=== PATIENT | male | born 1950 | race Hispanic/Latino ===

== ENCOUNTER → 2020-07-12 | Day surgery (SDC) | payer MEDICARE, OTHER ==
[2020-07-06 11:00] LABS: BASOPHILS # (AUTO) 0.2 (0.0-0.1); BASOPHILS % 1.7 % (0.0-1.0); EOSINOPHILS # (AUTO) 0.3 (0.0-0.4); EOSINOPHILS % 3.7 % (0.0-6.0); HEMATOCRIT 39.6 % (38.2-49.6); HEMOGLOBIN 12.8 g/dL (14.0-18.0); LYMPHOCYTES % 22.5 % (18.0-39.1); MEAN CORPUSCULAR HEMOGLOBIN 29.8 pg (28-32); MEAN CORPUSCULAR HGB CONC 32.3 g/dL (31-35); MEAN CORPUSCULAR VOLUME 92.1 fL (81-99); MONOCYTES # (AUTO) 0.9 (0.2-0.8); MONOCYTES % 9.8 % (4.4-11.3); NEUTROPHILS # (AUTO) 5.6 (2.1-6.9); NEUTROPHILS % 62.1 % (38.7-80.0); PLATELET COUNT 310 x10e3/uL (140-360); RED CELL DISTRIBUTION WIDTH 14.7 % (11.7-14.4)
[~2020-07-12] MED LIST: ACARBOSE25 MG PO; AMIODARONE HCL200 MG PO; AMIODARONE HCL400 MG PO; ASPIR 8181 MG PO; ATORVASTATIN CA40 MG PO; AVODART0.5 MG PO; CARAFATE1 GM PO; CEFUROXIME250 MG PO; CITALOPRAM HBR20 MG PO; COLACE100 MG PO; Divalproex Sodium PO; FAMOTIDINE20 MG PO; FENTANYL CITRATE/PF 100MCG/2 ML INJ ONE; FERROUS SULFAT325 MG PO; FLAGYL500 MG PO; GLIPIZIDE5 MG PO; LASIX20 MG PO; LOSARTAN POTAS100 MG PO; METFORMIN HCL500 MG PO; METOPROLOL SUCC50 MG PO; MILK OF MA400 MG/5 M PO; MULTIVITAMINS1 EAC6 PO; NITROSTAT0.4 MG; OMEPRAZOLE40 MG PO; PLAVIX75 MG PO; PRAVASTATIN SOD20 MG PO; PROPOFOL IV EMULSION 10 MG/ML 20 ML VIAL ONE; PROTONIX40 MG/ML PO; REGLAN10 MG PO; REGLAN5 MG PO; SENOKOT8.6 MG PO; SEROQUEL25 MG PO; TYLENOL WITH C1 EACH PO; XARELTO20 MG PO; ZOFRAN ODT4 MG PO
[2020-07-12 08:55] VITALS: BP 142/65
== END | disposition home or self-care (01) ==
LOC: OR 05:57
PROVIDERS: ATTEND Internal Medicine Gastroenterology
DX: K29.50 Unspecified chronic gastritis without bleeding (principal); K44.9 Diaphragmatic hernia without obstruction or gangrene; K59.00 Constipation, unspecified; Z71.3 Dietary counseling and surveillance; E66.3 Overweight; I25.10 Atherosclerotic heart disease of native coronary artery without angina pectoris; I25.2 Old myocardial infarction; E11.22 Type 2 diabetes mellitus with diabetic chronic kidney disease; I12.9 Hypertensive chronic kidney disease with stage 1 through stage 4 chronic kidney disease, or unspecified chronic kidney disease; N18.9 Chronic kidney disease, unspecified; Z01.810 Encounter for preprocedural cardiovascular examination; Z01.812 Encounter for preprocedural laboratory examination; Z11.59 Encounter for screening for other viral diseases; Z79.02 Long term (current) use of antithrombotics/antiplatelets; Z79.84 Long term (current) use of oral hypoglycemic drugs; Z68.28 Body mass index [BMI] 28.0-28.9, adult; Z95.5 Presence of coronary angioplasty implant and graft
CPT/HCPCS: 36415 ×2; 43239; 82948; 85025; 88305; 88312; 93005; J2704; U0002; J3010

== ENCOUNTER 2020-09-06 17:01 | Emergency (ER) | payer MEDICARE, OTHER ==
[~2020-09-06] VITALS: Ht 170.2 cm; Wt 78.9 kg
[~2020-09-06 17:01] MED LIST changes: -FENTANYL CITRATE/PF 100MCG/2 ML INJ ONE; -PROPOFOL IV EMULSION 10 MG/ML 20 ML VIAL ONE
[2020-09-06] MEDS ORDERED: ONDANSETRON HCL INJ 2MG/ML 2ML 2 MG/ML VIAL IV STA (17:04)
[2020-09-06] MEDS ORDERED: MORPHINE SULFATE INJ 4 MG/ML INJ 1ML IV PRN (17:15)
[2020-09-06] MEDS ORDERED: SODIUM CHLORIDE 0.9% 1000ML 1,000 ML IV SCH (17:15)
[2020-09-06 17:32] LABS: BILIRUBIN,URINE NEGATIVE (NEGATIVE); CLARITY,URINE CLEAR (CLEAR); COLOR,URINE YELLOW (YELLOW); KETONES,URINE NEGATIVE (NEGATIVE); LEUKOCYTE ESTERASE ,URINE NEGATIVE (NEGATIVE); NITRITE,URINE NEGATIVE (NEGATIVE); PROTEIN,URINE DIPSTICK NEGATIVE (NEGATIVE); URINE UROBILINOGEN 1 mg/dL (0.2 - 1)
[2020-09-06 17:37] LABS: BASOPHILS # (AUTO) 0.2 (0.0-0.1); EOSINOPHILS # (AUTO) 0.3 (0.0-0.4); EOSINOPHILS % 2.7 % (0.0-6.0); HEMATOCRIT 42.8 % (38.2-49.6); HEMOGLOBIN 13.6 g/dL (14.0-18.0); LYMPHOCYTES # (AUTO) 2.7 (1.0-3.2); LYMPHOCYTES % 22.8 % (18.0-39.1); MEAN CORPUSCULAR HGB CONC 31.8 g/dL (31-35); MEAN CORPUSCULAR VOLUME 88.1 fL (81-99); MONOCYTES # (AUTO) 1.2 (0.2-0.8); MONOCYTES % 10.2 % (4.4-11.3); NEUTROPHILS # (AUTO) 7.2 (2.1-6.9); NEUTROPHILS % 61.9 % (38.7-80.0); PLATELET COUNT 395 x10e3/uL (140-360); RED BLOOD COUNT 4.86 x10e6/uL (4.3-5.7); RED CELL DISTRIBUTION WIDTH 16.2 % (11.7-14.4)
[2020-09-06 17:43] LABS: BACTERIA,URINE FEW /HPF
[2020-09-06 17:55] LABS: ALANINE AMINOTRANSFERASE 42 IU/L (0-55); ALBUMIN 3.2 g/dL (3.5-5.0); ALBUMIN/GLOBULIN RATIO 0.8 (0.8-2.0); ALKALINE PHOSPHATASE 144 IU/L (40-150); BLOOD UREA NITROGEN 26 mg/dL (7-26); BUN/CREATININE RATIO 20 (6-25); CALCIUM 9.1 mg/dL (8.4-10.2); CARBON DIOXIDE 19 mmol/L (22-29); CHLORIDE 108 mmol/L (98-107); CREATINE KINASE 194 IU/L (30-200); CREATININE, SERUM 1.28 mg/dL (0.72-1.25); EST GLOMERULAR FILTRATION RATE 55 ML/MIN (60-); GLUCOSE 115 mg/dL (74-118); SODIUM 139 mmol/L (136-145)
[2020-09-06] MEDS ORDERED: SODIUM CHLORIDE 0.9% 50ML 50 ML ONE (18:07)
[2020-09-06] MEDS ORDERED: IOPAMIDOL 370 MG/ML 200 ML INFUS..BTL INJ ONE (18:08)
[2020-09-06] MEDS ORDERED: ONDANSETRON HCL 4 MG ORAL DISINTEGRATING TAB PO ONE (19:45)
[2020-09-06] MEDS ORDERED: ONDANSETRON HCL 4 MG ORAL DISINTEGRATING TAB ONE (19:51)
[2020-09-17] MEDS ORDERED: LOSARTAN POTASS25 MG PO (11:23)
[2020-09-17] MEDS ORDERED: TOPROL XL50 MG PO (11:23)
[2020-09-17] MEDS ORDERED: K DUR10 MEQ PO (11:24)
== END 2020-09-06 19:51 | disposition home or self-care (01) ==
LOC: ER 17:09
DX: R10.31 Right lower quadrant pain (principal); R11.0 Nausea; I10 Essential (primary) hypertension; E11.9 Type 2 diabetes mellitus without complications; E78.5 Hyperlipidemia, unspecified; K21.9 Gastro-esophageal reflux disease without esophagitis; I25.2 Old myocardial infarction; Z95.1 Presence of aortocoronary bypass graft; Z95.0 Presence of cardiac pacemaker
CPT/HCPCS: 36415; 74177; 80053; 81001; 82550; 82553; 83690; 84484; 85025; 99284; J2270; J2405; J7030; Q0162; Q9967

== ENCOUNTER 2020-09-11 19:58 | Inpatient (IN) | payer OTHER ==
[~2020-09-11] VITALS: Ht 170.2 cm; Wt 83.5 kg
--- OUTSIDE RECORDS SUMMARY | 2020-09-11 21:20 | XMS REPORT | Continuity of Care Document ---
Author Author [facility] t Organization [facility] Address [address] [place] [address] Phone Unavailable Care Team Providers Care Lapidary Apprentice Name Role Phone MD BRENDA PERALTA PCP Cole SEVERINO Attdigna Unavailable Payers Payer Name Policy Type Policy Number Effective Date Expiration Date Cole Murguia [id number] 2013 00:00:00 [facility] Problems Condition Name Condition Details Condition Category Status Onset Date Resolution Date Last Treatment Date Treating Clinician Comments Source Pneumonia Problem Active 2015-09-22 00:00:00 [facility] Upper gastrointestinal hemorrhage Problem Active 2015-09-18 00:00: 00 [facility] Anemia Problem Active 2015-09-18 00:00:00 [facility] Cardiomegaly Problem Active 2015-09-18 00:00:00 [facility] Pleural effusion on right Problem Active 2015-09-18 00:00:00 [facility] CHF (congestive heart failure) Problem Active 2015-08-29 00:00:00 [facility] Anemia Problem Active 2015-08-29 00:00:00 [facility] Chronic abdominal pain Problem Active 2015-08-29 00:00:00 [facility] Hyperbilirubinemia Problem Active 2015-08-29 00:00:00 [facility] Abscess of gallbladder Problem Active 2015-07-24 00:00:00 [facility] Biliary colic Problem Active 2015-07-06 00:00:00 [facility] CHF (congestive heart failure) Problem Active 2015-07-06 00:00:00 [facility] Diabetes mellitus Problem Active 2015-07-06 00:00:00 [facility] Abdominal pain Problem Active 2015-07-06 00:00:00 [facility] Congestive heart failure Problem Active 2015-06-24 00:00:00 [facility] Cardiomegaly Problem Active 2015-06-24 00:00:00 [facility] Anemia Problem Active 2015-06-24 00:00:00 [facility] Hypoxia Problem Active 2015-06-24 00:00:00 [facility] Hypokalemia Problem Active 2015-06-24 00:00:00 [facility] Atrial fibrillation Problem Active 2015-04-05 00:00:00 [facility] Right lower quadrant abdominal pain Problem Active [facility] Allergies, Adverse Reactions, Alerts Allergy Name Allergy Type Status Severity Reaction(s) Onset Date Inacti ve Date Treating Clinician Comments Source fentanyl DA Active 2019-10-01 00:00:00 [facility] divalproex sodium DA Active [place] 2019-09-30 00:00:00 [facility] zolpidem DA Active [place] 2019-09-30 00:00:00 [facility] quetiapine DA Active [place] 2019-09-30 00:00:00 [facility] divalproex sodium DA Active [place] 2019-08-13 00:00:00 [facility] zolpidem DA Active [place] 2019-08-13 00:00:00 [facility] quetiapine DA Active [place] 2019-08-13 00:00:00 [facility] divalproex sodium DA Active [place] 2018-01-29 00:00:00 [facility] zolpidem DA Active [place] 2018-01-29 00:00:00 [facility] quetiapine DA Active [place] 2018-01-29 00:00:00 [facility] Family History Family Member Diagnosis Comments Start Date Stop Date Source 32 FATHER Family history of hypertension [facility] 32 MOTHER Family history of hypertension [facility] Social History Social Habit Start Date Stop Date Quantity Comments Source Sex Assigned At 1950 00:00:00 1950 00:00:00 Male [facility] Medications Ordered Medication Name Filled Medication Name Start Date Stop Da te Current Medication? Ordering Clinician Indication Dosage Frequency Signature (SIG) Comments Components Source Quetiapine Fumarate (Seroquel) 25 Mg TABLET Quetiapine Fumarate (Seroquel) 25 Mg TABLET 2015-10-07 08:35:00 Yes 25 Bedtime [facility] Sennosides (Senokot) 8.6 Mg TABLET Sennosides (Senokot) 8.6 Mg TABLET 2015-10-07 08:35:00 Yes 8.6 Every 12 Hours [facility] Divalproex Sodium Divalproex Sodium 2015-10-07 08:35:00 2016-01-31 00 :00:00 No 250 Twice A Day [facility] Docusate Sodium (Colace) 100 Mg CAP Docusate Sodium (Colace) 100 Mg CAP 2015-10-07 08:35:00 2016-01-31 00:00:00 No 100 Twice A Day [facility] Magnesium Hydroxide (Milk Of Magnesia) 400 Mg/5 Ml ORA L.SUSP Magnesium Hydroxide (Milk Of Magnesia) 400 Mg/5 Ml ORAL.SUSP 2015-10-07 08:35:00 2016-01-31 00 :00:00 No 30 Daily [facility] Ferrous Sulfate Ferrous Sulfate 2015-08-31 21:18:00 Yes 325 Twice A Day [facility] Multivitamin With Minerals (Multivitamins With Mineral s) 1 Each TABLET Multivitamin With Minerals (Multivitamins With Minerals) 1 Each TABLET 2015-08-31 21:18:00 Yes 1 Twice A Day [facility] Metoclopramide Hcl (Reglan) 10 Mg TABLET Metoclopramid e Hcl (Reglan) 10 Mg TABLET 2015-08-31 21:08:00 2016-01-31 00:00:00 No 10 Before Meals And At Bedtime [facility] Metronidazole (Flagyl) 500 Mg TABLET Metronidazole (Flagyl) 500 Mg TABLET 2015-07-29 15:16:00 2015-09-19 00:00:00 No 250 Four Times Daily [facility] Ondansetron (Zofran Odt) 4 Mg TAB.RAPDIS Ondansetron ( Zofran Odt) 4 Mg TAB.RAPDIS 2015-07-29 15:15:00 2015-10-04 00:00:00 No 4 Q4-6H Prn [facility] Cefuroxime Axetil (Cefuroxime) 250 Mg TABLET Cefuroxim e Axetil (Cefuroxime) 250 Mg TABLET 2015-07-29 15:15:00 2015-09-19 00:00:00 No 500 Every 12 Hours [facility] Pantoprazole Sod (Protonix) 40 Mg/Ml SUSP Pantoprazole Sod (Protonix) 40 Mg/Ml SUSP 2015-07-29 15:13:00 Yes 40 Bid@0730,21 [facility] Acetaminophen With Codeine (Tylenol With Codeine #3 Ta blet) 1 Each TABLET Acetaminophen With Codeine (Tylenol With Codeine #3 Tablet) 1 Each TABLET 2015-07-20 13:57:00 2016-01-31 00:00:00 No 300 Every 4 Hours as needed for Abdominal Pain [facility] Acetaminophen With Codeine (Tylenol With Codeine #3 Ta blet) 1 Each TABLET Acetaminophen With Codeine (Tylenol With Codeine #3 Tablet) 1 Each TABLET 2015-07-09 15:48:00 2015-07-20 00:00:00 No 300 Every 4 Hours as needed for Abdominal Pain [facility] Metoclopramide Hcl (Reglan) 5 Mg TABLET Metoclopramide Hcl ( Reglan) 5 Mg TABLET 2015-07-08 16:56:00 2015-08-31 00:00:00 No 1 Three Times A Day as needed for Nausea [facility] Metoprolol Succinate Metoprolol Succinate 2015-07-08 16:53:00 Yes 50 Twice A Day [facility] Amiodarone Hcl Amiodarone Hcl 2015-07-08 16:51:00 Yes 1 Daily [facility] Acarbose Acarbose Yes 25 Three Times Daily With Meals [facility] Aspirin (Aspir 81) 81 Mg TABLET. Aspirin (Aspir 81) 81 Mg TABLET. Yes 81 Daily [facility] Atorvastatin Calcium Atorvastatin Calcium Yes 40 Bedtime [facility] Citalopram Hydrobromide (Citalopram Hbr) 20 Mg TABLET Citalopram Hydrobromide (Citalopram Hbr) 20 Mg TABLET Yes 20 Daily [facility] Clopidogrel Bisulfate (Plavix) 75 Mg TABLET Clopidogre l Bisulfate (Plavix) 75 Mg TABLET Yes 75 Daily [facility] Furosemide (Lasix) 20 Mg TABLET Furosemide (Lasix) 20 Mg TABLET Yes 40 Daily [facility] Glipizide Glipizide Yes 5 Twice A Day [facility] Losartan Potassium Losartan Potassium Yes 100 Da deandra [facility] Metformin Hcl Metformin Hcl Yes 500 Twice A Day [facility] Nitroglycerin (Nitrostat) 0.4 Mg TAB.SUBL Nitroglyceri n (Nitrostat) 0.4 Mg TAB.SUBL Yes [facility] Sucralfate (Carafate) 1 Gm TABLET Sucralfate (Carafate) 1 Gm TABLET Yes 1 Three Times A Day [facility] Clopidogrel Bisulfate (Plavix) 75 Mg TABLET Clopidogre l Bisulfate (Plavix) 75 Mg TABLET 2016-01-31 00:00:00 No 75 Daily [facility] Rivaroxaban (Xarelto) 20 Mg TABLET Rivaroxaban (Xarelto) 20 Mg T ABLET 2016-01-31 00:00:00 No 20 Daily [facility] Dutasteride (Avodart) 0.5 Mg CAPSULE Dutasteride (Avodart) 0.5 M g CAPSULE 2015-10-04 00:00:00 No .5 Daily [facility] Omeprazole Omeprazole 2015-07-29 00:00:00 No 20 Twi ce A Day [facility] Amiodarone Hcl Amiodarone Hcl 2015-07-08 00:00:00 No 200 Daily [facility] Metoprolol Succinate Metoprolol Succinate 2015-07-08 00:00:00 No 50 Daily [facility] Pravastatin Sodium Pravastatin Sodium 2015-04-05 00:00:00 No 220 Daily [facility] Vital Signs Vital Name Observation Time Observation Value Comments Source Oxygen saturation by Pulse oximetry 2020-09-06 18:59:00 100 /min [facility] Weight 2020-09-06 17:01:00 174 [lb_av] [facility] BMI (Body Mass Index) 2020-09-06 17:01:00 27.3 kg/m2 [facility] Heart Rate 2020-07-12 09:55:00 60 /min [facility] Respiratory rate 2020-07-12 09:55:00 18 /min [facility] BP Systolic 2020-07-12 09:55:00 142 mm[Hg] [facility] BP Diastolic 2020-07-12 09:55:00 65 mm[Hg] [facility] Body Temperature 2020-07-12 09:12:00 98.1 [degF] [facility] Procedures Procedure Date / Time Performed Performing Clinician Sour e Computed tomography of abdomen and pelvis with contrast 00:00:00 [facility] EGD BIOPSY SINGLE/MULTIPLE 2020-07-12 00:00:00 [facility] Plan of Care Planned Activity Planned Date Details Comments Source Instructions Abdominal Pain - Adult [facility] Encounters Start Date/Time End Date/Time Encounter Type Admission Type Attendi [facility] Care Department Encounter ID Source 2019-11-12 17:51:00 Inpatient E [facility] 75 [id number] [facility] 2020-09-06 17:09:00 2020-09-06 17:09:00 Registered Emergency Room 1 VIRIDIANA SEVERINO [facility] [id number] CH I [facility] 2020-07-12 06:57:00 2020-07-12 06:57:00 Registered Surgical Day Care [facility] [id number] [facility] Results Test Description Test Time Test Comments Results Result Comments Source CT ABDOMEN/PELVIS W 2020-09-06 18:26:00 [facility] 1950 Sex: M [facility] [address] [place] [address] Patient Name: NATALIA KINCAID MR #: [id number] : 1950 Age/Sex: 70/M Req #: [id number] Adm Physician: Ordered by: VIRIDIANA SEVERINO DO Report #: [id number] Location: ER Room/Bed: Procedure: [id number] CT/CT ABDOMEN/PELVIS W Exam Date: 09/06/20 Exam Time: 1800 REPORT STATUS: Signed EXAM: CT Abdomen and Pelvis WITH contrast INDICATION: Right lower quadrant pain COMPARISON: None. TECHNIQUE: Abdomen and pelvis were scanned utilizing a multidetector helical scanner from the lung base to the pubic symphysis after administration of IV contrast. Coronal and sagittal reformations were obtained. Routine protocol was performed. Scan was performed when during portal venous phase. IV CONTRAST: 100 mL of Isovue 370 ORAL CONTRAST: None COMPLICATIONS: None RADIATION DOSE: Total DLP: 418 mGy*cm Estimated effective dose: (DLP x 0.015 x size factor) mSv CTDIvol has bee n reviewed. It is below the limits set by the Radiation Protocol Committee (RPC). Dose modulation, iterative reconstruction, and/or weight based adjustment of the mA/kV was utilized to reduce the radiation dose to as low as reasonably achievable. FINDINGS: LINES and TUBES: None. LOWER THORAX: Small bilateral pleural effusion. There is left atrial enlargement measuring up to 5 cm. Partially imaged cardiac pace maker leads. HEPATOBILIARY: No focal hepatic lesions. No biliary ductal dilation. GALLBLADDER: There are cholecystectomy clips. SPLEEN: No splenomegaly. There is multifocal nodular hyperdensities in the spleen which measure up to 8 mm. PANCREAS: No focal masses or ductal dilatation. ADRENALS: No adrenal nodules KIDNEYS/URETERS: Kidneys enhance symmetrically. No hydronephrosis. 1.4 cm cortical cyst in the inferior pole of the right kidney. No stones. GI TRACT: No abnormal distention, wall thickening, or evidence of bowel obstruction. There are diverticula within the colon without evidence of diverticulitis. Appendix is not clearly identified. There is however no fat stranding or adenopathy in the right lower quadrant to suggest appendicitis. PELVIC ORGANS/BLADDER: Unremarkable. LYMPH NODES: No lymphadenopathy. VESSELS: There is moderate atherosclerotic disease in the aorta and major arterial branches. PERITONEUM / RETROPERITONEUM: No free air or fluid. BONES: There are degenerative changes in the spine. SOFT TISSUES: Unremarkable. IMPRESSION: 1. No acute abdominopelvic abnormality identified. 2. Diverticulosis coli without evidence of diverticulitis. 3. Multifocal nodular hyperdensities in the spleen which likely represent flash filling hemangiomas. 4. Cardiomegaly. 5. Small bilateral pleural effusion. Signed by: Bryn Fortune MD on 09/06/2020 6:50 PM Dictated By: BRYN FORTUNE MD 48 Transcribed By: JAKOB on 09/06/201849 COPY TO: VIRIDIANA SEVERINO DO Blood leukocytes automated count (number/volume) 2020-09-06 17:29:00 Test Item White Blood Count (test code = 6690-2) 11.71 10*3/uL 4.8-10.8 [facility] automated count (number/volume)2020-09-06 17:29:00* Test Item Value Reference Range Interpretation Comments Red Blood Count (test code = 789-8) 4.86 10*6/mL 4.3-5.7 [facility] hemoglobin measurement (moles/volume)2020-09-06 17:29:00* Test Item Value Reference Range Interpretation Comments Hemoglobin (test code = 27667-2) 13.6 g/dL 14.0-18.0 [facility] blood hematocrit (volume fraction)2020-09-06 17:29:00* Test Item Value Reference Range Interpretation Comments Hematocrit (test code = 4544-3) 42.8 % 38.2-49.6 [facility] erythrocyte mean corpuscular [id number] 17:29:00* Test Item Value Reference Range Interpretation Comments Mean Corpuscular Volume (test code = 787-2) 88.1 81-99 [facility] eryth[facility] mean corpuscular hemoglobin (mass per erythrocyte)2020-09-06 17:29:00* Test Item Value Reference Range Interpretation Comments Mean Corpuscular Hemoglobin (test code = 785-6) 28.0 pg 28-32 [facility] eryth[facility] mean corpuscular hemoglobin concentration measurement (mass/volume)2020-09-06 17:29:00* Test Item Value Reference Range Interpretation Comments Mean Corpuscular Hemoglobin Concent (test code = 786-4) 31.8 g/dL 31-35 [facility]anoRDW [id number] 17:29:00* Test Item Value Reference Range Interpretation Comments Red Cell Distribution Width (test code = 91789-0) 16.2 % 11.7 -14.4 [facility] platelet count (count/volume)2020-09-06 17:29:00* Test Item Value Reference Range Interpretation Comments Platelet Count (test code = 777-3) 395 10*3/uL 140-360 [facility] blood segmented neutrophil count as percentage of total [id number] 17:29:00* Test Item Value Reference Range Interpretation Comments Neutrophils (%) (Auto) (test code = 34284-3) 61.9 % 38.7-80.0 [facility] lymphocyte count as percentage ot total [id number] 17:29:00* Test Item Value Reference Range Interpretation Comments Lymphocytes (%) (Auto) (test code = 736-9) 22.8 % 18.0-39.1 [facility] blood monocyte count as percentage of total [id number] 17:29:00* Test Item Value Reference Range Interpretation Comments Monocytes (%) (Auto) (test code = 5905-5) 10.2 % 4.4-11.3 [facility] eosinophil count as percentage of total [id number] 17:29:00* Test Item Value Reference Range Interpretation Comments Eosinophils (%) (Auto) (test code = 713-8) 2.7 % 0.0-6.0 [facility] blood basophil count as percentage of total [id number] 17:29:00* Test Item Value Reference Range Interpretation Comments Basophils (%) (Auto) (test code = 706-2) 2.0 % 0.0-1.0 [facility]anoFluoroscopic procedure less than one hour [id number] 17:29:00* Test Item Value Reference Range Interpretation Comments IM GRANULOCYTES % (test code = IM GRANULOCYTES %) 0.4 % 0.0- 1.0 [facility] blood neutrophil count 2020-09-06 17:29:00* Test Item Value Reference Range Interpretation Comments Neutrophils # (Auto) (test code = 751-8) 7.2 2.1-6.9 [facility] lymphocytes count (number/volume) 2020-09-06 17:29:00* Test Item Value Reference Range Interpretation Comments Lymphocytes # (Auto) (test code = 65597-8) 2.7 1.0-3.2 [facility] monocytes automated count (number/volume)2020-09-06 17:29:00* Test Item Value Reference Range Interpretation Comments Monocytes # (Auto) (test code = 742-7) 1.2 0.2-0.8 [facility] blood eosinophil count 2020-09-06 17:29:00* Test Item Value Reference Range Interpretation Comments Eosinophils # (Auto) (test code = 711-2) 0.3 0.0-0.4 [facility] blood basophil count (count/volume)2020-09-06 17:29:00* Test Item Value Reference Range Interpretation Comments Basophils # (Auto) (test code = 704-7) 0.2 0.0-0.1 [facility]anoFluoroscopic procedure less than one hour [id number] 17:29:00* Test Item Value Reference Range Interpretation Comments Absolute Immature Granulocyte (auto (jovita t code = Absolute Immature Granulocyte (auto) 0.05 10*3/uL 0-0.1 [facility] plasma sodium measurement (moles/volume)2020-09-06 17:29:00* Test Item Value Reference Range Interpretation Comments Sodium Level (test code = 2951-2) 139 mmol/L 136-145 [facility]villeerum or plasma potassium measurement (moles/volume)2020-09-06 17:29:00* Test Item Value Reference Range Interpretation Comments Potassium Level (test code = 2823-3) 4.0 mmol/L 3.5-5.1 [facility] or plasma chloride measurement (moles/volume)2020-09-06 17:29:00* Test Item Value Reference Range Interpretation Comments Chloride Level (test code = 2075-0) 108 mmol/L 98-107 [facility]villeerum or plasma carbon dioxide, total measurement (moles/volume)2020-09-06 17:29:00* Test Item Value Reference Range Interpretation Comments Carbon Dioxide Level (test code = 2028-9) 19 mmol/L 22- [facility]villeerum or plasma anion [id number] 17:29:00* Test Item Value Reference Range Interpretation Comments Anion Gap (test code = 40355-2) 16.0 mmol/L 8-16 [facility]ville[facility] or plasma urea nitrogen measurement (mass/volume)2020-09-06 17:29:00* Test Item Value Reference Range Interpretation Comments Blood Urea Nitrogen (test code = 3094-0) 26 mg/dL 7-26 [facility]ville[facility]um or plasma creatinine measurement (mass/volume)2020-09-06 17:29:00* Test Item Value Reference Range Interpretation Comments Creatinine (test code = 2160-0) 1.28 mg/dL 0.72-1.25 [facility]ville[facility]um or plasma urea nitrogen/creatinine mass [id number] 17:29:00* Test Item Value Reference Range Interpretation Comments BUN/Creatinine Ratio (test code = 3097-3) 20 6-25 [facility]ated glomerular filtration rate (GFR) [id number] 17:29:00* Test Item Value Reference Range Interpretation Comments Estimat Glomerular Filtration Rate (test code = 173267887) 55 mL/mi n >60 Ranges were taken from the National Kidney Disease Education Program and the [facility] Foundation literature.Reference ranges:60 or greater: Lfylfg32-63 ( for 3 consecutive months): Chronic kidney disease 15 or less: Kidney failureB[facility]anoGlucose [id number] 17:29:00* Test Item Value Reference Range Interpretation Comments Glucose Level (test code = NBE6252) 115 mg/dL 74-118 [facility]villeerum or plasma calcium measurement (mass/volume)2020-09-06 17:29:00* Test Item Value Reference Range Interpretation Comments Calcium Level (test code = 52354-4) 9.1 mg/dL 8.4-10.2 [facility]villeerum or plasma total bilirubin measurement (mass/volume)2020-09-06 17:29:00* Test Item Value Reference Range Interpretation Comments Total Bilirubin (test code = 1975-2) 1.0 mg/dL 0.2-1.2 [facility]anoFluoroscopic procedure less than one hour [id number] 17:29:00* Test Item Value Reference Range Interpretation Comments Aspartate Amino Transf (AST/SGOT) (test code = Aspartate Amino Transf (AST/SGOT)) 48 [IU]/L 5-34 [facility]villeerum or plasma alanine aminotransferase measurement (enzymatic activity/volume)2020-09-06 17:29:00* Test Item Value Reference Range Interpretation Comments Alanine Aminotransferase (ALT/SGPT) (test code = 1742-6) 42 [IU]/L 0-55 [facility]ville[facility] or plasma protein measurement (mass/volume)2020-09-06 17:29:00* Test Item Value Reference Range Interpretation Comments Total Protein (test code = 2885-2) 7.2 g/dL 6.5-8.1 [facility]villeerum or plasma albumin measurement (mass/volume)2020-09-06 17:29:00* Test Item Value Reference Range Interpretation Comments Albumin (test code = 1751-7) 3.2 g/dL 3.5-5.0 [facility]asma globulin measurement (mass/volume) 2020-09-06 17:29:00* Test Item Value Reference Range Interpretation Comments Globulin (test code = 15261-3) 4.0 g/dL 2.3-3.5 [facility]villeerum or plasma albumin/globulin mass [id number] 17:29:00* Test Item Value Reference Range Interpretation Comments Albumin/Globulin Ratio (test code = 1759-0) 0.8 0.8-2.0 [facility]ville[facility]um or plasma alkaline phosphatase measurement (enzymatic activity/volume)2020-09-06 17:29:00* Test Item Value Reference Range Interpretation Comments Alkaline Phosphatase (test code = 6768-6) 144 [IU]/L 40-150 [facility] creatine kinase measurement (enzymatic activity/volume)2020-09-06 17:29:00* Test Item Value Reference Range Interpretation Comments Creatine Kinase (test code = 2157-6) 194 [IU]/L 30-200 [facility] creatine kinase MB measurement (mass/volume)2020-09-06 17:29:00* Test Item Value Reference Range Interpretation Comments Creatine Kinase MB (test code = 91613-8) 11.10 ng/mL 0-4.3 [facility] troponin i.cardiac measurement (mass/volume)2020-09-06 17:29:00* Test Item Value Reference Range Interpretation Comments Troponin I (test code = 82375-1) < 0.05 ng/mL 0.0-0.40 [facility] lipase measurement (enzymatic activity/volume)2020-09-06 17:29:00* Test Item Value Reference Range Interpretation Comments Lipase (test code = 3040-3) 17 U/L 8-78 [facility] color [id number] 17:12:00* Test Item Value Reference Range Interpretation Comments Urine Color (test code = 5778-6) YELLOW YELLOW [facility] [id number] 17:12:00* Test Item Value Reference Range Interpretation Comments Urine Clarity (test code = 81592-5) CLEAR CLEAR [facility] gravity of Urine by Test strip 2020-09-06 17:12:00* Test Item Value Reference Range Interpretation Comments Urine Specific [place] (test code = 5811-5) 1.020 1.010-1.02 5 [facility] pH measurement by automated test [id number] 17:12:00* Test Item Value Reference Range Interpretation Comments Urine pH (test code = 64491-5) 7 5-7 [facility] leukocyte esterase detection by iqfgfpin3731-92-60 17:12:00* Test Item Value Reference Range Interpretation Comments Urine Leukocyte Esterase (test code = 5799-2) NEGATIVE NEGATIVE [facility]rine nitrite [id number] 17:12:00* Test Item Value Reference Range Interpretation Comments Urine Nitrite (test code = 84215-5) NEGATIVE NEGATIVE [facility] protein measurement by test strip (mass/volume)2020-09-06 17:12:00* Test Item Value Reference Range Interpretation Comments Urine Protein (test code = 5804-0) NEGATIVE NEGATIVE [facility] glucose [id number] 17:12:00* Test Item Value Reference Range Interpretation Comments Urine Glucose (UA) (test code = 2349-9) NEGATIVE NEGATIVE [facility] ketones detection by automated test [id number] 17:12:00* Test Item Value Reference Range Interpretation Comments Urine Ketones (test code = 89971-0) NEGATIVE NEGATIVE [facility]rine urobilinogen measurement by test strip (mass/volume)2020-09-06 17:12:00* Test Item Value Reference Range Interpretation Comments Urine Urobilinogen (test code = 85092-3) 1 mg/dL 0.2-1 [facility] total bilirubin measurement (mass/volume)2020-09-06 17:12:00* Test Item Value Reference Range Interpretation Comments Urine Bilirubin (test code = 1978-6) NEGATIVE NEGATIVE [facility] erythrocytes abehnxcfv1463-73-07 17:12:00* Test Item Value Reference Range Interpretation Comments Urine Blood (test code = 31557-2) NEGATIVE NEGATIVE [facility]anoAutomated urine sediment leukocyte count by microscopy (number/high power field)2020-09-06 17:12:00* Test Item Value Reference Range Interpretation Comments Urine WBC (test code = 5821-4) NONE /[HPF] 0-5 [facility]anoErythrocytes detection in urine sediment by light sdkzfgeymv2780-04-44 17:12:00* Test Item Value Reference Range Interpretation Comments Urine RBC (test code = 85242-6) NONE /[HPF] 0-5 [facility]anoBacteria detection in urine sediment by light ksamutmzkg5960-50-96 17:12:00* Test Item Value Reference Range Interpretation Comments Urine Bacteria (test code = 05032-2) FEW /[HPF] NONE [facility]anoEpithelial cells detection in urine sediment by light vsuxjvkeqj9977-03-12 17:12:00* Test Item Value Reference Range Interpretation Comments Urine Epithelial Cells (test code = 82146-3) NONE /[LPF] NONE [facility] PlanoCapillary blood glucose measurement by glucometer (mass/volume)2020-07-12 07:38:00* Test Item Value Reference Range Interpretation Comments Bedside Glucose (test code = 90067-5) 122 mg/dL 70-120 Meter ID: [id number] Scott and [facility] PlanoFluoroscopic procedure less than one hour ntgrcalz1555-57-00 13:10:00* Test Item Value Reference Range Interpretation Comments Coronavirus (PCR) (test code = Coronavirus (PCR)) NOT DETECTED NOTD ETECTED obopay Aptima SARS-CoV-2 assay is a nucleic amplification test intended for the qualitative detection of RNA from SARS-CoV-2 from nasopharyngeal (DUCTFIXING PLUMBER) specimens . It is used under Emergency Use Authorization (EUA) by FDA.A positive result is indicative of the presence of SARS-CoV-2 RNA. Clinical correlation with patient history and other diagnostic information is necessary to determine patient infe ction status.A negative (Not Detected) result does not preclude SARS-CoV-2 infec tion. Clinical Correlation with patient history and other diagnostic information should be used in patient management decisions.Invalid: Unable to generate a va lid result on this specimen. Please submit a new specimen for reprat testing oc clinically indicated.Tesing performed by:[facility] [address] [place] [address] [id number], Moi Simpson MD, PhD [facility] PlanoGLUBED2019-12-17 19:46:00* Test Item Value Reference Range Interpretation Comments GLUBED (test code = GLUBED) 147 mg/dL 74-106 H Performed by certified cone machine operator at [facility] [id number] 12:20:00* Test Item Value Reference Range Interpretation Comments GLUBED (test code = GLUBED) 181 mg/dL 74-106 H Performed by certified cone machine operator at [facility] [id number] 12:13:00* Test Item Value Reference Range Interpretation Comments GLUBED (test code = GLUBED) 179 mg/dL 74-106 H Performed by certified cone machine operator at [facility] BASIC METABOLIC [id number] 07:24:00* Test Item Value Reference Range Interpretation Comments SODIUM (test code = NA) 138 mmol/L 136-145 N POTASSIUM (test code = K) 3.7 mmol/L 3.5-5.1 N CHLORIDE (test code = CL) 102.0 mmol/L 98-107 N CARBON DIOXIDE (test code = CO2) 25.0 mmol/L 21-32 N ANION GAP (test code = GAP) 14.7 10-20 N GLUCOSE (test code = GLU) 192 mg/dL 74-106 H BLOOD UREA NITROGEN (test code = BUN) 12 mg/dL 7-18 N GLOMERULAR FILTRATION RATE (test code = GFR) 46 mL/min >=60 Estimated GFR by using Modified MDRD formula.Chronic kidney disease is defined as either kidney damageor GFR <60 mL/min/1.73 m2 for >3 months. CREATININE (test code = CREAT) 1.50 mg/dL 0.7-1.3 H BUN/CREATININE RATIO (test code = BUN/CREA) 8.0 10-20 L CALCIUM (test code = CA) 8.4 mg/dL 8.5-10.1 L [id number] 07:24:00* Test Item Value Reference Range Interpretation Comments PHOSPHORUS (test code = PHOS) 3.5 mg/dL 2.5-4.9 N [id number] 07:24:00* Test Item Value Reference Range Interpretation Comments MAGNESIUM (test code = MAG) 1.6 mg/dL 1.8-2.4 L BASIC METABOLIC [id number] 07:13:00* Test Item Value Reference Range Interpretation Comments SODIUM (test code = NA) 138 mmol/L 136-145 N POTASSIUM (test code = K) 3.7 mmol/L 3.5-5.1 N CHLORIDE (test code = CL) 102.0 mmol/L 98-107 N CARBON DIOXIDE (test code = CO2) mmol/L 21-32 ANION GAP (test code = GAP) 10-20 GLUCOSE (test code = GLU) mg/dL 74-106 BLOOD UREA NITROGEN (test code = BUN) mg/dL 7-18 GLOMERULAR FILTRATION RATE (test code = GFR) mL/min >=60 CREATININE (test code = CREAT) mg/dL 0.7-1.3 BUN/CREATININE RATIO (test code = BUN/CREA) 10-20 CALCIUM (test code = CA) mg/dL 8.5-10.1 [id number] 07:13:00* Test Item Value Reference Range Interpretation Comments PHOSPHORUS (test code = PHOS) mg/dL 2.5-4.9 [id number] 07:13:00* Test Item Value Reference Range Interpretation Comments MAGNESIUM (test code = MAG) mg/dL 1.8-2.4 [id number] 21:37:00* Test Item Value Reference Range Interpretation Comments GLUBED (test code = GLUBED) 199 mg/dL 74-106 H [facility] certified cone machine operator [facility] CenterNotified Nurse~ [id number] 15:49:00* Test Item Value Reference Range Interpretation Comments GLUBED (test code = GLUBED) 91 mg/dL 74-106 N Performed by certified cone machine operator at [facility] BASIC METABOLIC [id number] 15:20:00* Test Item Value Reference Range Interpretation Comments SODIUM (test code = NA) 135 mmol/L 136-145 L POTASSIUM (test code = K) 2.8 mmol/L 3.5-5.1 Re sults called to [id number] by V.LAB.LT 10/17/19 1519Critical results verified and read back by Nurse? Y CHLORIDE (test code = CL) 101.0 mmol/L 98-107 N CARBON DIOXIDE (test code = CO2) 26.0 mmol/L 21-32 N ANION GAP (test code = GAP) 10.8 10-20 N GLUCOSE (test code = GLU) 98 mg/dL 74-106 N BLOOD UREA NITROGEN (test code = BUN) 13 mg/dL 7-18 N GLOMERULAR FILTRATION RATE (test code = GFR) 40 mL/min >=60 Estimated GFR by using Modified MDRD formula.Chronic kidney disease is defined as either kidney damageor GFR <60 mL/min/1.73 m2 for >3 months. CREATININE (test code = CREAT) 1.70 mg/dL 0.7-1.3 H BUN/CREATININE RATIO (test code = BUN/CREA) 7.6 10-20 L CALCIUM (test code = CA) 8.1 mg/dL 8.5-10.1 L LACTIC [id number] 12:24:00* Test Item Value Reference Range Interpretation Comments LACTIC ACID (test code = LACT) 2.1 mmol/L 0.4-1.9 Results called to [id number] by VKayLABKayKP3 10/17/19 1224Critical results verified and read back by Nurse? [id number] 11:47:00* Test Item Value Reference Range Interpretation Comments GLYCOSYLATED HEMOGLOBIN (HA1C) (test code = GLYHGB) 7.8 % HbA1 SUGGESTED DIAGNOSIS: HbA1C (%) Diabetic >6.4Prediabetes 5.7 - 6.4Normal <5.7 ESTIMATED AVERAGE GLUCOSE (test code = EAG) 177 MG/DL [id number] 10:54:00* Test Item Value Reference Range Interpretation Comments GLUBED (test code = GLUBED) 148 mg/dL 74-106 H Performed by certified cone machine operator at [facility] LACTIC [id number] 10:13:00* Test Item Value Reference Range Interpretation Comments LACTIC ACID (test code = LACT) 2.6 mmol/L 0.4-1.9 HH Results called to [id number] by VKayLABSEA 10/17/19 1013Critical results verified and read back by Nurse? Y [id number] 09:01:00* Test Item Value Reference Range Interpretation Comments GLUBED (test code = GLUBED) 101 mg/dL 74-106 N Performed by certified cone machine operator at [facility] [id number] 07:28:00* Test Item Value Reference Range Interpretation Comments GLUBED (test code = GLUBED) 22 mg/dL 74-106 LL Test performed as P.O.C. by nursing staff.Performed by certified cone machine operator at [facility] CenterDoctor Notified~Notified Nurse~ URINALYSIS [id number] 04:46:00* Test Item Value Reference Range Interpretation Comments UA COLOR (test code = COLU) Light-Yellow YELLOW UA APPEARANCE (test code = APPU) CLEAR CLEAR UA GLUCOSE DIPSTICK (test code = DGLUU) NEGATIVE mg/dL NEGATIVE UA BILIRUBIN DIPSTICK (test code = BILU) NEGATIVE mg/dL NEGATIVE UA KETONE DIPSTICK (test code = KETU) NEGATIVE mg/dL NEGATIVE UA SPECIFIC GRAVITY (test code = SGU) 1.011 1.001-1.035 UA BLOOD DIPSTICK (test code = LORY) Negative mg/dL NEGATIVE UA PH DIPSTICK (test code = LINNETTE) 8.0 5.0-8.0 UA PROTEIN DIPSTICK (test code = PROU) NEGATIVE mg/dL NEGATIVE UA UROBILINIOGEN DIPSTICK (test code = URO) Normal mg/dL NEGATIVE UA NITRITE DIPSTICK (test code = CHRISTIE) NEGATIVE NEGATIVE UA LEUKOCYTE ESTERASE W REFLEX (test code = LEUUR) NEGATIVE Jeronimo/uL NEGATIVE UA WBC (test code = WBCU) 0-5 per HPF 0-5 UA RBC (test code = RBCU) 0-2 #/HPF 0-5 UA EPITHELIAL CELLS (test code = EPIU) FEW per HPF FEW UA BACTERIA (test code = BACU) FEW #/HPF NONE A UA HYALINE CAST (test code = HYALU) 3-5 #/LPF 0-5 UA MUCUS (test code = MUCU) FEW #/LPF FEW Urine Source? Clean CatchURINALYSIS [id number] 04:41:00* Test Item Value Reference Range Interpretation Comments UA COLOR (test code = COLU) Light-Yellow YELLOW UA APPEARANCE (test code = APPU) CLEAR CLEAR UA GLUCOSE DIPSTICK (test code = DGLUU) NEGATIVE mg/dL NEGATIVE UA BILIRUBIN DIPSTICK (test code = BILU) NEGATIVE mg/dL NEGATIVE UA KETONE DIPSTICK (test code = KETU) NEGATIVE mg/dL NEGATIVE UA SPECIFIC GRAVITY (test code = SGU) 1.011 1.001-1.035 UA BLOOD DIPSTICK (test code = LORY) Negative mg/dL NEGATIVE UA PH DIPSTICK (test code = LINNETTE) 8.0 5.0-8.0 UA PROTEIN DIPSTICK (test code = PROU) NEGATIVE mg/dL NEGATIVE UA UROBILINIOGEN DIPSTICK (test code = URO) Normal mg/dL NEGATIVE UA NITRITE DIPSTICK (test code = CHRISTIE) NEGATIVE NEGATIVE UA LEUKOCYTE ESTERASE W REFLEX (test code = LEUUR) NEGATIVE Jeronimo/uL NEGATIVE UA WBC (test code = WBCU) per HPF 0-5 UA RBC (test code = RBCU) per HPF 0-5 UA EPITHELIAL CELLS (test code = EPIU) per HPF Few UA BACTERIA (test code = BACU) per HPF NONE Urine Source? Clean CatchLACTIC [id number] 03:01:00* Test Item Value Reference Range Interpretation Comments LACTIC ACID (test code = LACT) 3.6 mmol/L 0.4-1.9 Results called to [id number] by JOHN 10/17/19 0301Critical results verified and read back by Nurse? Y - XR CHEST 1 [id number] 02:58:00 FAX: Nicki Bender [phone] [place]: St: [facility] FAX: Israel Stanley MD [phone] Name: NATALIA KINCAID [facility] : 1950 Age/S: 69/M [address] [facility] Unit #: [id number] Loc: [place] [address] Phys: Nicki Burr MD Acct: [id number] Dis Date: Status: REG ER PHONE #: [phone] Exam Date: 10/17/2019 0240 FAX #: [phone] Reason: COUGH EXAMS: CPT CODE: [id number] XR CHEST 1 V 35958 DICTATION LOCATION: H48 HISTORY: Male, 69 years of age with COUGH EXAM: CHEST X-RAY, ONE VIEW COMPARISON: 10/03/2019 COMMENT: Frontal view of the chest is provided. Sternotomy wires and AICD again noted. No focal infiltrate, consolidatio n, mass lesion, or effusion is seen. Cardiac silhouette is enlarged. Calci fied plaque seen in aorta. No acute bony abnormalities. IM PRESSION: Cardiomegaly. No acute infiltrate or effusion. Electron ically Signed by Sharon Carbajal MD on 10/17/2019 at 0258 Reported and signed by: Sharon Carbajal MD CC: Nicki Burr MD; Israel Hawkins MD Technologist: Noemi Carlson Trnscrd Date/Time/By: 10/17/2019 (0258) : By: Angie Orig Print D/T: S: 10/17/2019 (0302) PAGE 1 Signed Report [id number] 02:39:00* Test Item Value Reference Range Interpretation Comments GLUBED (test code = GLUBED) 79 mg/dL 74-106 N Performed by certified cone machine operator at [facility] BASIC METABOLIC [id number] 02:39:00* Test Item Value Reference Range Interpretation Comments SODIUM (test code = NA) 139 mmol/L 136-145 N POTASSIUM (test code = K) 3.0 mmol/L 3.5-5.1 L CHLORIDE (test code = CL) 99.0 mmol/L 98-107 N CARBON DIOXIDE (test code = CO2) 28.0 mmol/L 21-32 N ANION GAP (test code = GAP) 15.0 10-20 N GLUCOSE (test code = GLU) 67 mg/dL 74-106 L BLOOD UREA NITROGEN (test code = BUN) 15 mg/dL 7-18 N GLOMERULAR FILTRATION RATE (test code = GFR) 33 mL/min >=60 Estimated GFR by using Modified MDRD formula.Chronic kidney disease is defined as either kidney damageor GFR <60 mL/min/1.73 m2 for >3 months. CREATININE (test code = CREAT) 2.00 mg/dL 0.7-1.3 H BUN/CREATININE RATIO (test code = BUN/CREA) 7.5 10-20 L CALCIUM (test code = CA) 9.8 mg/dL 8.5-10.1 N [id number] 02:39:00* Test Item Value Reference Range Interpretation Comments MAGNESIUM (test code = MAG) 1.7 mg/dL 1.8-2.4 L [id number] 02:39:00* Test Item Value Reference Range Interpretation Comments TROPONIN-I (test code = TROPI) 0.028 ng/mL 0-0.045 N CBC W/O [id number] 02:37:00* Test Item Value Reference Range Interpretation Comments WHITE BLOOD CELL (test code = WBC) 11.1 K/mm3 4.5-12.5 N RED BLOOD CELL (test code = RBC) 5.56 mill/mm3 4.0-5.8 N HEMOGLOBIN (test code = HGB) 16.4 gram/dL 13.0-17.5 N HEMATOCRIT (test code = HCT) 50.4 % 42.0-52.0 N MEAN CELL VOLUME (test code = MCV) 90.6 fL 80-98 N MEAN CELL HGB (test code = MCH) 29.5 picogram 27.0-33.0 N MEAN CELL HGB CONCETRATION (test code = MCHC) 32.5 gram/dL 33.0-36. 0 L RED CELL DISTRIBUTION WIDTH (test code = RDW) 15.3 % 11.6-16. 2 N PLATELET COUNT (test code = PLT) 464 K/mm3 150-450 H MEAN PLATELET VOLUME (test code = MPV) 10.1 fL 6.7-11.0 N CBC W/O [id number] 02:31:00* Test Item Value Reference Range Interpretation Comments WHITE BLOOD CELL (test code = WBC) K/mm3 4.5-12.5 RED BLOOD CELL (test code = RBC) mill/mm3 4.0-5.8 HEMOGLOBIN (test code = HGB) 16.4 gram/dL 13.0-17.5 N HEMATOCRIT (test code = HCT) 50.4 % 42.0-52.0 N MEAN CELL VOLUME (test code = MCV) fL 80-98 MEAN CELL HGB (test code = MCH) picogram 27.0-33.0 MEAN CELL HGB CONCETRATION (test code = MCHC) gram/dL 33.0-36. 0 RED CELL DISTRIBUTION WIDTH (test code = RDW) % 11.6-16. 2 PLATELET COUNT (test code = PLT) K/mm3 150-450 MEAN PLATELET VOLUME (test code = MPV) fL 6.7-11.0 [id number] 01:41:00* Test Item Value Reference Range Interpretation Comments GLUBED (test code = GLUBED) 33 mg/dL 74-106 LL Test performed as P.O.C. by nursing staff.[facility] by certified cone machine operator [facility]Notified [facility]~ [id number] 17:51:00* Test Item Value Reference Range Interpretation Comments GLUBED (test code = GLUBED) 282 mg/dL 74-106 H Performed by certified cone machine operator at [facility] [id number] 12:33:00* Test Item Value Reference Range Interpretation Comments GLUBED (test code = GLUBED) 232 mg/dL 74-106 H Performed by certified cone machine operator at [facility] COMPREHENSIVE METABOLIC [id number] 06:33:00* Test Item Value Reference Range Interpretation Comments SODIUM (test code = NA) 138 mmol/L 136-145 RESU LT VERIFIED BY REPEAT ANALYSIS POTASSIUM (test code = K) 4.2 mmol/L 3.5-5.1 N CHLORIDE (test code = CL) 105.0 mmol/L 98-107 N CARBON DIOXIDE (test code = CO2) 25.0 mmol/L 21-32 N ANION GAP (test code = GAP) 12.2 10-20 N GLUCOSE (test code = GLU) 127 mg/dL 74-106 H BLOOD UREA NITROGEN (test code = BUN) 28 mg/dL 7-18 H RESULT VERIFIED BY REPEAT ANALYSIS GLOMERULAR FILTRATION RATE (test code = GFR) 37 mL/min >=60 Estimated GFR by using Modified MDRD formula.Chronic kidney disease is defined as either kidney damageor GFR <60 mL/min/1.73 m2 for >3 months. CREATININE (test code = CREAT) 1.80 mg/dL 0.7-1.3 H BUN/CREATININE RATIO (test code = BUN/CREA) 15.6 10-20 N TOTAL PROTEIN (test code = PROT) 6.7 gram/dL 6.4-8.2 N ALBUMIN (test code = ALB) 2.9 g/dL 3.4-5.0 L GLOBULIN (test code = GLOB) 3.8 gram/dL 2.7-4.2 N ALBUMIN/GLOBULIN RATIO (test code = A/G) 0.8 0.75-1.50 N CALCIUM (test code = CA) 8.8 mg/dL 8.5-10.1 N BILIRUBIN TOTAL (test code = BILT) 1.20 mg/dL 0.0-1.0 H SGOT/AST (test code = AST) 51 IUnit/L 15-37 H SGPT/ALT (test code = ALT) 156 IUnit/L 12-78 H ALKALINE PHOSPHATASE TOTAL (test code = ALKP) 128 IUnit/L 45-117 H Note change in reference range due to change in reagent. [id number] 05:58:00* Test Item Value Reference Range Interpretation Comments GLUBED (test code = GLUBED) 131 mg/dL 74-106 H Performed by certified cone machine operator at [facility] [id number] 20:48:00* Test Item Value Reference Range Interpretation Comments GLUBED (test code = GLUBED) 155 mg/dL 74-106 H Performed by certified cone machine operator at [facility] [id number] 18:04:00* Test Item Value Reference Range Interpretation Comments GLUBED (test code = GLUBED) 93 mg/dL 74-106 N Performed by certified cone machine operator at [facility] [id number] 12:19:00* Test Item Value Reference Range Interpretation Comments GLUBED (test code = GLUBED) 261 mg/dL 74-106 H Performed by certified cone machine operator at [facility] BASIC METABOLIC [id number] 07:29:00* Test Item Value Reference Range Interpretation Comments SODIUM (test code = NA) 132 mmol/L 136-145 L POTASSIUM (test code = K) 3.0 mmol/L 3.5-5.1 L CHLORIDE (test code = CL) 97.0 mmol/L 98-107 L CARBON DIOXIDE (test code = CO2) 25.0 mmol/L 21-32 N ANION GAP (test code = GAP) 13.0 10-20 N GLUCOSE (test code = GLU) 188 mg/dL 74-106 H BLOOD UREA NITROGEN (test code = BUN) 36 mg/dL 7-18 H GLOMERULAR FILTRATION RATE (test code = GFR) 33 mL/min >=60 Estimated GFR by using Modified MDRD formula.Chronic kidney disease is defined as either kidney damageor GFR <60 mL/min/1.73 m2 for >3 months. CREATININE (test code = CREAT) 2.00 mg/dL 0.7-1.3 H BUN/CREATININE RATIO (test code = BUN/CREA) 17.8 10-20 N CALCIUM (test code = CA) 8.6 mg/dL 8.5-10.1 N BASIC METABOLIC [id number] 07:25:00* Test Item Value Reference Range Interpretation Comments SODIUM (test code = NA) 132 mmol/L 136-145 L POTASSIUM (test code = K) 3.0 mmol/L 3.5-5.1 L CHLORIDE (test code = CL) 97.0 mmol/L 98-107 L CARBON DIOXIDE (test code = CO2) mmol/L 21-32 ANION GAP (test code = GAP) 10-20 GLUCOSE (test code = GLU) mg/dL 74-106 BLOOD UREA NITROGEN (test code = BUN) mg/dL 7-18 GLOMERULAR FILTRATION RATE (test code = GFR) mL/min >=60 CREATININE (test code = CREAT) mg/dL 0.7-1.3 BUN/CREATININE RATIO (test code = BUN/CREA) 10-20 CALCIUM (test code = CA) mg/dL 8.5-10.1 [id number] 05:54:00* Test Item Value Reference Range Interpretation Comments GLUBED (test code = GLUBED) 199 mg/dL 74-106 H Performed by certified cone machine operator at [facility] [id number] 20:51:00* Test Item Value Reference Range Interpretation Comments GLUBED (test code = GLUBED) 164 mg/dL 74-106 H Performed by certified cone machine operator at [facility] - XR C-SPINE 2-3 [id number] 18:24:00 FAX: Israel Stanley MD [phone] [place]: B St: ADM FAX: Buzz Spangler [facility] [phone] Name: NATALIA KINCAID [facility] : 1950 Age[facility]S: 69/M [address] [facility]: [id number] Loc: V.2091 [place] [address] Phys: Buzz Sanchez MD Acct: [id number] Dis Date: Status: ADM IN PHONE #: [phone] Exam Date: 10/09/2019 1745 FAX #: [phone] Reason: NECK PAIN EXAMS: CPT CODE: [id number] XR C-SPINE 2-3 VIEWS 24069 HISTORY: NECK PAIN TECHNIQUE: AP, lateral, and ope n mouth odontoid views of the cervical spine. COMPARISON: No ne FINDINGS: Craniocervical and cervicothoracic jacquelin culations are appropriate. Vertebral body alignment is satisfactory. There is height loss of the C4 and C5 vertebral bodies as well as the C4-C5 and C5-C6 disc spaces. The C7 vertebral body is not clearly vi sualized. Prominent vertebral bodies are also present on C5 and C4. IMPRESSION: Degenerative changes in the lower cerv ical spine but no fracture or malalignment. Location: RR at 1824 Reported and signed by: Trev Beal MD CC: Israel Loyola MD; Buzz Sanchez Technologist: John nash RT(R) Trnscrd Date/Time/By: 10/09/2019 () : By: [email or web address] Orig Print D/T: S: 10/09/2019 (5523) PAGE 1 Signed Report BASIC METABOLIC [id number] 18:22:00* Test Item Value Reference Range Interpretation Comments SODIUM (test code = NA) 134 mmol/L 136-145 L POTASSIUM (test code = K) 2.9 mmol/L 3.5-5.1 L Anisa weber called to [id number] by V.LAB.AA 10/09/19 1821Critical results verified and read back by Nurse? Y CHLORIDE (test code = CL) 97.0 mmol/L 98-107 L CARBON DIOXIDE (test code = CO2) 28.0 mmol/L 21-32 N ANION GAP (test code = GAP) 11.9 10-20 N GLUCOSE (test code = GLU) 84 mg/dL 74-106 N BLOOD UREA NITROGEN (test code = BUN) 39 mg/dL 7-18 H GLOMERULAR FILTRATION RATE (test code = GFR) 31 mL/min >=60 Estimated GFR by using Modified MDRD formula.Chronic kidney disease is defined as either kidney damageor GFR <60 mL/min/1.73 m2 for >3 months. CREATININE (test code = CREAT) 2.10 mg/dL 0.7-1.3 H BUN/CREATININE RATIO (test code = BUN/CREA) 18.8 10-20 N CALCIUM (test code = CA) 8.6 mg/dL 8.5-10.1 N [id number] 17:05:00* Test Item Value Reference Range Interpretation Comments GLUBED (test code = GLUBED) 88 mg/dL 74-106 N Performed by certified cone machine operator at [facility] [id number] 12:25:00* Test Item Value Reference Range Interpretation Comments GLUBED (test code = GLUBED) 202 mg/dL 74-106 H Performed by certified cone machine operator at [facility] - CT HEAD/BRAIN W/O [id number] 09:46:00 Name: NATALIA KINCAID [facility] : 1950 Age/S: 69 / M [address] [facility] Unit #: [id number] Loc: [place] [address] Phys: Buzz Sanchez MD Acct: [id number] Dis Date: Status: ADM IN PHONE #: [phone] Exam Date: 10/09/2019929 FAX #: [phone] Reason: REASSESS BLEED POST FALL EXAMS: CPT CODE: [id number] CT HEAD/BRAIN W/O CONT 66979 HISTORY: Fall and pain. Reassess for hemorrhage. COMPARISON: Previous day. Location: TH. CT brain without contrast: Automated exposure control. No acute intracranial bleeds or extra-axial collections are noted. No acute territorial vascular infarction is noted. Encephalomalacia or enteritis in the right frontal location. The sulci, gyri, ventricles and subarachnoid spaces and the basilar cisterns are normal for patient's age. No herniation or hydrocephalus or midline shift is noted. Mild periventricular ischemic gliosis is noted. Age-appropriate atrophy is noted as well. Portions of the visualized paranasal sinuses demonstrated mucosal thickening of the floor of the maxillary sinuses. No obvious bony calvarial defect is noted. IM PRESSION: No acute intracranial bleeds or extra-axial collecti ons. No acute territorial vascular infarction. No herniation or hydrocephalus or midline shift. 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 Elect ronically Signed by Se Turner on 10/09/2019 at 0946 Reported and signed by: Ken Turner M.D. PAGE 1 Signed Report (CONTINUED) Name: NATALIA KINCAID [facility] : 1950 Age/S: 69 / M [address] [facility] Unit #: [id number] Loc: [place] [address] Phys: Buzz Sanchez MD Acct: [id number] Dis Date: Status : ADM IN PHONE #: [phone] Exam Date: 12/10/2018929 FAX #: [phone] Reason: REASSESS BL EED POST FALL EXAMS: CPT CODE: [id number] CT HEAD/BRAIN W/O CONT 72125 <Continued> CC: Israel Hawkins MD; Buzz Sanchez Technologist:Zonia Pacheco RT(R),CT CTDI: DLP: Trnscb Date/Time: 10/09/2019 (0946) [email or web address] Orig Print D/T: S: 10/09/2019 (49) PAGE 2 Signed Report BASIC METABOLIC [id number] 08:29:00* Test Item Value Reference Range Interpretation Comments SODIUM (test code = NA) 132 mmol/L 136-145 L POTASSIUM (test code = K) 2.6 mmol/L 3.5-5.1 LL Re sults called to [id number] by IRWIN 10/09/19 0829Critical results verified and read back by Nurse? Y CHLORIDE (test code = CL) 95.0 mmol/L 98-107 L CARBON DIOXIDE (test code = CO2) 27.0 mmol/L 21-32 N ANION GAP (test code = GAP) 12.6 10-20 N GLUCOSE (test code = GLU) 140 mg/dL 74-106 H BLOOD UREA NITROGEN (test code = BUN) 38 mg/dL 7-18 H GLOMERULAR FILTRATION RATE (test code = GFR) 35 mL/min >=60 Estimated GFR by using Modified MDRD formula.Chronic kidney disease is defined as either kidney damageor GFR <60 mL/min/1.73 m2 for >3 months. CREATININE (test code = CREAT) 1.90 mg/dL 0.7-1.3 H BUN/CREATININE RATIO (test code = BUN/CREA) 19.7 10-20 N CALCIUM (test code = CA) 8.3 mg/dL 8.5-10.1 L [id number] 08:29:00* Test Item Value Reference Range Interpretation Comments PHOSPHORUS (test code = PHOS) 3.4 mg/dL 2.5-4.9 N [id number] 08:29:00* Test Item Value Reference Range Interpretation Comments MAGNESIUM (test code = MAG) 1.8 mg/dL 1.8-2.4 N CBC W/AUTO [id number] 08:08:00* Test Item Value Reference Range Interpretation Comments WHITE BLOOD CELL (test code = WBC) 5.0 K/mm3 4.5-12.5 N RED BLOOD CELL (test code = RBC) 4.77 mill/mm3 4.0-5.8 N HEMOGLOBIN (test code = HGB) 14.4 gram/dL 13.0-17.5 N HEMATOCRIT (test code = HCT) 41.6 % 42.0-52.0 L MEAN CELL VOLUME (test code = MCV) 87.2 fL 80-98 N MEAN CELL HGB (test code = MCH) 30.2 picogram 27.0-33.0 N MEAN CELL HGB CONCETRATION (test code = MCHC) 34.6 gram/dL 33.0-36. 0 N RED CELL DISTRIBUTION WIDTH (test code = RDW) 15.2 % 11.6-16. 2 N RED CELL DISTRIBUTION WIDTH SD (test code = RDW-SD) 47.9 fL 37 .0-51.0 N PLATELET COUNT (test code = PLT) 150 K/mm3 150-450 N MEAN PLATELET VOLUME (test code = MPV) 11.4 fL 6.7-11.0 H NEUTROPHIL % (test code = NT%) 61.5 % 39.0-69.0 N IMMATURE GRANULOCYTE % (test code = IG%) 0.4 % 0.0-5.0 N LYMPHOCYTE % (test code = LY%) 21.4 % 25.0-55.0 L MONOCYTE % (test code = MO%) 12.5 % 0.0-10.0 H EOSINOPHIL % (test code = EO%) 3.6 % 0.0-5.0 N BASOPHIL % (test code = BA%) 0.6 % 0.0-1.0 N NUCLEATED RBC % (test code = NRBC%) 0.0 % 0-0 N NEUTROPHIL # (test code = NT#) 3.10 K/mm3 1.8-7.7 N IMMATURE GRANULOCYTE # (test code = IG#) 0.02 x10 3/uL 0-0.03 N LYMPHOCYTE # (test code = LY#) 1.08 K/mm3 1.0-5.0 N MONOCYTE # (test code = MO#) 0.63 K/mm3 0-0.8 N EOSINOPHIL # (test code = EO#) 0.18 K/mm3 0.0-0.5 N BASOPHIL # (test code = BA#) 0.03 K/mm3 0.0-0.2 N NUCLEATED RBC # (test code = NRBC#) 0.00 K/mm3 0.0-0.1 N [id number] 05:53:00* Test Item Value Reference Range Interpretation Comments GLUBED (test code = GLUBED) 175 mg/dL 74-106 H Performed by certified cone machine operator at [facility] [id number] 21:28:00* Test Item Value Reference Range Interpretation Comments GLUBED (test code = GLUBED) 71 mg/dL 74-106 L Performed by certified cone machine operator at [facility] COAGULATION TIME [id number] 18:10:00* Test Item Value Reference Range Interpretation Comments COAGULATION TIME ACTIVATED (test code = ACT) 131 seconds 62.8-88.0 H COAGULATION TIME [id number] 18:10:00* Test Item Value Reference Range Interpretation Comments COAGULATION TIME ACTIVATED (test code = ACT) 369 seconds 62.8-88.0 H COAGULATION TIME [id number] 18:10:00* Test Item Value Reference Range Interpretation Comments COAGULATION TIME ACTIVATED (test code = ACT) 369 seconds 62.8-88.0 H COAGULATION TIME [id number] 18:10:00* Test Item Value Reference Range Interpretation Comments COAGULATION TIME ACTIVATED (test code = ACT) 315 seconds 62.8-88.0 H COAGULATION TIME [id number] 18:10:00* Test Item Value Reference Range Interpretation Comments COAGULATION TIME ACTIVATED (test code = ACT) 352 seconds 62.8-88.0 H COAGULATION TIME [id number] 18:10:00* Test Item Value Reference Range Interpretation Comments COAGULATION TIME ACTIVATED (test code = ACT) 352 seconds 62.8-88.0 H COAGULATION TIME [id number] 18:10:00* Test Item Value Reference Range Interpretation Comments COAGULATION TIME ACTIVATED (test code = ACT) 380 seconds 62.8-88.0 H COAGULATION TIME [id number] 18:10:00* Test Item Value Reference Range Interpretation Comments COAGULATION TIME ACTIVATED (test code = ACT) 357 seconds 62.8-88.0 H COAGULATION TIME [id number] 18:10:00* Test Item Value Reference Range Interpretation Comments COAGULATION TIME ACTIVATED (test code = ACT) 372 seconds 62.8-88.0 H COAGULATION TIME [id number] 18:10:00* Test Item Value Reference Range Interpretation Comments COAGULATION TIME ACTIVATED (test code = ACT) 280 seconds 62.8-88.0 H [id number] 17:09:00* Test Item Value Reference Range Interpretation Comments GLUBED (test code = GLUBED) 210 mg/dL 74-106 H Performed by certified cone machine operator at [facility] [id number] 12:22:00* Test Item Value Reference Range Interpretation Comments GLUBED (test code = GLUBED) 204 mg/dL 74-106 H Performed by certified cone machine operator at [facility] - CT HEAD/BRAIN W/O [id number] 11:02:00 Name: NATALIA KINCAID [facility] : 1950 Age/S: 69 / M [address] [facility] #: [id number] Loc: [place] [address] Phys: Buzz Sanchez MD Acct: [id number] Dis Date: Status: ADM IN PHONE #: [phone] Exam Date: 10/08/2019 1035 FAX #: [phone] Reason: S/P FALL EXAMS: CPT CODE: [id number] CT HEAD/BRAIN W/O CONT 27964 HISTORY: S/P FALL TECHNIQUE: Noncontrast 2.[address] of the head. Examination acquired within 24 hours of arrival. Automated exposure control for dose reduction. COMPARISON: None FINDINGS: No lacerations or contusions of the scalp or facial soft tissues. Calvarium and skull base are intact. No acute hemorrhage. No intracranial mass, mass effect, or midline shift. No effacement of the sulci or hutchins-white matter interface. Mild age-appropriate cortical atrophy with mild microvascular ischemic changes of the white matter are present. There a ppears to be a subarachnoid cyst overlying the left frontal lobe. Subcenti meter lacunar infarct is present in the right basal ganglia. Visualized paranasal sinuses are clear. Mastoid air cells and middle ear cavities are clear. Orbital contents are unremarkable. IMPRESSION: No acute intracranial injury. Mild cortical atrophy with microvascular ischemic changes of the white matte r. 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 Location: H CA at 1102 Reported and signed by: Trev Beal MD PAGE 1 Signed Report (CONTINUED) Name: Emily KINCAID [facility] : 1950 Ag e/S: 69 / M [address] [facility] Unit #: [id number] Loc: [place] [address] Phys: Buzz Sanchez MD Acct: [id number] Dis Date: Status: ADM IN PHONE #: [phone] Exam Date: 10/08/2019 1036 FAX #: [phone] Reason : S/P FALL EXAMS: CPT CODE: [id number] CT HEAD/BRAIN W/O CONT 93259 <Continued> CC: Israel Hawkins MD; Buzz Sanchez Technologist:Zonia Pacheco RT(R),CT CTDI: DLP: Trnscb Date/Time: 10/08/2019 (6975) [id number] Orig Print D/T: S: 10/08/2019 (5524) PAGE 2 Signed Report [id number] 06:07:00* Test Item Value Reference Range Interpretation Comments GLUBED (test code = GLUBED) 131 mg/dL 74-106 H Performed by certified cone machine operator at [facility] COMPREHENSIVE METABOLIC [id number] 04:52:00* Test Item Value Reference Range Interpretation Comments SODIUM (test code = NA) 131 mmol/L 136-145 L POTASSIUM (test code = K) 3.6 mmol/L 3.5-5.1 N CHLORIDE (test code = CL) 96.0 mmol/L 98-107 L CARBON DIOXIDE (test code = CO2) 26.0 mmol/L 21-32 N ANION GAP (test code = GAP) 12.6 10-20 N GLUCOSE (test code = GLU) 125 mg/dL 74-106 H BLOOD UREA NITROGEN (test code = BUN) 45 mg/dL 7-18 H GLOMERULAR FILTRATION RATE (test code = GFR) 31 mL/min >=60 Estimated GFR by using Modified MDRD formula.Chronic kidney disease is defined as either kidney damageor GFR <60 mL/min/1.73 m2 for >3 months. CREATININE (test code = CREAT) 2.10 mg/dL 0.7-1.3 H BUN/CREATININE RATIO (test code = BUN/CREA) 21.1 10-20 H TOTAL PROTEIN (test code = PROT) 6.3 gram/dL 6.4-8.2 L ALBUMIN (test code = ALB) 3.1 g/dL 3.4-5.0 L GLOBULIN (test code = GLOB) 3.2 gram/dL 2.7-4.2 N ALBUMIN/GLOBULIN RATIO (test code = A/G) 1.0 0.75-1.50 N CALCIUM (test code = CA) 8.3 mg/dL 8.5-10.1 L BILIRUBIN TOTAL (test code = BILT) 1.70 mg/dL 0.0-1.0 H SGOT/AST (test code = AST) 139 IUnit/L 15-37 H SGPT/ALT (test code = ALT) 294 IUnit/L 12-78 H ALKALINE PHOSPHATASE TOTAL (test code = ALKP) 157 IUnit/L 45-117 H Note change in reference range due to change in reagent. COMPREHENSIVE METABOLIC [id number] 04:46:00* Test Item Value Reference Range Interpretation Comments SODIUM (test code = NA) 131 mmol/L 136-145 L POTASSIUM (test code = K) 3.6 mmol/L 3.5-5.1 N CHLORIDE (test code = CL) 96.0 mmol/L 98-107 L CARBON DIOXIDE (test code = CO2) mmol/L 21-32 ANION GAP (test code = GAP) 10-20 GLUCOSE (test code = GLU) mg/dL 74-106 BLOOD UREA NITROGEN (test code = BUN) mg/dL 7-18 GLOMERULAR FILTRATION RATE (test code = GFR) mL/min >=60 CREATININE (test code = CREAT) mg/dL 0.7-1.3 BUN/CREATININE RATIO (test code = BUN/CREA) 10-20 TOTAL PROTEIN (test code = PROT) gram/dL 6.4-8.2 ALBUMIN (test code = ALB) g/dL 3.4-5.0 GLOBULIN (test code = GLOB) gram/dL 2.7-4.2 ALBUMIN/GLOBULIN RATIO (test code = A/G) 0.75-1.50 CALCIUM (test code = CA) mg/dL 8.5-10.1 BILIRUBIN TOTAL (test code = BILT) mg/dL 0.0-1.0 SGOT/AST (test code = AST) IUnit/L 15-37 SGPT/ALT (test code = ALT) IUnit/L 12-78 ALKALINE PHOSPHATASE TOTAL (test code = ALKP) IUnit/L 45-117 CBC W/O [id number] 04:33:00* Test Item Value Reference Range Interpretation Comments WHITE BLOOD CELL (test code = WBC) 4.9 K/mm3 4.5-12.5 N RED BLOOD CELL (test code = RBC) 4.59 mill/mm3 4.0-5.8 N HEMOGLOBIN (test code = HGB) 13.8 gram/dL 13.0-17.5 N HEMATOCRIT (test code = HCT) 40.2 % 42.0-52.0 L MEAN CELL VOLUME (test code = MCV) 87.6 fL 80-98 N MEAN CELL HGB (test code = MCH) 30.1 picogram 27.0-33.0 N MEAN CELL HGB CONCETRATION (test code = MCHC) 34.3 gram/dL 33.0-36. 0 N RED CELL DISTRIBUTION WIDTH (test code = RDW) 15.4 % 11.6-16. 2 N PLATELET COUNT (test code = PLT) 160 K/mm3 150-450 N MEAN PLATELET VOLUME (test code = MPV) 11.6 fL 6.7-11.0 H CBC W/O [id number] 04:28:00* Test Item Value Reference Range Interpretation Comments WHITE BLOOD CELL (test code = WBC) K/mm3 4.5-12.5 RED BLOOD CELL (test code = RBC) mill/mm3 4.0-5.8 HEMOGLOBIN (test code = HGB) 13.8 gram/dL 13.0-17.5 N HEMATOCRIT (test code = HCT) % 42.0-52.0 MEAN CELL VOLUME (test code = MCV) fL 80-98 MEAN CELL HGB (test code = MCH) picogram 27.0-33.0 MEAN CELL HGB CONCETRATION (test code = MCHC) gram/dL 33.0-36. 0 RED CELL DISTRIBUTION WIDTH (test code = RDW) % 11.6-16. 2 PLATELET COUNT (test code = PLT) K/mm3 150-450 MEAN PLATELET VOLUME (test code = MPV) fL 6.7-11.0 - XR ABDOMEN AP 1 [id number] 21:18:00 FAX: Israel Stanley MD [phone] [place]: B St: [facility] FAX: Basilia Linares [phone] FAX: Buzz Spangler [facility] [phone] Name: NATALIA KINCAID [facility] : 1950 Age/S: 69/M [address] Unit #: [id number] Loc: V.20[address] [place] [address] Phys: Basilia Linares Acct: [id number] Dis Date: Status: ADM IN ONE #: [phone] Exam Date: 10/07/2019 2100 FAX #: [phone] Reason: abd pain, distention EXAMS: CPT CODE: [id number] XR ABDOMEN AP 1 V 02479 HISTORY: Abdom inal pain and distention. COMPARISON: CT abdomen pelvis from 2018. Location: TH. No bowel obstruction. C onstipation. No pathologic calcifications. DJD of the lumbar spine. IMPRESSION: No bowel obstruction. No pathologic c alcifications. Electronically Signed by Se Turner on 019 at 2118 Reported and signed by: Ken Turner M.D. CC: Israel Hawkins MD; Basilia Linares; Buzz Sanchez Technologist: VERONICA MOY RT(R); John Crane RT(R) Trnscrd Date/Time/By: 10/07/2019 (2117) : By: [email or web address] Orig Print D/T: S: (2121) PAGE 1 Signed Rep ort [id number] 20:33:00* Test Item Value Reference Range Interpretation Comments GLUBED (test code = GLUBED) 232 mg/dL 74-106 H Performed by certified cone machine operator at [facility] [id number] 16:09:00* Test Item Value Reference Range Interpretation Comments GLUBED (test code = GLUBED) 143 mg/dL 74-106 H Performed by certified cone machine operator at [facility] [id number] 16:09:00* Test Item Value Reference Range Interpretation Comments GLUBED (test code = GLUBED) 223 mg/dL 74-106 H Performed by certified cone machine operator at [facility] CBC W/AUTO [id number] 07:40:00* Test Item Value Reference Range Interpretation Comments WHITE BLOOD CELL (test code = WBC) 5.3 K/mm3 4.5-12.5 N RED BLOOD CELL (test code = RBC) 4.24 mill/mm3 4.0-5.8 N HEMOGLOBIN (test code = HGB) 13.0 gram/dL 13.0-17.5 N HEMATOCRIT (test code = HCT) 37.8 % 42.0-52.0 L MEAN CELL VOLUME (test code = MCV) 89.2 fL 80-98 N MEAN CELL HGB (test code = MCH) 30.7 picogram 27.0-33.0 N MEAN CELL HGB CONCETRATION (test code = MCHC) 34.4 gram/dL 33.0-36. 0 N RED CELL DISTRIBUTION WIDTH (test code = RDW) 15.7 % 11.6-16. 2 N RED CELL DISTRIBUTION WIDTH SD (test code = RDW-SD) 50.4 fL 37 .0-51.0 N PLATELET COUNT (test code = PLT) 142 K/mm3 150-450 L MEAN PLATELET VOLUME (test code = MPV) 11.4 fL 6.7-11.0 H NEUTROPHIL % (test code = NT%) 65.1 % 39.0-69.0 N IMMATURE GRANULOCYTE % (test code = IG%) 0.4 % 0.0-5.0 N LYMPHOCYTE % (test code = LY%) 16.6 % 25.0-55.0 L MONOCYTE % (test code = MO%) 16.1 % 0.0-10.0 H EOSINOPHIL % (test code = EO%) 0.9 % 0.0-5.0 N BASOPHIL % (test code = BA%) 0.9 % 0.0-1.0 N NUCLEATED RBC % (test code = NRBC%) 0.0 % 0-0 N NEUTROPHIL # (test code = NT#) 3.44 K/mm3 1.8-7.7 N IMMATURE GRANULOCYTE # (test code = IG#) 0.02 x10 3/uL 0-0.03 N LYMPHOCYTE # (test code = LY#) 0.88 K/mm3 1.0-5.0 L MONOCYTE # (test code = MO#) 0.85 K/mm3 0-0.8 H EOSINOPHIL # (test code = EO#) 0.05 K/mm3 0.0-0.5 N BASOPHIL # (test code = BA#) 0.05 K/mm3 0.0-0.2 N NUCLEATED RBC # (test code = NRBC#) 0.00 K/mm3 0.0-0.1 N MANUAL DIFF REQUIRED (test code = MDIFF) NO COMPREHENSIVE METABOLIC [id number] 07:31:00* Test Item Value Reference Range Interpretation Comments SODIUM (test code = NA) 131 mmol/L 136-145 L POTASSIUM (test code = K) 3.1 mmol/L 3.5-5.1 L CHLORIDE (test code = CL) 96.0 mmol/L 98-107 L CARBON DIOXIDE (test code = CO2) 25.0 mmol/L 21-32 N ANION GAP (test code = GAP) 13.1 10-20 N GLUCOSE (test code = GLU) 143 mg/dL 74-106 H BLOOD UREA NITROGEN (test code = BUN) 48 mg/dL 7-18 H GLOMERULAR FILTRATION RATE (test code = GFR) 30 mL/min >=60 Estimated GFR by using Modified MDRD formula.Chronic kidney disease is defined as either kidney damageor GFR <60 mL/min/1.73 m2 for >3 months. CREATININE (test code = CREAT) 2.20 mg/dL 0.7-1.3 H BUN/CREATININE RATIO (test code = BUN/CREA) 21.5 10-20 H TOTAL PROTEIN (test code = PROT) 5.8 gram/dL 6.4-8.2 L ALBUMIN (test code = ALB) 2.9 g/dL 3.4-5.0 L GLOBULIN (test code = GLOB) 2.9 gram/dL 2.7-4.2 N ALBUMIN/GLOBULIN RATIO (test code = A/G) 1.0 0.75-1.50 N CALCIUM (test code = CA) 8.2 mg/dL 8.5-10.1 L BILIRUBIN TOTAL (test code = BILT) 1.70 mg/dL 0.0-1.0 H SGOT/AST (test code = AST) 176 IUnit/L 15-37 H SGPT/ALT (test code = ALT) 332 IUnit/L 12-78 H ALKALINE PHOSPHATASE TOTAL (test code = ALKP) 158 IUnit/L 45-117 H Note change in reference range due to change in reagent. COMPREHENSIVE METABOLIC [id number] 07:27:00* Test Item Value Reference Range Interpretation Comments SODIUM (test code = NA) 131 mmol/L 136-145 L POTASSIUM (test code = K) 3.1 mmol/L 3.5-5.1 L CHLORIDE (test code = CL) 96.0 mmol/L 98-107 L CARBON DIOXIDE (test code = CO2) mmol/L 21-32 ANION GAP (test code = GAP) 10-20 GLUCOSE (test code = GLU) mg/dL 74-106 BLOOD UREA NITROGEN (test code = BUN) mg/dL 7-18 GLOMERULAR FILTRATION RATE (test code = GFR) mL/min >=60 CREATININE (test code = CREAT) mg/dL 0.7-1.3 BUN/CREATININE RATIO (test code = BUN/CREA) 10-20 TOTAL PROTEIN (test code = PROT) gram/dL 6.4-8.2 ALBUMIN (test code = ALB) g/dL 3.4-5.0 GLOBULIN (test code = GLOB) gram/dL 2.7-4.2 ALBUMIN/GLOBULIN RATIO (test code = A/G) 0.75-1.50 CALCIUM (test code = CA) mg/dL 8.5-10.1 BILIRUBIN TOTAL (test code = BILT) mg/dL 0.0-1.0 SGOT/AST (test code = AST) IUnit/L 15-37 SGPT/ALT (test code = ALT) IUnit/L 12-78 ALKALINE PHOSPHATASE TOTAL (test code = ALKP) IUnit/L 45-117 CBC W/AUTO [id number] 07:12:00* Test Item Value Reference Range Interpretation Comments WHITE BLOOD CELL (test code = WBC) K/mm3 4.5-12.5 RED BLOOD CELL (test code = RBC) mill/mm3 4.0-5.8 HEMOGLOBIN (test code = HGB) 13.0 gram/dL 13.0-17.5 N HEMATOCRIT (test code = HCT) % 42.0-52.0 MEAN CELL VOLUME (test code = MCV) fL 80-98 MEAN CELL HGB (test code = MCH) picogram 27.0-33.0 MEAN CELL HGB CONCETRATION (test code = MCHC) gram/dL 33.0-36. 0 RED CELL DISTRIBUTION WIDTH (test code = RDW) % 11.6-16. 2 RED CELL DISTRIBUTION WIDTH SD (test code = RDW-SD) fL 37 .0-51.0 PLATELET COUNT (test code = PLT) K/mm3 150-450 MEAN PLATELET VOLUME (test code = MPV) fL 6.7-11.0 NEUTROPHIL % (test code = NT%) % 39.0-69.0 IMMATURE GRANULOCYTE % (test code = IG%) % 0.0-5.0 LYMPHOCYTE % (test code = LY%) % 25.0-55.0 MONOCYTE % (test code = MO%) % 0.0-10.0 EOSINOPHIL % (test code = EO%) % 0.0-5.0 BASOPHIL % (test code = BA%) % 0.0-1.0 NEUTROPHIL # (test code = NT#) K/mm3 1.8-7.7 LYMPHOCYTE # (test code = LY#) K/mm3 1.0-5.0 MONOCYTE # (test code = MO#) K/mm3 0-0.8 EOSINOPHIL # (test code = EO#) K/mm3 0.0-0.5 BASOPHIL # (test code = BA#) K/mm3 0.0-0.2 [id number] 06:41:00* Test Item Value Reference Range Interpretation Comments GLUBED (test code = GLUBED) 145 mg/dL 74-106 H Performed by certified cone machine operator at [facility] ACUTE HEPATITIS [id number] 05:09:00* Test Item Value Reference Range Interpretation Comments AB HEPATITIS A IGM (test code = HAVMAB) Negative Negative AG HEPAT B SURF (test code = HBSAG) Negative Negative HEPATITIS B CORE ANTIBODY,IGM (test code = HBCMAB) Negative Neg ative AB HEPATITIS C (test code = HCVAB) <0.1 0.0-0.9 INFCE Result Units: s/co ratio Negative: < 0.8 Indeterminate: 0.8 - 0.9 Positive: > 0.9 The CDC recommends that a positive HCV antibody result be followed up with a HCV Nucleic Acid Amplification test (212424).Performed At: [facility] [id number] Ramsey Caldwell MD Ph:[phone] [id number] 20:40:00* Test Item Value Reference Range Interpretation Comments GLUBED (test code = GLUBED) 189 mg/dL 74-106 H Performed by certified cone machine operator at [facility] [id number] 16:15:00* Test Item Value Reference Range Interpretation Comments GLUBED (test code = GLUBED) 197 mg/dL 74-106 H Performed by certified cone machine operator at [facility] [id number] 16:15:00* Test Item Value Reference Range Interpretation Comments GLUBED (test code = GLUBED) 194 mg/dL 74-106 H Performed by certified cone machine operator at [facility] COMPREHENSIVE METABOLIC [id number] 08:18:00* Test Item Value Reference Range Interpretation Comments SODIUM (test code = NA) 133 mmol/L 136-145 L POTASSIUM (test code = K) 2.7 mmol/L 3.5-5.1 [facility] sults called to [facility] [id number] V.LAB. 10/06/19 0818Critical results verified and read back by Nurse? Y CHLORIDE (test code = CL) 94.0 mmol/L 98-107 L CARBON DIOXIDE (test code = CO2) 28.0 mmol/L 21-32 N ANION GAP (test code = GAP) 13.7 10-20 N GLUCOSE (test code = GLU) 153 mg/dL 74-106 H BLOOD UREA NITROGEN (test code = BUN) 54 mg/dL 7-18 H GLOMERULAR FILTRATION RATE (test code = GFR) 26 mL/min >=60 Estimated GFR by using Modified MDRD formula.Chronic kidney disease is defined as either kidney damageor GFR <60 mL/min/1.73 m2 for >3 months. CREATININE (test code = CREAT) 2.50 mg/dL 0.7-1.3 H BUN/CREATININE RATIO (test code = BUN/CREA) 21.3 10-20 H TOTAL PROTEIN (test code = PROT) 6.5 gram/dL 6.4-8.2 N ALBUMIN (test code = ALB) 3.0 g/dL 3.4-5.0 L GLOBULIN (test code = GLOB) 3.5 gram/dL 2.7-4.2 N ALBUMIN/GLOBULIN RATIO (test code = A/G) 0.9 0.75-1.50 N CALCIUM (test code = CA) 8.9 mg/dL 8.5-10.1 N BILIRUBIN TOTAL (test code = BILT) 2.00 mg/dL 0.0-1.0 H SGOT/AST (test code = AST) 400 IUnit/L 15-37 H SGPT/ALT (test code = ALT) 473 IUnit/L 12-78 H ALKALINE PHOSPHATASE TOTAL (test code = ALKP) 167 IUnit/L 45-117 H Note change in reference range due to change in reagent. [id number] 08:18:00* Test Item Value Reference Range Interpretation Comments MAGNESIUM (test code = MAG) 1.9 mg/dL 1.8-2.4 N [id number] 07:34:00* Test Item Value Reference Range Interpretation Comments PHOSPHORUS (test code = PHOS) 3.4 mg/dL 2.5-4.9 N [id number] 06:34:00* Test Item Value Reference Range Interpretation Comments GLUBED (test code = GLUBED) 163 mg/dL 74-106 H Performed by certified cone machine operator at [facility] [id number] 20:42:00* Test Item Value Reference Range Interpretation Comments GLUBED (test code = GLUBED) 204 mg/dL 74-106 H Performed by certified cone machine operator at [facility] [id number] 17:30:00* Test Item Value Reference Range Interpretation Comments GLUBED (test code = GLUBED) 254 mg/dL 74-106 H Performed by certified cone machine operator at [facility] [id number] 11:42:00* Test Item Value Reference Range Interpretation Comments GLUBED (test code = GLUBED) 182 mg/dL 74-106 H Performed by certified cone machine operator at [facility] [id number] 06:13:00* Test Item Value Reference Range Interpretation Comments GLUBED (test code = GLUBED) 114 mg/dL 74-106 H Performed by certified cone machine operator at [facility] COMPREHENSIVE METABOLIC [id number] 03:46:00* Test Item Value Reference Range Interpretation Comments SODIUM (test code = NA) 137 mmol/L 136-145 N POTASSIUM (test code = K) 2.5 mmol/L 3.5-5.1 Re sults called to [id number] by V.LAB.AG1 10/05/19 0346Critical results verified and read back by Nurse? Y CHLORIDE (test code = CL) 98.0 mmol/L 98-107 N CARBON DIOXIDE (test code = CO2) 28.0 mmol/L 21-32 N ANION GAP (test code = GAP) 13.5 10-20 N GLUCOSE (test code = GLU) 115 mg/dL 74-106 H BLOOD UREA NITROGEN (test code = BUN) 54 mg/dL 7-18 H GLOMERULAR FILTRATION RATE (test code = GFR) 25 mL/min >=60 Estimated GFR by using Modified MDRD formula.Chronic kidney disease is defined as either kidney damageor GFR <60 mL/min/1.73 m2 for >3 months. CREATININE (test code = CREAT) 2.60 mg/dL 0.7-1.3 H BUN/CREATININE RATIO (test code = BUN/CREA) 20.6 10-20 H TOTAL PROTEIN (test code = PROT) 6.3 gram/dL 6.4-8.2 L ALBUMIN (test code = ALB) 3.0 g/dL 3.4-5.0 L GLOBULIN (test code = GLOB) 3.3 gram/dL 2.7-4.2 N ALBUMIN/GLOBULIN RATIO (test code = A/G) 0.9 0.75-1.50 N CALCIUM (test code = CA) 8.5 mg/dL 8.5-10.1 N BILIRUBIN TOTAL (test code = BILT) 1.70 mg/dL 0.0-1.0 H SGOT/AST (test code = AST) 486 IUnit/L 15-37 H SGPT/ALT (test code = ALT) 378 IUnit/L 12-78 H ALKALINE PHOSPHATASE TOTAL (test code = ALKP) 203 IUnit/L 45-117 H Note change in reference range due to change in reagent. [id number] 03:46:00* Test Item Value Reference Range Interpretation Comments PHOSPHORUS (test code = PHOS) 5.5 mg/dL 2.5-4.9 H BILIRUBIN [id number] 03:46:00* Test Item Value Reference Range Interpretation Comments BILIRUBIN DIRECT (test code = BILD) 0.76 mg/dL 0.0-0.20 H [id number] 03:46:00* Test Item Value Reference Range Interpretation Comments MAGNESIUM (test code = MAG) 2.3 mg/dL 1.8-2.4 N CBC W/AUTO [id number] 03:01:00* Test Item Value Reference Range Interpretation Comments WHITE BLOOD CELL (test code = WBC) 10.8 K/mm3 4.5-12.5 N RED BLOOD CELL (test code = RBC) 4.49 mill/mm3 4.0-5.8 N HEMOGLOBIN (test code = HGB) 13.5 gram/dL 13.0-17.5 N HEMATOCRIT (test code = HCT) 41.2 % 42.0-52.0 L MEAN CELL VOLUME (test code = MCV) 91.8 fL 80-98 N MEAN CELL HGB (test code = MCH) 30.1 picogram 27.0-33.0 N MEAN CELL HGB CONCETRATION (test code = MCHC) 32.8 gram/dL 33.0-36. 0 L RED CELL DISTRIBUTION WIDTH (test code = RDW) 15.9 % 11.6-16. 2 N RED CELL DISTRIBUTION WIDTH SD (test code = RDW-SD) 52.4 fL 37 .0-51.0 H PLATELET COUNT (test code = PLT) 145 K/mm3 150-450 L MEAN PLATELET VOLUME (test code = MPV) 11.8 fL 6.7-11.0 H NEUTROPHIL % (test code = NT%) 82.7 % 39.0-69.0 H IMMATURE GRANULOCYTE % (test code = IG%) 0.5 % 0.0-5.0 N LYMPHOCYTE % (test code = LY%) 6.4 % 25.0-55.0 L MONOCYTE % (test code = MO%) 10.2 % 0.0-10.0 H EOSINOPHIL % (test code = EO%) 0.0 % 0.0-5.0 N BASOPHIL % (test code = BA%) 0.2 % 0.0-1.0 N NUCLEATED RBC % (test code = NRBC%) 0.0 % 0-0 N NEUTROPHIL # (test code = NT#) 8.93 K/mm3 1.8-7.7 H IMMATURE GRANULOCYTE # (test code = IG#) 0.05 x10 3/uL 0-0.03 H LYMPHOCYTE # (test code = LY#) 0.69 K/mm3 1.0-5.0 L MONOCYTE # (test code = MO#) 1.10 K/mm3 0-0.8 H EOSINOPHIL # (test code = EO#) 0.00 K/mm3 0.0-0.5 N BASOPHIL # (test code = BA#) 0.02 K/mm3 0.0-0.2 N NUCLEATED RBC # (test code = NRBC#) 0.00 K/mm3 0.0-0.1 N CBC W/AUTO [id number] 02:58:00* Test Item Value Reference Range Interpretation Comments WHITE BLOOD CELL (test code = WBC) K/mm3 4.5-12.5 RED BLOOD CELL (test code = RBC) mill/mm3 4.0-5.8 HEMOGLOBIN (test code = HGB) 13.5 gram/dL 13.0-17.5 N HEMATOCRIT (test code = HCT) % 42.0-52.0 MEAN CELL VOLUME (test code = MCV) fL 80-98 MEAN CELL HGB (test code = MCH) picogram 27.0-33.0 MEAN CELL HGB CONCETRATION (test code = MCHC) gram/dL 33.0-36. 0 RED CELL DISTRIBUTION WIDTH (test code = RDW) % 11.6-16. 2 RED CELL DISTRIBUTION WIDTH SD (test code = RDW-SD) fL 37 .0-51.0 PLATELET COUNT (test code = PLT) K/mm3 150-450 MEAN PLATELET VOLUME (test code = MPV) fL 6.7-11.0 NEUTROPHIL % (test code = NT%) % 39.0-69.0 IMMATURE GRANULOCYTE % (test code = IG%) % 0.0-5.0 LYMPHOCYTE % (test code = LY%) % 25.0-55.0 MONOCYTE % (test code = MO%) % 0.0-10.0 EOSINOPHIL % (test code = EO%) % 0.0-5.0 BASOPHIL % (test code = BA%) % 0.0-1.0 NEUTROPHIL # (test code = NT#) K/mm3 1.8-7.7 LYMPHOCYTE # (test code = LY#) K/mm3 1.0-5.0 MONOCYTE # (test code = MO#) K/mm3 0-0.8 EOSINOPHIL # (test code = EO#) K/mm3 0.0-0.5 BASOPHIL # (test code = BA#) K/mm3 0.0-0.2 [id number] 20:35:00* Test Item Value Reference Range Interpretation Comments GLUBED (test code = GLUBED) 226 mg/dL 74-106 H Performed by certified cone machine operator at [facility] [id number] 17:50:00* Test Item Value Reference Range Interpretation Comments GLUBED (test code = GLUBED) 210 mg/dL 74-106 H Performed by certified cone machine operator at [facility] [id number] 12:28:00* Test Item Value Reference Range Interpretation Comments POTASSIUM (test code = K) 3.2 mmol/L 3.5-5.1 L THROMBOPLASTIN TIME [id number] 11:51:00* Test Item Value Reference Range Interpretation Comments THROMBOPLASTIN TIME PARTIAL (test code = PTT) 44.6 seconds 25.0-36. 5 H IS PATIENT ON ANTICOAGULANTS? YLIST ANTICOAGULANTS [id number] 11:46:00* Test Item Value Reference Range Interpretation Comments GLUBED (test code = GLUBED) 126 mg/dL 74-106 H Performed by certified cone machine operator at [facility] [id number] 06:09:00* Test Item Value Reference Range Interpretation Comments GLUBED (test code = GLUBED) 215 mg/dL 74-106 H Performed by certified cone machine operator at [facility] COMPREHENSIVE METABOLIC [id number] 04:43:00* Test Item Value Reference Range Interpretation Comments SODIUM (test code = NA) 134 mmol/L 136-145 L POTASSIUM (test code = K) 2.5 mmol/L 3.5-5.1 Re sults called to [id number] by V.LAB.JP1 10/04/19 0442Critical results verified and read back by Nurse?Y CHLORIDE (test code = CL) 92.0 mmol/L 98-107 L CARBON DIOXIDE (test code = CO2) 29.0 mmol/L 21-32 N ANION GAP (test code = GAP) 15.5 10-20 N GLUCOSE (test code = GLU) 224 mg/dL 74-106 H BLOOD UREA NITROGEN (test code = BUN) 54 mg/dL 7-18 H GLOMERULAR FILTRATION RATE (test code = GFR) 27 mL/min >=60 Estimated GFR by using Modified MDRD formula.Chronic kidney disease is defined as either kidney damageor GFR <60 mL/min/1.73 m2 for >3 months. CREATININE (test code = CREAT) 2.40 mg/dL 0.7-1.3 H BUN/CREATININE RATIO (test code = BUN/CREA) 22.9 10-20 H TOTAL PROTEIN (test code = PROT) 6.8 gram/dL 6.4-8.2 N ALBUMIN (test code = ALB) 3.3 g/dL 3.4-5.0 L GLOBULIN (test code = GLOB) 3.5 gram/dL 2.7-4.2 N ALBUMIN/GLOBULIN RATIO (test code = A/G) 0.9 0.75-1.50 N CALCIUM (test code = CA) 8.8 mg/dL 8.5-10.1 N BILIRUBIN TOTAL (test code = BILT) 2.30 mg/dL 0.0-1.0 H SGOT/AST (test code = AST) 42 IUnit/L 15-37 H SGPT/ALT (test code = ALT) 102 IUnit/L 12-78 H ALKALINE PHOSPHATASE TOTAL (test code = ALKP) 118 IUnit/L 45-117 H Note change in reference range due to change in reagent. [id number] 04:43:00* Test Item Value Reference Range Interpretation Comments PHOSPHORUS (test code = PHOS) 6.1 mg/dL 2.5-4.9 H BILIRUBIN [id number] 04:43:00* Test Item Value Reference Range Interpretation Comments BILIRUBIN DIRECT (test code = BILD) 0.77 mg/dL 0.0-0.20 H [id number] 04:43:00* Test Item Value Reference Range Interpretation Comments MAGNESIUM (test code = MAG) 1.6 mg/dL 1.8-2.4 L THROMBOPLASTIN TIME [id number] 04:20:00* Test Item Value Reference Range Interpretation Comments THROMBOPLASTIN TIME PARTIAL (test code = PTT) 57.4 seconds 25.0-36. 5 H IS PATIENT ON ANTICOAGULANTS? YLIST ANTICOAGULANTS HEPARIN CBC W/AUTO DIFF 2019-10-04 03:56:00* Test Item Value Reference Range Interpretation Comments WHITE BLOOD CELL (test code = WBC) 11.1 K/mm3 4.5-12.5 N RED BLOOD CELL (test code = RBC) 4.63 mill/mm3 4.0-5.8 N HEMOGLOBIN (test code = HGB) 14.0 gram/dL 13.0-17.5 N HEMATOCRIT (test code = HCT) 41.5 % 42.0-52.0 L MEAN CELL VOLUME (test code = MCV) 89.6 fL 80-98 N MEAN CELL HGB (test code = MCH) 30.2 picogram 27.0-33.0 N MEAN CELL HGB CONCETRATION (test code = MCHC) 33.7 gram/dL 33.0-36. 0 N RED CELL DISTRIBUTION WIDTH (test code = RDW) 15.2 % 11.6-16. 2 N RED CELL DISTRIBUTION WIDTH SD (test code = RDW-SD) 48.8 fL 37 .0-51.0 N PLATELET COUNT (test code = PLT) 143 K/mm3 150-450 L MEAN PLATELET VOLUME (test code = MPV) 11.5 fL 6.7-11.0 H NEUTROPHIL % (test code = NT%) 86.5 % 39.0-69.0 H IMMATURE GRANULOCYTE % (test code = IG%) 0.5 % 0.0-5.0 N LYMPHOCYTE % (test code = LY%) 3.7 % 25.0-55.0 L MONOCYTE % (test code = MO%) 8.9 % 0.0-10.0 N EOSINOPHIL % (test code = EO%) 0.0 % 0.0-5.0 N BASOPHIL % (test code = BA%) 0.4 % 0.0-1.0 N NUCLEATED RBC % (test code = NRBC%) 0.0 % 0-0 N NEUTROPHIL # (test code = NT#) 9.58 K/mm3 1.8-7.7 H IMMATURE GRANULOCYTE # (test code = IG#) 0.05 x10 3/uL 0-0.03 H LYMPHOCYTE # (test code = LY#) 0.41 K/mm3 1.0-5.0 L MONOCYTE # (test code = MO#) 0.99 K/mm3 0-0.8 H EOSINOPHIL # (test code = EO#) 0.00 K/mm3 0.0-0.5 N BASOPHIL # (test code = BA#) 0.04 K/mm3 0.0-0.2 N NUCLEATED RBC # (test code = NRBC#) 0.00 K/mm3 0.0-0.1 N MANUAL DIFF REQUIRED (test code = MDIFF) NO CBC W/AUTO [id number] 03:55:00* Test Item Value Reference Range Interpretation Comments WHITE BLOOD CELL (test code = WBC) K/mm3 4.5-12.5 RED BLOOD CELL (test code = RBC) mill/mm3 4.0-5.8 HEMOGLOBIN (test code = HGB) 14.0 gram/dL 13.0-17.5 N HEMATOCRIT (test code = HCT) % 42.0-52.0 MEAN CELL VOLUME (test code = MCV) fL 80-98 MEAN CELL HGB (test code = MCH) picogram 27.0-33.0 MEAN CELL HGB CONCETRATION (test code = MCHC) gram/dL 33.0-36. 0 RED CELL DISTRIBUTION WIDTH (test code = RDW) % 11.6-16. 2 RED CELL DISTRIBUTION WIDTH SD (test code = RDW-SD) fL 37 .0-51.0 PLATELET COUNT (test code = PLT) K/mm3 150-450 MEAN PLATELET VOLUME (test code = MPV) fL 6.7-11.0 NEUTROPHIL % (test code = NT%) % 39.0-69.0 IMMATURE GRANULOCYTE % (test code = IG%) % 0.0-5.0 LYMPHOCYTE % (test code = LY%) % 25.0-55.0 MONOCYTE % (test code = MO%) % 0.0-10.0 EOSINOPHIL % (test code = EO%) % 0.0-5.0 BASOPHIL % (test code = BA%) % 0.0-1.0 NEUTROPHIL # (test code = NT#) K/mm3 1.8-7.7 LYMPHOCYTE # (test code = LY#) K/mm3 1.0-5.0 MONOCYTE # (test code = MO#) K/mm3 0-0.8 EOSINOPHIL # (test code = EO#) K/mm3 0.0-0.5 BASOPHIL # (test code = BA#) K/mm3 0.0-0.2 UR PROTEIN/CREATININE [id number] 02:30:00* Test Item Value Reference Range Interpretation Comments UR PROTEIN RANDOM (test code = PROTU) 7.9 mg/dL 0.0-11.9 N Protein levels may be falsely elevated in patients withelevated level of aminoglycoside antibiotics in CSF and inhighly concentrated urine specimens. If false elevation issuspected, contact lab for alternated testing technique. UR CREATININE RANDOM (test code = CREATU) 33.0 mg/dL 30-125 N PROTEIN/CREATININE RATIO (test code = P/CRATIO) 0.24 RATIO 0.0-0. 20 H THROMBOPLASTIN TIME [id number] 21:39:00* Test Item Value Reference Range Interpretation Comments THROMBOPLASTIN TIME PARTIAL (test code = PTT) 72.9 seconds 25.0-36. 5 H IS PATIENT ON ANTICOAGULANTS? YLIST ANTICOAGULANTS HEPARIN- US RETRO LTD 2019-10-03 21:32:00 Name: NATALIA KINCAID [facility] : 1950 Age/S: 69 / M [address] [facility] Unit #: [id number] Loc: [place] [address] Phys: Melanie Min MD Acct: [id number] Dis Date: Status: ADM IN PHONE #: [phone] Exam Date: 10/03/2019 175 FAX #: [phone] Reason: ALVA EXAMS: CPT CODE: [id number] US RETRO LTD 01170 HISTORY: Acute kidney insufficiency. COMPARISON: CT scan from October 01, 2019. Location: [facility]. Both kidneys are free from hydronephrosis and calyceal stones. Hyperechogenic kidneys bilaterally suggesting chronic medical renal disease. No perinephric collections are noted. Right kidney measured 10.1 x 4.4 x 5 cm. Bosniak 1 lesion in the lower pole measured 1.4 cm. Left kidney measured 10.2 x 5.4 x 4.7 cm. Unremarkable incompletely distended urinary bladder. No wall thickening is noted on the current study. No mural nodules. IMPRESSION: Chronic medical renal disease. No hydronephrosis or calyceal stones. Bosniak 1 lesion in the right lower pole measured 1.4 cm. No wall thickening of the urinary bladder noted. at 2132 Reported and signed by: Ken Turner M.D. CC: Melanie Min MD; Israel Hawkins MD; Buzz Sanchez Technologist: Raven Arnett RDMS Trnndb Date/Time: 10/03/2019 (2131) [email or web address] Orig Print D/T: S: 10/03/2019 (2134) Probe: PAGE 1 Signed Report [id number] 21:00:00* Test Item Value Reference Range Interpretation Comments GLUBED (test code = GLUBED) 185 mg/dL 74-106 H Performed by certified cone machine operator at [facility] [id number] 17:01:00* Test Item Value Reference Range Interpretation Comments GLUBED (test code = GLUBED) 136 mg/dL 74-106 H Performed by certified cone machine operator at [facility] - XR CHEST 2 [id number] 16:10:00 FAX: Melanie Payne MD [phone] [place]: B St: ADM FAX: Israel Stanley MD [phone] FAX: Buzz Spangler [phone] Name: NATALIA KINCAID [facility] : 1950 Age/S: 69/M [address] [facility] Unit #: [id number] Loc: [address] [place] [address] Phys: Melanie Min MD Acct: [id number] Dis Date: Status: ADM IN ONE #: [phone] Exam Date: 10/03/2019 1609 FAX #: [phone] Reason: PNEUMONIA EXAMS: CPT CODE: [id number] XR CHEST 2 V 19477 HISTORY: Pneum onia. COMPARISON: Chest x-ray from October 01, 2019. Location: [facility]. AP and lateral view of the chest: N o acute infiltrates, effusion or congestion. Left ICD with the leads in th e right atrium and right ventricle. Cardiomegaly. DJD of the dorsal spine. IMPRESSION: No acute infiltrates, effusion or congestion. Electronically Signed by Se Turner on 9 at 1610 Reported and signed by: Ken Turner M.D. CC: Melanie Min MD; Israel Hawkins MD; Buzz Sanchez echnologist: ZAHRA BARRETT; Parish Dumont, RT(R Trnscrd Date /Time/By: 10/03/2019 (1610) : By: [email or web address] Orig Print D/T: S: 019 (4171) PAGE 1 Signed Report THROMBOPLASTIN TIME [id number] 15:38:00* Test Item Value Reference Range Interpretation Comments THROMBOPLASTIN TIME PARTIAL (test code = PTT) 68.9 seconds 25.0-36. 5 H IS PATIENT ON ANTICOAGULANTS? YLIST ANTICOAGULANTS [id number] 12:35:00* Test Item Value Reference Range Interpretation Comments GLUBED (test code = GLUBED) 252 mg/dL 74-106 H Performed by certified cone machine operator at [facility] THROMBOPLASTIN TIME [id number] 09:10:00* Test Item Value Reference Range Interpretation Comments THROMBOPLASTIN TIME PARTIAL (test code = PTT) 89.0 seconds 25.0-36. 5 HH Results called to [id number] by V.LAB.JQ 10/03/19 0909Critical results verified and read back by Nurse? y IS PATIENT ON ANTICOAGULANTS? YLIST ANTICOAGULANTS [id number] 05:11:00* Test Item Value Reference Range Interpretation Comments GLUBED (test code = GLUBED) 94 mg/dL 74-106 N Performed by certified cone machine operator at [facility] COMPREHENSIVE METABOLIC [id number] 03:07:00* Test Item Value Reference Range Interpretation Comments SODIUM (test code = NA) 139 mmol/L 136-145 RESU LT VERIFIED BY REPEAT ANALYSIS POTASSIUM (test code = K) 2.9 mmol/L 3.5-5.1 L Re sults called to [id number] by V.LAB.AG1 10/03/19 0306Critical results verified and read back by Nurse? Y CHLORIDE (test code = CL) 99.0 mmol/L 98-107 N CARBON DIOXIDE (test code = CO2) 29.0 mmol/L 21-32 N ANION GAP (test code = GAP) 13.9 10-20 N GLUCOSE (test code = GLU) 107 mg/dL 74-106 H BLOOD UREA NITROGEN (test code = BUN) 50 mg/dL 7-18 H GLOMERULAR FILTRATION RATE (test code = GFR) 28 mL/min >=60 Estimated GFR by using Modified MDRD formula.Chronic kidney disease is defined as either kidney damageor GFR <60 mL/min/1.73 m2 for >3 months. CREATININE (test code = CREAT) 2.30 mg/dL 0.7-1.3 H BUN/CREATININE RATIO (test code = BUN/CREA) 21.4 10-20 H TOTAL PROTEIN (test code = PROT) 6.5 gram/dL 6.4-8.2 N ALBUMIN (test code = ALB) 3.3 g/dL 3.4-5.0 L GLOBULIN (test code = GLOB) 3.2 gram/dL 2.7-4.2 N ALBUMIN/GLOBULIN RATIO (test code = A/G) 1.0 0.75-1.50 N CALCIUM (test code = CA) 9.0 mg/dL 8.5-10.1 N BILIRUBIN TOTAL (test code = BILT) 2.20 mg/dL 0.0-1.0 H SGOT/AST (test code = AST) 78 IUnit/L 15-37 H SGPT/ALT (test code = ALT) 131 IUnit/L 12-78 H ALKALINE PHOSPHATASE TOTAL (test code = ALKP) 124 IUnit/L 45-117 H Note change in reference range due to change in reagent. HEPATIC FUNCTION [id number] 03:07:00* Test Item Value Reference Range Interpretation Comments BILIRUBIN DIRECT (test code = BILD) 0.62 mg/dL 0.0-0.20 H [id number] 03:07:00* Test Item Value Reference Range Interpretation Comments PHOSPHORUS (test code = PHOS) 2.3 mg/dL 2.5-4.9 L [id number] 03:07:00* Test Item Value Reference Range Interpretation Comments MAGNESIUM (test code = MAG) 1.9 mg/dL 1.8-2.4 N THROMBOPLASTIN TIME [id number] 02:51:00* Test Item Value Reference Range Interpretation Comments THROMBOPLASTIN TIME PARTIAL (test code = PTT) 63.1 seconds 25.0-36. 5 H IS PATIENT ON ANTICOAGULANTS? YLIST ANTICOAGULANTS HEPARINCBC W/AUTO DIFF 2019-10-03 02:50:00* Test Item Value Reference Range Interpretation Comments WHITE BLOOD CELL (test code = WBC) 10.7 K/mm3 4.5-12.5 N RED BLOOD CELL (test code = RBC) 4.62 mill/mm3 4.0-5.8 N HEMOGLOBIN (test code = HGB) 13.8 gram/dL 13.0-17.5 N HEMATOCRIT (test code = HCT) 41.8 % 42.0-52.0 L MEAN CELL VOLUME (test code = MCV) 90.5 fL 80-98 N MEAN CELL HGB (test code = MCH) 29.9 picogram 27.0-33.0 N MEAN CELL HGB CONCETRATION (test code = MCHC) 33.0 gram/dL 33.0-36. 0 N RED CELL DISTRIBUTION WIDTH (test code = RDW) 15.1 % 11.6-16. 2 N RED CELL DISTRIBUTION WIDTH SD (test code = RDW-SD) 49.4 fL 37 .0-51.0 N PLATELET COUNT (test code = PLT) 181 K/mm3 150-450 N MEAN PLATELET VOLUME (test code = MPV) 11.7 fL 6.7-11.0 H NEUTROPHIL % (test code = NT%) 70.0 % 39.0-69.0 H IMMATURE GRANULOCYTE % (test code = IG%) 0.4 % 0.0-5.0 N LYMPHOCYTE % (test code = LY%) 17.1 % 25.0-55.0 L MONOCYTE % (test code = MO%) 10.3 % 0.0-10.0 H EOSINOPHIL % (test code = EO%) 1.5 % 0.0-5.0 N BASOPHIL % (test code = BA%) 0.7 % 0.0-1.0 N NUCLEATED RBC % (test code = NRBC%) 0.0 % 0-0 N NEUTROPHIL # (test code = NT#) 7.52 K/mm3 1.8-7.7 N IMMATURE GRANULOCYTE # (test code = IG#) 0.04 x10 3/uL 0-0.03 H LYMPHOCYTE # (test code = LY#) 1.84 K/mm3 1.0-5.0 N MONOCYTE # (test code = MO#) 1.11 K/mm3 0-0.8 H EOSINOPHIL # (test code = EO#) 0.16 K/mm3 0.0-0.5 N BASOPHIL # (test code = BA#) 0.07 K/mm3 0.0-0.2 N NUCLEATED RBC # (test code = NRBC#) 0.00 K/mm3 0.0-0.1 N MANUAL DIFF REQUIRED (test code = MDIFF) NO BASIC METABOLIC [id number] 23:21:00* Test Item Value Reference Range Interpretation Comments SODIUM (test code = NA) 133 mmol/L 136-145 L POTASSIUM (test code = K) 4.1 mmol/L 3.5-5.1 RE SULT VERIFIED BY REPEAT ANALYSIS CHLORIDE (test code = CL) 96.0 mmol/L 98-107 L CARBON DIOXIDE (test code = CO2) 29.0 mmol/L 21-32 N ANION GAP (test code = GAP) 12.1 10-20 N GLUCOSE (test code = GLU) 235 mg/dL 74-106 H BLOOD UREA NITROGEN (test code = BUN) 53 mg/dL 7-18 H GLOMERULAR FILTRATION RATE (test code = GFR) 26 mL/min >=60 Estimated GFR by using Modified MDRD formula.Chronic kidney disease is defined as either kidney damageor GFR <60 mL/min/1.73 m2 for >3 months. CREATININE (test code = CREAT) 2.50 mg/dL 0.7-1.3 H BUN/CREATININE RATIO (test code = BUN/CREA) 21.2 10-20 H CALCIUM (test code = CA) 9.2 mg/dL 8.5-10.1 N [id number] 22:07:00* Test Item Value Reference Range Interpretation Comments GLUBED (test code = GLUBED) 236 mg/dL 74-106 H Performed by certified cone machine operator at [facility] THROMBOPLASTIN TIME [id number] 18:15:00* Test Item Value Reference Range Interpretation Comments THROMBOPLASTIN TIME PARTIAL (test code = PTT) 56.5 seconds 25.0-36. 5 H IS PATIENT ON ANTICOAGULANTS? YLIST ANTICOAGULANTS [id number] 16:40:00* Test Item Value Reference Range Interpretation Comments GLUBED (test code = GLUBED) 118 mg/dL 74-106 H [facility]~ BASIC METABOLIC [id number] 16:29:00* Test Item Value Reference Range Interpretation Comments SODIUM (test code = NA) 136 mmol/L 136-145 RESU LT VERIFIED BY REPEAT ANALYSIS POTASSIUM (test code = K) 2.9 mmol/L 3.5-5.1 L Re sults called to [id number] by [email or web address] 10/02/19 1628Critical results verified and read back by Nurse? Y CHLORIDE (test code = CL) 99.0 mmol/L 98-107 N CARBON DIOXIDE (test code = CO2) 30.0 mmol/L 21-32 N ANION GAP (test code = GAP) 9.9 10-20 L GLUCOSE (test code = GLU) 133 mg/dL 74-106 H BLOOD UREA NITROGEN (test code = BUN) 51 mg/dL 7-18 H GLOMERULAR FILTRATION RATE (test code = GFR) 26 mL/min >=60 Estimated GFR by using Modified MDRD formula.Chronic kidney disease is defined as either kidney damageor GFR <60 mL/min/1.73 m2 for >3 months. CREATININE (test code = CREAT) 2.50 mg/dL 0.7-1.3 H BUN/CREATININE RATIO (test code = BUN/CREA) 20.4 10-20 H CALCIUM (test code = CA) 9.0 mg/dL 8.5-10.1 N [id number] 16:29:00* Test Item Value Reference Range Interpretation Comments PHOSPHORUS (test code = PHOS) 2.9 mg/dL 2.5-4.9 N [id number] 16:29:00* Test Item Value Reference Range Interpretation Comments MAGNESIUM (test code = MAG) 2.0 mg/dL 1.8-2.4 N BASIC METABOLIC [id number] 16:23:00* Test Item Value Reference Range Interpretation Comments SODIUM (test code = NA) mmol/L 136-145 POTASSIUM (test code = K) mmol/L 3.5-5.1 CHLORIDE (test code = CL) mmol/L 98-107 CARBON DIOXIDE (test code = CO2) 30.0 mmol/L 21-32 N ANION GAP (test code = GAP) 10-20 GLUCOSE (test code = GLU) 133 mg/dL 74-106 H BLOOD UREA NITROGEN (test code = BUN) 51 mg/dL 7-18 H GLOMERULAR FILTRATION RATE (test code = GFR) 26 mL/min >=60 Estimated GFR by using Modified MDRD formula.Chronic kidney disease is defined as either kidney damageor GFR <60 mL/min/1.73 m2 for >3 months. CREATININE (test code = CREAT) 2.50 mg/dL 0.7-1.3 H BUN/CREATININE RATIO (test code = BUN/CREA) 20.4 10-20 H CALCIUM (test code = CA) 9.0 mg/dL 8.5-10.1 N [id number] 16:23:00* Test Item Value Reference Range Interpretation Comments PHOSPHORUS (test code = PHOS) 2.9 mg/dL 2.5-4.9 N [id number] 16:23:00* Test Item Value Reference Range Interpretation Comments MAGNESIUM (test code = MAG) 2.0 mg/dL 1.8-2.4 N UR NA,[id number] 15:57:00* Test Item Value Reference Range Interpretation Comments UR NA,RANDOM (test code = EDUARDO) 93 mmol/L 20-110 N URINE K, [id number] 15:57:00* Test Item Value Reference Range Interpretation Comments URINE K, RANDOM (test code = KU) 33.0 mmol/L 12-75 N UR PROTEIN [id number] 15:57:00* Test Item Value Reference Range Interpretation Comments UR PROTEIN RANDOM (test code = PROTU) 5.5 mg/dL 0.0-11.9 N Protein levels may be falsely elevated in patients withelevated level of aminoglycoside antibiotics in CSF and inhighly concentrated urine specimens. If false elevation issuspected, contact lab for alternated testing technique. UR CREATININE [id number] 15:57:00* Test Item Value Reference Range Interpretation Comments UR CREATININE RANDOM (test code = CREATU) 14.0 mg/dL 30-125 L UR NA,[id number] 15:51:00* Test Item Value Reference Range Interpretation Comments UR NA,RANDOM (test code = EDUARDO) 93 mmol/L 20-110 N URINE K, [id number] 15:51:00* Test Item Value Reference Range Interpretation Comments URINE K, RANDOM (test code = KU) 33.0 mmol/L 12-75 N UR PROTEIN [id number] 15:51:00* Test Item Value Reference Range Interpretation Comments UR PROTEIN RANDOM (test code = PROTU) mg/dL 0.0-11.9 UR CREATININE [id number] 15:51:00* Test Item Value Reference Range Interpretation Comments UR CREATININE RANDOM (test code = CREATU) mg/dL 30-125 THROMBOPLASTIN TIME [id number] 14:28:00* Test Item Value Reference Range Interpretation Comments THROMBOPLASTIN TIME PARTIAL (test code = PTT) > 400.0 seconds 25.0- 36.5 Results called to [id number] by V.LAB.HD1 10/02/19 1428Critical results verified and read back by Nurse? Y IS PATIENT ON ANTICOAGULANTS? YLIST ANTICOAGULANTS [id number] 11:37:00* Test Item Value Reference Range Interpretation Comments GLUBED (test code = GLUBED) 126 mg/dL 74-106 H Performed by certified cone machine operator at [facility] [id number] 07:44:00* Test Item Value Reference Range Interpretation Comments GLUBED (test code = GLUBED) 67 mg/dL 74-106 L Performed by certified cone machine operator at [facility] THROMBOPLASTIN TIME [id number] 06:28:00* Test Item Value Reference Range Interpretation Comments THROMBOPLASTIN TIME PARTIAL (test code = PTT) > 400.0 seconds 25.0- 36.5 Results called to [id number] by V.LAB.JMJ1 10/02/19 0628Critical results verified and read back by Nurse? Y IS PATIENT ON ANTICOAGULANTS? YLIST ANTICOAGULANTS HEPARINTHROMBOPLASTIN TIME [id number] 04:39:00* Test Item Value Reference Range Interpretation Comments THROMBOPLASTIN TIME PARTIAL (test code = PTT) > 400.0 seconds 25.0- 36.5 HH Results called to [id number] by [email or web address] 10/02/19 0439Critical results verified and read back by Nurse? Y BASIC METABOLIC [id number] 03:59:00* Test Item Value Reference Range Interpretation Comments SODIUM (test code = NA) 141 mmol/L 136-145 N POTASSIUM (test code = K) 3.0 mmol/L 3.5-5.1 L CHLORIDE (test code = CL) 104.0 mmol/L 98-107 N CARBON DIOXIDE (test code = CO2) 29.0 mmol/L 21-32 N ANION GAP (test code = GAP) 11.0 10-20 N GLUCOSE (test code = GLU) 99 mg/dL 74-106 N BLOOD UREA NITROGEN (test code = BUN) 51 mg/dL 7-18 H GLOMERULAR FILTRATION RATE (test code = GFR) 23 mL/min >=60 Estimated GFR by using Modified MDRD formula.Chronic kidney disease is defined as either kidney damageor GFR <60 mL/min/1.73 m2 for >3 months. CREATININE (test code = CREAT) 2.70 mg/dL 0.7-1.3 H BUN/CREATININE RATIO (test code = BUN/CREA) 18.9 10-20 N CALCIUM (test code = CA) 9.1 mg/dL 8.5-10.1 N HEPATIC FUNCTION [id number] 03:59:00* Test Item Value Reference Range Interpretation Comments TOTAL PROTEIN (test code = PROT) 7.4 gram/dL 6.4-8.2 N ALBUMIN (test code = ALB) 3.8 g/dL 3.4-5.0 N GLOBULIN (test code = GLOB) 3.6 gram/dL 2.7-4.2 N ALBUMIN/GLOBULIN RATIO (test code = A/G) 1.1 0.75-1.50 N BILIRUBIN TOTAL (test code = BILT) 1.90 mg/dL 0.0-1.0 H BILIRUBIN DIRECT (test code = BILD) 0.70 mg/dL 0.0-0.20 H SGOT/AST (test code = AST) 136 IUnit/L 15-37 H SGPT/ALT (test code = ALT) 166 IUnit/L 12-78 H ALKALINE PHOSPHATASE TOTAL (test code = ALKP) 156 IUnit/L 45-117 H Note change in reference range due to change in reagent. [id number] 03:59:00* Test Item Value Reference Range Interpretation Comments PHOSPHORUS (test code = PHOS) 4.6 mg/dL 2.5-4.9 N [id number] 03:59:00* Test Item Value Reference Range Interpretation Comments MAGNESIUM (test code = MAG) 2.2 mg/dL 1.8-2.4 N BASIC METABOLIC [id number] 03:55:00* Test Item Value Reference Range Interpretation Comments SODIUM (test code = NA) 141 mmol/L 136-145 N POTASSIUM (test code = K) 3.0 mmol/L 3.5-5.1 L CHLORIDE (test code = CL) 104.0 mmol/L 98-107 N CARBON DIOXIDE (test code = CO2) mmol/L 21-32 ANION GAP (test code = GAP) 10-20 GLUCOSE (test code = GLU) mg/dL 74-106 BLOOD UREA NITROGEN (test code = BUN) mg/dL 7-18 GLOMERULAR FILTRATION RATE (test code = GFR) mL/min >=60 CREATININE (test code = CREAT) mg/dL 0.7-1.3 BUN/CREATININE RATIO (test code = BUN/CREA) 10-20 CALCIUM (test code = CA) mg/dL 8.5-10.1 HEPATIC FUNCTION [id number] 03:55:00* Test Item Value Reference Range Interpretation Comments TOTAL PROTEIN (test code = PROT) gram/dL 6.4-8.2 ALBUMIN (test code = ALB) g/dL 3.4-5.0 GLOBULIN (test code = GLOB) gram/dL 2.7-4.2 ALBUMIN/GLOBULIN RATIO (test code = A/G) 0.75-1.50 BILIRUBIN TOTAL (test code = BILT) mg/dL 0.0-1.0 BILIRUBIN DIRECT (test code = BILD) mg/dL 0.0-0.20 SGOT/AST (test code = AST) IUnit/L 15-37 SGPT/ALT (test code = ALT) IUnit/L 12-78 ALKALINE PHOSPHATASE TOTAL (test code = ALKP) IUnit/L 45-117 [id number] 03:55:00* Test Item Value Reference Range Interpretation Comments PHOSPHORUS (test code = PHOS) mg/dL 2.5-4.9 [id number] 03:55:00* Test Item Value Reference Range Interpretation Comments MAGNESIUM (test code = MAG) mg/dL 1.8-2.4 CBC W/AUTO [id number] 03:42:00* Test Item Value Reference Range Interpretation Comments WHITE BLOOD CELL (test code = WBC) 10.7 K/mm3 4.5-12.5 N RED BLOOD CELL (test code = RBC) 5.09 mill/mm3 4.0-5.8 N HEMOGLOBIN (test code = HGB) 15.3 gram/dL 13.0-17.5 N HEMATOCRIT (test code = HCT) 45.9 % 42.0-52.0 N MEAN CELL VOLUME (test code = MCV) 90.2 fL 80-98 N MEAN CELL HGB (test code = MCH) 30.1 picogram 27.0-33.0 N MEAN CELL HGB CONCETRATION (test code = MCHC) 33.3 gram/dL 33.0-36. 0 N RED CELL DISTRIBUTION WIDTH (test code = RDW) 15.4 % 11.6-16. 2 N RED CELL DISTRIBUTION WIDTH SD (test code = RDW-SD) 50.1 fL 37 .0-51.0 N PLATELET COUNT (test code = PLT) 190 K/mm3 150-450 N MEAN PLATELET VOLUME (test code = MPV) 11.8 fL 6.7-11.0 H NEUTROPHIL % (test code = NT%) 71.8 % 39.0-69.0 H IMMATURE GRANULOCYTE % (test code = IG%) 0.3 % 0.0-5.0 N LYMPHOCYTE % (test code = LY%) 19.3 % 25.0-55.0 L MONOCYTE % (test code = MO%) 7.5 % 0.0-10.0 N EOSINOPHIL % (test code = EO%) 0.4 % 0.0-5.0 N BASOPHIL % (test code = BA%) 0.7 % 0.0-1.0 N NUCLEATED RBC % (test code = NRBC%) 0.0 % 0-0 N NEUTROPHIL # (test code = NT#) 7.71 K/mm3 1.8-7.7 H IMMATURE GRANULOCYTE # (test code = IG#) 0.03 x10 3/uL 0-0.03 N LYMPHOCYTE # (test code = LY#) 2.07 K/mm3 1.0-5.0 N MONOCYTE # (test code = MO#) 0.81 K/mm3 0-0.8 H EOSINOPHIL # (test code = EO#) 0.04 K/mm3 0.0-0.5 N BASOPHIL # (test code = BA#) 0.08 K/mm3 0.0-0.2 N NUCLEATED RBC # (test code = NRBC#) 0.00 K/mm3 0.0-0.1 N [id number] 22:05:00* Test Item Value Reference Range Interpretation Comments GLUBED (test code = GLUBED) 105 mg/dL 74-106 N Performed by certified cone machine operator at [facility] [id number] 16:26:00* Test Item Value Reference Range Interpretation Comments GLUBED (test code = GLUBED) 96 mg/dL 74-106 N [facility] certified cone machine operator [facility]~ THROMBOPLASTIN TIME [id number] 14:09:00* Test Item Value Reference Range Interpretation Comments THROMBOPLASTIN TIME PARTIAL (test code = PTT) 30.8 seconds 25.0-36. 5 N IS PATIENT ON ANTICOAGULANTS? [id number] 14:07:00* Test Item Value Reference Range Interpretation Comments POTASSIUM (test code = K) 3.6 mmol/L 3.5-5.1 N [id number] 14:07:00* Test Item Value Reference Range Interpretation Comments PHOSPHORUS (test code = PHOS) 4.5 mg/dL 2.5-4.9 N [id number] 14:07:00* Test Item Value Reference Range Interpretation Comments MAGNESIUM (test code = MAG) 2.8 mg/dL 1.8-2.4 H [id number] 13:43:00* Test Item Value Reference Range Interpretation Comments HEMATOCRIT (test code = HCT) 47.3 % 42.0-52.0 N PLATELET [id number] 13:43:00* Test Item Value Reference Range Interpretation Comments PLATELET COUNT (test code = PLT) 198 K/mm3 150-450 N [id number] 13:42:00* Test Item Value Reference Range Interpretation Comments HEMATOCRIT (test code = HCT) 47.3 % 42.0-52.0 N PLATELET [id number] 13:42:00* Test Item Value Reference Range Interpretation Comments PLATELET COUNT (test code = PLT) K/mm3 150-450 [id number] 12:11:00* Test Item Value Reference Range Interpretation Comments GLUBED (test code = GLUBED) 77 mg/dL 74-106 N [facility] certified cone machine [facility]~ [id number] 11:33:00* Test Item Value Reference Range Interpretation Comments TROPONIN-I (test code = TROPI) 0.046 ng/mL 0-0.045 H Results called to [id number] by [email or web address] 10/01/19 1133Critical results verified and read back by Nurse? Y COMMENTS TO OPTOMECHANICAL TECHNICIAN: COLLECT 3 HOURS AFTER PREVIOUS SAMPLE- US ABDOMEN [id number] 10:57:00 Name: NATALIA KINCAID [facility] : 1950 Age/S: 69 / M [address] [facility] Unit #: [id number] Loc: [place] [address] Phys: Miesha Arora MD Acct: [id number] Dis Date: Status: ADM IN PHONE #: [phone] Exam Date: 10/01/2019 0949 FAX #: [phone] Reason: abnormal liver function s/p lap demetrice EXAMS: CPT CODE: [id number] US ABDOMEN LTD 33422 EXAM: Ultrasound abdomen, limited; INFORMATION: Dilated CBD; abdominal pain; FINDINGS: Patient is status post cholecystectomy. There is no dilatation of intrahepatic bile ducts; the common hepatic duct measures 1 cm in diameter. Distal common bile duct is obscured by bowel gas. No pancreatic lesion. Liver is of normal size and shape; homogeneous echotexture; no focal lesions. The right kidney is of normal size and shape; no hydronephrosis or stones. Slightly increased parenchymal echogenicity of the right kidney. The right kidney measures 10.7 x 4.4 x 4.3 cm. No hydronephrosis, no stones. Imaged portions of the IVC and abdominal aorta are unremarkable. IMPRESSION: 1. Mild dilatation of the co mmon hepatic and common bile duct. No direct sonographic evidence of cho ledocholithiasis. However, the distal common bile duct is obscured by freddy wel gas. If there is clinical concern for choledocholithiasis, I would r ecommend referral for MRCP. 2. Increased parenchymal echogenicity of the right kidney is consistent with diffuse parenchymal disease. Location code: [facility] at 1057 Reported and signed by: Joo Talbert M.D. CC: Miesha Arora MD; Israel Hawkins MD; Buzz Sanchez Technologist: [facility] Date/Time: 10/01/2019 (1057 ) LuisaGRW Orig Print D/T: S: 10/01/2019 (5678) Prob e: PAGE 1 Signed Report [id number] 10:19:00* Test Item Value Reference Range Interpretation Comments PHOSPHORUS (test code = PHOS) 4.3 mg/dL 2.5-4.9 N [id number] 10:19:00* Test Item Value Reference Range Interpretation Comments MAGNESIUM (test code = MAG) 2.0 mg/dL 1.8-2.4 N CALCIUM [id number] 10:19:00* Test Item Value Reference Range Interpretation Comments CALCIUM IONIZED (test code = MITALI) 1.20 mmol/L 1.12-1.32 N Results called to [id number] by V.LAB.LIZETB 10/01/19 1005Critical results verified and read back by Nurse? YPreviously reported result: 0.73 mmol/LEdited by: V.LAB.LIZETB on 10/01/19:91913312/01/18 1017: CA IONIZED previously reported as: 0.73 *L mmol/L Results called to [id number] by V.LAB.LIZETB 10/01/19 1005 Critical results verified and read back by Nurse? Y [id number] 10:07:00* Test Item Value Reference Range Interpretation Comments PHOSPHORUS (test code = PHOS) 4.3 mg/dL 2.5-4.9 N [id number] 10:07:00* Test Item Value Reference Range Interpretation Comments MAGNESIUM (test code = MAG) 2.0 mg/dL 1.8-2.4 N CALCIUM [id number] 10:07:00* Test Item Value Reference Range Interpretation Comments CALCIUM IONIZED (test code = MITALI) 0.73 mmol/L 1.12-1.32 Results called to [id number] by V.LAB.LDB 10/01/19 1005Critical results verified and read back by Nurse? Y LACTIC [id number] 10:07:00* Test Item Value Reference Range Interpretation Comments LACTIC ACID (test code = LACT) 2.2 mmol/L 0.4-1.9 HH Results called to [id number] by V.LAB.LDB 10/01/19 1007Critical results verified and read back by Nurse? Y [id number] 09:44:00* Test Item Value Reference Range Interpretation Comments PHOSPHORUS (test code = PHOS) 4.3 mg/dL 2.5-4.9 N [id number] 09:44:00* Test Item Value Reference Range Interpretation Comments MAGNESIUM (test code = MAG) 2.0 mg/dL 1.8-2.4 N CALCIUM [id number] 09:44:00* Test Item Value Reference Range Interpretation Comments CALCIUM IONIZED (test code = MITALI) mmol/L 1.12-1.32 [id number] 09:26:00* Test Item Value Reference Range Interpretation Comments TROPONIN-I (test code = TROPI) 0.084 ng/mL 0-0.045 HH PREVIOUSLY CALLED. V.LAB.GP 10/01/19925 COMMENTS TO OPTOMECHANICAL TECHNICIAN: COLLECT 3 HOURS AFTER PREVIOUS [id number] 08:28:00* Test Item Value Reference Range Interpretation Comments GLUBED (test code = GLUBED) 90 mg/dL 74-106 N [facility] certified cone machine operator [facility]~ URINALYSIS [id number] 04:03:00* Test Item Value Reference Range Interpretation Comments UA COLOR (test code = COLU) YELLOW YELLOW UA APPEARANCE (test code = APPU) CLEAR CLEAR UA GLUCOSE DIPSTICK (test code = DGLUU) 100 (1+) mg/dL NEGATIVE A UA BILIRUBIN DIPSTICK (test code = BILU) NEGATIVE mg/dL NEGATIVE UA KETONE DIPSTICK (test code = KETU) NEGATIVE mg/dL NEGATIVE UA SPECIFIC GRAVITY (test code = SGU) 1.018 1.001-1.035 UA BLOOD DIPSTICK (test code = LORY) Negative mg/dL NEGATIVE UA PH DIPSTICK (test code = LINNETTE) 6.0 5.0-8.0 UA PROTEIN DIPSTICK (test code = PROU) 10 (Trace) mg/dL NEGATIVE A UA UROBILINIOGEN DIPSTICK (test code = URO) 3.0 (1+) mg/dL NEGATIVE A UA NITRITE DIPSTICK (test code = CHRISTIE) NEGATIVE NEGATIVE UA LEUKOCYTE ESTERASE W REFLEX (test code = LEUUR) NEGATIVE Jeronimo/uL NEGATIVE UA WBC (test code = WBCU) 0-5 per HPF 0-5 UA RBC (test code = RBCU) 0-2 #/HPF 0-5 UA EPITHELIAL CELLS (test code = EPIU) FEW per HPF FEW UA BACTERIA (test code = BACU) NONE SEEN #/HPF NONE UA HYALINE CAST (test code = HYALU) >20 #/LPF 0-5 A UA MUCUS (test code = MUCU) FEW #/LPF FEW Urine Source? Clean Catch- CT ABD PELVIS W/O [id number] 02:05:00 Name: NATALIA KINCAID [facility] : 1950 Age/S: 69 / M [address] [facility] Unit #: [id number] Loc: [place] [address] Phys: Iona Carvajal MD Acct: [id number] Di s Date: Status: REG ER PHONE #: [phone] Exam Date: 10/01/2019 0140 FAX #: [phone] Reason: ABD PAIN EXAMS: CPT CODE: [id number] CT ABD PELVIS W/O CONT 88510 EXAM: CT ABDOMEN AND PELV IS WITHOUT IV CONTRAST DICTATION LOCATION: H48 HIST ORY: Male, 69 years of age with abdominal pain TECHNIQUE: Contrast: No IV contrast was given. No GI contrast was given. Noncontra st phase: Abdomen and pelvis Reconstructions: Coronal and sagittal planes One or more of the following dose reduction techniques were used: Automated exposure control; adjustment of the mA and/or kV according to the patient size; and/or use of iterative reconstruction technique. COMPARISON: Previous abdominal ultrasound 08/14/2019, CT abdomen and pelvis 05/30/2019 FINDINGS: Statements: Lack of intravenous contrast compromises evaluation of abdominopelvic organs and vasculature. Lower thorax: Unremarkable. Hepatobiliary: The eligio er is normal without focal lesion. Status post cholecystectomy. CBD is dil ated at 1.3 cm but this could be related to postcholecystectomy state. Pancreas: Normal. Spleen: Normal. Adrena ls: Normal. Genitourinary: No renal calculus or hydronephrosis. N o ureteral stones. Urinary bladder is nondistended but wall is mildly diff usely thickened. No bladder stones or filling defects. The visualized reproductive organs are unremarkable. Gastrointestinal: No angelique l obstruction or perienteric inflammation. The appendix is not visualized but there are no pericecal inflammatory changes of appendicitis. There is a small hiatal hernia. Several colonic diverticula are noted. Vascular: Atherosclerotic calcifications are seen within the aorta and PAG E 1 Signed Report (CONTINUED) Name: NATALIA KINCAID [facility] : 1949 Age/S: 69 / M [address] [facility] Unit #: [id number] [place] [address] Phys: Fern Carvajal MD Acct: [id number] Dis Date: Status: REG ER PHONE #: Exam Date: 10/01/2019 0140 FAX #: [phone] Reason: ABD PAIN EXAMS: CPT CODE: [id number] CT ABD PELVIS W/[place] [address] <Continued> branch vessels. No aneurysm. Lymphatics: No enlarged lymph nodes by CT size criteria. Bones/Soft Tissues: No acute osseous findings. No ventral hernias. Peritoneum/Other: No free intraperitoneal air. No free intraperitoneal fluid. IMPRESSION: 1. Urinary bladder wall thickening. Please correlate for cystitis. 2. CBD is dilated, possibly related to postcholecystectomy state. Correlate with liver function tests. 3. Diverticulosis coli without evidence for acute diverticulitis. 4. Small hiatal hernia. at 0205 Re ported and signed by: Sharon Carbajal MD CC: Israel Hawkins MD; Fern Carvajal MD Technologist:RT RHONDA CTDI: DLP: Trnscb Date/Time: 10/01/2019 (020) t.[email or web address] Orig Print D/T: S: 10/01/2019 (8224) PAGE 2 Signed Report - XR CHEST 1 V 2019-10-01 01:30:00 FAX: Israel Stanley MD [phone] [place]: St: REG FAX: Fern Carvajal MD [phone] Name: NATALIA KINCAID [facility] : 1950 Age/S: 69/M [address] [facility] Unit #: [id number] Loc: [place] [address] Phys: Fern Carvajal MD Acct: [id number] Dis Date: Status: REG ER PHONE #: [phone] Exam Date: 10/01/2019 0125 FAX #: [phone] Reason: ABDOMINAL PAIN EXAMS: CPT CODE: [id number] XR CHEST 1 V 43573 DICTATION LOCATION: H48 HISTORY: Male, 69 years of age with ABDOMINAL PAIN EXAM: CHEST X-RAY, ONE VIEW COMPARISON: 08/15/2019 COMMENT: Frontal view of the chest is provided. Sternotomy wires and AICD again noted. No focal infiltrate, co nsolidation, mass lesion, or effusion is seen. Cardiac silhouette is enlar ged. No acute bony abnormalities. IMPRESSION: Cardiomeg caroline. No acute infiltrate or effusion. at 0130 Reported and signed by : Sharon Carbajal MD CC: Israel Hawkins MD; Manuel Carvajal MD Technologist: Kayode Walters RT(R); RODGER ZAZUETA RT(R) Trnscrd Date/Time/By: 10/01/2019 (0130) : By: LuisaCLW O rig Print D/T: S: 10/01/2019 (0137) PAGE 1 Signed Report BASIC METABOLIC PANEL 2019-10-01 01:05:00* Test Item Value Reference Range Interpretation Comments SODIUM (test code = NA) 138 mmol/L 136-145 N POTASSIUM (test code = K) 3.2 mmol/L 3.5-5.1 L CHLORIDE (test code = CL) 101.0 mmol/L 98-107 N CARBON DIOXIDE (test code = CO2) 23.0 mmol/L 21-32 N ANION GAP (test code = GAP) 17.2 10-20 N GLUCOSE (test code = GLU) 308 mg/dL 74-106 H BLOOD UREA NITROGEN (test code = BUN) 48 mg/dL 7-18 H GLOMERULAR FILTRATION RATE (test code = GFR) 22 mL/min >=60 Estimated GFR by using Modified MDRD formula.Chronic kidney disease is defined as either kidney damageor GFR <60 mL/min/1.73 m2 for >3 months. CREATININE (test code = CREAT) 2.90 mg/dL 0.7-1.3 H BUN/CREATININE RATIO (test code = BUN/CREA) 16.5 10-20 N CALCIUM (test code = CA) 9.3 mg/dL 8.5-10.1 N HEPATIC FUNCTION [id number] 01:05:00* Test Item Value Reference Range Interpretation Comments TOTAL PROTEIN (test code = PROT) 7.7 gram/dL 6.4-8.2 N ALBUMIN (test code = ALB) 3.9 g/dL 3.4-5.0 N GLOBULIN (test code = GLOB) 3.8 gram/dL 2.7-4.2 N ALBUMIN/GLOBULIN RATIO (test code = A/G) 1.0 0.75-1.50 N BILIRUBIN TOTAL (test code = BILT) 2.20 mg/dL 0.0-1.0 H BILIRUBIN DIRECT (test code = BILD) 0.66 mg/dL 0.0-0.20 H SGOT/AST (test code = AST) 43 IUnit/L 15-37 H SGPT/ALT (test code = ALT) 66 IUnit/L 12-78 N ALKALINE PHOSPHATASE TOTAL (test code = ALKP) 104 IUnit/L 45-117 N Note change in reference range due to change in reagent. [id number] 01:05:00* Test Item Value Reference Range Interpretation Comments LIPASE (test code = LIP) 367 U/L 73.0-393.0 N [id number] 01:05:00* Test Item Value Reference Range Interpretation Comments TROPONIN-I (test code = TROPI) 0.030 ng/mL 0-0.045 N PROTHROMBIN [id number] 01:00:00* Test Item Value Reference Range Interpretation Comments PROTHROMBIN TIME PATIENT (test code = PTP) 12.6 seconds 9.0-14.0 N INTERNATIONAL NORMAL RATIO (test code = INR) 1.1 0.8-1.2 N The therapeutic range for oral anticoagulant therapy formost indications is an international normalized ratio (INR)of between 2.0 and 3.0. The recommended therapeutic INRrange for various clinical situations is listed below: Clinical Situation INR range Pulmonary e mbolism treatment (2.0-3.0)Venous thrombosis treatmentVenous thrombosis prophylaxis (high risk surgery)Prevention of systemic embolism from: Acute myocardial infarction Valvular heart disease Atrial fibrillation Mechanical prosthetic heart valves (2.5-3.5) IS PATIENT ON ANTICOAGULANTS? NTHROMBOPLASTIN TIME [id number] 01:00:00* Test Item Value Reference Range Interpretation Comments THROMBOPLASTIN TIME PARTIAL (test code = PTT) 31.4 seconds 25.0-36. 5 N IS PATIENT ON ANTICOAGULANTS? NBASIC METABOLIC [id number] 00:52:00* Test Item Value Reference Range Interpretation Comments SODIUM (test code = NA) 138 mmol/L 136-145 N POTASSIUM (test code = K) 3.2 mmol/L 3.5-5.1 L CHLORIDE (test code = CL) 101.0 mmol/L 98-107 N CARBON DIOXIDE (test code = CO2) mmol/L 21-32 ANION GAP (test code = GAP) 10-20 GLUCOSE (test code = GLU) mg/dL 74-106 BLOOD UREA NITROGEN (test code = BUN) mg/dL 7-18 GLOMERULAR FILTRATION RATE (test code = GFR) mL/min >=60 CREATININE (test code = CREAT) mg/dL 0.7-1.3 BUN/CREATININE RATIO (test code = BUN/CREA) 10-20 CALCIUM (test code = CA) mg/dL 8.5-10.1 HEPATIC FUNCTION [id number] 00:52:00* Test Item Value Reference Range Interpretation Comments TOTAL PROTEIN (test code = PROT) gram/dL 6.4-8.2 ALBUMIN (test code = ALB) g/dL 3.4-5.0 GLOBULIN (test code = GLOB) gram/dL 2.7-4.2 ALBUMIN/GLOBULIN RATIO (test code = A/G) 0.75-1.50 BILIRUBIN TOTAL (test code = BILT) mg/dL 0.0-1.0 BILIRUBIN DIRECT (test code = BILD) mg/dL 0.0-0.20 SGOT/AST (test code = AST) IUnit/L 15-37 SGPT/ALT (test code = ALT) IUnit/L 12-78 ALKALINE PHOSPHATASE TOTAL (test code = ALKP) IUnit/L 45-117 [id number] 00:52:00* Test Item Value Reference Range Interpretation Comments LIPASE (test code = LIP) U/L 73.0-393.0 [id number] 00:52:00* Test Item Value Reference Range Interpretation Comments TROPONIN-I (test code = TROPI) ng/mL 0-0.045 CBC W/O [id number] 00:47:00* Test Item Value Reference Range Interpretation Comments WHITE BLOOD CELL (test code = WBC) 11.0 K/mm3 4.5-12.5 N RED BLOOD CELL (test code = RBC) 5.38 mill/mm3 4.0-5.8 N HEMOGLOBIN (test code = HGB) 16.3 gram/dL 13.0-17.5 N HEMATOCRIT (test code = HCT) 47.3 % 42.0-52.0 N MEAN CELL VOLUME (test code = MCV) 87.9 fL 80-98 N MEAN CELL HGB (test code = MCH) 30.3 picogram 27.0-33.0 N MEAN CELL HGB CONCETRATION (test code = MCHC) 34.5 gram/dL 33.0-36. 0 N RED CELL DISTRIBUTION WIDTH (test code = RDW) 15.1 % 11.6-16. 2 N PLATELET COUNT (test code = PLT) 230 K/mm3 150-450 N MEAN PLATELET VOLUME (test code = MPV) 12.2 fL 6.7-11.0 H CBC W/O [id number] 00:44:00* Test Item Value Reference Range Interpretation Comments WHITE BLOOD CELL (test code = WBC) K/mm3 4.5-12.5 RED BLOOD CELL (test code = RBC) mill/mm3 4.0-5.8 HEMOGLOBIN (test code = HGB) 16.3 gram/dL 13.0-17.5 N HEMATOCRIT (test code = HCT) 47.3 % 42.0-52.0 N MEAN CELL VOLUME (test code = MCV) fL 80-98 MEAN CELL HGB (test code = MCH) picogram 27.0-33.0 MEAN CELL HGB CONCETRATION (test code = MCHC) gram/dL 33.0-36. 0 RED CELL DISTRIBUTION WIDTH (test code = RDW) % 11.6-16. 2 PLATELET COUNT (test code = PLT) K/mm3 150-450 MEAN PLATELET VOLUME (test code = MPV) fL 6.7-11.0 TROPONIN I [id number] 00:39:00* Test Item Value Reference Range Interpretation Comments TROPONIN I RAPID (test code = TROPIRAP) 0.05 ng/mL <0.08 Please Note New Reference Range 0.00-0.079 ng/mL - Negative>or= 0.08 ng/mL - Positive The use of serial sampling and testing protocol is arecommended practice.An elevated troponin level alone is often not sufficient fordiagnosis of myocardial infarction. Troponin results obtained by different assays may vary.Evaluation of the extent of myocardial damage based onincrease of troponin would be valid only if similarmethodology is used. [id number] 15:54:00* Test Item Value Reference Range Interpretation Comments GLUBED (test code = GLUBED) 214 mg/dL 74-106 H Performed by certified cone machine operator at [facility] [id number] 12:14:00* Test Item Value Reference Range Interpretation Comments GLUBED (test code = GLUBED) 217 mg/dL 74-106 H Performed by certified cone machine operator at [facility] BASIC METABOLIC [id number] 05:43:00* Test Item Value Reference Range Interpretation Comments SODIUM (test code = NA) 139 mmol/L 136-145 N POTASSIUM (test code = K) 4.0 mmol/L 3.5-5.1 N CHLORIDE (test code = CL) 99.0 mmol/L 98-107 N CARBON DIOXIDE (test code = CO2) 30.0 mmol/L 21-32 N ANION GAP (test code = GAP) 14.0 10-20 N GLUCOSE (test code = GLU) 99 mg/dL 74-106 N BLOOD UREA NITROGEN (test code = BUN) 30 mg/dL 7-18 H RESULT VERIFIED BY REPEAT ANALYSIS GLOMERULAR FILTRATION RATE (test code = GFR) 35 mL/min >=60 Estimated GFR by using Modified MDRD formula.Chronic kidney disease is defined as either kidney damageor GFR <60 mL/min/1.73 m2 for >3 months. CREATININE (test code = CREAT) 1.90 mg/dL 0.7-1.3 H BUN/CREATININE RATIO (test code = BUN/CREA) 15.8 10-20 N CALCIUM (test code = CA) 8.6 mg/dL 8.5-10.1 N [id number] 05:43:00* Test Item Value Reference Range Interpretation Comments MAGNESIUM (test code = MAG) 2.1 mg/dL 1.8-2.4 N [id number] 05:10:00* Test Item Value Reference Range Interpretation Comments GLUBED (test code = GLUBED) 122 mg/dL 74-106 H Performed by certified cone machine operator at [facility] CBC W/AUTO [id number] 05:08:00* Test Item Value Reference Range Interpretation Comments WHITE BLOOD CELL (test code = WBC) 9.6 K/mm3 4.5-12.5 N RED BLOOD CELL (test code = RBC) 4.22 mill/mm3 4.0-5.8 N HEMOGLOBIN (test code = HGB) 12.8 gram/dL 13.0-17.5 L HEMATOCRIT (test code = HCT) 38.7 % 42.0-52.0 L MEAN CELL VOLUME (test code = MCV) 91.7 fL 80-98 N MEAN CELL HGB (test code = MCH) 30.3 picogram 27.0-33.0 N MEAN CELL HGB CONCETRATION (test code = MCHC) 33.1 gram/dL 33.0-36. 0 N RED CELL DISTRIBUTION WIDTH (test code = RDW) 15.6 % 11.6-16. 2 N RED CELL DISTRIBUTION WIDTH SD (test code = RDW-SD) 50.8 fL 37 .0-51.0 N PLATELET COUNT (test code = PLT) 187 K/mm3 150-450 N MEAN PLATELET VOLUME (test code = MPV) 11.8 fL 6.7-11.0 H NEUTROPHIL % (test code = NT%) 57.1 % 39.0-69.0 N IMMATURE GRANULOCYTE % (test code = IG%) 0.3 % 0.0-5.0 N LYMPHOCYTE % (test code = LY%) 25.4 % 25.0-55.0 N MONOCYTE % (test code = MO%) 14.1 % 0.0-10.0 H EOSINOPHIL % (test code = EO%) 1.8 % 0.0-5.0 N BASOPHIL % (test code = BA%) 1.3 % 0.0-1.0 H NUCLEATED RBC % (test code = NRBC%) 0.0 % 0-0 N NEUTROPHIL # (test code = NT#) 5.49 K/mm3 1.8-7.7 N IMMATURE GRANULOCYTE # (test code = IG#) 0.03 x10 3/uL 0-0.03 N LYMPHOCYTE # (test code = LY#) 2.45 K/mm3 1.0-5.0 N MONOCYTE # (test code = MO#) 1.36 K/mm3 0-0.8 H EOSINOPHIL # (test code = EO#) 0.17 K/mm3 0.0-0.5 N BASOPHIL # (test code = BA#) 0.13 K/mm3 0.0-0.2 N NUCLEATED RBC # (test code = NRBC#) 0.00 K/mm3 0.0-0.1 N MANUAL DIFF REQUIRED (test code = MDIFF) NO [id number] 21:18:00* Test Item Value Reference Range Interpretation Comments GLUBED (test code = GLUBED) 242 mg/dL 74-106 H Performed by certified cone machine operator at [facility] [id number] 16:41:00* Test Item Value Reference Range Interpretation Comments GLUBED (test code = GLUBED) 331 mg/dL 74-106 H Performed by certified cone machine operator at [facility] [id number] 12:42:00* Test Item Value Reference Range Interpretation Comments GLUBED (test code = GLUBED) 171 mg/dL 74-106 H Performed by certified cone machine operator at [facility] - US RETRO [id number] 12:20:00 Name: NATALIA KINCAID [facility] : 1950 Age/S: 69 / M [address] [facility] Unit #: [id number] Loc: [place] [address] Phys: Miko Pinto MD Acct: [id number] Dis Date: Status: ADM IN PHONE #: [phone] Exam Date: 08/17/2019 1200 FAX #: [phone] Reason: alva EXAMS: CPT CODE: [id number] US RETRO LTD 19317 REASON FOR EXAM: alva EXAM ORDER DATE: 08/17/2019 9:38 AM Attending M.D.: Miko Pinto MD PROCEDURE: - US RETRO LTD Comparison: Abdominal ultrasound. As earlier FINDINGS: Right kidney: parenchyma echogenicity: Normal echogenicity size: 9.8 x 4.6 x 4.4 cm. stones: none cysts/masses: Midpole of the right kidney there is a 1.3 cm cyst with a single thin septation. On the previous abdominal ultrasound the septation was not clearly visualized. Regardless, basal sonographic character 6 this cyst does not warrant further evaluation. hydronephrosis: none Left kidney: parenchyma echogenicity: Normal echogenicity size: 10.5 x 4.8 x 4.7 cm. stones: none cysts/masses: none hydronephrosis: none Urinary Bladder: Ureteral jets: Not visualized Intraluminal masses/debris: None Wall thickness: Normal Outpouching: None IMPRESSION: Sonographically unremarkable kidneys other than a minimally complex cyst in the midpole of the right kidney which does not warrant further evaluation. PAGE 1 Signed Report (CONTINUED) Name: NATALIA KINCAID [facility] : 1950 Age/S: 69 / M [address] [facility] Unit #: [id number] Loc: [place] [address] Phys: Miko Pinto MD Acct: [id number] Dis Date: Status: ADM IN PHONE #: [phone] Exam Date: 08/17/2019 1200 FAX #: [phone] Reason: alva EXAMS: CPT CODE: [id number] [facility] [address] <Continued> at 1220 Reported and signed by: Trev Beal MD CC: Miko Pinto MD; Israel Hawkins MD; Buzz Sanchez Technologist: JORY BAIG RT(R),[facility] Date/Time: 08/17/2019 (1220) [email or web address] Orig Print D/T: S: 08/17/2019 (1224) Probe: PAGE 2 Signed Report BASIC METABOLIC PANEL 2019-08-17 06:00:00* Test Item Value Reference Range Interpretation Comments SODIUM (test code = NA) 136 mmol/L 136-145 N POTASSIUM (test code = K) 3.0 mmol/L 3.5-5.1 L CHLORIDE (test code = CL) 100.0 mmol/L 98-107 N CARBON DIOXIDE (test code = CO2) 27.0 mmol/L 21-32 N ANION GAP (test code = GAP) 12.0 10-20 N GLUCOSE (test code = GLU) 165 mg/dL 74-106 H BLOOD UREA NITROGEN (test code = BUN) 23 mg/dL 7-18 H GLOMERULAR FILTRATION RATE (test code = GFR) 37 mL/min >=60 Estimated GFR by using Modified MDRD formula.Chronic kidney disease is defined as either kidney damageor GFR <60 mL/min/1.73 m2 for >3 months. CREATININE (test code = CREAT) 1.80 mg/dL 0.7-1.3 H BUN/CREATININE RATIO (test code = BUN/CREA) 13.1 10-20 N CALCIUM (test code = CA) 8.6 mg/dL 8.5-10.1 N [id number] 06:00:00* Test Item Value Reference Range Interpretation Comments MAGNESIUM (test code = MAG) 2.0 mg/dL 1.8-2.4 N BASIC METABOLIC [id number] 05:59:00* Test Item Value Reference Range Interpretation Comments SODIUM (test code = NA) 136 mmol/L 136-145 N POTASSIUM (test code = K) 3.0 mmol/L 3.5-5.1 L CHLORIDE (test code = CL) 100.0 mmol/L 98-107 N CARBON DIOXIDE (test code = CO2) mmol/L 21-32 ANION GAP (test code = GAP) 10-20 GLUCOSE (test code = GLU) mg/dL 74-106 BLOOD UREA NITROGEN (test code = BUN) mg/dL 7-18 GLOMERULAR FILTRATION RATE (test code = GFR) mL/min >=60 CREATININE (test code = CREAT) mg/dL 0.7-1.3 BUN/CREATININE RATIO (test code = BUN/CREA) 10-20 CALCIUM (test code = CA) mg/dL 8.5-10.1 [id number] 05:59:00* Test Item Value Reference Range Interpretation Comments MAGNESIUM (test code = MAG) mg/dL 1.8-2.4 [id number] 05:53:00* Test Item Value Reference Range Interpretation Comments GLUBED (test code = GLUBED) 158 mg/dL 74-106 H Performed by certified cone machine operator at [facility] CBC W/AUTO [id number] 05:35:00* Test Item Value Reference Range Interpretation Comments WHITE BLOOD CELL (test code = WBC) 8.4 K/mm3 4.5-12.5 N RED BLOOD CELL (test code = RBC) 3.90 mill/mm3 4.0-5.8 L HEMOGLOBIN (test code = HGB) 11.8 gram/dL 13.0-17.5 L HEMATOCRIT (test code = HCT) 36.5 % 42.0-52.0 L MEAN CELL VOLUME (test code = MCV) 93.6 fL 80-98 N MEAN CELL HGB (test code = MCH) 30.3 picogram 27.0-33.0 N MEAN CELL HGB CONCETRATION (test code = MCHC) 32.3 gram/dL 33.0-36. 0 L RED CELL DISTRIBUTION WIDTH (test code = RDW) 15.8 % 11.6-16. 2 N RED CELL DISTRIBUTION WIDTH SD (test code = RDW-SD) 53.0 fL 37 .0-51.0 H PLATELET COUNT (test code = PLT) 163 K/mm3 150-450 N MEAN PLATELET VOLUME (test code = MPV) 11.4 fL 6.7-11.0 H NEUTROPHIL % (test code = NT%) 64.6 % 39.0-69.0 N IMMATURE GRANULOCYTE % (test code = IG%) 0.4 % 0.0-5.0 N LYMPHOCYTE % (test code = LY%) 17.8 % 25.0-55.0 L MONOCYTE % (test code = MO%) 14.7 % 0.0-10.0 H EOSINOPHIL % (test code = EO%) 1.5 % 0.0-5.0 N BASOPHIL % (test code = BA%) 1.0 % 0.0-1.0 N NUCLEATED RBC % (test code = NRBC%) 0.0 % 0-0 N NEUTROPHIL # (test code = NT#) 5.43 K/mm3 1.8-7.7 N IMMATURE GRANULOCYTE # (test code = IG#) 0.03 x10 3/uL 0-0.03 N LYMPHOCYTE # (test code = LY#) 1.50 K/mm3 1.0-5.0 N MONOCYTE # (test code = MO#) 1.24 K/mm3 0-0.8 H EOSINOPHIL # (test code = EO#) 0.13 K/mm3 0.0-0.5 N BASOPHIL # (test code = BA#) 0.08 K/mm3 0.0-0.2 N NUCLEATED RBC # (test code = NRBC#) 0.00 K/mm3 0.0-0.1 N MANUAL DIFF REQUIRED (test code = MDIFF) NO [id number] 20:53:00* Test Item Value Reference Range Interpretation Comments GLUBED (test code = GLUBED) 239 mg/dL 74-106 H Performed by certified cone machine operator at [facility] [id number] 16:32:00* Test Item Value Reference Range Interpretation Comments GLUBED (test code = GLUBED) 167 mg/dL 74-106 H Performed by certified cone machine operator at [facility] [id number] 11:38:00* Test Item Value Reference Range Interpretation Comments GLUBED (test code = GLUBED) 225 mg/dL 74-106 H Performed by certified cone machine operator at [facility] BASIC METABOLIC [id number] 05:44:00* Test Item Value Reference Range Interpretation Comments SODIUM (test code = NA) 137 mmol/L 136-145 N POTASSIUM (test code = K) 3.5 mmol/L 3.5-5.1 N CHLORIDE (test code = CL) 98.0 mmol/L 98-107 N CARBON DIOXIDE (test code = CO2) 31.0 mmol/L 21-32 N ANION GAP (test code = GAP) 11.5 10-20 N GLUCOSE (test code = GLU) 169 mg/dL 74-106 H BLOOD UREA NITROGEN (test code = BUN) 25 mg/dL 7-18 H GLOMERULAR FILTRATION RATE (test code = GFR) 31 mL/min >=60 Estimated GFR by using Modified MDRD formula.Chronic kidney disease is defined as either kidney damageor GFR <60 mL/min/1.73 m2 for >3 months. CREATININE (test code = CREAT) 2.10 mg/dL 0.7-1.3 H BUN/CREATININE RATIO (test code = BUN/CREA) 12.0 10-20 N CALCIUM (test code = CA) 8.7 mg/dL 8.5-10.1 N [id number] 05:44:00* Test Item Value Reference Range Interpretation Comments PHOSPHORUS (test code = PHOS) 3.1 mg/dL 2.5-4.9 N [id number] 05:44:00* Test Item Value Reference Range Interpretation Comments MAGNESIUM (test code = MAG) 2.0 mg/dL 1.8-2.4 N BASIC METABOLIC [id number] 05:41:00* Test Item Value Reference Range Interpretation Comments SODIUM (test code = NA) 137 mmol/L 136-145 N POTASSIUM (test code = K) 3.5 mmol/L 3.5-5.1 N CHLORIDE (test code = CL) 98.0 mmol/L 98-107 N CARBON DIOXIDE (test code = CO2) mmol/L 21-32 ANION GAP (test code = GAP) 10-20 GLUCOSE (test code = GLU) mg/dL 74-106 BLOOD UREA NITROGEN (test code = BUN) mg/dL 7-18 GLOMERULAR FILTRATION RATE (test code = GFR) mL/min >=60 CREATININE (test code = CREAT) mg/dL 0.7-1.3 BUN/CREATININE RATIO (test code = BUN/CREA) 10-20 CALCIUM (test code = CA) mg/dL 8.5-10.1 [id number] 05:41:00* Test Item Value Reference Range Interpretation Comments PHOSPHORUS (test code = PHOS) mg/dL 2.5-4.9 [id number] 05:41:00* Test Item Value Reference Range Interpretation Comments MAGNESIUM (test code = MAG) mg/dL 1.8-2.4 CBC W/AUTO [id number] 05:29:00* Test Item Value Reference Range Interpretation Comments WHITE BLOOD CELL (test code = WBC) 9.2 K/mm3 4.5-12.5 N RED BLOOD CELL (test code = RBC) 4.12 mill/mm3 4.0-5.8 N HEMOGLOBIN (test code = HGB) 12.6 gram/dL 13.0-17.5 L HEMATOCRIT (test code = HCT) 38.5 % 42.0-52.0 L MEAN CELL VOLUME (test code = MCV) 93.4 fL 80-98 N MEAN CELL HGB (test code = MCH) 30.6 picogram 27.0-33.0 N MEAN CELL HGB CONCETRATION (test code = MCHC) 32.7 gram/dL 33.0-36. 0 L RED CELL DISTRIBUTION WIDTH (test code = RDW) 15.6 % 11.6-16. 2 N RED CELL DISTRIBUTION WIDTH SD (test code = RDW-SD) 52.5 fL 37 .0-51.0 H PLATELET COUNT (test code = PLT) 179 K/mm3 150-450 N MEAN PLATELET VOLUME (test code = MPV) 11.3 fL 6.7-11.0 H NEUTROPHIL % (test code = NT%) 67.9 % 39.0-69.0 N IMMATURE GRANULOCYTE % (test code = IG%) 0.2 % 0.0-5.0 N LYMPHOCYTE % (test code = LY%) 15.9 % 25.0-55.0 L MONOCYTE % (test code = MO%) 13.6 % 0.0-10.0 H EOSINOPHIL % (test code = EO%) 1.3 % 0.0-5.0 N BASOPHIL % (test code = BA%) 1.1 % 0.0-1.0 H NUCLEATED RBC % (test code = NRBC%) 0.0 % 0-0 N NEUTROPHIL # (test code = NT#) 6.26 K/mm3 1.8-7.7 N IMMATURE GRANULOCYTE # (test code = IG#) 0.02 x10 3/uL 0-0.03 N LYMPHOCYTE # (test code = LY#) 1.47 K/mm3 1.0-5.0 N MONOCYTE # (test code = MO#) 1.25 K/mm3 0-0.8 H EOSINOPHIL # (test code = EO#) 0.12 K/mm3 0.0-0.5 N BASOPHIL # (test code = BA#) 0.10 K/mm3 0.0-0.2 N NUCLEATED RBC # (test code = NRBC#) 0.00 K/mm3 0.0-0.1 N MANUAL DIFF REQUIRED (test code = MDIFF) NO [id number] 20:26:00* Test Item Value Reference Range Interpretation Comments GLUBED (test code = GLUBED) 206 mg/dL 74-106 H Performed by certified cone machine operator at [facility] BASIC METABOLIC [id number] 17:32:00* Test Item Value Reference Range Interpretation Comments SODIUM (test code = NA) 138 mmol/L 136-145 N POTASSIUM (test code = K) 3.3 mmol/L 3.5-5.1 L CHLORIDE (test code = CL) 99.0 mmol/L 98-107 N CARBON DIOXIDE (test code = CO2) 31.0 mmol/L 21-32 N ANION GAP (test code = GAP) 11.3 10-20 N GLUCOSE (test code = GLU) 128 mg/dL 74-106 H BLOOD UREA NITROGEN (test code = BUN) 30 mg/dL 7-18 H GLOMERULAR FILTRATION RATE (test code = GFR) 31 mL/min >=60 Estimated GFR by using Modified MDRD formula.Chronic kidney disease is defined as either kidney damageor GFR <60 mL/min/1.73 m2 for >3 months. CREATININE (test code = CREAT) 2.10 mg/dL 0.7-1.3 H BUN/CREATININE RATIO (test code = BUN/CREA) 14.4 10-20 N CALCIUM (test code = CA) 9.0 mg/dL 8.5-10.1 N UR MICROALBUMIN/CREAT [id number] 16:10:00* Test Item Value Reference Range Interpretation Comments UR CREATININE RANDOM-NON REPRT (test code = CREATUT) 21.4 mg/dL N ot Estab. UR MICROALBUMIN QUANT (test code = MICALB) 13.9 ug/mL Not Estab. UR MICROALB/CREAT RATIO (test code = MICALB:CRE) 65.0 0.0-3 0.0 H INFCE Result Units: mg/g creat Normal: 0.0 - 30.0 Albuminuria: 31.0 - 300.0 Clinical albuminuria: >300.0Performed At: [facility] [address] [id number] Kyle L MD Ph:[phone] [id number] 15:49:00* Test Item Value Reference Range Interpretation Comments GLUBED (test code = GLUBED) 143 mg/dL 74-106 H Performed by certified cone machine operator at [facility] HEPATIC FUNCTION [id number] 15:10:00* Test Item Value Reference Range Interpretation Comments TOTAL PROTEIN (test code = PROT) 5.4 gram/dL 6.4-8.2 L ALBUMIN (test code = ALB) 2.7 g/dL 3.4-5.0 L GLOBULIN (test code = GLOB) 2.7 gram/dL 2.7-4.2 N ALBUMIN/GLOBULIN RATIO (test code = A/G) 1.0 0.75-1.50 N BILIRUBIN TOTAL (test code = BILT) 1.60 mg/dL 0.0-1.0 H BILIRUBIN DIRECT (test code = BILD) 0.41 mg/dL 0.0-0.20 H SGOT/AST (test code = AST) 218 IUnit/L 15-37 H SGPT/ALT (test code = ALT) 292 IUnit/L 12-78 H ALKALINE PHOSPHATASE TOTAL (test code = ALKP) 124 IUnit/L 45-117 H Note change in reference range due to change in reagent. SPECIMEN COMMENTS: PLS USE BLOOD FROM AM LAB DRAW.- XR CHEST 1 [id number] 11:42:00 FAX: Ginny Jordan NP [phone] [place]: St: ADM FAX: Israel Stanley MD [phone] FAX: Buzz Sanchez [facility] [phone] Name: NATALIA KINCAID [facility] : 1950 Age/S: 69/M [address] [facility] Unit #: [id number] Loc: V.S[address] [place] [address] Phys: Ginny Jordan NP Acct: [id number] Dis Date: Status: ADM IN [facility] #: [phone] Exam Date: 08/15/2019 1106 FAX #: [phone] Reason: sob EXAMS: CPT CODE: [id number] XR CHEST 1 V [id number] REASON FOR EXAM: sob Exam Order Date: 08/15/2019 10:58 AM Ordering Se: Ginny Jordan NP PROCEDURE: - XR CHEST 1 V COMPARISON: Frontal chest x-ray the previous day FINDINGS: The lungs are clear. There is no pleural effusion or pneumothorax. Pulmonary vascularity is within normal limits. Cardiomediastinal silhouette is enlarged but stable in size. 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 Surgical clips consistent with prior cholecystectomy are unchanged. IMPRESSION: The lungs are clear. Findings are unchan ged from the prior exam. at 1142 Reported and signed by: Trev Zamudio CC: Ginny Jordan NP; Israel Hawkins MD; Buzz Sanchez [facility] Tech nologist: Jazlyn Adams(R); Zulma Henao RT(R) Trnscrd Date/Ti me/By: 08/15/2019 (1142) : By: [email or web address].[email or web address] Orig Print D/T: S: 08/15/2019 (6003) PAGE 1 Signed Report [id number] 10:41:00* Test Item Value Reference Range Interpretation Comments GLUBED (test code = GLUBED) 254 mg/dL 74-106 H [facility] certified cone machine [facility]~ BASIC METABOLIC [id number] 05:18:00* Test Item Value Reference Range Interpretation Comments SODIUM (test code = NA) 141 mmol/L 136-145 RESU LT VERIFIED BY REPEAT ANALYSIS POTASSIUM (test code = K) 2.3 mmol/L 3.5-5.1 LL Re sults called to [id number] by V.LAB.AG1 08/15/19 0517Critical results verified and read back by Nurse?Y CHLORIDE (test code = CL) 105.0 mmol/L 98-107 N CARBON DIOXIDE (test code = CO2) 28.0 mmol/L 21-32 N ANION GAP (test code = GAP) 10.3 10-20 N GLUCOSE (test code = GLU) 170 mg/dL 74-106 H BLOOD UREA NITROGEN (test code = BUN) 26 mg/dL 7-18 H GLOMERULAR FILTRATION RATE (test code = GFR) 40 mL/min >=60 Estimated GFR by using Modified MDRD formula.Chronic kidney disease is defined as either kidney damageor GFR <60 mL/min/1.73 m2 for >3 months. CREATININE (test code = CREAT) 1.70 mg/dL 0.7-1.3 H BUN/CREATININE RATIO (test code = BUN/CREA) 15.0 10-20 N CALCIUM (test code = CA) 7.7 mg/dL 8.5-10.1 L CBC W/AUTO [id number] 04:52:00* Test Item Value Reference Range Interpretation Comments WHITE BLOOD CELL (test code = WBC) 9.0 K/mm3 4.5-12.5 N RED BLOOD CELL (test code = RBC) 4.11 mill/mm3 4.0-5.8 N HEMOGLOBIN (test code = HGB) 12.7 gram/dL 13.0-17.5 L HEMATOCRIT (test code = HCT) 37.8 % 42.0-52.0 L MEAN CELL VOLUME (test code = MCV) 92.0 fL 80-98 N MEAN CELL HGB (test code = MCH) 30.9 picogram 27.0-33.0 N MEAN CELL HGB CONCETRATION (test code = MCHC) 33.6 gram/dL 33.0-36. 0 N RED CELL DISTRIBUTION WIDTH (test code = RDW) 15.1 % 11.6-16. 2 N RED CELL DISTRIBUTION WIDTH SD (test code = RDW-SD) 49.9 fL 37 .0-51.0 N PLATELET COUNT (test code = PLT) 176 K/mm3 150-450 N MEAN PLATELET VOLUME (test code = MPV) 11.4 fL 6.7-11.0 H NEUTROPHIL % (test code = NT%) 63.0 % 39.0-69.0 N IMMATURE GRANULOCYTE % (test code = IG%) 0.2 % 0.0-5.0 N LYMPHOCYTE % (test code = LY%) 23.8 % 25.0-55.0 L MONOCYTE % (test code = MO%) 9.9 % 0.0-10.0 N EOSINOPHIL % (test code = EO%) 1.7 % 0.0-5.0 N BASOPHIL % (test code = BA%) 1.4 % 0.0-1.0 H NUCLEATED RBC % (test code = NRBC%) 0.0 % 0-0 N NEUTROPHIL # (test code = NT#) 5.66 K/mm3 1.8-7.7 N IMMATURE GRANULOCYTE # (test code = IG#) 0.02 x10 3/uL 0-0.03 N LYMPHOCYTE # (test code = LY#) 2.14 K/mm3 1.0-5.0 N MONOCYTE # (test code = MO#) 0.89 K/mm3 0-0.8 H EOSINOPHIL # (test code = EO#) 0.15 K/mm3 0.0-0.5 N BASOPHIL # (test code = BA#) 0.13 K/mm3 0.0-0.2 N NUCLEATED RBC # (test code = NRBC#) 0.00 K/mm3 0.0-0.1 N MANUAL DIFF REQUIRED (test code = MDIFF) NO [id number] 20:32:00* Test Item Value Reference Range Interpretation Comments GLUBED (test code = GLUBED) 149 mg/dL 74-106 H Performed by certified cone machine operator at [facility] [id number] 16:25:00* Test Item Value Reference Range Interpretation Comments GLUBED (test code = GLUBED) 209 mg/dL 74-106 H Performed by certified cone machine operator at [facility] - US ABDOMEN [id number] 15:09:00 Name: NATALIA KINCAID [facility] : 1950 Age/S: 69 / M [address] [facility] Unit #: [id number] Loc: [place], [place] [address] Phys: Dav Shane MD Acct: [id number] Dis Date: Status: ADM IN PHONE #: [phone] Exam Date: 08/14/2019 1432 FAX #: [phone] Reason: acute abdominal pain - nausea vomiting EXAMS: CPT CODE: [id number] US ABDOMEN COMPLETE 05189 HISTORY: Abdominal pain. COMPARISON: CT abdomen and pelvis from May 30, 2019. The liver is normal in echogenicity and texture without parenchymal mass or lesions. The liver measured 16.4 cm in length. No intra or extrahepatic biliary ductal dilatation. CBD is normal at 7.6 mm for patient's postcholecystectomy status and patient's age. No ascites. Portal vein is patent with hepatopedal flow and normal spectral waveform. Kidneys are free from hydronephrosis and calyceal stones. Hyperechogenic kidneys suggesting chronic medical renal disease. Right kidney measured 10.3 cm in length with 1.6 cm simple cyst in the interpolar region anteriorly. Left kidney measured 10.3 cm in length. Spleen is not enlarged at 9.5 cm in length. Visualized portions of the IVC, aorta and pancreas are normal however these are imaged markedly suboptimally on this exam. IMPRESSION: Patient is post cholecystectomy. Unremarkable liver and spleen. Chronic medical renal disease without hydronephrosis or calyceal stones. at 1509 Reported and signed by: Ken Turner M.D. CC: Israel Hawkins MD; Dav Shane MD; Buzz Sanchez Technologist: JENNIFER PERSAUD Trnndb Date/Time: 08/14/2019 (1506) [email or web address] Orig Print D/T: S: 08/14/2019 (8392) Probe: PAGE 1 Signed Report UR NA,RANDOM 2019-08-14 13:29:00* Test Item Value Reference Range Interpretation Comments UR NA,RANDOM (test code = EDUARDO) 83 mmol/L 20-110 N UR PROTEIN/CREATININE [id number] 13:29:00* Test Item Value Reference Range Interpretation Comments UR PROTEIN RANDOM (test code = PROTU) 7.0 mg/dL 0.0-11.9 N Protein levels may be falsely elevated in patients withelevated level of aminoglycoside antibiotics in CSF and inhighly concentrated urine specimens. If false elevation issuspected, contact lab for alternated testing technique. UR CREATININE RANDOM (test code = CREATU) 19.0 mg/dL 30-125 L PROTEIN/CREATININE RATIO (test code = P/CRATIO) 0.37 RATIO 0.0-0. 20 H UR NA,[id number] 13:10:00* Test Item Value Reference Range Interpretation Comments UR NA,RANDOM (test code = EDUARDO) 83 mmol/L 20-110 N UR PROTEIN/CREATININE [id number] 13:10:00* Test Item Value Reference Range Interpretation Comments UR PROTEIN RANDOM (test code = PROTU) mg/dL 0.0-11.9 UR CREATININE RANDOM (test code = CREATU) mg/dL 30-125 PROTEIN/CREATININE RATIO (test code = P/CRATIO) RATIO 0.0-0. 20 [id number] 11:51:00* Test Item Value Reference Range Interpretation Comments GLUBED (test code = GLUBED) 194 mg/dL 74-106 H [facility]~ BASIC METABOLIC [id number] 10:44:00* Test Item Value Reference Range Interpretation Comments SODIUM (test code = NA) 135 mmol/L 136-145 L POTASSIUM (test code = K) 4.2 mmol/L 3.5-5.1 N CHLORIDE (test code = CL) 104.0 mmol/L 98-107 N CARBON DIOXIDE (test code = CO2) 21.0 mmol/L 21-32 N ANION GAP (test code = GAP) 14.2 10-20 N GLUCOSE (test code = GLU) 219 mg/dL 74-106 H BLOOD UREA NITROGEN (test code = BUN) 32 mg/dL 7-18 H GLOMERULAR FILTRATION RATE (test code = GFR) 28 mL/min >=60 Estimated GFR by using Modified MDRD formula.Chronic kidney disease is defined as either kidney damageor GFR <60 mL/min/1.73 m2 for >3 months. CREATININE (test code = CREAT) 2.30 mg/dL 0.7-1.3 H BUN/CREATININE RATIO (test code = BUN/CREA) 13.8 10-20 N CALCIUM (test code = CA) 8.7 mg/dL 8.5-10.1 N [id number] 10:44:00* Test Item Value Reference Range Interpretation Comments LIPASE (test code = LIP) 176 U/L 73.0-393.0 N SERUM [id number] 10:44:00* Test Item Value Reference Range Interpretation Comments SERUM IRON (test code = IRON) 61 ug/dL 50-175 N BASIC METABOLIC [id number] 10:43:00* Test Item Value Reference Range Interpretation Comments SODIUM (test code = NA) 135 mmol/L 136-145 L POTASSIUM (test code = K) 4.2 mmol/L 3.5-5.1 N CHLORIDE (test code = CL) 104.0 mmol/L 98-107 N CARBON DIOXIDE (test code = CO2) mmol/L 21-32 ANION GAP (test code = GAP) 10-20 GLUCOSE (test code = GLU) mg/dL 74-106 BLOOD UREA NITROGEN (test code = BUN) mg/dL 7-18 GLOMERULAR FILTRATION RATE (test code = GFR) mL/min >=60 CREATININE (test code = CREAT) mg/dL 0.7-1.3 BUN/CREATININE RATIO (test code = BUN/CREA) 10-20 CALCIUM (test code = CA) mg/dL 8.5-10.1 [id number] 10:43:00* Test Item Value Reference Range Interpretation Comments LIPASE (test code = LIP) U/L 73.0-393.0 SERUM [id number] 10:43:00* Test Item Value Reference Range Interpretation Comments SERUM IRON (test code = IRON) ug/dL 50-175 - XR CHEST 1 [id number] 10:01:00 FAX: Israle Stanley MD [phone] [place]: St: ADM FAX: Dav Lawler MD [phone] FAX: Buzz Sanchez [facility] [phone] Name: NATALIA KINCAID [facility] : 1950 Age/S: 69/M [address] [facility] Unit #: [id number] Loc: V.S26 [place] [address] Phys: Dav Shane MD Acct: [id number] Dis Date: Status: ADM IN ONE #: [phone] Exam Date: 08/14/2019 0931 FAX #: [phone] Reason: Shortness of breath EXAMS: CPT CODE: [id number] XR CHEST 1 V 48848 HISTORY: Short ness of breath. COMPARISON: August 13, 2019. No acu te infiltrates, effusion or congestion is noted. Left ICD is unchanged. Moderate cardiomegaly. IMPRESSION: No acute infiltrates, effusion or congestion. at 1001 Reported and signed by : Ken Turner M.D. CC: Israel Hawkins MD; Rufina Shane MD; Buzz Sanchez Technologist: John Crane RT(R) Trnscrd Date/Time/By: 08/14/2019 (1001) : By: [email or web address] Orig Print D/T: S: 08/14/2019 (1004) PAGE 1 Signed Report [id number] 07:35:00* Test Item Value Reference Range Interpretation Comments GLUBED (test code = GLUBED) 97 mg/dL 74-106 N [facility]~ T3 [id number] 07:23:00* Test Item Value Reference Range Interpretation Comments T3 FREE (test code = T3F) 2.4 pg/mL 2.0-4.4 Pe rformed At: [facility] [id number] Caldwell MD Ph:[phone] [id number] 07:23:00* Test Item Value Reference Range Interpretation Comments CALCIUM (test code = CA) 8.5 mg/dL 8.5-10.1 N [id number] 07:23:00* Test Item Value Reference Range Interpretation Comments PHOSPHORUS (test code = PHOS) 3.1 mg/dL 2.5-4.9 N [id number] 07:23:00* Test Item Value Reference Range Interpretation Comments MAGNESIUM (test code = MAG) 2.0 mg/dL 1.8-2.4 N TOTAL IRON BINDING [id number] 07:23:00* Test Item Value Reference Range Interpretation Comments TOTAL IRON BINDING CAPACITY (test code = TIBC) 279 mcg/dL 250-450 N TOTAL [id number] 07:23:00* Test Item Value Reference Range Interpretation Comments TOTAL T3 (test code = T3) 83 ng/dL 71-180 Pe rformed At: [facility] [address] [id number] Caldwell MD Ph:[phone] T4 [id number] 07:23:00* Test Item Value Reference Range Interpretation Comments T4 FREE (test code = T4F) 1.42 ng/dL 0.76-1.46 N [id number] 07:23:00* Test Item Value Reference Range Interpretation Comments TROPONIN-I (test code = TROPI) 0.046 ng/mL 0-0.045 H Results called to [id number] by CRISTI.CF2 08/13/19 1322Critical results verified and read back by Nurse? Y CALCIUM [id number] 07:23:00* Test Item Value Reference Range Interpretation Comments CALCIUM IONIZED (test code = MITALI) 1.21 mmol/L 1.12-1.32 N BASIC METABOLIC [id number] 05:28:00* Test Item Value Reference Range Interpretation Comments SODIUM (test code = NA) 138 mmol/L 136-145 N POTASSIUM (test code = K) 3.7 mmol/L 3.5-5.1 N CHLORIDE (test code = CL) 105.0 mmol/L 98-107 N CARBON DIOXIDE (test code = CO2) 27.0 mmol/L 21-32 N ANION GAP (test code = GAP) 9.7 10-20 L GLUCOSE (test code = GLU) 99 mg/dL 74-106 N BLOOD UREA NITROGEN (test code = BUN) 29 mg/dL 7-18 H GLOMERULAR FILTRATION RATE (test code = GFR) 31 mL/min >=60 Estimated GFR by using Modified MDRD formula.Chronic kidney disease is defined as either kidney damageor GFR <60 mL/min/1.73 m2 for >3 months. CREATININE (test code = CREAT) 2.10 mg/dL 0.7-1.3 H BUN/CREATININE RATIO (test code = BUN/CREA) 13.6 10-20 N CALCIUM (test code = CA) 8.6 mg/dL 8.5-10.1 N BASIC METABOLIC [id number] 05:23:00* Test Item Value Reference Range Interpretation Comments SODIUM (test code = NA) 138 mmol/L 136-145 N POTASSIUM (test code = K) 3.7 mmol/L 3.5-5.1 N CHLORIDE (test code = CL) 105.0 mmol/L 98-107 N CARBON DIOXIDE (test code = CO2) mmol/L 21-32 ANION GAP (test code = GAP) 10-20 GLUCOSE (test code = GLU) mg/dL 74-106 BLOOD UREA NITROGEN (test code = BUN) mg/dL 7-18 GLOMERULAR FILTRATION RATE (test code = GFR) mL/min >=60 CREATININE (test code = CREAT) mg/dL 0.7-1.3 BUN/CREATININE RATIO (test code = BUN/CREA) 10-20 CALCIUM (test code = CA) mg/dL 8.5-10.1 CBC W/AUTO [id number] 05:00:00* Test Item Value Reference Range Interpretation Comments WHITE BLOOD CELL (test code = WBC) 10.3 K/mm3 4.5-12.5 N RED BLOOD CELL (test code = RBC) 4.21 mill/mm3 4.0-5.8 N HEMOGLOBIN (test code = HGB) 12.8 gram/dL 13.0-17.5 L HEMATOCRIT (test code = HCT) 39.6 % 42.0-52.0 L MEAN CELL VOLUME (test code = MCV) 94.1 fL 80-98 N MEAN CELL HGB (test code = MCH) 30.4 picogram 27.0-33.0 N MEAN CELL HGB CONCETRATION (test code = MCHC) 32.3 gram/dL 33.0-36. 0 L RED CELL DISTRIBUTION WIDTH (test code = RDW) 15.6 % 11.6-16. 2 N RED CELL DISTRIBUTION WIDTH SD (test code = RDW-SD) 52.8 fL 37 .0-51.0 H PLATELET COUNT (test code = PLT) 206 K/mm3 150-450 N MEAN PLATELET VOLUME (test code = MPV) 11.4 fL 6.7-11.0 H NEUTROPHIL % (test code = NT%) 55.5 % 39.0-69.0 N IMMATURE GRANULOCYTE % (test code = IG%) 0.3 % 0.0-5.0 N LYMPHOCYTE % (test code = LY%) 29.0 % 25.0-55.0 N MONOCYTE % (test code = MO%) 12.4 % 0.0-10.0 H EOSINOPHIL % (test code = EO%) 1.1 % 0.0-5.0 N BASOPHIL % (test code = BA%) 1.7 % 0.0-1.0 H NUCLEATED RBC % (test code = NRBC%) 0.2 % 0-0 H NEUTROPHIL # (test code = NT#) 5.73 K/mm3 1.8-7.7 N IMMATURE GRANULOCYTE # (test code = IG#) 0.03 x10 3/uL 0-0.03 N LYMPHOCYTE # (test code = LY#) 2.99 K/mm3 1.0-5.0 N MONOCYTE # (test code = MO#) 1.28 K/mm3 0-0.8 H EOSINOPHIL # (test code = EO#) 0.11 K/mm3 0.0-0.5 N BASOPHIL # (test code = BA#) 0.18 K/mm3 0.0-0.2 N NUCLEATED RBC # (test code = NRBC#) 0.02 K/mm3 0.0-0.1 N MANUAL DIFF REQUIRED (test code = MDIFF) NO [id number] 20:59:00* Test Item Value Reference Range Interpretation Comments GLUBED (test code = GLUBED) 284 mg/dL 74-106 H Performed by certified cone machine operator at [facility] URINALYSIS [id number] 18:44:00* Test Item Value Reference Range Interpretation Comments UA COLOR (test code = COLU) YELLOW YELLOW UA APPEARANCE (test code = APPU) CLEAR CLEAR UA GLUCOSE DIPSTICK (test code = DGLUU) NEGATIVE mg/dL NEGATIVE UA BILIRUBIN DIPSTICK (test code = BILU) NEGATIVE mg/dL NEGATIVE UA KETONE DIPSTICK (test code = KETU) NEGATIVE mg/dL NEGATIVE UA SPECIFIC GRAVITY (test code = SGU) 1.026 1.001-1.035 UA BLOOD DIPSTICK (test code = LORY) Negative mg/dL NEGATIVE UA PH DIPSTICK (test code = LINNETTE) 6.0 5.0-8.0 UA PROTEIN DIPSTICK (test code = PROU) 50 (1+) mg/dL NEGATIVE A UA UROBILINIOGEN DIPSTICK (test code = URO) 6.0 (2+) mg/dL NEGATIVE A UA NITRITE DIPSTICK (test code = CHRISTIE) NEGATIVE NEGATIVE UA LEUKOCYTE ESTERASE W REFLEX (test code = LEUUR) NEGATIVE Jeronimo/uL NEGATIVE UA WBC (test code = WBCU) 0-5 per HPF 0-5 UA RBC (test code = RBCU) 0-2 #/HPF 0-5 UA EPITHELIAL CELLS (test code = EPIU) FEW per HPF FEW UA BACTERIA (test code = BACU) NONE SEEN #/HPF NONE UA HYALINE CAST (test code = HYALU) 3-5 #/LPF 0-5 UA MUCUS (test code = MUCU) FEW #/LPF FEW Urine Source? Clean CatchURINALYSIS [id number] 18:43:00* Test Item Value Reference Range Interpretation Comments UA COLOR (test code = COLU) YELLOW YELLOW UA APPEARANCE (test code = APPU) CLEAR CLEAR UA GLUCOSE DIPSTICK (test code = DGLUU) NEGATIVE mg/dL NEGATIVE UA BILIRUBIN DIPSTICK (test code = BILU) NEGATIVE mg/dL NEGATIVE UA KETONE DIPSTICK (test code = KETU) NEGATIVE mg/dL NEGATIVE UA SPECIFIC GRAVITY (test code = SGU) 1.026 1.001-1.035 UA BLOOD DIPSTICK (test code = LORY) Negative mg/dL NEGATIVE UA PH DIPSTICK (test code = LINNETTE) 6.0 5.0-8.0 UA PROTEIN DIPSTICK (test code = PROU) 50 (1+) mg/dL NEGATIVE A UA UROBILINIOGEN DIPSTICK (test code = URO) 6.0 (2+) mg/dL NEGATIVE A UA NITRITE DIPSTICK (test code = CHRISTIE) NEGATIVE NEGATIVE UA LEUKOCYTE ESTERASE W REFLEX (test code = LEUUR) NEGATIVE Jeronimo/uL NEGATIVE UA WBC (test code = WBCU) per HPF 0-5 UA RBC (test code = RBCU) per HPF 0-5 UA EPITHELIAL CELLS (test code = EPIU) per HPF Few UA BACTERIA (test code = BACU) per HPF NONE Urine Source? Clean [id number] 17:59:00* Test Item Value Reference Range Interpretation Comments TROPONIN-I (test code = TROPI) 0.038 ng/mL 0-0.045 N COMMENTS TO OPTOMECHANICAL TECHNICIAN: COLLECT 3 HOURS AFTER PREVIOUS [id number] 17:29:00* Test Item Value Reference Range Interpretation Comments GLUBED (test code = GLUBED) 232 mg/dL 74-106 H Performed by certified cone machine operator at [facility] VENOUS BLOOD [id number] 16:56:00* Test Item Value Reference Range Interpretation Comments IONIZED CALCIUM (test code = CAIABG) 1.07 mmol/L 1.1-1.37 L VENOUS BLOOD GAS PH (test code = PHV) 7.39 7.30-7.40 N VENOUS BLOOD GAS PCO2 (test code = PCO2V) 37.2 mm Hg 39.0-51.0 L VENOUS BLOOD GAS PO2 (test code = PO2V) < 40.9 mm Hg 30.0-50.0 N VBG HCO3 (test code = HCO3V) 21.9 mmol/L 17.0-30.0 N VBG BASE EXCESS (test code = CAMRYN) -2.6 mmol/L -5.0-5.0 N VENOUS BLOOD GAS O2 SAT. (test code = O2SATV) 53 % 94-98 LL VENOUS BLOOD GAS FIO2 (test code = FIO2V) 32.0 PT. HGB (test code = PHGBVBG) 14.9 gram/dL 13.0-17.5 N SODIUM (test code = NA/VBG) 133.8 mEq/L 135-148 L POTASSIUM (test code = K/VBG) 4.1 mEq/L 3.5-4.5 N CHLORIDE (test code = CL/VBG) 100 mEq/L 98-106 N GLUCOSE (test code = GLU/VBG) 256 mg/dL 74-99 H HEMATOCRIT (test code = HCT/VBG) 44 % 42-52 N HGB O2 SAT (test code = HBOSAT) 52.4 % 94.00-98.00 LL CARBOXYHEMOGLOBIN (test code = HOHGBT) 1.2 %totalHg 0.5-1.5 N METHEMOGLOBIN (test code = METHGB) 0.2 % 0.0-1.50 N [id number] 13:36:00* Test Item Value Reference Range Interpretation Comments CALCIUM (test code = CA) 8.5 mg/dL 8.5-10.1 N [id number] 13:36:00* Test Item Value Reference Range Interpretation Comments PHOSPHORUS (test code = PHOS) 3.1 mg/dL 2.5-4.9 N [id number] 13:36:00* Test Item Value Reference Range Interpretation Comments MAGNESIUM (test code = MAG) 2.0 mg/dL 1.8-2.4 N TOTAL IRON BINDING [id number] 13:36:00* Test Item Value Reference Range Interpretation Comments TOTAL IRON BINDING CAPACITY (test code = TIBC) 279 mcg/dL 250-450 N TOTAL [id number] 13:36:00* Test Item Value Reference Range Interpretation Comments TOTAL T3 (test code = T3) T4 [id number] 13:36:00* Test Item Value Reference Range Interpretation Comments T4 FREE (test code = T4F) 1.42 ng/dL 0.76-1.46 N [id number] 13:36:00* Test Item Value Reference Range Interpretation Comments TROPONIN-I (test code = TROPI) 0.046 ng/mL 0-0.045 H Results called to [id number] by V.LAB.CF2 08/13/19 1322Critical results verified and read back by Nurse? Y CALCIUM [id number] 13:36:00* Test Item Value Reference Range Interpretation Comments CALCIUM IONIZED (test code = MITALI) 1.21 mmol/L 1.12-1.32 N COMPREHENSIVE METABOLIC [id number] 13:27:00* Test Item Value Reference Range Interpretation Comments SODIUM (test code = NA) 140 mmol/L 136-145 N POTASSIUM (test code = K) 3.6 mmol/L 3.5-5.1 N CHLORIDE (test code = CL) 108.0 mmol/L 98-107 H CARBON DIOXIDE (test code = CO2) 25.0 mmol/L 21-32 N ANION GAP (test code = GAP) 10.6 10-20 N GLUCOSE (test code = GLU) 124 mg/dL 74-106 H BLOOD UREA NITROGEN (test code = BUN) 25 mg/dL 7-18 H GLOMERULAR FILTRATION RATE (test code = GFR) 43 mL/min >=60 Estimated GFR by using Modified MDRD formula.Chronic kidney disease is defined as either kidney damageor GFR <60 mL/min/1.73 m2 for >3 months. CREATININE (test code = CREAT) 1.60 mg/dL 0.7-1.3 H BUN/CREATININE RATIO (test code = BUN/CREA) 15.4 10-20 N TOTAL PROTEIN (test code = PROT) 5.8 gram/dL 6.4-8.2 L ALBUMIN (test code = ALB) 3.2 g/dL 3.4-5.0 L GLOBULIN (test code = GLOB) 2.6 gram/dL 2.7-4.2 L ALBUMIN/GLOBULIN RATIO (test code = A/G) 1.2 0.75-1.50 N CALCIUM (test code = CA) 8.3 mg/dL 8.5-10.1 L BILIRUBIN TOTAL (test code = BILT) 1.80 mg/dL 0.0-1.0 H SGOT/AST (test code = AST) 34 IUnit/L 15-37 N SGPT/ALT (test code = ALT) 49 IUnit/L 12-78 N ALKALINE PHOSPHATASE TOTAL (test code = ALKP) 82 IUnit/L 45-117 N Note change in reference range due to change in reagent. [id number] 13:27:00* Test Item Value Reference Range Interpretation Comments PHOSPHORUS (test code = PHOS) 3.1 mg/dL 2.5-4.9 N [id number] 13:27:00* Test Item Value Reference Range Interpretation Comments MAGNESIUM (test code = MAG) 1.9 mg/dL 1.8-2.4 N THYROID STIMULATING [id number] 13:27:00* Test Item Value Reference Range Interpretation Comments THYROID STIMULATING HORMONE (test code = TSH) 1.020 uIU/mL 0.36-3.7 4 N TSH REFERENCE RANGES: EUTHYROID: 0.35 - 4.3 mIU/mL HYPO : > 5.5 mIU/mL HYPER : < 0.35 mIU/mL [id number] 13:27:00* Test Item Value Reference Range Interpretation Comments CKMB (test code = CKMBT) 6.5 ng/mL 0-6.0 H [id number] 13:22:00* Test Item Value Reference Range Interpretation Comments CALCIUM (test code = CA) 8.5 mg/dL 8.5-10.1 N [id number] 13:22:00* Test Item Value Reference Range Interpretation Comments PHOSPHORUS (test code = PHOS) 3.1 mg/dL 2.5-4.9 N [id number] 13:22:00* Test Item Value Reference Range Interpretation Comments MAGNESIUM (test code = MAG) 2.0 mg/dL 1.8-2.4 N TOTAL IRON BINDING [id number] 13:22:00* Test Item Value Reference Range Interpretation Comments TOTAL IRON BINDING CAPACITY (test code = TIBC) 279 mcg/dL 250-450 N TOTAL [id number] 13:22:00* Test Item Value Reference Range Interpretation Comments TOTAL T3 (test code = T3) T4 [id number] 13:22:00* Test Item Value Reference Range Interpretation Comments T4 FREE (test code = T4F) 1.42 ng/dL 0.76-1.46 N [id number] 13:22:00* Test Item Value Reference Range Interpretation Comments TROPONIN-I (test code = TROPI) 0.046 ng/mL 0-0.045 H Results called to [id number] by V.LAB.CF2 08/13/19 1322Critical results verified and read back by Nurse? Y CALCIUM [id number] 13:22:00* Test Item Value Reference Range Interpretation Comments CALCIUM IONIZED (test code = MITALI) mmol/L 1.12-1.32 B-TYPE NATRIURETIC [id number] 13:21:00* Test Item Value Reference Range Interpretation Comments B-TYPE NATRIURETIC PEPTIDE (test code = BNP) 1020.80 pgram/mL 0-100 H [id number] 13:19:00* Test Item Value Reference Range Interpretation Comments TROPONIN-I (test code = TROPI) 0.045 ng/mL 0-0.045 N COMMENTS TO OPTOMECHANICAL TECHNICIAN: COLLECT 3 HOURS AFTER PREVIOUS [id number] 13:15:00* Test Item Value Reference Range Interpretation Comments CALCIUM (test code = CA) 8.5 mg/dL 8.5-10.1 N [id number] 13:15:00* Test Item Value Reference Range Interpretation Comments PHOSPHORUS (test code = PHOS) mg/dL 2.5-4.9 [id number] 13:15:00* Test Item Value Reference Range Interpretation Comments MAGNESIUM (test code = MAG) mg/dL 1.8-2.4 TOTAL IRON BINDING [id number] 13:15:00* Test Item Value Reference Range Interpretation Comments TOTAL IRON BINDING CAPACITY (test code = TIBC) mcg/dL 250-450 TOTAL [id number] 13:15:00* Test Item Value Reference Range Interpretation Comments TOTAL T3 (test code = T3) T4 [id number] 13:15:00* Test Item Value Reference Range Interpretation Comments T4 FREE (test code = T4F) ng/dL 0.76-1.46 [id number] 13:15:00* Test Item Value Reference Range Interpretation Comments TROPONIN-I (test code = TROPI) ng/mL 0-0.045 CALCIUM [id number] 13:15:00* Test Item Value Reference Range Interpretation Comments CALCIUM IONIZED (test code = MITALI) mmol/L 1.12-1.32 LACTIC [id number] 13:10:00* Test Item Value Reference Range Interpretation Comments LACTIC ACID (test code = LACT) 0.9 mmol/L 0.4-1.9 N COMPREHENSIVE METABOLIC [id number] 13:10:00* Test Item Value Reference Range Interpretation Comments SODIUM (test code = NA) 140 mmol/L 136-145 N POTASSIUM (test code = K) 3.6 mmol/L 3.5-5.1 N CHLORIDE (test code = CL) 108.0 mmol/L 98-107 H CARBON DIOXIDE (test code = CO2) mmol/L 21-32 ANION GAP (test code = GAP) 10-20 GLUCOSE (test code = GLU) mg/dL 74-106 BLOOD UREA NITROGEN (test code = BUN) mg/dL 7-18 GLOMERULAR FILTRATION RATE (test code = GFR) mL/min >=60 CREATININE (test code = CREAT) mg/dL 0.7-1.3 BUN/CREATININE RATIO (test code = BUN/CREA) 10-20 TOTAL PROTEIN (test code = PROT) gram/dL 6.4-8.2 ALBUMIN (test code = ALB) g/dL 3.4-5.0 GLOBULIN (test code = GLOB) gram/dL 2.7-4.2 ALBUMIN/GLOBULIN RATIO (test code = A/G) 0.75-1.50 CALCIUM (test code = CA) mg/dL 8.5-10.1 BILIRUBIN TOTAL (test code = BILT) mg/dL 0.0-1.0 SGOT/AST (test code = AST) IUnit/L 15-37 SGPT/ALT (test code = ALT) IUnit/L 12-78 ALKALINE PHOSPHATASE TOTAL (test code = ALKP) IUnit/L 45-117 [id number] 13:10:00* Test Item Value Reference Range Interpretation Comments PHOSPHORUS (test code = PHOS) mg/dL 2.5-4.9 [id number] 13:10:00* Test Item Value Reference Range Interpretation Comments MAGNESIUM (test code = MAG) mg/dL 1.8-2.4 THYROID STIMULATING [id number] 13:10:00* Test Item Value Reference Range Interpretation Comments THYROID STIMULATING HORMONE (test code = TSH) uIU/mL 0.36-3.7 4 [id number] 13:10:00* Test Item Value Reference Range Interpretation Comments CKMB (test code = CKMBT) ng/mL 0-6.0 PROTHROMBIN [id number] 13:03:00* Test Item Value Reference Range Interpretation Comments PROTHROMBIN TIME PATIENT (test code = PTP) 13.9 seconds 9.0-14.0 N INTERNATIONAL NORMAL RATIO (test code = INR) 1.2 0.8-1.2 N The therapeutic range for oral anticoagulant therapy formost indications is an international normalized ratio (INR)of between 2.0 and 3.0. The recommended therapeutic INRrange for various clinical situations is listed below: Clinical Situation INR range Pulmonary e mbolism treatment (2.0-3.0)Venous thrombosis treatmentVenous thrombosis prophylaxis (high risk surgery)Prevention of systemic embolism from: Acute myocardial infarction Valvular heart disease Atrial fibrillation Mechanical prosthetic heart valves (2.5-3.5) IS PATIENT ON ANTICOAGULANTS? YLIST ANTICOAGULANTS HEPARINTHROMBOPLASTIN TIME [id number] 13:03:00* Test Item Value Reference Range Interpretation Comments THROMBOPLASTIN TIME PARTIAL (test code = PTT) 41.8 seconds 25.0-36. 5 H IS PATIENT ON ANTICOAGULANTS? YLIST ANTICOAGULANTS HEPARINCBC W/AUTO DIFF 2019-08-13 12:47:00* Test Item Value Reference Range Interpretation Comments WHITE BLOOD CELL (test code = WBC) 8.8 K/mm3 4.5-12.5 N RED BLOOD CELL (test code = RBC) 4.15 mill/mm3 4.0-5.8 N HEMOGLOBIN (test code = HGB) 12.8 gram/dL 13.0-17.5 L HEMATOCRIT (test code = HCT) 37.6 % 42.0-52.0 L MEAN CELL VOLUME (test code = MCV) 90.6 fL 80-98 N MEAN CELL HGB (test code = MCH) 30.8 picogram 27.0-33.0 N MEAN CELL HGB CONCETRATION (test code = MCHC) 34.0 gram/dL 33.0-36. 0 N RED CELL DISTRIBUTION WIDTH (test code = RDW) 15.5 % 11.6-16. 2 N RED CELL DISTRIBUTION WIDTH SD (test code = RDW-SD) 50.6 fL 37 .0-51.0 N PLATELET COUNT (test code = PLT) 193 K/mm3 150-450 N MEAN PLATELET VOLUME (test code = MPV) 11.5 fL 6.7-11.0 H NEUTROPHIL % (test code = NT%) 57.2 % 39.0-69.0 N IMMATURE GRANULOCYTE % (test code = IG%) 0.1 % 0.0-5.0 N LYMPHOCYTE % (test code = LY%) 29.3 % 25.0-55.0 N MONOCYTE % (test code = MO%) 10.3 % 0.0-10.0 H EOSINOPHIL % (test code = EO%) 1.7 % 0.0-5.0 N BASOPHIL % (test code = BA%) 1.4 % 0.0-1.0 H NUCLEATED RBC % (test code = NRBC%) 0.0 % 0-0 N NEUTROPHIL # (test code = NT#) 5.01 K/mm3 1.8-7.7 N IMMATURE GRANULOCYTE # (test code = IG#) 0.01 x10 3/uL 0-0.03 N LYMPHOCYTE # (test code = LY#) 2.57 K/mm3 1.0-5.0 N MONOCYTE # (test code = MO#) 0.90 K/mm3 0-0.8 H EOSINOPHIL # (test code = EO#) 0.15 K/mm3 0.0-0.5 N BASOPHIL # (test code = BA#) 0.12 K/mm3 0.0-0.2 N NUCLEATED RBC # (test code = NRBC#) 0.00 K/mm3 0.0-0.1 N [id number] 10:32:00* Test Item Value Reference Range Interpretation Comments PHOSPHORUS (test code = PHOS) 3.0 mg/dL 2.5-4.9 N [id number] 10:24:00* Test Item Value Reference Range Interpretation Comments MAGNESIUM (test code = MAG) 1.8 mg/dL 1.8-2.4 N TROPONIN I [id number] 08:54:00* Test Item Value Reference Range Interpretation Comments TROPONIN I RAPID (test code = TROPIRAP) 0.03 ng/mL <0.08 Please Note New Reference Range 0.00-0.079 ng/mL - Negative>or= 0.08 ng/mL - Positive The use of serial sampling and testing protocol is arecommended practice.An elevated troponin level alone is often not sufficient fordiagnosis of myocardial infarction. Troponin results obtained by different assays may vary.Evaluation of the extent of myocardial damage based onincrease of troponin would be valid only if similarmethodology is used. [id number] 08:49:00* Test Item Value Reference Range Interpretation Comments TROPONIN-I (test code = TROPI) 0.051 ng/mL 0-0.045 HH Results called to [id number] by [email or web address] 08/13/19 0849Critical results verified and read back by Nurse? Y BASIC METABOLIC [id number] 08:47:00* Test Item Value Reference Range Interpretation Comments SODIUM (test code = NA) 141 mmol/L 136-145 N POTASSIUM (test code = K) 3.5 mmol/L 3.5-5.1 N CHLORIDE (test code = CL) 108.0 mmol/L 98-107 H CARBON DIOXIDE (test code = CO2) 24.0 mmol/L 21-32 N ANION GAP (test code = GAP) 12.5 10-20 N GLUCOSE (test code = GLU) 102 mg/dL 74-106 N BLOOD UREA NITROGEN (test code = BUN) 26 mg/dL 7-18 H GLOMERULAR FILTRATION RATE (test code = GFR) 37 mL/min >=60 Estimated GFR by using Modified MDRD formula.Chronic kidney disease is defined as either kidney damageor GFR <60 mL/min/1.73 m2 for >3 months. CREATININE (test code = CREAT) 1.80 mg/dL 0.7-1.3 H BUN/CREATININE RATIO (test code = BUN/CREA) 14.5 10-20 N CALCIUM (test code = CA) 8.8 mg/dL 8.5-10.1 N BASIC METABOLIC [id number] 08:36:00* Test Item Value Reference Range Interpretation Comments SODIUM (test code = NA) 141 mmol/L 136-145 N POTASSIUM (test code = K) 3.5 mmol/L 3.5-5.1 N CHLORIDE (test code = CL) 108.0 mmol/L 98-107 H CARBON DIOXIDE (test code = CO2) mmol/L 21-32 ANION GAP (test code = GAP) 10-20 GLUCOSE (test code = GLU) mg/dL 74-106 BLOOD UREA NITROGEN (test code = BUN) mg/dL 7-18 GLOMERULAR FILTRATION RATE (test code = GFR) mL/min >=60 CREATININE (test code = CREAT) mg/dL 0.7-1.3 BUN/CREATININE RATIO (test code = BUN/CREA) 10-20 CALCIUM (test code = CA) mg/dL 8.5-10.1 CBC W/O [id number] 08:25:00* Test Item Value Reference Range Interpretation Comments WHITE BLOOD CELL (test code = WBC) 9.0 K/mm3 4.5-12.5 N RED BLOOD CELL (test code = RBC) 4.46 mill/mm3 4.0-5.8 N HEMOGLOBIN (test code = HGB) 13.8 gram/dL 13.0-17.5 N HEMATOCRIT (test code = HCT) 40.3 % 42.0-52.0 L MEAN CELL VOLUME (test code = MCV) 90.4 fL 80-98 N MEAN CELL HGB (test code = MCH) 30.9 picogram 27.0-33.0 N MEAN CELL HGB CONCETRATION (test code = MCHC) 34.2 gram/dL 33.0-36. 0 N RED CELL DISTRIBUTION WIDTH (test code = RDW) 15.5 % 11.6-16. 2 N PLATELET COUNT (test code = PLT) 221 K/mm3 150-450 N MEAN PLATELET VOLUME (test code = MPV) 11.6 fL 6.7-11.0 H - XR CHEST 1 [id number] 08:10:00 FAX: Israel Stanley MD [phone] [place]: St: REG FAX: Marine Chaudhari DO Name: NATALIA KINCAID [facility] : 1950 Age/S: 69/M [address] [facility] Unit #: [id number] Loc: [place] [address] Phys: Marine Chaudhari DO Acct: [id number] Dis Date: Status: REG ER PHONE #: [phone] Exam Date: 08/13/2019 0805 FAX #: [phone] Reason: CHEST PAIN EXAMS: CPT CODE: [id number] XR CHEST 1 V 48930 HISTORY: CHEST PAIN TECHNIQUE: AP chest x-ray COMPARISON: 05/30/19 FINDINGS: No airspace consolidation or pleural effusion. Cardiomegaly. Sternotomy/CABG. ICD/bive ntricular pacer. Atherosclerotic vascular calcification of the thoracic ao rta. Degenerative changes of the spine and shoulders. IMPR ESSION: No radiographic evidence of acute cardiopulmonary proc ess. at 0810 Reported and signed by: Maren Arora D.O. CC: Israel Hawkins MD; Marine Chaudhari DO Technologist: Dorys GAONA(R) Trnscrd Date/Time/By: 08/02 (0810) : By: [email or web address] Orig Print D/T: S: 08/13/2019 (0813) PAGE 1 Signed Report [id number] 12:40:00* Test Item Value Reference Range Interpretation Comments GLUBED (test code = GLUBED) 209 mg/dL 74-106 H Performed by certified cone machine operator at [facility] [id number] 09:25:00* Test Item Value Reference Range Interpretation Comments GLUBED (test code = GLUBED) 237 mg/dL 74-106 H Performed by certified cone machine operator at [facility] [id number] 09:18:00* Test Item Value Reference Range Interpretation Comments GLUBED (test code = GLUBED) 246 mg/dL 74-106 H Performed by certified cone machine operator at [facility] BASIC METABOLIC [id number] 04:29:00* Test Item Value Reference Range Interpretation Comments SODIUM (test code = NA) 141 mmol/L 136-145 N POTASSIUM (test code = K) 2.9 mmol/L 3.5-5.1 L R esults called to [place] [id number] by VTEE 06/01/19 0427Critical results verified and read back by Nurse? Y CHLORIDE (test code = CL) 100.0 mmol/L 98-107 N CARBON DIOXIDE (test code = CO2) 29.0 mmol/L 21-32 N ANION GAP (test code = GAP) 14.9 10-20 N GLUCOSE (test code = GLU) 109 mg/dL 74-106 H BLOOD UREA NITROGEN (test code = BUN) 38 mg/dL 7-18 H GLOMERULAR FILTRATION RATE (test code = GFR) 33 mL/min >=60 Estimated GFR by using Modified MDRD formula.Chronic kidney disease is defined as either kidney damageor GFR <60 mL/min/1.73 m2 for >3 months. CREATININE (test code = CREAT) 2.00 mg/dL 0.7-1.3 H BUN/CREATININE RATIO (test code = BUN/CREA) 19.0 10-20 N CALCIUM (test code = CA) 9.8 mg/dL 8.5-10.1 N BASIC METABOLIC [id number] 04:18:00* Test Item Value Reference Range Interpretation Comments SODIUM (test code = NA) mmol/L 136-145 POTASSIUM (test code = K) mmol/L 3.5-5.1 CHLORIDE (test code = CL) mmol/L 98-107 CARBON DIOXIDE (test code = CO2) 29.0 mmol/L 21-32 N ANION GAP (test code = GAP) 10-20 GLUCOSE (test code = GLU) 109 mg/dL 74-106 H BLOOD UREA NITROGEN (test code = BUN) 38 mg/dL 7-18 H GLOMERULAR FILTRATION RATE (test code = GFR) 33 mL/min >=60 Estimated GFR by using Modified MDRD formula.Chronic kidney disease is defined as either kidney damageor GFR <60 mL/min/1.73 m2 for >3 months. CREATININE (test code = CREAT) 2.00 mg/dL 0.7-1.3 H BUN/CREATININE RATIO (test code = BUN/CREA) 19.0 10-20 N CALCIUM (test code = CA) 9.8 mg/dL 8.5-10.1 N CBC W/AUTO [id number] 03:09:00* Test Item Value Reference Range Interpretation Comments WHITE BLOOD CELL (test code = WBC) 11.1 K/mm3 4.5-12.5 N RED BLOOD CELL (test code = RBC) 4.37 mill/mm3 4.0-5.8 N HEMOGLOBIN (test code = HGB) 13.5 gram/dL 13.0-17.5 N HEMATOCRIT (test code = HCT) 39.5 % 42.0-52.0 L CBC W/AUTO [id number] 03:04:00* Test Item Value Reference Range Interpretation Comments WHITE BLOOD CELL (test code = WBC) K/mm3 4.5-12.5 RED BLOOD CELL (test code = RBC) mill/mm3 4.0-5.8 HEMOGLOBIN (test code = HGB) 13.5 gram/dL 13.0-17.5 N HEMATOCRIT (test code = HCT) % 42.0-52.0 MEAN CELL VOLUME (test code = MCV) fL 80-98 MEAN CELL HGB (test code = MCH) picogram 27.0-33.0 MEAN CELL HGB CONCETRATION (test code = MCHC) gram/dL 33.0-36. 0 RED CELL DISTRIBUTION WIDTH (test code = RDW) % 11.6-16. 2 RED CELL DISTRIBUTION WIDTH SD (test code = RDW-SD) fL 37 .0-51.0 PLATELET COUNT (test code = PLT) K/mm3 150-450 MEAN PLATELET VOLUME (test code = MPV) fL 6.7-11.0 NEUTROPHIL % (test code = NT%) % 39.0-69.0 IMMATURE GRANULOCYTE % (test code = IG%) % 0.0-5.0 LYMPHOCYTE % (test code = LY%) % 25.0-55.0 MONOCYTE % (test code = MO%) % 0.0-10.0 EOSINOPHIL % (test code = EO%) % 0.0-5.0 BASOPHIL % (test code = BA%) % 0.0-1.0 NEUTROPHIL # (test code = NT#) K/mm3 1.8-7.7 LYMPHOCYTE # (test code = LY#) K/mm3 1.0-5.0 MONOCYTE # (test code = MO#) K/mm3 0-0.8 EOSINOPHIL # (test code = EO#) K/mm3 0.0-0.5 BASOPHIL # (test code = BA#) K/mm3 0.0-0.2 [id number] 21:05:00* Test Item Value Reference Range Interpretation Comments GLUBED (test code = GLUBED) 180 mg/dL 74-106 H Performed by certified cone machine operator at [facility] [id number] 18:04:00* Test Item Value Reference Range Interpretation Comments GLUBED (test code = GLUBED) 313 mg/dL 74-106 H Performed by certified cone machine operator at [facility] [id number] 11:45:00* Test Item Value Reference Range Interpretation Comments TROPONIN-I (test code = TROPI) 0.024 ng/mL 0-0.045 N COMMENTS TO OPTOMECHANICAL TECHNICIAN: COLLECT 3 HOURS AFTER PREVIOUS [id number] 07:35:00* Test Item Value Reference Range Interpretation Comments TROPONIN-I (test code = TROPI) <0.015 ng/mL 0-0.045 N COMMENTS TO OPTOMECHANICAL TECHNICIAN: COLLECT 3 HOURS AFTER PREVIOUS SAMPLEURINALYSIS [id number] 02:39:00* Test Item Value Reference Range Interpretation Comments UA COLOR (test code = COLU) COLORLESS YELLOW A UA APPEARANCE (test code = APPU) CLEAR CLEAR UA GLUCOSE DIPSTICK (test code = DGLUU) NEGATIVE mg/dL NEGATIVE UA BILIRUBIN DIPSTICK (test code = BILU) NEGATIVE mg/dL NEGATIVE UA KETONE DIPSTICK (test code = KETU) NEGATIVE mg/dL NEGATIVE UA SPECIFIC GRAVITY (test code = SGU) 1.005 1.001-1.035 UA BLOOD DIPSTICK (test code = LORY) Negative mg/dL NEGATIVE UA PH DIPSTICK (test code = LINNETTE) 7.0 5.0-8.0 UA PROTEIN DIPSTICK (test code = PROU) NEGATIVE mg/dL NEGATIVE UA UROBILINIOGEN DIPSTICK (test code = URO) Normal mg/dL NEGATIVE UA NITRITE DIPSTICK (test code = CHRISTIE) NEGATIVE NEGATIVE UA LEUKOCYTE ESTERASE W REFLEX (test code = LEUUR) NEGATIVE Jeron[place]/uL NEGATIVE UA WBC (test code = WBCU) 0-5 per HPF 0-5 UA RBC (test code = RBCU) 0-2 #/HPF 0-5 UA EPITHELIAL CELLS (test code = EPIU) None seen per HPF FEW UA BACTERIA (test code = BACU) NONE SEEN #/HPF NONE Urine Source? Clean Catch- CT ABD PELVIS W/O [id number] 21:44:00 Name: NATALIA KINCAID [facility] : 1950 Age/S: 68 / M [address] [facility] Unit #: [id number] Loc: [place] [address] Phys: Peter Camejo MD Acct: [id number] Di s Date: Status: REG ER PHONE #: Exam Date: 05/30/20195 FAX #: [phone] Reason: abdominal distention EXAMS: CPT CODE: [id number] CT ABD PELVIS W/O CONT [id number] REASON FOR EXAM: abdominal distention EXAM ORDER DATE: 05/30/2019 9:13 PM Ordering M.D.: Barbara Camejo MD PROCEDURE: - CT ABD PELV IS W/O CONT COMPARISON: FINDINGS: CT images of the a bdomen and pelvis were obtained without IV and without oral contrast at 5m m. Dose modulation, iterative reconstruction, and/or weight based adjustme nt of the MA/KV was utilized to reduce the radiation dose to as low as rebeka sonably achievable. The liver, spleen, and pancreas are thao ssly within normal limits. The patient is status post cholecystectomy The kidneys are within normal limits. The urinary bladder is u nremarkable. The colon, small bowel, and stomach are within normal limits without evidence of obstruction. The appendix is unremarkable No evidence of free air or free fluid. IMPRESSION: No acute findings in the abdomen. at 2144 Reported and signed by: Jamie Hodges M.D. CC: Israel Hawkins MD; Barbara Camejo MD Techn ologist:Sweta Mason RT(R); JOHN Trinh CTDI: DLP: Trnscb Date/Oneal e: 05/30/2019 (2143) t.SDR.VTL Orig Print D/T: S: 019 (2146) PAGE 1 Signed Report - CT CHEST W/O [id number] 21:39:00 Name: NATALIA KINCAID [facility] : 1950 Age/S: 68 / M [address] [facility] Unit #: [id number] Loc: [place] [address] Phys: Barbara Camejo MD Acct: [id number] Dis Date: Status: REG ER PHONE #: [phone] Exam Date: 05/30/20192124 FAX #: [phone] Reason: sob EXAMS: CPT CODE: [id number] CT CHEST W/O CONTRAST 19398 REASON FOR EXAM: sob EXAM ORDER DATE: 05/30/2019 9:13 PM Ordering Se: Barbara Camejo MD PROCEDURE: - CT CHEST W/O CONTRAST FINDINGS: CT images of the chest were obtained without IV contrast. Reconstructed sagittal and coronal images of the chest were provided for interpretation. Dose modulation, iterative reconstruction, and/or weight based adjustment of the MA/KV was utilized to reduce the radiation dose to as low as reasonably achievable. The heart size is minimally enlarged. Pulmonary vasculatures are minimally congested. No evidence of pericardi al effusion. The thoracic aorta is aorta is unremarkable. 1-2 cm no nspecific inflammatory nodes of the AP window and right paratracheal space . Diffuse groundglass opacity of the lungs suggestive of pulmonary edema IMPRESSION: Congestive heart failure with pulmonary edema with sm all bilateral pleural effusions at 2139 Reported and signed by: Jamie Hodges M.D. CC: Israel Hawkins MD; Barbara Camejo MD Technologist:Sweta Mason RT(R); JOHN Trinh CTDI: DLP: T rnscb Date/Time: 05/30/2019 (2138) AngelesR.VTL Orig Print D /T: S: 05/30/2019 (2141) PAGE 1 Signed Report B-TYPE NATRIURETIC [id number] 21:23:00* Test Item Value Reference Range Interpretation Comments B-TYPE NATRIURETIC PEPTIDE (test code = BNP) 596.93 pgram/mL 0-100 H BASIC METABOLIC [id number] 21:05:00* Test Item Value Reference Range Interpretation Comments SODIUM (test code = NA) 140 mmol/L 136-145 N POTASSIUM (test code = K) 3.8 mmol/L 3.5-5.1 N CHLORIDE (test code = CL) 108.0 mmol/L 98-107 H CARBON DIOXIDE (test code = CO2) 29.0 mmol/L 21-32 N ANION GAP (test code = GAP) 6.8 10-20 L GLUCOSE (test code = GLU) 241 mg/dL 74-106 H BLOOD UREA NITROGEN (test code = BUN) 28 mg/dL 7-18 H GLOMERULAR FILTRATION RATE (test code = GFR) 38 mL/min >=60 Estimated GFR by using Modified MDRD formula.Chronic kidney disease is defined as either kidney damageor GFR <60 mL/min/1.73 m2 for >3 months. CREATININE (test code = CREAT) 1.80 mg/dL 0.7-1.3 H BUN/CREATININE RATIO (test code = BUN/CREA) 15.2 10-20 N CALCIUM (test code = CA) 8.7 mg/dL 8.5-10.1 N HEPATIC FUNCTION [id number] 21:05:00* Test Item Value Reference Range Interpretation Comments TOTAL PROTEIN (test code = PROT) 6.9 gram/dL 6.4-8.2 N ALBUMIN (test code = ALB) 3.5 g/dL 3.4-5.0 N GLOBULIN (test code = GLOB) 3.4 gram/dL 2.7-4.2 N ALBUMIN/GLOBULIN RATIO (test code = A/G) 1.0 0.75-1.50 N BILIRUBIN TOTAL (test code = BILT) 1.30 mg/dL 0.0-1.0 H BILIRUBIN DIRECT (test code = BILD) 0.30 mg/dL 0.0-0.20 H SGOT/AST (test code = AST) 25 IUnit/L 15-37 N SGPT/ALT (test code = ALT) 39 IUnit/L 12-78 N ALKALINE PHOSPHATASE TOTAL (test code = ALKP) 112 IUnit/L 45-117 N Note change in reference range due to change in reagent. [id number] 21:05:00* Test Item Value Reference Range Interpretation Comments LIPASE (test code = LIP) 195 U/L 73.0-393.0 N [id number] 21:05:00* Test Item Value Reference Range Interpretation Comments TROPONIN-I (test code = TROPI) <0.015 ng/mL 0-0.045 N BASIC METABOLIC [id number] 21:04:00* Test Item Value Reference Range Interpretation Comments SODIUM (test code = NA) 140 mmol/L 136-145 N POTASSIUM (test code = K) 3.8 mmol/L 3.5-5.1 N CHLORIDE (test code = CL) 108.0 mmol/L 98-107 H CARBON DIOXIDE (test code = CO2) mmol/L 21-32 ANION GAP (test code = GAP) 10-20 GLUCOSE (test code = GLU) mg/dL 74-106 BLOOD UREA NITROGEN (test code = BUN) mg/dL 7-18 GLOMERULAR FILTRATION RATE (test code = GFR) mL/min >=60 CREATININE (test code = CREAT) mg/dL 0.7-1.3 BUN/CREATININE RATIO (test code = BUN/CREA) 10-20 CALCIUM (test code = CA) mg/dL 8.5-10.1 HEPATIC FUNCTION [id number] 21:04:00* Test Item Value Reference Range Interpretation Comments TOTAL PROTEIN (test code = PROT) gram/dL 6.4-8.2 ALBUMIN (test code = ALB) g/dL 3.4-5.0 GLOBULIN (test code = GLOB) gram/dL 2.7-4.2 ALBUMIN/GLOBULIN RATIO (test code = A/G) 0.75-1.50 BILIRUBIN TOTAL (test code = BILT) mg/dL 0.0-1.0 BILIRUBIN DIRECT (test code = BILD) mg/dL 0.0-0.20 SGOT/AST (test code = AST) IUnit/L 15-37 SGPT/ALT (test code = ALT) IUnit/L 12-78 ALKALINE PHOSPHATASE TOTAL (test code = ALKP) 112 IUnit/L 45-117 N Note change in reference range due to change in reagent. [id number] 21:04:00* Test Item Value Reference Range Interpretation Comments LIPASE (test code = LIP) U/L 73.0-393.0 [id number] 21:04:00* Test Item Value Reference Range Interpretation Comments TROPONIN-I (test code = TROPI) <0.015 ng/mL 0-0.045 N PROTHROMBIN [id number] 21:01:00* Test Item Value Reference Range Interpretation Comments PROTHROMBIN TIME PATIENT (test code = PTP) 11.8 seconds 9.0-14.0 N INTERNATIONAL NORMAL RATIO (test code = INR) 1.0 0.8-1.2 N The therapeutic range for oral anticoagulant therapy formost indications is an international normalized ratio (INR)of between 2.0 and 3.0. The recommended therapeutic INRrange for various clinical situations is listed below: Clinical Situation INR range Pulmonary e mbolism treatment (2.0-3.0)Venous thrombosis treatmentVenous thrombosis prophylaxis (high risk surgery)Prevention of systemic embolism from: Acute myocardial infarction Valvular heart disease Atrial fibrillation Mechanical prosthetic heart valves (2.5-3.5) IS PATIENT ON ANTICOAGULANTS? NTHROMBOPLASTIN TIME [id number] 21:01:00* Test Item Value Reference Range Interpretation Comments THROMBOPLASTIN TIME PARTIAL (test code = PTT) 34.0 seconds 25.0-36. 5 N IS PATIENT ON ANTICOAGULANTS? NBASIC METABOLIC [id number] 20:49:00* Test Item Value Reference Range Interpretation Comments SODIUM (test code = NA) 140 mmol/L 136-145 N POTASSIUM (test code = K) 3.8 mmol/L 3.5-5.1 N CHLORIDE (test code = CL) 108.0 mmol/L 98-107 H CARBON DIOXIDE (test code = CO2) mmol/L 21-32 ANION GAP (test code = GAP) 10-20 GLUCOSE (test code = GLU) mg/dL 74-106 BLOOD UREA NITROGEN (test code = BUN) mg/dL 7-18 GLOMERULAR FILTRATION RATE (test code = GFR) mL/min >=60 CREATININE (test code = CREAT) mg/dL 0.7-1.3 BUN/CREATININE RATIO (test code = BUN/CREA) 10-20 CALCIUM (test code = CA) mg/dL 8.5-10.1 HEPATIC FUNCTION [id number] 20:49:00* Test Item Value Reference Range Interpretation Comments TOTAL PROTEIN (test code = PROT) gram/dL 6.4-8.2 ALBUMIN (test code = ALB) g/dL 3.4-5.0 GLOBULIN (test code = GLOB) gram/dL 2.7-4.2 ALBUMIN/GLOBULIN RATIO (test code = A/G) 0.75-1.50 BILIRUBIN TOTAL (test code = BILT) mg/dL 0.0-1.0 BILIRUBIN DIRECT (test code = BILD) mg/dL 0.0-0.20 SGOT/AST (test code = AST) IUnit/L 15-37 SGPT/ALT (test code = ALT) IUnit/L 12-78 ALKALINE PHOSPHATASE TOTAL (test code = ALKP) IUnit/L 45-117 [id number] 20:49:00* Test Item Value Reference Range Interpretation Comments LIPASE (test code = LIP) U/L 73.0-393.0 [id number] 20:49:00* Test Item Value Reference Range Interpretation Comments TROPONIN-I (test code = TROPI) ng/mL 0-0.045 CBC W/O [id number] 20:32:00* Test Item Value Reference Range Interpretation Comments WHITE BLOOD CELL (test code = WBC) 7.0 K/mm3 4.5-12.5 N RED BLOOD CELL (test code = RBC) 3.87 mill/mm3 4.0-5.8 L HEMOGLOBIN (test code = HGB) 11.9 gram/dL 13.0-17.5 L HEMATOCRIT (test code = HCT) 36.4 % 42.0-52.0 L MEAN CELL VOLUME (test code = MCV) 94.1 fL 80-98 N MEAN CELL HGB (test code = MCH) 30.7 picogram 27.0-33.0 N MEAN CELL HGB CONCETRATION (test code = MCHC) 32.7 gram/dL 33.0-36. 0 L RED CELL DISTRIBUTION WIDTH (test code = RDW) 14.8 % 11.6-16. 2 N PLATELET COUNT (test code = PLT) 229 K/mm3 150-450 N MEAN PLATELET VOLUME (test code = MPV) 11.0 fL 6.7-11.0 N - XR CHEST 1 [id number] 19:51:00 FAX: Israel Stanley MD [phone] [place]: St: PRE FAX: Barbara Little [phone] Name: NATALIA KINCAID [facility] : 1950 Age/S: 68/M [address] [facility] Unit #: [id number] Loc: [place] [address] Phys: Barbara Camejo MD Acct: [id number] Dis Date: Status: PRE ER PHONE #: [phone] Exam Date: 05/30/2019 1951 FAX #: [phone] Reason: Shortness of Breath EXAMS: CPT CODE: [id number] XR CHEST 1 V 58794 REASON FOR EXAM: Shortness of Breath EXAM ORDER DATE: 05/30/2019 7:23 PM Ordering Se: Barbara Camejo MD PROCEDURE: - XR CHEST 1 V COMPARISON: 04/14/2019 FINDINGS: Portable AP frontal view of the chest obtained at 7:47 PM shows clear lungs without evidence of consolidation. There is no evidence of effusion. The heart size is minimally enlarged. Pulmonary vasculatures are unremarkable. 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 IMPRESSION: Minimal cardiomegaly at 1951 Reported and signed by: Jamie Hodges M.D. CC: Israel Hawkins MD; Barbara Camjeo MD Technologist: Yelena Adams(Tisha) Trnscrd Date/Time/By: 05/30/2019 (1951) : By: LuisaVTL Orig Print D/T: S: 05/30/2019 (1954) PAGE 1 Signed Report [id number] 12:16:00* Test Item Value Reference Range Interpretation Comments GLUBED (test code = GLUBED) 246 mg/dL 74-106 H Performed by certified cone machine operator at [facility] [id number] 07:54:00* Test Item Value Reference Range Interpretation Comments GLUBED (test code = GLUBED) 182 mg/dL 74-106 H Performed by certified cone machine operator at [facility] COMPREHENSIVE METABOLIC [id number] 06:28:00* Test Item Value Reference Range Interpretation Comments SODIUM (test code = NA) 141 mmol/L 136-145 N POTASSIUM (test code = K) 3.5 mmol/L 3.5-5.1 N CHLORIDE (test code = CL) 101.0 mmol/L 98-107 N CARBON DIOXIDE (test code = CO2) 32.0 mmol/L 21-32 N ANION GAP (test code = GAP) 11.5 10-20 N GLUCOSE (test code = GLU) 213 mg/dL 74-106 H BLOOD UREA NITROGEN (test code = BUN) 34 mg/dL 7-18 H RESULT VERIFIED BY REPEAT ANALYSIS GLOMERULAR FILTRATION RATE (test code = GFR) 33 mL/min >=60 Estimated GFR by using Modified MDRD formula.Chronic kidney disease is defined as either kidney damageor GFR <60 mL/min/1.73 m2 for >3 months. CREATININE (test code = CREAT) 2.00 mg/dL 0.7-1.3 H BUN/CREATININE RATIO (test code = BUN/CREA) 17.0 10-20 N TOTAL PROTEIN (test code = PROT) 6.8 gram/dL 6.4-8.2 N ALBUMIN (test code = ALB) 3.4 g/dL 3.4-5.0 N GLOBULIN (test code = GLOB) 3.4 gram/dL 2.7-4.2 N ALBUMIN/GLOBULIN RATIO (test code = A/G) 1.0 0.75-1.50 N CALCIUM (test code = CA) 8.9 mg/dL 8.5-10.1 N BILIRUBIN TOTAL (test code = BILT) 1.10 mg/dL 0.0-1.0 H SGOT/AST (test code = AST) 19 IUnit/L 15-37 N SGPT/ALT (test code = ALT) 36 IUnit/L 12-78 N ALKALINE PHOSPHATASE TOTAL (test code = ALKP) 92 IUnit/L 45-117 N Note change in reference range due to change in reagent. CBC W/AUTO [id number] 06:17:00* Test Item Value Reference Range Interpretation Comments WHITE BLOOD CELL (test code = WBC) 9.9 K/mm3 4.5-12.5 N RED BLOOD CELL (test code = RBC) 4.37 mill/mm3 4.0-5.8 N HEMOGLOBIN (test code = HGB) 13.5 gram/dL 13.0-17.5 N HEMATOCRIT (test code = HCT) 41.0 % 42.0-52.0 L MEAN CELL VOLUME (test code = MCV) 93.8 fL 80-98 N MEAN CELL HGB (test code = MCH) 30.9 picogram 27.0-33.0 N MEAN CELL HGB CONCETRATION (test code = MCHC) 32.9 gram/dL 33.0-36. 0 L RED CELL DISTRIBUTION WIDTH (test code = RDW) 14.4 % 11.6-16. 2 N RED CELL DISTRIBUTION WIDTH SD (test code = RDW-SD) 49.1 fL 37 .0-51.0 N PLATELET COUNT (test code = PLT) 249 K/mm3 150-450 N MEAN PLATELET VOLUME (test code = MPV) 10.9 fL 6.7-11.0 N NEUTROPHIL % (test code = NT%) 55.4 % 39.0-69.0 N IMMATURE GRANULOCYTE % (test code = IG%) 0.4 % 0.0-5.0 N LYMPHOCYTE % (test code = LY%) 24.7 % 25.0-55.0 L MONOCYTE % (test code = MO%) 13.1 % 0.0-10.0 H EOSINOPHIL % (test code = EO%) 5.4 % 0.0-5.0 H BASOPHIL % (test code = BA%) 1.0 % 0.0-1.0 N NUCLEATED RBC % (test code = NRBC%) 0.0 % 0-0 N NEUTROPHIL # (test code = NT#) 5.49 K/mm3 1.8-7.7 N IMMATURE GRANULOCYTE # (test code = IG#) 0.04 x10 3/uL 0-0.03 H LYMPHOCYTE # (test code = LY#) 2.45 K/mm3 1.0-5.0 N MONOCYTE # (test code = MO#) 1.30 K/mm3 0-0.8 H EOSINOPHIL # (test code = EO#) 0.54 K/mm3 0.0-0.5 H BASOPHIL # (test code = BA#) 0.10 K/mm3 0.0-0.2 N NUCLEATED RBC # (test code = NRBC#) 0.00 K/mm3 0.0-0.1 N CBC W/AUTO [id number] 06:15:00* Test Item Value Reference Range Interpretation Comments WHITE BLOOD CELL (test code = WBC) K/mm3 4.5-12.5 RED BLOOD CELL (test code = RBC) mill/mm3 4.0-5.8 HEMOGLOBIN (test code = HGB) 13.5 gram/dL 13.0-17.5 N HEMATOCRIT (test code = HCT) % 42.0-52.0 MEAN CELL VOLUME (test code = MCV) fL 80-98 MEAN CELL HGB (test code = MCH) picogram 27.0-33.0 MEAN CELL HGB CONCETRATION (test code = MCHC) gram/dL 33.0-36. 0 RED CELL DISTRIBUTION WIDTH (test code = RDW) % 11.6-16. 2 RED CELL DISTRIBUTION WIDTH SD (test code = RDW-SD) fL 37 .0-51.0 PLATELET COUNT (test code = PLT) K/mm3 150-450 MEAN PLATELET VOLUME (test code = MPV) fL 6.7-11.0 NEUTROPHIL % (test code = NT%) % 39.0-69.0 IMMATURE GRANULOCYTE % (test code = IG%) % 0.0-5.0 LYMPHOCYTE % (test code = LY%) % 25.0-55.0 MONOCYTE % (test code = MO%) % 0.0-10.0 EOSINOPHIL % (test code = EO%) % 0.0-5.0 BASOPHIL % (test code = BA%) % 0.0-1.0 NEUTROPHIL # (test code = NT#) K/mm3 1.8-7.7 LYMPHOCYTE # (test code = LY#) K/mm3 1.0-5.0 MONOCYTE # (test code = MO#) K/mm3 0-0.8 EOSINOPHIL # (test code = EO#) K/mm3 0.0-0.5 BASOPHIL # (test code = BA#) K/mm3 0.0-0.2 COMPREHENSIVE METABOLIC [id number] 06:14:00* Test Item Value Reference Range Interpretation Comments SODIUM (test code = NA) 141 mmol/L 136-145 N POTASSIUM (test code = K) 3.5 mmol/L 3.5-5.1 N CHLORIDE (test code = CL) 101.0 mmol/L 98-107 N CARBON DIOXIDE (test code = CO2) mmol/L 21-32 ANION GAP (test code = GAP) 10-20 GLUCOSE (test code = GLU) mg/dL 74-106 BLOOD UREA NITROGEN (test code = BUN) mg/dL 7-18 GLOMERULAR FILTRATION RATE (test code = GFR) mL/min >=60 CREATININE (test code = CREAT) mg/dL 0.7-1.3 BUN/CREATININE RATIO (test code = BUN/CREA) 10-20 TOTAL PROTEIN (test code = PROT) gram/dL 6.4-8.2 ALBUMIN (test code = ALB) g/dL 3.4-5.0 GLOBULIN (test code = GLOB) gram/dL 2.7-4.2 ALBUMIN/GLOBULIN RATIO (test code = A/G) 0.75-1.50 CALCIUM (test code = CA) mg/dL 8.5-10.1 BILIRUBIN TOTAL (test code = BILT) mg/dL 0.0-1.0 SGOT/AST (test code = AST) IUnit/L 15-37 SGPT/ALT (test code = ALT) IUnit/L 12-78 ALKALINE PHOSPHATASE TOTAL (test code = ALKP) IUnit/L 45-117 [id number] 21:19:00* Test Item Value Reference Range Interpretation Comments GLUBED (test code = GLUBED) 240 mg/dL 74-106 H Performed by certified cone machine operator at [facility] [id number] 16:48:00* Test Item Value Reference Range Interpretation Comments GLUBED (test code = GLUBED) 95 mg/dL 74-106 N Performed by certified cone machine operator at [facility] [id number] 11:47:00* Test Item Value Reference Range Interpretation Comments GLUBED (test code = GLUBED) 131 mg/dL 74-106 H Performed by certified cone machine operator at [facility] [id number] 08:00:00* Test Item Value Reference Range Interpretation Comments GLUBED (test code = GLUBED) 70 mg/dL 74-106 L Performed by certified cone machine operator at [facility] CPK-MB [id number] 07:40:00* Test Item Value Reference Range Interpretation Comments CREATINE KINASE (CK) (test code = CK) 275 IUnit/L 26-208 H CKMB (test code = CKMBT) 9.2 ng/mL 0-6.0 H RELATIVE % INDEX (test code = REL%) 3.35 % 0.00-2.50 H "If the total CK is elevated, the CKMB Fraction must beinterpreted as a Relative % Index, Normal is less than 2.5%"NOTE: Relative % Index is not valid with a normal total CK. [id number] 07:40:00* Test Item Value Reference Range Interpretation Comments TROPONIN-I (test code = TROPI) 0.034 ng/mL 0-0.045 N BASIC METABOLIC [id number] 07:32:00* Test Item Value Reference Range Interpretation Comments SODIUM (test code = NA) 143 mmol/L 136-145 N POTASSIUM (test code = K) 3.3 mmol/L 3.5-5.1 L CHLORIDE (test code = CL) 105.0 mmol/L 98-107 N CARBON DIOXIDE (test code = CO2) 29.0 mmol/L 21-32 N ANION GAP (test code = GAP) 12.3 10-20 N GLUCOSE (test code = GLU) 63 mg/dL 74-106 L BLOOD UREA NITROGEN (test code = BUN) 28 mg/dL 7-18 H GLOMERULAR FILTRATION RATE (test code = GFR) 40 mL/min >=60 Estimated GFR by using Modified MDRD formula.Chronic kidney disease is defined as either kidney damageor GFR <60 mL/min/1.73 m2 for >3 months. CREATININE (test code = CREAT) 1.70 mg/dL 0.7-1.3 H BUN/CREATININE RATIO (test code = BUN/CREA) 16.5 10-20 N CALCIUM (test code = CA) 9.0 mg/dL 8.5-10.1 N BASIC METABOLIC [id number] 07:23:00* Test Item Value Reference Range Interpretation Comments SODIUM (test code = NA) 143 mmol/L 136-145 N POTASSIUM (test code = K) 3.3 mmol/L 3.5-5.1 L CHLORIDE (test code = CL) 105.0 mmol/L 98-107 N CARBON DIOXIDE (test code = CO2) mmol/L 21-32 ANION GAP (test code = GAP) 10-20 GLUCOSE (test code = GLU) mg/dL 74-106 BLOOD UREA NITROGEN (test code = BUN) mg/dL 7-18 GLOMERULAR FILTRATION RATE (test code = GFR) mL/min >=60 CREATININE (test code = CREAT) mg/dL 0.7-1.3 BUN/CREATININE RATIO (test code = BUN/CREA) 10-20 CALCIUM (test code = CA) mg/dL 8.5-10.1 CBC W/AUTO [id number] 06:53:00* Test Item Value Reference Range Interpretation Comments WHITE BLOOD CELL (test code = WBC) 10.9 K/mm3 4.5-12.5 N RED BLOOD CELL (test code = RBC) 3.99 mill/mm3 4.0-5.8 L HEMOGLOBIN (test code = HGB) 12.4 gram/dL 13.0-17.5 L HEMATOCRIT (test code = HCT) 37.4 % 42.0-52.0 L MEAN CELL VOLUME (test code = MCV) 93.7 fL 80-98 N MEAN CELL HGB (test code = MCH) 31.1 picogram 27.0-33.0 N MEAN CELL HGB CONCETRATION (test code = MCHC) 33.2 gram/dL 33.0-36. 0 N RED CELL DISTRIBUTION WIDTH (test code = RDW) 14.5 % 11.6-16. 2 N RED CELL DISTRIBUTION WIDTH SD (test code = RDW-SD) 48.6 fL 37 .0-51.0 N PLATELET COUNT (test code = PLT) 246 K/mm3 150-450 N MEAN PLATELET VOLUME (test code = MPV) 11.3 fL 6.7-11.0 H NEUTROPHIL % (test code = NT%) 65.6 % 39.0-69.0 N IMMATURE GRANULOCYTE % (test code = IG%) 0.4 % 0.0-5.0 N LYMPHOCYTE % (test code = LY%) 18.2 % 25.0-55.0 L MONOCYTE % (test code = MO%) 11.0 % 0.0-10.0 H EOSINOPHIL % (test code = EO%) 3.9 % 0.0-5.0 N BASOPHIL % (test code = BA%) 0.9 % 0.0-1.0 N NUCLEATED RBC % (test code = NRBC%) 0.0 % 0-0 N NEUTROPHIL # (test code = NT#) 7.18 K/mm3 1.8-7.7 N IMMATURE GRANULOCYTE # (test code = IG#) 0.04 x10 3/uL 0-0.03 H LYMPHOCYTE # (test code = LY#) 1.99 K/mm3 1.0-5.0 N MONOCYTE # (test code = MO#) 1.20 K/mm3 0-0.8 H EOSINOPHIL # (test code = EO#) 0.43 K/mm3 0.0-0.5 N BASOPHIL # (test code = BA#) 0.10 K/mm3 0.0-0.2 N NUCLEATED RBC # (test code = NRBC#) 0.00 K/mm3 0.0-0.1 N MANUAL DIFF REQUIRED (test code = MDIFF) NO [id number] 23:19:00* Test Item Value Reference Range Interpretation Comments TROPONIN-I (test code = TROPI) 0.032 ng/mL 0-0.045 N CPK-MB [id number] 23:17:00* Test Item Value Reference Range Interpretation Comments CREATINE KINASE (CK) (test code = CK) 319 IUnit/L 26-208 H CKMB (test code = CKMBT) 12.0 ng/mL 0-6.0 H RELATIVE % INDEX (test code = REL%) 3.76 % 0.00-2.50 H "If the total CK is elevated, the CKMB Fraction must beinterpreted as a Relative % Index, Normal is less than 2.5%"NOTE: Relative % Index is not valid with a normal total CK. [id number] 20:44:00* Test Item Value Reference Range Interpretation Comments GLUBED (test code = GLUBED) 97 mg/dL 74-106 N Performed by certified cone machine operator at [facility] [id number] 17:08:00* Test Item Value Reference Range Interpretation Comments GLUBED (test code = GLUBED) 88 mg/dL 74-106 N Performed by certified cone machine operator at [facility] B-TYPE NATRIURETIC [id number] 16:36:00* Test Item Value Reference Range Interpretation Comments B-TYPE NATRIURETIC PEPTIDE (test code = BNP) 921.59 pgram/mL 0-100 H Has Patient received Natrecor? NOCPK-MB [id number] 16:35:00* Test Item Value Reference Range Interpretation Comments CREATINE KINASE (CK) (test code = CK) 343 IUnit/L 26-208 H CKMB (test code = CKMBT) 14.8 ng/mL 0-6.0 H RELATIVE % INDEX (test code = REL%) 4.31 % 0.00-2.50 H "If the total CK is elevated, the CKMB Fraction must beinterpreted as a Relative % Index, Normal is less than 2.5%"NOTE: Relative % Index is not valid with a normal total CK. COMPREHENSIVE METABOLIC [id number] 16:34:00* Test Item Value Reference Range Interpretation Comments SODIUM (test code = NA) 142 mmol/L 136-145 N POTASSIUM (test code = K) 3.9 mmol/L 3.5-5.1 N CHLORIDE (test code = CL) 110.0 mmol/L 98-107 H CARBON DIOXIDE (test code = CO2) 24.0 mmol/L 21-32 N ANION GAP (test code = GAP) 11.9 10-20 N GLUCOSE (test code = GLU) 116 mg/dL 74-106 H BLOOD UREA NITROGEN (test code = BUN) 26 mg/dL 7-18 H GLOMERULAR FILTRATION RATE (test code = GFR) 43 mL/min >=60 Estimated GFR by using Modified MDRD formula.Chronic kidney disease is defined as either kidney damageor GFR <60 mL/min/1.73 m2 for >3 months. CREATININE (test code = CREAT) 1.60 mg/dL 0.7-1.3 H BUN/CREATININE RATIO (test code = BUN/CREA) 16.3 10-20 N TOTAL PROTEIN (test code = PROT) 7.0 gram/dL 6.4-8.2 N ALBUMIN (test code = ALB) 3.5 g/dL 3.4-5.0 N GLOBULIN (test code = GLOB) 3.5 gram/dL 2.7-4.2 N ALBUMIN/GLOBULIN RATIO (test code = A/G) 1.0 0.75-1.50 N CALCIUM (test code = CA) 8.5 mg/dL 8.5-10.1 N BILIRUBIN TOTAL (test code = BILT) 1.00 mg/dL 0.0-1.0 N SGOT/AST (test code = AST) 28 IUnit/L 15-37 N SGPT/ALT (test code = ALT) 40 IUnit/L 12-78 N ALKALINE PHOSPHATASE TOTAL (test code = ALKP) 90 IUnit/L 45-117 N Note change in reference range due to change in reagent. [id number] 16:34:00* Test Item Value Reference Range Interpretation Comments TROPONIN-I (test code = TROPI) 0.033 ng/mL 0-0.045 N - XR CHEST 2 [id number] 16:30:00 FAX: Miko Pinto MD [phone] [place]: B St: [facility] FAX: Israel Stanley MD [phone] Name: NATALIA KINCAID [facility] : 1950 Age/S: 68/[facility] [address] [facility] #: [id number] Loc: V.3072 [place] [address] Phys: Miko Pinto MD Acct: [id number] Dis Date: Status: ADM IN PHONE #: [phone] Exam Date: 04/14/2019 1605 FAX #: [phone] Reason: CHF EXAMS: CPT CODE: [id number] XR CHEST 2 V [id number] REASON FOR EXAM: CHF Exam Order Date: 04/14/2019 2:35 PM Ordering M.D.: Miko Pinto MD PROCEDURE: - XR CHEST 2 V COMPARISON: 01/29/2018 FINDINGS: PA and lateral views of the chest show patchy opacities of the bases. No evidence of effusion. The heart size is minimally enlarged. Pulmonary vasculatures are minimally congested. 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 The osseous structures are grossly intact. IMPRESSION: Probable early congestive heart failure with pulmonary edema and a telectasis in the bases Electronically Signed by Se Hodges on at 1630 Reported and signed by: Jamie Hodges M.D. CC: Miko Pinto MD; Israel Hawkins MD Celia hnologist: Zulma Henao RT(R) Trnscrd Date/T daniela/By: 04/14/2019 (1630) : By: LuisaVTL Orig Print D/T: S: 9 ([id number]) PAGE 1 Signed Report COMPREHENSIVE METABOLIC [id number] 16:24:00* Test Item Value Reference Range Interpretation Comments SODIUM (test code = NA) 142 mmol/L 136-145 N POTASSIUM (test code = K) 3.9 mmol/L 3.5-5.1 N CHLORIDE (test code = CL) 110.0 mmol/L 98-107 H CARBON DIOXIDE (test code = CO2) mmol/L 21-32 ANION GAP (test code = GAP) 10-20 GLUCOSE (test code = GLU) mg/dL 74-106 BLOOD UREA NITROGEN (test code = BUN) mg/dL 7-18 GLOMERULAR FILTRATION RATE (test code = GFR) mL/min >=60 CREATININE (test code = CREAT) mg/dL 0.7-1.3 BUN/CREATININE RATIO (test code = BUN/CREA) 10-20 TOTAL PROTEIN (test code = PROT) gram/dL 6.4-8.2 ALBUMIN (test code = ALB) g/dL 3.4-5.0 GLOBULIN (test code = GLOB) gram/dL 2.7-4.2 ALBUMIN/GLOBULIN RATIO (test code = A/G) 0.75-1.50 CALCIUM (test code = CA) mg/dL 8.5-10.1 BILIRUBIN TOTAL (test code = BILT) mg/dL 0.0-1.0 SGOT/AST (test code = AST) IUnit/L 15-37 SGPT/ALT (test code = ALT) IUnit/L 12-78 ALKALINE PHOSPHATASE TOTAL (test code = ALKP) IUnit/L 45-117 [id number] 16:24:00* Test Item Value Reference Range Interpretation Comments TROPONIN-I (test code = TROPI) ng/mL 0-0.045 CBC W/AUTO [id number] 16:11:00* Test Item Value Reference Range Interpretation Comments WHITE BLOOD CELL (test code = WBC) 14.4 K/mm3 4.5-12.5 H RED BLOOD CELL (test code = RBC) 3.56 mill/mm3 4.0-5.8 L HEMOGLOBIN (test code = HGB) 11.2 gram/dL 13.0-17.5 L HEMATOCRIT (test code = HCT) 34.4 % 42.0-52.0 L MEAN CELL VOLUME (test code = MCV) 96.6 fL 80-98 N MEAN CELL HGB (test code = MCH) 31.5 picogram 27.0-33.0 N MEAN CELL HGB CONCETRATION (test code = MCHC) 32.6 gram/dL 33.0-36. 0 L RED CELL DISTRIBUTION WIDTH (test code = RDW) 14.5 % 11.6-16. 2 N RED CELL DISTRIBUTION WIDTH SD (test code = RDW-SD) 50.4 fL 37 .0-51.0 N PLATELET COUNT (test code = PLT) 244 K/mm3 150-450 N MEAN PLATELET VOLUME (test code = MPV) 10.9 fL 6.7-11.0 N NEUTROPHIL % (test code = NT%) 74.7 % 39.0-69.0 H IMMATURE GRANULOCYTE % (test code = IG%) 0.5 % 0.0-5.0 N LYMPHOCYTE % (test code = LY%) 14.3 % 25.0-55.0 L MONOCYTE % (test code = MO%) 8.3 % 0.0-10.0 N EOSINOPHIL % (test code = EO%) 1.4 % 0.0-5.0 N BASOPHIL % (test code = BA%) 0.8 % 0.0-1.0 N NUCLEATED RBC % (test code = NRBC%) 0.0 % 0-0 N NEUTROPHIL # (test code = NT#) 10.76 K/mm3 1.8-7.7 H IMMATURE GRANULOCYTE # (test code = IG#) 0.07 x10 3/uL 0-0.03 H LYMPHOCYTE # (test code = LY#) 2.05 K/mm3 1.0-5.0 N MONOCYTE # (test code = MO#) 1.19 K/mm3 0-0.8 H EOSINOPHIL # (test code = EO#) 0.20 K/mm3 0.0-0.5 N BASOPHIL # (test code = BA#) 0.11 K/mm3 0.0-0.2 N NUCLEATED RBC # (test code = NRBC#) 0.00 K/mm3 0.0-0.1 N
[2020-09-11 22:03] LABS: BASOPHILS # (AUTO) 0.2 (0.0-0.1); BASOPHILS % 1.3 % (0.0-1.0); EOSINOPHILS # (AUTO) 0.4 (0.0-0.4); EOSINOPHILS % 3.5 % (0.0-6.0); HEMATOCRIT 44.5 % (38.2-49.6); HEMOGLOBIN 13.9 g/dL (14.0-18.0); LYMPHOCYTES # (AUTO) 2.9 (1.0-3.2); LYMPHOCYTES % 24.5 % (18.0-39.1); MEAN CORPUSCULAR HEMOGLOBIN 28.1 pg (28-32); MEAN CORPUSCULAR HGB CONC 31.2 g/dL (31-35); MEAN CORPUSCULAR VOLUME 89.9 fL (81-99); MONOCYTES # (AUTO) 1.4 (0.2-0.8); NEUTROPHILS # (AUTO) 6.8 (2.1-6.9); NEUTROPHILS % 58.4 % (38.7-80.0); PLATELET COUNT 315 x10e3/uL (140-360); RED BLOOD COUNT 4.95 x10e6/uL (4.3-5.7); RED CELL DISTRIBUTION WIDTH 18.1 % (11.7-14.4)
[2020-09-11 22:22] LABS: ALBUMIN 3.4 g/dL (3.5-5.0); ALBUMIN/GLOBULIN RATIO 0.9 (0.8-2.0); ANION GAP 15.9 mmol/L (8-16); CALCIUM 8.9 mg/dL (8.4-10.2); CREATININE, SERUM 1.27 mg/dL (0.72-1.25); POTASSIUM 3.9 mmol/L (3.5-5.1)
[2020-09-11 22:28] LABS: CREATINE KINASE MB 18.4 ng/mL (0-5.0)
--- NOTE | 2020-09-11 22:28 | Emergency Department Note ---
History of Present Illnes History of Present Illness Chief Complaint: Abdominal Complaints History of Present Illness This is a 70 year old male arrives to the ED with continued abdominal pain, seen in the ER 5 days ago states symptoms have not worsened from before. Patient states unable tolerate oral intake. Chief Complaint Comment 70 Y/O MALE PT AAOX3 PRESENTS TO ED WITH REPORT OF CONTINUED ABDOMINAL PAIN SINCE SEEN 09/06/2020; PTS V/S/S; RESP RATE AND EFFORT ARE WNL, O2 SAT RA 100%; SKIN WARM, DRY, PALE/JAUNDICE IN COLOR; PT HAS SCHEDULED APPT WITH GI 10/06/20; ER MD TO TRIAGE FOR INITIAL EVAL Historian: Patient, Family Member Arrival Mode: Car Onset (how long ago): day(s) Radiation: Reports non-radiation Duration (how long): day(s) Timing of current episode: constant Progression: worsening Chronicity: new Past Medical/Family History Physician Review I have reviewed the patient's past medical and family history. Any updates have been documented here. Past Medical History Recent Fever: No Clinical Suspicion of Infectio: No New/Unexplained Change in Ment: No Past Medical History: Hypertension, Diabetes, [place], Depression, GERD, Hyperlipedemia Other Medical History: HIGH CHOLESTEROL, GERD, DEPRESSION Past Surgical History: Cholecysctectomy, Appendectomy, CABG, Pacer/AICD Other Surgery: PACEMAKER CABG Social History Physically hurt or threatened: No Other Last Tetanus: UNK Review of Systems Review of Systems Constitutional: Reports no symptoms EENTM: Reports no symptoms Cardiovascular: Reports no symptoms Respiratory: Reports no symptoms Gastrointestinal: Reports as per HPI, Reports abdominal pain Genitourinary: Reports no symptoms Musculoskeletal: Reports no symptoms Integumentary: Reports no symptoms Neurological: Reports no symptoms Psychological: Reports no symptoms Endocrine: Reports no symptoms Hematological/Lymphatic: Reports no symptoms Physical Exam Related Data Allergies: Coded Allergies: No Known Allergies (Unverified , 01/31/16) Triage Vital Signs Vital Signs Date Time Temp Pulse Resp B/P (MAP) Pulse Ox O2 Delivery O2 Flow Rate FiO2 09/11/20 20:53 98.0 64 17 130/73 100 Room Air Vital signs reviewed: Yes Physical Exam CONSTITUTIONAL Constitutional: Present well-developed HENT HENT: Present normocephalic, Present atraumatic, Present oropharynx clear/moist, Present nose normal HENT L/R: Present left ext ear normal, Present right ext ear normal EYES Eyes: Reports PERRL, Reports scleral icterus NECK Neck: Present ROM normal PULMONARY Pulmonary: Present effort normal, Present breath sounds normal CARDIOVASCULAR Cardiovascular: Present regular rhythm, Present heart sounds normal, Present capillary refill normal, Present normal rate GASTROINTESTINAL Abdominal: Present soft, Present bowel sounds normal, Present tender GENITOURINARY Genitourinary: Present exam deferred SKIN Skin: Present warm, Present dry MUSCULOSKELETAL Musculoskeletal: Present ROM normal NEUROLOGICAL Neurological: Present alert, Present oriented x 3, Present no gross motor or sensory deficits PSYCHOLOGICAL Psychological: Present mood/affect normal, Present judgement normal Results Laboratory Lab results reviewed: Yes Laboratory comments Laboratory Tests Test 09/11/20 23:30 09/11/20 23:20 09/11/20 21:43 09/11/20 21:04 Lactic Acid Level 1.9 mmol/L (0.5-2.0) White Blood Count 11.65 x10e3/uL (4.8-10.8) Red Blood Count 4.95 x10e6/uL (4.3-5.7) Hemoglobin 13.9 g/dL (14.0-18.0) Hematocrit 44.5 % (38.2-49.6) Mean Corpuscular Volume 89.9 fL (81-99) Mean Corpuscular Hemoglobin 28.1 pg (28-32) Mean Corpuscular Hemoglobin Concent 31.2 g/dL (31-35) Red Cell Distribution Width 18.1 % (11.7-14.4) Platelet Count 315 x10e3/uL (140-360) Neutrophils (%) (Auto) 58.4 % (38.7-80.0) Lymphocytes (%) (Auto) 24.5 % (18.0-39.1) Monocytes (%) (Auto) 12.0 % (4.4-11.3) Eosinophils (%) (Auto) 3.5 % (0.0-6.0) Basophils (%) (Auto) 1.3 % (0.0-1.0) Neutrophils # (Auto) 6.8 (2.1-6.9) Lymphocytes # (Auto) 2.9 (1.0-3.2) Monocytes # (Auto) 1.4 (0.2-0.8) Eosinophils # (Auto) 0.4 (0.0-0.4) Basophils # (Auto) 0.2 (0.0-0.1) Absolute Immature Granulocyte (auto 0.03 x10e3/uL (0-0.1) Sodium Level 138 mmol/L (136-145) Potassium Level 3.9 mmol/L (3.5-5.1) Chloride Level 104 mmol/L (98-107) Carbon Dioxide Level 22 mmol/L (22-29) Anion Gap 15.9 mmol/L (8-16) Blood Urea Nitrogen 22 mg/dL (7-26) Creatinine 1.27 mg/dL (0.72-1.25) Estimat Glomerular Filtration Rate 56 ML/MIN (60-) BUN/Creatinine Ratio 17 (6-25) Glucose Level 113 mg/dL (74-118) Calcium Level 8.9 mg/dL (8.4-10.2) Total Bilirubin 1.5 mg/dL (0.2-1.2) Aspartate Amino Transf (AST/SGOT) 193 IU/L (5-34) Alanine Aminotransferase (ALT/SGPT) 244 IU/L (0-55) Alkaline Phosphatase 225 IU/L (40-150) Creatine Kinase 394 IU/L (30-200) Creatine Kinase MB 18.40 ng/mL (0-5.0) Troponin I 0.026 ng/mL (0-0.300) Total Protein 7.4 g/dL (6.5-8.1) Albumin 3.4 g/dL (3.5-5.0) Globulin 4.0 g/dL (2.3-3.5) Albumin/Globulin Ratio 0.9 (0.8-2.0) Lipase 47 U/L (8-78) Urine Color Yellow (YELLOW) Urine Clarity Clear (CLEAR) Urine pH 6.5 (5 - 7) Urine Specific [place] 1.025 (1.010-1.025) Urine Protein Negative (NEGATIVE) Urine Glucose (UA) Negative (NEGATIVE) Urine Ketones Negative (NEGATIVE) Urine Blood Negative (NEGATIVE) Urine Nitrite Negative (NEGATIVE) Urine Bilirubin Negative (NEGATIVE) Urine Urobilinogen 1 mg/dL (0.2 - 1) Urine Leukocyte Esterase Negative (NEGATIVE) Urine RBC 0-5 /HPF (0-5) Urine WBC 0-5 /HPF (0-5) Urine Epithelial Cells Few /LPF (NONE) Urine Bacteria Few /HPF (NONE) Imaging Imaging results reviewed: Yes Impressions IMPRESSION: Mild cardiomegaly, pulmonary interstitial edema, and small bilateral pleural effusions. Colonic diverticulosis without diverticulitis. Signed by: Morgan Frank DO on 09/12/2020 1:5 Assessment & Plan Medical Decision Making MDM Clinical Impression and Disposition Plan My clinical impression includes: Malignancy, retained biliary stone, other hepatobiliary process No diagnosis found. And plan is admit for: -Further monitoring and evaluation is medically necessary -Failure to respond to outpatient treatment -Changes in pt's condition require medical attention -High risk for adverse event impacting life/organs/systems -Impossible to complete diagnostic studies as an outpatient -Signs/symptoms could lead to deterioration of patient -Treatment plan will require frequent clinical modifications -Treatment requires inpatient setting All clinical impressions and diagnoses provided are preliminary ED determinations subject to the inherent limitations of an emergent non-scheduled evaluation and possible lack of comprehensive previous records. All patient care including history taking, review of systems, physical exam, nursing notes review, medical decision making, clinical course management in the emergency department, clinical impression, disposition and plan formulation was performed on the date of service. Concerns of impending sepsis are present and at 2300 bundle was initiated, blood culture and broad-spectrum antibiotics obtained. Initial lactic 1.9 with no indication for repeat Concerns of possible intra-abdominal source of infection. This note was created using a voice-recognition transcribing system. Incorrect words or phrases may have been missed during proofreading. Please interpret accordingly. Assessment & Plan Final Impression: (1) Transaminitis Depart Disposition: ADMITTED Last Vital Signs Date Time Temp Pulse Resp B/P (MAP) Pulse Ox O2 Delivery O2 Flow Rate FiO2 09/11/20 20:53 98.0 64 17 130/73 100 Room Air Home Meds Active Scripts Sennosides (SENOKOT) 8.6 Mg Tablet, 8.6 MG PO Q12HR, #60 TAB 3 Refills Prov:GREG SILVA MD 10/07/15 Quetiapine Fumarate (SEROQUEL) 25 Mg Tablet, 25 MG PO HS for 30 Days, TAB 2 Refills Prov:GREG SILVA MD 10/07/15 Multivitamin With Minerals (MULTIVITAMINS WITH MINERALS) 1 Each Tablet, 1 TAB PO BID for 30 Days, 5 Refills Prov:JUANITA REZA MD 08/31/15 Ferrous Sulfate (FERROUS SULFATE) 325 Mg Tablet, 325 MG PO BID for 30 Days, 5 Refills Prov:JUANITA REZA MD 08/31/15 Pantoprazole Sod (PROTONIX) 40 Mg/Ml Susp, 40 MG PO BID@0730,21, #30 Prov:JEYSON CANNON NP 07/29/15 Metoprolol Succinate (METOPROLOL SUCCINATE) 50 Mg Tab.er.24h, 50 MG PO BID, #30 MG Prov:WON GOODE GYMNASTIC COACH 07/08/15 Amiodarone Hcl (AMIODARONE HCL) 200 Mg Tablet, 1 TAB PO DAILY, #30 Prov:WON GOODE GYMNASTIC COACH 07/08/15 Reported Medications Clopidogrel Bisulfate* (PLAVIX) 75 Mg Tablet, 75 MG PO DAILY, #30 TAB 07/04/20 Aspirin (ASPIR 81) 81 Mg Tablet.dr, 81 MG PO DAILY 01/31/16 Sucralfate (CARAFATE) 1 Gm Tablet, 1 TAB PO TID 09/22/15 Acarbose (ACARBOSE) 25 Mg Tablet, 25 MG PO TIDWM 06/24/15 Nitroglycerin (NITROSTAT) 0.4 Mg Tab.subl 04/05/15 Atorvastatin Calcium (ATORVASTATIN CALCIUM) 40 Mg Tablet, 40 MG PO HS, TAB 04/05/15 Citalopram Hydrobromide (CITALOPRAM HBR) 20 Mg Tablet, 20 MG PO DAILY, TAB 04/05/15 Losartan Potassium (LOSARTAN POTASSIUM) 100 Mg Tablet, 100 MG PO DAILY, TAB 04/05/15 Metformin Hcl (METFORMIN HCL) 500 Mg Tablet, 500 MG PO BID, #60 TAB 500MG PO BID BEFORE BREAKFAST AND DINNER 02/24/15 Glipizide (GLIPIZIDE) 5 Mg Tablet, 5 MG PO BID, TAB 5MG PO BID BEFORE BREAKFAST AND DINNER. 02/24/15 Furosemide (LASIX) 20 Mg Tablet, 40 MG PO DAILY, #30 TAB 02/24/15 VIRIDIANA SEVERINO DO Sep 11, 2020 22:27
[2020-09-11] MEDS ORDERED: MORPHINE SULFATE 2 MG/ML SYR 1ML IV STA (22:57)
[2020-09-11] MEDS ORDERED: ONDANSETRON HCL INJ 2MG/ML 2ML 2 MG/ML VIAL IV STA (22:57)
[2020-09-11] MEDS ORDERED: PIPER-TAZ 3.375 GM 50 ML IV STA (23:00)
[2020-09-11] MEDS ORDERED: MORPHINE SULFATE INJ 4 MG/ML INJ 1ML IV STA (23:03)
[2020-09-11] MEDS ORDERED: MORPHINE SULFATE 2 MG/ML SYR 1ML ONE (23:07)
[2020-09-11] MEDS ORDERED: ONDANSETRON HCL INJ 2MG/ML 2ML 2 MG/ML VIAL ONE (23:07)
[2020-09-11 23:08] LABS: BILIRUBIN,URINE NEGATIVE (NEGATIVE); CLARITY,URINE CLEAR (CLEAR); COLOR,URINE YELLOW (YELLOW); KETONES,URINE NEGATIVE (NEGATIVE); LEUKOCYTE ESTERASE ,URINE NEGATIVE (NEGATIVE); NITRITE,URINE NEGATIVE (NEGATIVE); PROTEIN,URINE DIPSTICK NEGATIVE (NEGATIVE); URINE UROBILINOGEN 1 mg/dL (0.2 - 1)
[2020-09-11 23:17] LABS: BACTERIA,URINE FEW /HPF; EPITHELIAL CELLS,URINE FEW /LPF; RBC,URINE 0-5 /HPF (0-5); WBC,URINE (MAN) 0-5 /HPF (0-5)
[2020-09-11] MEDS ORDERED: IOPAMIDOL 370 MG/ML 200 ML INFUS..BTL INJ ONE (23:20)
[2020-09-11] MEDS ORDERED: SODIUM CHLORIDE 0.9% 50ML 50 ML ONE (23:20)
[2020-09-12] VITALS (9 sets, daily range): BP systolic 106–150; BP diastolic 62–83
--- OUTSIDE RECORDS SUMMARY | 2020-09-12 01:46 | XMS REPORT | Continuity of Care Document ---
Author Author [facility] t Organization [facility] Address [address] [place] [address] Phone Unavailable Care Team Providers Care It Recruiter Name Role Phone MD BRENDA PERALTA PCP Cole SEVERINO Attdigna Unavailable Payers Payer Name Policy Type Policy Number Effective Date Expiration Date Cole Murguia [id number] 2013 00:00:00 [facility] Problems Condition Name Condition Details Condition Category Status Onset Date Resolution Date Last Treatment Date Treating Clinician Comments Source Pneumonia Problem Active 2015-09-22 00:00:00 [facility] Upper gastrointestinal hemorrhage Problem Active 2015-09-18 00:00: 00 [facility] Anemia Problem Active 2015-09-18 00:00:00 [facility] Cardiomegaly Problem Active 2015-09-18 00:00:00 [facility] Pleural effusion on right Problem Active 2015-09-18 00:00:00 [facility] CHF (congestive heart failure) Problem Active 2015-08-29 00:00:00 [facility] Anemia Problem Active 2015-08-29 00:00:00 [facility] Chronic abdominal pain Problem Active 2015-08-29 00:00:00 [facility] Hyperbilirubinemia Problem Active 2015-08-29 00:00:00 [facility] Abscess of gallbladder Problem Active 2015-07-24 00:00:00 [facility] Biliary colic Problem Active 2015-07-06 00:00:00 [facility] CHF (congestive heart failure) Problem Active 2015-07-06 00:00:00 [facility] Diabetes mellitus Problem Active 2015-07-06 00:00:00 [facility] Abdominal pain Problem Active 2015-07-06 00:00:00 [facility] Congestive heart failure Problem Active 2015-06-24 00:00:00 [facility] Cardiomegaly Problem Active 2015-06-24 00:00:00 [facility] Anemia Problem Active 2015-06-24 00:00:00 [facility] Hypoxia Problem Active 2015-06-24 00:00:00 [facility] Hypokalemia Problem Active 2015-06-24 00:00:00 [facility] Atrial fibrillation Problem Active 2015-04-05 00:00:00 [facility] Right lower quadrant abdominal pain Problem Active [facility] Allergies, Adverse Reactions, Alerts Allergy Name Allergy Type Status Severity Reaction(s) Onset Date Inacti ve Date Treating Clinician Comments Source fentanyl DA Active 2019-10-01 00:00:00 [facility] divalproex sodium DA Active [place] 2019-09-30 00:00:00 [facility] zolpidem DA Active [place] 2019-09-30 00:00:00 [facility] quetiapine DA Active [place] 2019-09-30 00:00:00 [facility] divalproex sodium DA Active [place] 2019-08-13 00:00:00 [facility] zolpidem DA Active [place] 2019-08-13 00:00:00 [facility] quetiapine DA Active [place] 2019-08-13 00:00:00 [facility] divalproex sodium DA Active [place] 2018-01-29 00:00:00 [facility] zolpidem DA Active [place] 2018-01-29 00:00:00 [facility] quetiapine DA Active [place] 2018-01-29 00:00:00 [facility] Family History Family Member Diagnosis Comments Start Date Stop Date Source 33 FATHER Family history of hypertension [facility] 32 MOTHER Family history of hypertension [facility] Social History Social Habit Start Date Stop Date Quantity Comments Source Sex Assigned At 1950 00:00:00 1950 00:00:00 Male [facility] Medications Ordered Medication Name Filled Medication Name Start Date Stop Da te Current Medication? Ordering Clinician Indication Dosage Frequency Signature (SIG) Comments Components Source Quetiapine Fumarate (Seroquel) 25 Mg TABLET Quetiapine Fumarate (Seroquel) 25 Mg TABLET 2015-10-07 08:35:00 Yes 25 Bedtime [facility] Sennosides (Senokot) 8.6 Mg TABLET Sennosides (Senokot) 8.6 Mg TABLET 2015-10-07 08:35:00 Yes 8.6 Every 12 Hours [facility] Divalproex Sodium Divalproex Sodium 2015-10-07 08:35:00 2016-01-31 00 :00:00 No 250 Twice A Day [facility] Docusate Sodium (Colace) 100 Mg CAP Docusate Sodium (Colace) 100 Mg CAP 2015-10-07 08:35:00 2016-01-31 00:00:00 No 100 Twice A Day [facility] Magnesium Hydroxide (Milk Of Magnesia) 400 Mg/5 Ml ORA L.SUSP Magnesium Hydroxide (Milk Of Magnesia) 400 Mg/5 Ml ORAL.SUSP 2015-10-07 08:35:00 2016-01-31 00 :00:00 No 30 Daily [facility] Ferrous Sulfate Ferrous Sulfate 2015-08-31 21:18:00 Yes [address] [facility] Multivitamin With Minerals (Multivitamins With Mineral s) 1 Each TABLET Multivitamin With Minerals (Multivitamins With Minerals) 1 Each TABLET 2015-08-31 21:18:00 Yes 1 Twice A Day [facility] Metoclopramide Hcl (Reglan) 10 Mg TABLET Metoclopramid e Hcl (Reglan) 10 Mg TABLET 2015-08-31 21:08:00 2016-01-31 00:00:00 No 10 Before Meals And At Bedtime [facility] Metronidazole (Flagyl) 500 Mg TABLET Metronidazole (Flagyl) 500 Mg TABLET 2015-07-29 15:16:00 2015-09-19 00:00:00 No 250 Four Times Daily [facility] Ondansetron (Zofran Odt) 4 Mg TAB.RAPDIS Ondansetron ( Zofran Odt) 4 Mg TAB.RAPDIS 2015-07-29 15:15:00 2015-10-04 00:00:00 No 4 Q4-6H Prn [facility] Cefuroxime Axetil (Cefuroxime) 250 Mg TABLET Cefuroxim e Axetil (Cefuroxime) 250 Mg TABLET 2015-07-29 15:15:00 2015-09-19 00:00:00 No 500 Every 12 Hours [facility] Pantoprazole Sod (Protonix) 40 Mg/Ml SUSP Pantoprazole Sod (Protonix) 40 Mg/Ml SUSP 2015-07-29 15:13:00 Yes 40 Bid@0730,21 [facility] Acetaminophen With Codeine (Tylenol With Codeine #3 Ta blet) 1 Each TABLET Acetaminophen With Codeine (Tylenol With Codeine #3 Tablet) 1 Each TABLET 2015-07-20 13:57:00 2016-01-31 00:00:00 No 300 Every 4 Hours as needed for Abdominal Pain [facility] Acetaminophen With Codeine (Tylenol With Codeine #3 Ta blet) 1 Each TABLET Acetaminophen With Codeine (Tylenol With Codeine #3 Tablet) 1 Each TABLET 2015-07-09 15:48:00 2015-07-20 00:00:00 No 300 Every 4 Hours as needed for Abdominal Pain [facility] Metoclopramide Hcl (Reglan) 5 Mg TABLET Metoclopramide Hcl ( Reglan) 5 Mg TABLET 2015-07-08 16:56:00 2015-08-31 00:00:00 No 1 Three Times A Day as needed for Nausea [facility] Metoprolol Succinate Metoprolol Succinate 2015-07-08 16:53:00 Yes 50 Twice A Day [facility] Amiodarone Hcl Amiodarone Hcl 2015-07-08 16:51:00 Yes 1 Daily [facility] Acarbose Acarbose Yes 25 Three Times Daily With Meals [facility] Aspirin (Aspir 81) 81 Mg TABLET. Aspirin (Aspir 81) 81 Mg TABLET. Yes 81 Daily [facility] Atorvastatin Calcium Atorvastatin Calcium Yes 40 Bedtime [facility] Citalopram Hydrobromide (Citalopram Hbr) 20 Mg TABLET Citalopram Hydrobromide (Citalopram Hbr) 20 Mg TABLET Yes 20 Daily [facility] Clopidogrel Bisulfate (Plavix) 75 Mg TABLET Clopidogre l Bisulfate (Plavix) 75 Mg TABLET Yes 75 Daily [facility] Furosemide (Lasix) 20 Mg TABLET Furosemide (Lasix) 20 Mg TABLET Yes 40 Daily [facility] Glipizide Glipizide Yes 5 Twice A Day [facility] Losartan Potassium Losartan Potassium Yes 100 Da deandra [facility] Metformin Hcl Metformin Hcl Yes 500 Twice A Day [facility] Nitroglycerin (Nitrostat) 0.4 Mg TAB.SUBL Nitroglyceri n (Nitrostat) 0.4 Mg TAB.SUBL Yes [facility] Sucralfate (Carafate) 1 Gm TABLET Sucralfate (Carafate) 1 Gm TABLET Yes 1 Three Times A Day [facility] Clopidogrel Bisulfate (Plavix) 75 Mg TABLET Clopidogre l Bisulfate (Plavix) 75 Mg TABLET 2016-01-31 00:00:00 No 75 Daily [facility] Rivaroxaban (Xarelto) 20 Mg TABLET Rivaroxaban (Xarelto) 20 Mg T ABLET 2016-01-31 00:00:00 No 20 Daily [facility] Dutasteride (Avodart) 0.5 Mg CAPSULE Dutasteride (Avodart) 0.5 M g CAPSULE 2015-10-04 00:00:00 No .5 Daily [facility] Omeprazole Omeprazole 2015-07-29 00:00:00 No 20 Twi ce A Day [facility] Amiodarone Hcl Amiodarone Hcl 2015-07-08 00:00:00 No 200 Daily [facility] Metoprolol Succinate Metoprolol Succinate 2015-07-08 00:00:00 No 50 Daily [facility] Pravastatin Sodium Pravastatin Sodium 2015-04-05 00:00:[address] [facility] Vital Signs Vital Name Observation Time Observation Value Comments Source Oxygen saturation by Pulse oximetry 2020-09-06 18:59:00 100 /min [facility] Weight 2020-09-06 17:01:00 174 [lb_av] [facility] BMI (Body Mass Index) 2020-09-06 17:01:00 27.3 kg/m2 [facility] Heart Rate 2020-07-12 09:55:00 60 /min [facility] Respiratory rate 2020-07-12 09:55:00 18 /min [facility] BP Systolic 2020-07-12 09:55:00 142 mm[Hg] [facility] BP Diastolic 2020-07-12 09:55:00 65 mm[Hg] [facility] Body Temperature 2020-07-12 09:12:00 98.1 [degF] [facility] Procedures Procedure Date / Time Performed Performing Clinician Sour e Computed tomography of abdomen and pelvis with contrast 00:00:00 [facility] EGD BIOPSY SINGLE/MULTIPLE 2020-07-12 00:00:00 C [facility] Plan of Care Planned Activity Planned Date Details Comments Source Instructions Abdominal Pain - Adult [facility] Encounters Start Date/Time End Date/Time Encounter Type Admission Type Attendi [facility] Care Department Encounter ID Source 2019-11-12 17:51:00 Inpatient E [facility] [id number] [facility] 2020-09-06 17:09:00 2020-09-06 17:09:00 Registered Emergency Room 1 VIRIDIANA SEVERINO [facility] [id number] CH [facility] 2020-07-12 06:57:00 2020-07-12 06:57:00 Registered Surgical Day Care [facility] [id number] [facility] Results Test Description Test Time Test Comments Results Result Comments Source CT ABDOMEN/PELVIS W 2020-09-06 18:26:00 [facility] : 1950 Sex: M [facility] [address] [place] [address] Patient Name: NATALIA KINCAID MR #: [id number] : 1950 Age/Sex: 70/M Req #: [id number] Adm Physician: Ordered by: VIRIDIANA SEVERINO DO Report #: [id number] Location: ER Room/Bed: Procedure: [id number] CT/CT ABDOMEN/PELVIS W Exam Date: 09/06/20 Exam [...] (test code = 6690-2) 11.71 10*3/uL 4.8-10.8 [facility] automated count (number/volume)2020-09-06 17:29:00* Test Item Value Reference Range Interpretation Comments Red Blood Count (test code = 789-8) 4.86 10*6/mL 4.3-5.7 [facility] hemoglobin measurement (moles/volume)2020-09-06 17:29:00* Test Item Value Reference Range Interpretation Comments Hemoglobin (test code = 89482-9) 13.6 g/dL 14.0-18.0 [facility] HospitalAutomated blood hematocrit (volume fraction)2020-09-06 17:29:00* Test Item Value Reference Range Interpretation Comments Hematocrit (test code = 4544-3) 42.8 % 38.2-49.6 [facility] HospitalAutomated erythrocyte mean corpuscular acqast9798-61-92 17:29:00* Test Item Value Reference Range Interpretation Comments Mean Corpuscular Volume (test code = 787-2) 88.1 81-99 [facility] HospitalAutomated erythrocyte mean corpuscular hemoglobin (mass per erythrocyte)2020-09-06 17:29:00* Test Item Value Reference Range Interpretation Comments Mean Corpuscular Hemoglobin (test code = 785-6) 28.0 pg 28-32 [facility] HospitalAutomated erythrocyte mean corpuscular hemoglobin concentration measurement (mass/volume)2020-09-06 17:29:00* Test Item Value Reference Range Interpretation Comments Mean Corpuscular Hemoglobin Concent (test code = 786-4) 31.8 g/dL 31-35 [facility] HospitalRDW IvqYy-Oqx7207-27-05 17:29:00* Test Item Value Reference Range Interpretation Comments Red Cell Distribution Width (test code = 21130-1) 16.2 % 11.7 -14.4 [facility] HospitalAutomated blood platelet count (count/volume)2020-09-06 17:29:00* Test Item Value Reference Range Interpretation Comments Platelet Count (test code = 777-3) 395 10*3/uL 140-360 [facility] HospitalAutomated blood segmented neutrophil count as percentage of total pinrpdaqdh5942-06-10 17:29:00* Test Item Value Reference Range Interpretation Comments Neutrophils (%) (Auto) (test code = 45767-2) 61.9 % 38.7-80.0 [facility] HospitalAutomated blood lymphocyte count as percentage ot total imfyqmesrt6346-57-75 17:29:00* Test Item Value Reference Range Interpretation Comments Lymphocytes (%) (Auto) (test code = 736-9) 22.8 % 18.0-39.1 [facility] HospitalAutomated blood monocyte count as percentage of total caypvtltzi2743-32-94 17:29:00* Test Item Value Reference Range Interpretation Comments Monocytes (%) (Auto) (test code = 5905-5) 10.2 % 4.4-11.3 [facility] HospitalAutomated blood eosinophil count as percentage of total fwtgvdqpml5610-17-62 17:29:00* Test Item Value Reference Range Interpretation Comments Eosinophils (%) (Auto) (test code = 713-8) 2.7 % 0.0-6.0 [facility] HospitalAutomated blood basophil count as percentage of total orrwbryzts1824-69-82 17:29:00* Test Item Value Reference Range Interpretation Comments Basophils (%) (Auto) (test code = 706-2) 2.0 % 0.0-1.0 [facility] HospitalFluoroscopic procedure less than one hour ivzllmni4928-84-48 17:29:00* Test Item Value Reference Range Interpretation Comments IM GRANULOCYTES % (test code = IM GRANULOCYTES %) 0.4 % 0.0- 1.0 [facility] HospitalAutomated blood neutrophil count 2020-09-06 17:29:00* Test Item Value Reference Range Interpretation Comments Neutrophils # (Auto) (test code = 751-8) 7.2 2.1-6.9 [facility] HospitalBlood lymphocytes count (number/volume) 2020-09-06 17:29:00* Test Item Value Reference Range Interpretation Comments Lymphocytes # (Auto) (test code = 76749-0) 2.7 1.0-3.2 [facility] HospitalBlood monocytes automated count (number/volume)2020-09-06 17:29:00* Test Item Value Reference Range Interpretation Comments Monocytes # (Auto) (test code = 742-7) 1.2 0.2-0.8 [facility] HospitalAutomated blood eosinophil count 2020-09-06 17:29:00* Test Item Value Reference Range Interpretation Comments Eosinophils # (Auto) (test code = 711-2) 0.3 0.0-0.4 [facility] HospitalAutomated blood basophil count (count/volume)2020-09-06 17:29:00* Test Item Value Reference Range Interpretation Comments Basophils # (Auto) (test code = 704-7) 0.2 0.0-0.1 [facility] HospitalFluoroscopic procedure less than one hour ddxctmkn5858-98-45 17:29:00* Test Item Value Reference Range Interpretation Comments Absolute Immature Granulocyte (auto (jovita t code = Absolute Immature Granulocyte (auto) 0.05 10*3/uL 0-0.1 [facility] sodium measurement (moles/volume)2020-09-06 17:29:00* Test Item Value Reference Range Interpretation Comments Sodium Level (test code = 2951-2) 139 mmol/L 136-145 [facility] plasma potassium measurement (moles/volume)2020-09-06 17:29:00* Test Item Value Reference Range Interpretation Comments Potassium Level (test code = 2823-3) 4.0 mmol/L 3.5-5.1 [facility] or plasma chloride measurement (moles/volume)2020-09-06 17:29:00* Test Item Value Reference Range Interpretation Comments Chloride Level (test code = 2075-0) 108 mmol/L 98-107 [facility] or plasma carbon dioxide, total measurement (moles/volume)2020-09-06 17:29:00* Test Item Value Reference Range Interpretation Comments Carbon Dioxide Level (test code = 2028-9) 19 mmol/L 22- [facility] or plasma anion mfq2066-89-97 17:29:00* Test Item Value Reference Range Interpretation Comments Anion Gap (test code = 62747-1) 16.0 mmol/L 8-16 [facility] or plasma urea nitrogen measurement (mass/volume)2020-09-06 17:29:00* Test Item Value Reference Range Interpretation Comments Blood Urea Nitrogen (test code = 3094-0) 26 mg/dL 7-26 [facility] or plasma creatinine measurement (mass/volume)2020-09-06 17:29:00* Test Item Value Reference Range Interpretation Comments Creatinine (test code = 2160-0) 1.28 mg/dL 0.72-1.25 [facility] or plasma urea nitrogen/creatinine mass [id number] 17:29:00* Test Item Value Reference Range Interpretation Comments BUN/Creatinine Ratio (test code = 3097-3) 20 6-25 [facility] HospitalEstimated glomerular filtration rate (GFR) xpmepwotnqcnj4623-44-09 17:29:00* Test Item Value Reference Range Interpretation Comments Estimat Glomerular Filtration Rate (test code = 882045434) 55 mL/mi n >60 Ranges were taken from the National Kidney Disease Education Program and the [facility] literature.Reference ranges:60 or greater: Hshjeq78-11 ( for 3 consecutive months): Chronic kidney disease 15 or less: Kidney failureUvalde Memorial HospitalGlucose xkeablkobiq5838-28-80 17:29:00* Test Item Value Reference Range Interpretation Comments Glucose Level (test code = TNQ6220) 115 mg/dL 74-118 [facility] or plasma calcium measurement (mass/volume)2020-09-06 17:29:00* Test Item Value Reference Range Interpretation Comments Calcium Level (test code = 40232-5) 9.1 mg/dL 8.4-10.2 [facility] or plasma total bilirubin measurement (mass/volume)2020-09-06 17:29:00* Test Item Value Reference Range Interpretation Comments Total Bilirubin (test code = 1975-2) 1.0 mg/dL 0.2-1.2 [facility] HospitalFluoroscopic procedure less than one hour cxgjkkzb8814-04-98 17:29:00* Test Item Value Reference Range Interpretation Comments Aspartate Amino Transf (AST/SGOT) (test code = Aspartate Amino Transf (AST/SGOT)) 48 [IU]/L 5-34 [facility] or plasma alanine aminotransferase measurement (enzymatic activity/volume)2020-09-06 17:29:00* Test Item Value Reference Range Interpretation Comments Alanine Aminotransferase (ALT/SGPT) (test code = 1742-6) 42 [IU]/L 0-55 [facility] or plasma protein measurement (mass/volume)2020-09-06 17:29:00* Test Item Value Reference Range Interpretation Comments Total Protein (test code = 2885-2) 7.2 g/dL 6.5-8.1 [facility] or plasma albumin measurement (mass/volume)2020-09-06 17:29:00* Test Item Value Reference Range Interpretation Comments Albumin (test code = 1751-7) 3.2 g/dL 3.5-5.0 [facility] HospitalPlasma globulin measurement (mass/volume) 2020-09-06 17:29:00* Test Item Value Reference Range Interpretation Comments Globulin (test code = 39597-6) 4.0 g/dL 2.3-3.5 [facility] or plasma albumin/globulin mass kbjsg2443-79-21 17:29:00* Test Item Value Reference Range Interpretation Comments Albumin/Globulin Ratio (test code = 1759-0) 0.8 0.8-2.0 [facility] or plasma alkaline phosphatase measurement (enzymatic activity/volume)2020-09-06 17:29:00* Test Item Value Reference Range Interpretation Comments Alkaline Phosphatase (test code = 6768-6) 144 [IU]/L 40-150 [facility] or plasma creatine kinase measurement (enzymatic activity/volume)2020-09-06 17:29:00* Test Item Value Reference Range Interpretation Comments Creatine Kinase (test code = 2157-6) 194 [IU]/L 30-200 [facility] or plasma creatine kinase MB measurement (mass/volume)2020-09-06 17:29:00* Test Item Value Reference Range Interpretation Comments Creatine Kinase MB (test code = 56558-4) 11.10 ng/mL 0-4.3 [facility] or plasma troponin i.cardiac measurement (mass/volume)2020-09-06 17:29:00* Test Item Value Reference Range Interpretation Comments Troponin I (test code = 26253-8) < 0.05 ng/mL 0.0-0.40 [facility] or plasma lipase measurement (enzymatic activity/volume)2020-09-06 17:29:00* Test Item Value Reference Range Interpretation Comments Lipase (test code = 3040-3) 17 U/L 8-78 [facility] HospitalUrine color bndhmaaozziox6474-70-69 17:12:00* Test Item Value Reference Range Interpretation Comments Urine Color (test code = 5778-6) YELLOW YELLOW [facility] HospitalUrine cngwrbo5093-75-05 17:12:00* Test Item Value Reference Range Interpretation Comments Urine Clarity (test code = 15297-4) CLEAR CLEAR [facility] gravity of Urine by Test strip 2020-09-06 17:12:00* Test Item Value Reference Range Interpretation Comments Urine Specific [place] (test code = 5811-5) 1.020 1.010-1.02 5 [facility] HospitalUrine pH measurement by automated test [id number] 17:12:00* Test Item Value Reference Range Interpretation Comments Urine pH (test code = 10284-4) 7 5-7 [facility] HospitalUrine leukocyte esterase detection by prqgsfae7233-66-24 17:12:00* Test Item Value Reference Range Interpretation Comments Urine Leukocyte Esterase (test code = 5799-2) NEGATIVE NEGATIVE [facility] HospitalUrine nitrite ykncdmlhu5855-27-03 17:12:00* Test Item Value Reference Range Interpretation Comments Urine Nitrite (test code = 26663-5) NEGATIVE NEGATIVE [facility] HospitalUrine protein measurement by test strip (mass/volume)2020-09-06 17:12:00* Test Item Value Reference Range Interpretation Comments Urine Protein (test code = 5804-0) NEGATIVE NEGATIVE [facility] HospitalUrine glucose xphvypemw8426-13-43 17:12:00* Test Item Value Reference Range Interpretation Comments Urine Glucose (UA) (test code = 2349-9) NEGATIVE NEGATIVE [facility] HospitalUrine ketones detection by automated test [id number] 17:12:00* Test Item Value Reference Range Interpretation Comments Urine Ketones (test code = 27404-6) NEGATIVE NEGATIVE [facility] HospitalUrine urobilinogen measurement by test strip (mass/volume)2020-09-06 17:12:00* Test Item Value Reference Range Interpretation Comments Urine Urobilinogen (test code = 55562-5) 1 mg/dL 0.2-1 [facility] HospitalU[facility] total bilirubin measurement (mass/volume)2020-09-06 17:12:00* Test Item Value Reference Range Interpretation Comments Urine Bilirubin (test code = 1978-6) NEGATIVE NEGATIVE [facility] HospitalUrine erythrocytes mmfezxvrt8215-23-42 17:12:00* Test Item Value Reference Range Interpretation Comments Urine Blood (test code = 04923-9) NEGATIVE NEGATIVE [facility] HospitalAutomated urine sediment leukocyte count by microscopy (number/high power field)2020-09-06 17:12:00* Test Item Value Reference Range Interpretation Comments Urine WBC (test code = 5821-4) NONE /[HPF] 0-5 [facility] HospitalErythrocytes detection in urine sediment by light gckeqajpar7879-80-37 17:12:00* Test Item Value Reference Range Interpretation Comments Urine RBC (test code = 36660-1) NONE /[HPF] 0-5 [facility] HospitalBacteria detection in urine sediment by light xaefzbbwjl4505-04-37 17:12:00* Test Item Value Reference Range Interpretation Comments Urine Bacteria (test code = 73566-8) FEW /[HPF] NONE [facility] HospitalEpithelial cells detection in urine sediment by light qlnqnwzymo1898-35-35 17:12:00* Test Item Value Reference Range Interpretation Comments Urine Epithelial Cells (test code = 34480-7) NONE /[LPF] NONE [facility] HospitalCapillary blood glucose measurement by glucometer (mass/volume)2020-07-12 07:38:00* Test Item Value Reference Range Interpretation Comments Bedside Glucose (test code = 62524-2) 122 mg/dL 70-120 Meter ID: [id number] Memorial HospitalFluoroscopic procedure less than one hour hnlaxtsh7124-77-37 13:10:00* Test Item Value Reference Range Interpretation Comments Coronavirus (PCR) (test code = Coronavirus (PCR)) NOT DETECTED NOTD ETECTED National Institutes of Health (NIH) Aptima SARS-CoV-2 assay is a nucleic amplification test intended for the qualitative detection of RNA from SARS-CoV-2 from nasopharyngeal (APPLICATION SECURITY ENGINEER) specimens . It is used under Emergency [...] for reprat testing oc clinically indicated.Tesing performed by:[facility] [address] [place] [id number] [id number], Moi Simpson MD, PhD [facility] 19:46:00* Test Item Value Reference Range Interpretation Comments GLUBED (test code = GLUBED) 147 mg/dL 74-106 H Performed by certified cooky machine operator at [facility] [id number] 12:20:00* Test Item Value Reference Range Interpretation Comments GLUBED (test code = GLUBED) 181 mg/dL 74-106 H Performed by certified cooky machine operator at [facility] [id number] 12:13:00* Test Item Value Reference Range Interpretation Comments GLUBED (test code = GLUBED) 179 mg/dL 74-106 H Performed by certified cooky machine operator at [facility] BASIC METABOLIC [id number] 07:24:00* Test Item Value Reference Range Interpretation [...] code = CA) 8.4 mg/dL 8.5-10.1 L [id number] 07:24:00* Test Item Value Reference Range Interpretation Comments PHOSPHORUS (test code = PHOS) 3.5 mg/dL 2.5-4.9 N [id number] 07:24:00* Test Item Value Reference Range Interpretation Comments MAGNESIUM (test code = MAG) 1.6 mg/dL 1.8-2.4 L BASIC METABOLIC [id number] 07:13:00* Test Item Value Reference Range Interpretation [...] CALCIUM (test code = CA) mg/dL 8.5-10.1 [id number] 07:13:00* Test Item Value Reference Range Interpretation Comments PHOSPHORUS (test code = PHOS) mg/dL 2.5-4.9 [id number] 07:13:00* Test Item Value Reference Range Interpretation Comments MAGNESIUM (test code = MAG) mg/dL 1.8-2.4 [id number] 21:37:00* Test Item Value Reference Range Interpretation Comments GLUBED (test code = GLUBED) 199 mg/dL 74-106 H [facility] certified cooky machine [facility]~ [id number] 15:49:00* Test Item Value Reference Range Interpretation Comments GLUBED (test code = GLUBED) 91 mg/dL 74-106 N Performed by certified cooky machine operator at [facility] BASIC METABOLIC [id number] 15:20:00* Test Item Value Reference Range Interpretation Comments SODIUM (test code = NA) 135 mmol/L 136-145 L POTASSIUM (test code = K) 2.8 mmol/L 3.5-5.1 Re sults called to [id number] by V.LAB.LT 10/17/19 1519Critical results verified and [...] = CA) 8.1 mg/dL 8.5-10.1 L LACTIC [id number] 12:24:00* Test Item Value Reference Range Interpretation Comments LACTIC ACID (test code = LACT) 2.1 mmol/L 0.4-1.9 Results called to [id number] by VKayLABKayKP3 10/17/19 1224Critical results verified and read back by Nurse? [id number] 11:47:00* Test Item Value Reference Range Interpretation Comments GLYCOSYLATED HEMOGLOBIN (HA1C) (test code = GLYHGB) 7.8 % HbA1 SUGGESTED DIAGNOSIS: HbA1C (%) Diabetic >6.4Prediabetes 5.7 - 6.4Normal <5.7 ESTIMATED AVERAGE GLUCOSE (test code = EAG) 177 MG/DL [id number] 10:54:00* Test Item Value Reference Range Interpretation Comments GLUBED (test code = GLUBED) 148 mg/dL 74-106 H Performed by certified cooky machine operator at [facility] LACTIC [id number] 10:13:00* Test Item Value Reference Range Interpretation Comments LACTIC ACID (test code = LACT) 2.6 mmol/L 0.4-1.9 HH Results called to [id number] by VKayLABSEA 10/17/19 1013Critical results verified and read back by Nurse? Y [id number] 09:01:00* Test Item Value Reference Range Interpretation Comments GLUBED (test code = GLUBED) 101 mg/dL 74-106 N Performed by certified cooky machine operator at [facility] [id number] 07:28:00* Test Item Value Reference Range Interpretation Comments GLUBED (test code = GLUBED) 22 mg/dL 74-106 LL Test performed as P.O.C. by nursing staff.Performed by certified cooky machine operator [facility] Notified~Notified Nurse~ URINALYSIS [id number] 04:46:00* Test Item Value Reference Range Interpretation [...] FEW #/LPF FEW Urine Source? Clean CatchURINALYSIS [id number] 04:41:00* Test Item Value Reference Range Interpretation [...] per HPF NONE Urine Source? Clean CatchLACTIC [id number] 03:01:00* Test Item Value Reference Range Interpretation Comments LACTIC ACID (test code = LACT) 3.6 mmol/L 0.4-1.9 Results called to PYW5678 by JOHN 10/17/19 0301Critical results verified and read back by Nurse? Y - XR CHEST 1 [id number] 02:58:00 FAX: Nicki Bender [phone] [place]: St: [facility] FAX: Israel Stanley MD [phone] Name: NATALIA KINCAID [facility] : 1950 Age/S: 69/M [address] [facility] Unit #: [id number] Loc: [place] [address] Phys: Nicki Burr MD Acct: [id number] Dis Date: Status: REG ER PHONE #: [phone] Exam Date: 10/17/2019 0240 FAX #: [phone] Reason: COUGH EXAMS: CPT CODE: [id number] XR CHEST 1 V 79196 DICTATION LOCATION: H48 HISTORY: Male, 69 years [...] S: 10/17/2019 (0302) PAGE 1 Signed Report [id number] 02:39:00* Test Item Value Reference Range Interpretation Comments GLUBED (test code = GLUBED) 79 mg/dL 74-106 N Performed by certified cooky machine operator at [facility] BASIC METABOLIC [id number] 02:39:00* Test Item Value Reference Range Interpretation [...] code = CA) 9.8 mg/dL 8.5-10.1 N [id number] 02:39:00* Test Item Value Reference Range Interpretation Comments MAGNESIUM (test code = MAG) 1.7 mg/dL 1.8-2.4 L [id number] 02:39:00* Test Item Value Reference Range Interpretation Comments TROPONIN-I (test code = TROPI) 0.028 ng/mL 0-0.045 N CBC W/O [id number] 02:37:00* Test Item Value Reference Range Interpretation [...] MPV) 10.1 fL 6.7-11.0 N CBC W/O [id number] 02:31:00* Test Item Value Reference Range Interpretation [...] VOLUME (test code = MPV) fL 6.7-11.0 [id number] 01:41:00* Test Item Value Reference Range Interpretation Comments GLUBED (test code = GLUBED) 33 mg/dL 74-106 LL Test performed as P.O.C. by nursing staff.Performed by certified cooky machine operator [facility]~ [id number] 17:51:00* Test Item Value Reference Range Interpretation Comments GLUBED (test code = GLUBED) 282 mg/dL 74-106 H Performed by certified cooky machine operator at [facility] [id number] 12:33:00* Test Item Value Reference Range Interpretation Comments GLUBED (test code = GLUBED) 232 mg/dL 74-106 H Performed by certified cooky machine operator at [facility] COMPREHENSIVE METABOLIC [id number] 06:33:00* Test Item Value Reference Range Interpretation [...] reference range due to change in reagent. [id number] 05:58:00* Test Item Value Reference Range Interpretation Comments GLUBED (test code = GLUBED) 131 mg/dL 74-106 H Performed by certified cooky machine operator at [facility] [id number] 20:48:00* Test Item Value Reference Range Interpretation Comments GLUBED (test code = GLUBED) 155 mg/dL 74-106 H Performed by certified cooky machine operator at [facility] [id number] 18:04:00* Test Item Value Reference Range Interpretation Comments GLUBED (test code = GLUBED) 93 mg/dL 74-106 N Performed by certified cooky machine operator at [facility] [id number] 12:19:00* Test Item Value Reference Range Interpretation Comments GLUBED (test code = GLUBED) 261 mg/dL 74-106 H Performed by certified cooky machine operator at [facility] BASIC METABOLIC [id number] 07:29:00* Test Item Value Reference Range Interpretation [...] CA) 8.6 mg/dL 8.5-10.1 N BASIC METABOLIC [id number] 07:25:00* Test Item Value Reference Range Interpretation [...] CALCIUM (test code = CA) mg/dL 8.5-10.1 [id number] 05:54:00* Test Item Value Reference Range Interpretation Comments GLUBED (test code = GLUBED) 199 mg/dL 74-106 H Performed by certified cooky machine operator at [facility] [id number] 20:51:00* Test Item Value Reference Range Interpretation Comments GLUBED (test code = GLUBED) 164 mg/dL 74-106 H Performed by certified cooky machine operator at [facility] - XR C-SPINE 2-3 [id number] 18:24:00 FAX: Israel Stanley MD [phone] [place]: B St: ADM FAX: Buzz Spangler [facility] [phone] Name: NATALIA KINCAID [facility] : 1950 Age/S: 69/M [address] [facility] Unit #: [id number] Loc: V.2091 [place] [address] Phys: Buzz Sanchez MD Acct: [id number] Dis Date: Status: ADM IN PHONE #: [phone] Exam Date: 10/09/2019 1745 FAX #: [phone] Reason: NECK PAIN EXAMS: CPT CODE: [id number] XR C-SPINE 2-3 VIEWS 56897 HISTORY: NECK PAIN TECHNIQUE: AP, lateral, and [...] By: [email or web address] Orig Print D/T: S: 10/09/2019 (3278) PAGE 1 Signed Report BASIC METABOLIC [id number] 18:22:00* Test Item Value Reference Range Interpretation Comments SODIUM (test code = NA) 134 mmol/L 136-145 L POTASSIUM (test code = K) 2.9 mmol/L 3.5-5.1 L Anisa weber called to UCC8080 by V.LAB.AA 10/09/19 1821Critical results verified and [...] code = CA) 8.6 mg/dL 8.5-10.1 N [id number] 17:05:00* Test Item Value Reference Range Interpretation Comments GLUBED (test code = GLUBED) 88 mg/dL 74-106 N Performed by certified cooky machine operator at [facility] [id number] 12:25:00* Test Item Value Reference Range Interpretation Comments GLUBED (test code = GLUBED) 202 mg/dL 74-106 H Performed by certified cooky machine operator at [facility] - CT HEAD/BRAIN W/O [id number] 09:46:00 Name: NATALIA KINCAID [facility] : 1950 Age/S: 69 / M [address] [facility] Unit #: [id number] Loc: [place] [address] Phys: Buzz Sanchez MD Acct: [id number] Dis Date: Status: ADM IN PHONE #: [phone] Exam Date: 10/09/2019929 FAX #: [phone] Reason: REASSESS BLEED POST FALL EXAMS: CPT CODE: [id number] CT HEAD/BRAIN W/O CONT 75392 HISTORY: Fall and pain. Reassess for hemorrhage. [...] 1 Signed Report (CONTINUED) Name: NATALIA KINCAID [facility] : 1950 Age/S: 69 / M [address] [facility] Unit #: [id number] Loc: [place] [address] Phys: Buzz Sanchez MD Acct: [id number] Dis Date: Status : ADM IN PHONE #: [phone] Exam Date: 12/10/2018929 FAX #: [phone] Reason: REASSESS BL EED POST FALL EXAMS: CPT CODE: [id number] CT HEAD/BRAIN W/O CONT 79799 <Continued> CC: Israel Hawkins MD; Buzz Sanchez Technologist:Zonia Pacheco RT(R),CT CTDI: DLP: Trnscb Date/Time: 10/09/2019 (0946) [email or web address] Orig Print D/T: S: 10/09/2019 (49) PAGE 2 Signed Report BASIC METABOLIC [id number] 08:29:00* Test Item Value Reference Range Interpretation Comments SODIUM (test code = NA) 132 mmol/L 136-145 L POTASSIUM (test code = K) 2.6 mmol/L 3.5-5.1 LL Re sults called to [id number] by IRWIN 10/09/19 0829Critical results verified and [...] code = CA) 8.3 mg/dL 8.5-10.1 L [id number] 08:29:00* Test Item Value Reference Range Interpretation Comments PHOSPHORUS (test code = PHOS) 3.4 mg/dL 2.5-4.9 N [id number] 08:29:00* Test Item Value Reference Range Interpretation Comments MAGNESIUM (test code = MAG) 1.8 mg/dL 1.8-2.4 N CBC W/AUTO [id number] 08:08:00* Test Item Value Reference Range Interpretation [...] code = NRBC#) 0.00 K/mm3 0.0-0.1 N [id number] 05:53:00* Test Item Value Reference Range Interpretation Comments GLUBED (test code = GLUBED) 175 mg/dL 74-106 H Performed by certified cooky machine operator at [facility] [id number] 21:28:00* Test Item Value Reference Range Interpretation Comments GLUBED (test code = GLUBED) 71 mg/dL 74-106 L Performed by certified cooky machine operator at [facility] COAGULATION TIME [id number] 18:10:00* Test Item Value Reference Range Interpretation Comments COAGULATION TIME ACTIVATED (test code = ACT) 131 seconds 62.8-88.0 H COAGULATION TIME [id number] 18:10:00* Test Item Value Reference Range Interpretation Comments COAGULATION TIME ACTIVATED (test code = ACT) 369 seconds 62.8-88.0 H COAGULATION TIME [id number] 18:10:00* Test Item Value Reference Range Interpretation Comments COAGULATION TIME ACTIVATED (test code = ACT) 369 seconds 62.8-88.0 H COAGULATION TIME [id number] 18:10:00* Test Item Value Reference Range Interpretation Comments COAGULATION TIME ACTIVATED (test code = ACT) 315 seconds 62.8-88.0 H COAGULATION TIME [id number] 18:10:00* Test Item Value Reference Range Interpretation Comments COAGULATION TIME ACTIVATED (test code = ACT) 352 seconds 62.8-88.0 H COAGULATION TIME [id number] 18:10:00* Test Item Value Reference Range Interpretation Comments COAGULATION TIME ACTIVATED (test code = ACT) 352 seconds 62.8-88.0 H COAGULATION TIME [id number] 18:10:00* Test Item Value Reference Range Interpretation Comments COAGULATION TIME ACTIVATED (test code = ACT) 380 seconds 62.8-88.0 H COAGULATION TIME [id number] 18:10:00* Test Item Value Reference Range Interpretation Comments COAGULATION TIME ACTIVATED (test code = ACT) 357 seconds 62.8-88.0 H COAGULATION TIME [id number] 18:10:00* Test Item Value Reference Range Interpretation Comments COAGULATION TIME ACTIVATED (test code = ACT) 372 seconds 62.8-88.0 H COAGULATION TIME [id number] 18:10:00* Test Item Value Reference Range Interpretation Comments COAGULATION TIME ACTIVATED (test code = ACT) 280 seconds 62.8-88.0 H [id number] 17:09:00* Test Item Value Reference Range Interpretation Comments GLUBED (test code = GLUBED) 210 mg/dL 74-106 H Performed by certified cooky machine operator at [facility] [id number] 12:22:00* Test Item Value Reference Range Interpretation Comments GLUBED (test code = GLUBED) 204 mg/dL 74-106 H Performed by certified cooky machine operator at [facility] - CT HEAD/BRAIN W/O [id number] 11:02:00 Name: NATALIA KINCAID [facility] : 1950 Age/S: 69 / M [address] [facility] Unit #: [id number] Loc: [place] [address] Phys: Buzz Sanchez MD Acct: [id number] Dis Date: Status: ADM IN PHONE #: [phone] Exam Date: 10/08/2019 1035 FAX #: [phone] Reason: S/P FALL EXAMS: CPT CODE: [id number] CT HEAD/BRAIN W/O CONT 14358 HISTORY: S/P FALL TECHNIQUE: Noncontrast 2.5 mm [...] 1 Signed Report (CONTINUED) Name: Emily KINCAID [facility] : 1950 Ag e/S: 69 / M [address] [facility] Unit #: [id number] Loc: [place] [address] Phys: Buzz Sanchez MD Acct: [id number] Dis Date: Status: ADM IN PHONE #: [phone] Exam Date: 10/08/2019 1038 FAX #: [phone] Reason : S/P FALL EXAMS: CPT CODE: [id number] CT HEAD/BRAIN W/O CONT 72914 <Continued> CC: Israel Hawkins MD; Buzz Sanchez Technologist:Zonia Pacheco RT(R),CT CTDI: DLP: Trnscb Date/Time: 10/08/2019 (0777) [email or web address] Orig Print D/T: S: 10/08/2019 (5199) PAGE 2 Signed Report [id number] 06:07:00* Test Item Value Reference Range Interpretation Comments GLUBED (test code = GLUBED) 131 mg/dL 74-106 H Performed by certified cooky machine operator at [facility] COMPREHENSIVE METABOLIC [id number] 04:52:00* Test Item Value Reference Range Interpretation [...] due to change in reagent. COMPREHENSIVE METABOLIC [id number] 04:46:00* Test Item Value Reference Range Interpretation [...] code = ALKP) IUnit/L 45-117 CBC W/O [id number] 04:33:00* Test Item Value Reference Range Interpretation [...] MPV) 11.6 fL 6.7-11.0 H CBC W/O [id number] 04:28:00* Test Item Value Reference Range Interpretation [...] fL 6.7-11.0 - XR ABDOMEN AP 1 [id number] 21:18:00 FAX: Israel Stanley MD [phone] [place]: B St: [facility] FAX: Basilia Linares [phone] FAX: Buzz Spangler [facility] [phone] Name: NATALIA KINCAID [facility] : 1950 Age/S: 69/M [address] [place] Unit #: [id number] Loc: V.2091 [place] [address] Phys: Basilia Linarse Acct: [id number] Dis Date: Status: ADM IN ONE #: [phone] Exam Date: 10/07/2019 2100 FAX #: [phone] Reason: abd pain, distention EXAMS: CPT CODE: [id number] XR ABDOMEN AP 1 V 66291 HISTORY: Abdom inal pain and distention. COMPARISON: [...] S: (2121) PAGE 1 Signed Rep ort [id number] 20:33:00* Test Item Value Reference Range Interpretation Comments GLUBED (test code = GLUBED) 232 mg/dL 74-106 H Performed by certified cooky machine operator at [facility] [id number] 16:09:00* Test Item Value Reference Range Interpretation Comments GLUBED (test code = GLUBED) 143 mg/dL 74-106 H Performed by certified cooky machine operator at [facility] [id number] 16:09:00* Test Item Value Reference Range Interpretation Comments GLUBED (test code = GLUBED) 223 mg/dL 74-106 H Performed by certified cooky machine operator at [facility] CBC W/AUTO [id number] 07:40:00* Test Item Value Reference Range Interpretation [...] (test code = MDIFF) NO COMPREHENSIVE METABOLIC [id number] 07:31:00* Test Item Value Reference Range Interpretation [...] due to change in reagent. COMPREHENSIVE METABOLIC [id number] 07:27:00* Test Item Value Reference Range Interpretation [...] code = ALKP) IUnit/L 45-117 CBC W/AUTO [id number] 07:12:00* Test Item Value Reference Range Interpretation [...] # (test code = BA#) K/mm3 0.0-0.2 [id number] 06:41:00* Test Item Value Reference Range Interpretation Comments GLUBED (test code = GLUBED) 145 mg/dL 74-106 H Performed by certified cooky machine operator at [facility] ACUTE HEPATITIS [id number] 05:09:00* Test Item Value Reference Range Interpretation [...] with a HCV Nucleic Acid Amplification test (891529).Performed At: [facility] [id number] Ramsey Caldwell MD Ph:[phone] [id number] 20:40:00* Test Item Value Reference Range Interpretation Comments GLUBED (test code = GLUBED) 189 mg/dL 74-106 H Performed by certified cooky machine operator at [facility] [id number] 16:15:00* Test Item Value Reference Range Interpretation Comments GLUBED (test code = GLUBED) 197 mg/dL 74-106 H Performed by certified cooky machine operator at [facility] [id number] 16:15:00* Test Item Value Reference Range Interpretation Comments GLUBED (test code = GLUBED) 194 mg/dL 74-106 H Performed by certified cooky machine operator at [facility] COMPREHENSIVE METABOLIC [id number] 08:18:00* Test Item Value Reference Range Interpretation Comments SODIUM (test code = NA) 133 mmol/L 136-145 L POTASSIUM (test code = K) 2.7 mmol/L 3.5-5.1 [facility] sults called to INDIO AHS3002wn V.LAB. 10/06/19 0818Critical results verified and read [...] reference range due to change in reagent. [id number] 08:18:00* Test Item Value Reference Range Interpretation Comments MAGNESIUM (test code = MAG) 1.9 mg/dL 1.8-2.4 N [id number] 07:34:00* Test Item Value Reference Range Interpretation Comments PHOSPHORUS (test code = PHOS) 3.4 mg/dL 2.5-4.9 N [id number] 06:34:00* Test Item Value Reference Range Interpretation Comments GLUBED (test code = GLUBED) 163 mg/dL 74-106 H Performed by certified cooky machine operator at [facility] [id number] 20:42:00* Test Item Value Reference Range Interpretation Comments GLUBED (test code = GLUBED) 204 mg/dL 74-106 H Performed by certified cooky machine operator at [facility] [id number] 17:30:00* Test Item Value Reference Range Interpretation Comments GLUBED (test code = GLUBED) 254 mg/dL 74-106 H Performed by certified cooky machine operator at [facility] [id number] 11:42:00* Test Item Value Reference Range Interpretation Comments GLUBED (test code = GLUBED) 182 mg/dL 74-106 H Performed by certified cooky machine operator at [facility] [id number] 06:13:00* Test Item Value Reference Range Interpretation Comments GLUBED (test code = GLUBED) 114 mg/dL 74-106 H Performed by certified cooky machine operator at [facility] COMPREHENSIVE METABOLIC [id number] 03:46:00* Test Item Value Reference Range Interpretation Comments SODIUM (test code = NA) 137 mmol/L 136-145 N POTASSIUM (test code = K) 2.5 mmol/L 3.5-5.1 Re sults called to KUD7963 by V.LAB.AG1 10/05/19 0346Critical results verified and [...] reference range due to change in reagent. [id number] 03:46:00* Test Item Value Reference Range Interpretation Comments PHOSPHORUS (test code = PHOS) 5.5 mg/dL 2.5-4.9 H BILIRUBIN [id number] 03:46:00* Test Item Value Reference Range Interpretation Comments BILIRUBIN DIRECT (test code = BILD) 0.76 mg/dL 0.0-0.20 H [id number] 03:46:00* Test Item Value Reference Range Interpretation Comments MAGNESIUM (test code = MAG) 2.3 mg/dL 1.8-2.4 N CBC W/AUTO [id number] 03:01:00* Test Item Value Reference Range Interpretation [...] NRBC#) 0.00 K/mm3 0.0-0.1 N CBC W/AUTO [id number] 02:58:00* Test Item Value Reference Range Interpretation [...] # (test code = BA#) K/mm3 0.0-0.2 [id number] 20:35:00* Test Item Value Reference Range Interpretation Comments GLUBED (test code = GLUBED) 226 mg/dL 74-106 H Performed by certified cooky machine operator at [facility] [id number] 17:50:00* Test Item Value Reference Range Interpretation Comments GLUBED (test code = GLUBED) 210 mg/dL 74-106 H Performed by certified cooky machine operator at [facility] [id number] 12:28:00* Test Item Value Reference Range Interpretation Comments POTASSIUM (test code = K) 3.2 mmol/L 3.5-5.1 L THROMBOPLASTIN TIME [id number] 11:51:00* Test Item Value Reference Range Interpretation Comments THROMBOPLASTIN TIME PARTIAL (test code = PTT) 44.6 seconds 25.0-36. 5 H IS PATIENT ON ANTICOAGULANTS? YLIST ANTICOAGULANTS [id number] 11:46:00* Test Item Value Reference Range Interpretation Comments GLUBED (test code = GLUBED) 126 mg/dL 74-106 H Performed by certified cooky machine operator at [facility] [id number] 06:09:00* Test Item Value Reference Range Interpretation Comments GLUBED (test code = GLUBED) 215 mg/dL 74-106 H Performed by certified cooky machine operator at [facility] COMPREHENSIVE METABOLIC [id number] 04:43:00* Test Item Value Reference Range Interpretation Comments SODIUM (test code = NA) 134 mmol/L 136-145 L POTASSIUM (test code = K) 2.5 mmol/L 3.5-5.1 Re sults called to VYA2646 by V.LAB.JP1 10/04/19 0442Critical results verified and [...] reference range due to change in reagent. [id number] 04:43:00* Test Item Value Reference Range Interpretation Comments PHOSPHORUS (test code = PHOS) 6.1 mg/dL 2.5-4.9 H BILIRUBIN [id number] 04:43:00* Test Item Value Reference Range Interpretation Comments BILIRUBIN DIRECT (test code = BILD) 0.77 mg/dL 0.0-0.20 H [id number] 04:43:00* Test Item Value Reference Range Interpretation Comments MAGNESIUM (test code = MAG) 1.6 mg/dL 1.8-2.4 L THROMBOPLASTIN TIME [id number] 04:20:00* Test Item Value Reference Range Interpretation [...] (test code = MDIFF) NO CBC W/AUTO [id number] 03:55:00* Test Item Value Reference Range Interpretation [...] code = BA#) K/mm3 0.0-0.2 UR PROTEIN/CREATININE [id number] 02:30:00* Test Item Value Reference Range Interpretation [...] 0.24 RATIO 0.0-0. 20 H THROMBOPLASTIN TIME [id number] 21:39:00* Test Item Value Reference Range Interpretation Comments THROMBOPLASTIN TIME PARTIAL (test code = PTT) 72.9 seconds 25.0-36. 5 H IS PATIENT ON ANTICOAGULANTS? YLIST ANTICOAGULANTS HEPARIN- US RETRO LTD 2019-10-03 21:32:00 Name: NATALIA KINCAID [facility] : 1950 Age/S: 69 / M [address] [facility] Unit #: [id number] Loc: [place] [address] Phys: Melanie Mni MD Acct: [id number] Dis Date: Status: ADM IN PHONE #: [phone] Exam Date: 10/03/2019 175 FAX #: [phone] Reason: ALVA EXAMS: CPT CODE: [id number] US RETRO LTD 95424 HISTORY: Acute kidney insufficiency. COMPARISON: CT scan [...] MD; Buzz Sanchez Technologist: Raven Arnett RDMS Trndeb Date/Time: 10/03/2019 (2131) t.SDR.TH4 Orig Print D/T: S: 10/03/2019 (2134) Probe: PAGE 1 Signed Report [id number] 21:00:00* Test Item Value Reference Range Interpretation Comments GLUBED (test code = GLUBED) 185 mg/dL 74-106 H Performed by certified cooky machine operator at [facility] [id number] 17:01:00* Test Item Value Reference Range Interpretation Comments GLUBED (test code = GLUBED) 136 mg/dL 74-106 H Performed by certified cooky machine operator at [facility] - XR CHEST 2 [id number] 16:10:00 FAX: Melanie Payne MD [phone] [place]: B St: ADM FAX: Israel Stanley MD [phone] FAX: Buzz Spangler [phone] Name: NATALIA KINCAID [facility] : 1950 Age/S: 69/M [address] [facility] Unit #: [id number] Loc: [address] [place] [address] Phys: Melanie Min MD Acct: [id number] Dis Date: Status: ADM IN ONE #: [phone] Exam Date: 10/03/2019 1609 FAX #: [phone] Reason: PNEUMONIA EXAMS: CPT CODE: [id number] XR CHEST 2 V 27261 HISTORY: Pneum onia. COMPARISON: Chest x-ray from [...] By: [email or web address] Orig Print D/T: S: 019 (9038) PAGE 1 Signed Report THROMBOPLASTIN TIME [id number] 15:38:00* Test Item Value Reference Range Interpretation Comments THROMBOPLASTIN TIME PARTIAL (test code = PTT) 68.9 seconds 25.0-36. 5 H IS PATIENT ON ANTICOAGULANTS? YLIST ANTICOAGULANTS [id number] 12:35:00* Test Item Value Reference Range Interpretation Comments GLUBED (test code = GLUBED) 252 mg/dL 74-106 H Performed by certified cooky machine operator at [facility] THROMBOPLASTIN TIME [id number] 09:10:00* Test Item Value Reference Range Interpretation Comments THROMBOPLASTIN TIME PARTIAL (test code = PTT) 89.0 seconds 25.0-36. 5 HH Results called to [id number] by V.LAB.JQ 10/03/19 0909Critical results verified and read back by Nurse? y IS PATIENT ON ANTICOAGULANTS? YLIST ANTICOAGULANTS [id number] 05:11:00* Test Item Value Reference Range Interpretation Comments GLUBED (test code = GLUBED) 94 mg/dL 74-106 N Performed by certified cooky machine operator at [facility] COMPREHENSIVE METABOLIC [id number] 03:07:00* Test Item Value Reference Range Interpretation Comments SODIUM (test code = NA) 139 mmol/L 136-145 RESU LT VERIFIED BY REPEAT ANALYSIS POTASSIUM (test code = K) 2.9 mmol/L 3.5-5.1 L Re sults called to [id number] by V.LAB.AG1 10/03/19 0306Critical results verified and [...] due to change in reagent. HEPATIC FUNCTION [id number] 03:07:00* Test Item Value Reference Range Interpretation Comments BILIRUBIN DIRECT (test code = BILD) 0.62 mg/dL 0.0-0.20 H [id number] 03:07:00* Test Item Value Reference Range Interpretation Comments PHOSPHORUS (test code = PHOS) 2.3 mg/dL 2.5-4.9 L [id number] 03:07:00* Test Item Value Reference Range Interpretation Comments MAGNESIUM (test code = MAG) 1.9 mg/dL 1.8-2.4 N THROMBOPLASTIN TIME [id number] 02:51:00* Test Item Value Reference Range Interpretation [...] (test code = MDIFF) NO BASIC METABOLIC [id number] 23:21:00* Test Item Value Reference Range Interpretation [...] code = CA) 9.2 mg/dL 8.5-10.1 N [id number] 22:07:00* Test Item Value Reference Range Interpretation Comments GLUBED (test code = GLUBED) 236 mg/dL 74-106 H Performed by certified cooky machine operator at [facility] THROMBOPLASTIN TIME [id number] 18:15:00* Test Item Value Reference Range Interpretation Comments THROMBOPLASTIN TIME PARTIAL (test code = PTT) 56.5 seconds 25.0-36. 5 H IS PATIENT ON ANTICOAGULANTS? YLIST ANTICOAGULANTS [id number] 16:40:00* Test Item Value Reference Range Interpretation Comments GLUBED (test code = GLUBED) 118 mg/dL 74-106 H [facility] certified cooky machine [facility]~ BASIC METABOLIC [id number] 16:29:00* Test Item Value Reference Range Interpretation Comments SODIUM (test code = NA) 136 mmol/L 136-145 RESU LT VERIFIED BY REPEAT ANALYSIS POTASSIUM (test code = K) 2.9 mmol/L 3.5-5.1 L Re sults called to [id number] by [employer].LAB.KP1 10/02/19 1628Critical results verified and read back [...] code = CA) 9.0 mg/dL 8.5-10.1 N [id number] 16:29:00* Test Item Value Reference Range Interpretation Comments PHOSPHORUS (test code = PHOS) 2.9 mg/dL 2.5-4.9 N [id number] 16:29:00* Test Item Value Reference Range Interpretation Comments MAGNESIUM (test code = MAG) 2.0 mg/dL 1.8-2.4 N BASIC METABOLIC [id number] 16:23:00* Test Item Value Reference Range Interpretation [...] code = CA) 9.0 mg/dL 8.5-10.1 N [id number] 16:23:00* Test Item Value Reference Range Interpretation Comments PHOSPHORUS (test code = PHOS) 2.9 mg/dL 2.5-4.9 N [id number] 16:23:00* Test Item Value Reference Range Interpretation Comments MAGNESIUM (test code = MAG) 2.0 mg/dL 1.8-2.4 N UR NA,[id number] 15:57:00* Test Item Value Reference Range Interpretation Comments UR NA,RANDOM (test code = EDUARDO) 93 mmol/L 20-110 N URINE K, [id number] 15:57:00* Test Item Value Reference Range Interpretation Comments URINE K, RANDOM (test code = KU) 33.0 mmol/L 12-75 N UR PROTEIN [id number] 15:57:00* Test Item Value Reference Range Interpretation Comments UR PROTEIN RANDOM (test code = PROTU) 5.5 mg/dL 0.0-11.9 N Protein levels may be falsely elevated in patients withelevated level of aminoglycoside antibiotics in CSF and inhighly concentrated urine specimens. If false elevation issuspected, contact lab for alternated testing technique. UR CREATININE [id number] 15:57:00* Test Item Value Reference Range Interpretation Comments UR CREATININE RANDOM (test code = CREATU) 14.0 mg/dL 30-125 L UR NA,[id number] 15:51:00* Test Item Value Reference Range Interpretation Comments UR NA,RANDOM (test code = EDUARDO) 93 mmol/L 20-110 N URINE K, [id number] 15:51:00* Test Item Value Reference Range Interpretation Comments URINE K, RANDOM (test code = KU) 33.0 mmol/L 12-75 N UR PROTEIN [id number] 15:51:00* Test Item Value Reference Range Interpretation Comments UR PROTEIN RANDOM (test code = PROTU) mg/dL 0.0-11.9 UR CREATININE [id number] 15:51:00* Test Item Value Reference Range Interpretation Comments UR CREATININE RANDOM (test code = CREATU) mg/dL 30-125 THROMBOPLASTIN TIME [id number] 14:28:00* Test Item Value Reference Range Interpretation Comments THROMBOPLASTIN TIME PARTIAL (test code = PTT) > 400.0 seconds 25.0- 36.5 Results called to [id number] by V.LAB.HD1 10/02/19 1428Critical results verified and read back by Nurse? Y IS PATIENT ON ANTICOAGULANTS? YLIST ANTICOAGULANTS [id number] 11:37:00* Test Item Value Reference Range Interpretation Comments GLUBED (test code = GLUBED) 126 mg/dL 74-106 H Performed by certified cooky machine operator at [facility] [id number] 07:44:00* Test Item Value Reference Range Interpretation Comments GLUBED (test code = GLUBED) 67 mg/dL 74-106 L Performed by certified cooky machine operator at [facility] THROMBOPLASTIN TIME [id number] 06:28:00* Test Item Value Reference Range Interpretation Comments THROMBOPLASTIN TIME PARTIAL (test code = PTT) > 400.0 seconds 25.0- 36.5 Results called to [id number] by V.LAB.JMJ1 10/02/19 0628Critical results verified and read back by Nurse? Y IS PATIENT ON ANTICOAGULANTS? YLIST ANTICOAGULANTS HEPARINTHROMBOPLASTIN TIME [id number] 04:39:00* Test Item Value Reference Range Interpretation Comments THROMBOPLASTIN TIME PARTIAL (test code = PTT) > 400.0 seconds 25.0- 36.5 HH Results called to [id number] by PAOLAJMJ1 10/02/19 0439Critical results verified and read back by Nurse? Y BASIC METABOLIC [id number] 03:59:00* Test Item Value Reference Range Interpretation [...] CA) 9.1 mg/dL 8.5-10.1 N HEPATIC FUNCTION [id number] 03:59:00* Test Item Value Reference Range Interpretation [...] reference range due to change in reagent. [id number] 03:59:00* Test Item Value Reference Range Interpretation Comments PHOSPHORUS (test code = PHOS) 4.6 mg/dL 2.5-4.9 N [id number] 03:59:00* Test Item Value Reference Range Interpretation Comments MAGNESIUM (test code = MAG) 2.2 mg/dL 1.8-2.4 N BASIC METABOLIC [id number] 03:55:00* Test Item Value Reference Range Interpretation [...] code = CA) mg/dL 8.5-10.1 HEPATIC FUNCTION [id number] 03:55:00* Test Item Value Reference Range Interpretation [...] TOTAL (test code = ALKP) IUnit/L 45-117 [id number] 03:55:00* Test Item Value Reference Range Interpretation Comments PHOSPHORUS (test code = PHOS) mg/dL 2.5-4.9 [id number] 03:55:00* Test Item Value Reference Range Interpretation Comments MAGNESIUM (test code = MAG) mg/dL 1.8-2.4 CBC W/AUTO [id number] 03:42:00* Test Item Value Reference Range Interpretation [...] code = NRBC#) 0.00 K/mm3 0.0-0.1 N [id number] 22:05:00* Test Item Value Reference Range Interpretation Comments GLUBED (test code = GLUBED) 105 mg/dL 74-106 N Performed by certified cooky machine operator at [facility] [id number] 16:26:00* Test Item Value Reference Range Interpretation Comments GLUBED (test code = GLUBED) 96 mg/dL 74-106 N [facility] certified cooky machine [facility]~ THROMBOPLASTIN TIME [id number] 14:09:00* Test Item Value Reference Range Interpretation Comments THROMBOPLASTIN TIME PARTIAL (test code = PTT) 30.8 seconds 25.0-36. 5 N IS PATIENT ON ANTICOAGULANTS? [id number] 14:07:00* Test Item Value Reference Range Interpretation Comments POTASSIUM (test code = K) 3.6 mmol/L 3.5-5.1 N [id number] 14:07:00* Test Item Value Reference Range Interpretation Comments PHOSPHORUS (test code = PHOS) 4.5 mg/dL 2.5-4.9 N [id number] 14:07:00* Test Item Value Reference Range Interpretation Comments MAGNESIUM (test code = MAG) 2.8 mg/dL 1.8-2.4 H [id number] 13:43:00* Test Item Value Reference Range Interpretation Comments HEMATOCRIT (test code = HCT) 47.3 % 42.0-52.0 N PLATELET [id number] 13:43:00* Test Item Value Reference Range Interpretation Comments PLATELET COUNT (test code = PLT) 198 K/mm3 150-450 N [id number] 13:42:00* Test Item Value Reference Range Interpretation Comments HEMATOCRIT (test code = HCT) 47.3 % 42.0-52.0 N PLATELET [id number] 13:42:00* Test Item Value Reference Range Interpretation Comments PLATELET COUNT (test code = PLT) K/mm3 150-450 [id number] 12:11:00* Test Item Value Reference Range Interpretation Comments GLUBED (test code = GLUBED) 77 mg/dL 74-106 N [facility] certified cooky machine [facility]~ [id number] 11:33:00* Test Item Value Reference Range Interpretation Comments TROPONIN-I (test code = TROPI) 0.046 ng/mL 0-0.045 H Results called to [id number] by CRISTI.GP 10/01/19 1133Critical results verified and read back by Nurse? Y COMMENTS TO SURETY BOND AGENT: COLLECT 3 HOURS AFTER PREVIOUS SAMPLE- US ABDOMEN [id number] 10:57:00 Name: NATALIA KINCAID [facility] : 1950 Age/S: 69 / M [address] [facility] Unit #: [id number] Loc: [place] [address] Phys: Miesha Arora MD Acct: [id number] Dis Date: Status: ADM IN PHONE #: [phone] Exam Date: 10/01/2019 0949 FAX #: [phone] Reason: abnormal liver function s/p lap demetrice EXAMS: CPT CODE: [id number] US ABDOMEN LTD 01483 EXAM: Ultrasound abdomen, limited; INFORMATION: Dilated CBD; [...] consistent with diffuse parenchymal disease. Location code: [facility] at 1057 Reported and signed by: Joo Talbert M.D. CC: Miesha Arora MD; Israel Hawkins MD; Buzz Sanchez Technologist: [facility] Date/Time: 10/01/2019 (1057 ) LuisaGRW Orig Print D/T: S: 10/01/2019 (3893) Prob e: PAGE 1 Signed Report [id number] 10:19:00* Test Item Value Reference Range Interpretation Comments PHOSPHORUS (test code = PHOS) 4.3 mg/dL 2.5-4.9 N [id number] 10:19:00* Test Item Value Reference Range Interpretation Comments MAGNESIUM (test code = MAG) 2.0 mg/dL 1.8-2.4 N CALCIUM [id number] 10:19:00* Test Item Value Reference Range Interpretation Comments CALCIUM IONIZED (test code = MITALI) 1.20 mmol/L 1.12-1.32 N Results called to [id number] by V.LAB.LIZETB 10/01/19 1005Critical results verified and read back by Nurse? YPreviously reported result: 0.73 mmol/LEdited by: V.LAB.LIZETB on 10/01/19:85599512/01/18 1017: CA IONIZED previously reported as: 0.73 *L mmol/L Results called to [id number] by V.LAB.LIZETB 10/01/19 1005 Critical results verified and read back by Nurse? Y [id number] 10:07:00* Test Item Value Reference Range Interpretation Comments PHOSPHORUS (test code = PHOS) 4.3 mg/dL 2.5-4.9 N [id number] 10:07:00* Test Item Value Reference Range Interpretation Comments MAGNESIUM (test code = MAG) 2.0 mg/dL 1.8-2.4 N CALCIUM [id number] 10:07:00* Test Item Value Reference Range Interpretation Comments CALCIUM IONIZED (test code = MITALI) 0.73 mmol/L 1.12-1.32 Results called to [id number] by V.LAB.LDB 10/01/19 1005Critical results verified and read back by Nurse? Y LACTIC [id number] 10:07:00* Test Item Value Reference Range Interpretation Comments LACTIC ACID (test code = LACT) 2.2 mmol/L 0.4-1.9 HH Results called to [id number] by V.LAB.LDB 10/01/19 1007Critical results verified and read back by Nurse? Y [id number] 09:44:00* Test Item Value Reference Range Interpretation Comments PHOSPHORUS (test code = PHOS) 4.3 mg/dL 2.5-4.9 N [id number] 09:44:00* Test Item Value Reference Range Interpretation Comments MAGNESIUM (test code = MAG) 2.0 mg/dL 1.8-2.4 N CALCIUM [id number] 09:44:00* Test Item Value Reference Range Interpretation Comments CALCIUM IONIZED (test code = MITALI) mmol/L 1.12-1.32 [id number] 09:26:00* Test Item Value Reference Range Interpretation Comments TROPONIN-I (test code = TROPI) 0.084 ng/mL 0-0.045 HH PREVIOUSLY CALLED. V.LAB.GP 10/01/19925 COMMENTS TO SURETY BOND AGENT: COLLECT 3 HOURS AFTER PREVIOUS [id number] 08:28:00* Test Item Value Reference Range Interpretation Comments GLUBED (test code = GLUBED) 90 mg/dL 74-106 N [facility] certified cooky machine [facility]~ URINALYSIS [id number] 04:03:00* Test Item Value Reference Range Interpretation [...] Source? Clean Catch- CT ABD PELVIS W/O [id number] 02:05:00 Name: NATALIA KINCAID [facility] : 1950 Age/S: 69 / M [address] [facility] Unit #: [id number] Loc: [place] [address] Phys: Iona Carvajal MD Acct: [id number] Di s Date: Status: REG ER PHONE #: Exam Date: 10/01/2019 0140 FAX #: Reason: ABD PAIN EXAMS: CPT CODE: [id number] CT ABD PELVIS W/O CONT 49459 EXAM: CT ABDOMEN AND PELV IS WITHOUT [...] 1 Signed Report (CONTINUED) Name: NATALIA KINCAID [facility] : 1949 Age/S: 69 / M [address] [facility] Unit #: [id number] Loc: [place] [address] Phys: Fern Carvajal MD Acct: [id number] Dis Date: Status: REG ER PHONE #: Exam Date: 10/01/2019 0140 FAX #: [phone] Reason: ABD PAIN EXAMS: CPT CODE: [id number] CT ABD PELVIS W/[place] [address] <Continued> branch vessels. No aneurysm. Lymphatics: No [...] (020) t.SHEREENR.CLW Orig Print D/T: S: 10/01/2019 (5155) PAGE 2 Signed Report - XR CHEST 1 V 2019-10-01 01:30:00 FAX: Israel Stanley MD [phone] [place]: St: REG FAX: Fern Carvajal MD [phone] Name: NATALIA KINCAID [facility] : 1950 Age/S: 69/M [address] [facility] Unit #: [id number] Loc: [place] [address] Phys: Fern Carvajal MD Acct: [id number] Dis Date: Status: REG ER PHONE #: [phone] Exam Date: 10/01/2019 0125 FAX #: [phone] Reason: ABDOMINAL PAIN EXAMS: CPT CODE: [id number] XR CHEST 1 V 72858 DICTATION LOCATION: H48 HISTORY: Male, 69 years [...] LuisaCLW O rig Print D/T: S: 10/01/2019 (0136) PAGE 1 Signed Report BASIC METABOLIC PANEL [...] CA) 9.3 mg/dL 8.5-10.1 N HEPATIC FUNCTION [id number] 01:05:00* Test Item Value Reference Range Interpretation [...] reference range due to change in reagent. [id number] 01:05:00* Test Item Value Reference Range Interpretation Comments LIPASE (test code = LIP) 367 U/L 73.0-393.0 N [id number] 01:05:00* Test Item Value Reference Range Interpretation Comments TROPONIN-I (test code = TROPI) 0.030 ng/mL 0-0.045 N PROTHROMBIN [id number] 01:00:00* Test Item Value Reference Range Interpretation [...] (2.5-3.5) IS PATIENT ON ANTICOAGULANTS? NTHROMBOPLASTIN TIME [id number] 01:00:00* Test Item Value Reference Range Interpretation Comments THROMBOPLASTIN TIME PARTIAL (test code = PTT) 31.4 seconds 25.0-36. 5 N IS PATIENT ON ANTICOAGULANTS? NBASIC METABOLIC [id number] 00:52:00* Test Item Value Reference Range Interpretation [...] code = CA) mg/dL 8.5-10.1 HEPATIC FUNCTION [id number] 00:52:00* Test Item Value Reference Range Interpretation [...] TOTAL (test code = ALKP) IUnit/L 45-117 [id number] 00:52:00* Test Item Value Reference Range Interpretation Comments LIPASE (test code = LIP) U/L 73.0-393.0 [id number] 00:52:00* Test Item Value Reference Range Interpretation Comments TROPONIN-I (test code = TROPI) ng/mL 0-0.045 CBC W/O [id number] 00:47:00* Test Item Value Reference Range Interpretation [...] MPV) 12.2 fL 6.7-11.0 H CBC W/O [id number] 00:44:00* Test Item Value Reference Range Interpretation [...] code = MPV) fL 6.7-11.0 TROPONIN I [id number] 00:39:00* Test Item Value Reference Range Interpretation [...] be valid only if similarmethodology is used. [id number] 15:54:00* Test Item Value Reference Range Interpretation Comments GLUBED (test code = GLUBED) 214 mg/dL 74-106 H Performed by certified cooky machine operator at [facility] [id number] 12:14:00* Test Item Value Reference Range Interpretation Comments GLUBED (test code = GLUBED) 217 mg/dL 74-106 H Performed by certified cooky machine operator at [facility] BASIC METABOLIC [id number] 05:43:00* Test Item Value Reference Range Interpretation [...] code = CA) 8.6 mg/dL 8.5-10.1 N [id number] 05:43:00* Test Item Value Reference Range Interpretation Comments MAGNESIUM (test code = MAG) 2.1 mg/dL 1.8-2.4 N [id number] 05:10:00* Test Item Value Reference Range Interpretation Comments GLUBED (test code = GLUBED) 122 mg/dL 74-106 H Performed by certified cooky machine operator at [facility] CBC W/AUTO [id number] 05:08:00* Test Item Value Reference Range Interpretation [...] DIFF REQUIRED (test code = MDIFF) NO [id number] 21:18:00* Test Item Value Reference Range Interpretation Comments GLUBED (test code = GLUBED) 242 mg/dL 74-106 H Performed by certified cooky machine operator at [facility] [id number] 16:41:00* Test Item Value Reference Range Interpretation Comments GLUBED (test code = GLUBED) 331 mg/dL 74-106 H Performed by certified cooky machine operator at [facility] [id number] 12:42:00* Test Item Value Reference Range Interpretation Comments GLUBED (test code = GLUBED) 171 mg/dL 74-106 H Performed by certified cooky machine operator at [facility] - US RETRO [id number] 12:20:00 Name: NATALIA KINCAID [facility] : 1950 Age/S: 69 / M [address] [facility] Unit #: [id number] Loc: [place] [address] Phys: Miko Pinto MD Acct: [id number] Dis Date: Status: ADM IN PHONE #: [phone] Exam Date: 08/17/2019 1200 FAX #: [phone] Reason: alva EXAMS: CPT CODE: [id number] US RETRO LTD 42636 REASON FOR EXAM: alva EXAM ORDER DATE: [...] 1 Signed Report (CONTINUED) Name: NATALIA KINCAID [facility] : 1950 Age/S: 69 / M [address] [facility] Unit #: [id number] Loc: [place] [address] Phys: Miko Pinto MD Acct: [id number] Dis Date: Status: ADM IN PHONE #: [phone] Exam Date: 08/17/2019 1200 FAX #: [phone] Reason: alva EXAMS: CPT CODE: [id number] [facility] [address] <Continued> at 1220 Reported and signed by: Trev Beal MD CC: Miko Pinto MD; Israel Hawkins MD; Buzz Sanchez Technologist: JORY BAIG RT(R),[facility] Date/Time: 08/17/2019 (1220) t.SHEREENR.RR31 Orig Print D/T: [...] code = CA) 8.6 mg/dL 8.5-10.1 N [id number] 06:00:00* Test Item Value Reference Range Interpretation Comments MAGNESIUM (test code = MAG) 2.0 mg/dL 1.8-2.4 N BASIC METABOLIC [id number] 05:59:00* Test Item Value Reference Range Interpretation [...] CALCIUM (test code = CA) mg/dL 8.5-10.1 [id number] 05:59:00* Test Item Value Reference Range Interpretation Comments MAGNESIUM (test code = MAG) mg/dL 1.8-2.4 [id number] 05:53:00* Test Item Value Reference Range Interpretation Comments GLUBED (test code = GLUBED) 158 mg/dL 74-106 H Performed by certified cooky machine operator at [facility] CBC W/AUTO [id number] 05:35:00* Test Item Value Reference Range Interpretation [...] DIFF REQUIRED (test code = MDIFF) NO [id number] 20:53:00* Test Item Value Reference Range Interpretation Comments GLUBED (test code = GLUBED) 239 mg/dL 74-106 H Performed by certified cooky machine operator at [facility] [id number] 16:32:00* Test Item Value Reference Range Interpretation Comments GLUBED (test code = GLUBED) 167 mg/dL 74-106 H Performed by certified cooky machine operator at [facility] [id number] 11:38:00* Test Item Value Reference Range Interpretation Comments GLUBED (test code = GLUBED) 225 mg/dL 74-106 H Performed by certified cooky machine operator at [facility] BASIC METABOLIC [id number] 05:44:00* Test Item Value Reference Range Interpretation [...] code = CA) 8.7 mg/dL 8.5-10.1 N [id number] 05:44:00* Test Item Value Reference Range Interpretation Comments PHOSPHORUS (test code = PHOS) 3.1 mg/dL 2.5-4.9 N [id number] 05:44:00* Test Item Value Reference Range Interpretation Comments MAGNESIUM (test code = MAG) 2.0 mg/dL 1.8-2.4 N BASIC METABOLIC [id number] 05:41:00* Test Item Value Reference Range Interpretation [...] CALCIUM (test code = CA) mg/dL 8.5-10.1 [id number] 05:41:00* Test Item Value Reference Range Interpretation Comments PHOSPHORUS (test code = PHOS) mg/dL 2.5-4.9 [id number] 05:41:00* Test Item Value Reference Range Interpretation Comments MAGNESIUM (test code = MAG) mg/dL 1.8-2.4 CBC W/AUTO [id number] 05:29:00* Test Item Value Reference Range Interpretation [...] DIFF REQUIRED (test code = MDIFF) NO [id number] 20:26:00* Test Item Value Reference Range Interpretation Comments GLUBED (test code = GLUBED) 206 mg/dL 74-106 H Performed by certified cooky machine operator at [facility] BASIC METABOLIC [id number] 17:32:00* Test Item Value Reference Range Interpretation [...] CA) 9.0 mg/dL 8.5-10.1 N UR MICROALBUMIN/CREAT [id number] 16:10:00* Test Item Value Reference Range Interpretation Comments UR CREATININE RANDOM-NON REPRT (test code = CREATUT) 21.4 mg/dL N ot Estab. UR MICROALBUMIN QUANT (test code = MICALB) 13.9 ug/mL Not Estab. UR MICROALB/CREAT RATIO (test code = MICALB:CRE) 65.0 0.0-3 0.0 H INFCE Result Units: mg/g creat Normal: 0.0 - 30.0 Albuminuria: 31.0 - 300.0 Clinical albuminuria: >300.0Performed At: [facility] [address] [id number] Kyle L MD Ph:[phone] [id number] 15:49:00* Test Item Value Reference Range Interpretation Comments GLUBED (test code = GLUBED) 143 mg/dL 74-106 H Performed by certified cooky machine operator at [facility] HEPATIC FUNCTION [id number] 15:10:00* Test Item Value Reference Range Interpretation [...] FROM AM LAB DRAW.- XR CHEST 1 [id number] 11:42:00 FAX: Ginny Jordan NP [phone] [place]: St: ADM FAX: Israel Stanley MD [phone] FAX: Buzz Sanchez [facility] [phone] Name: NATALIA KINCAID [facility] : 1950 Age/S: 69/M [address] [facility] Unit #: [id number] Loc: V.S26 [place] [address] Phys: Ginny Jordan NP Acct: [id number] Dis Date: Status: ADM IN [facility] #: [phone] Exam Date: 08/15/2019 1106 FAX #: [phone] Reason: sob EXAMS: CPT CODE: [id number] XR CHEST 1 V 01763 REASON FOR EXAM: sob Exam Order Date: [...] Jordan NP; Israel Hawkins MD; Buzz Sanchez [facility] Tech nologist: Jazlyn Adams(R); Zulma Henao RT(R) Trnscrd Date/Ti me/By: 08/15/2019 (1142) : By: [email or web address] Orig Print D/T: S: 08/15/2019 (4766) PAGE 1 Signed Report [id number] 10:41:00* Test Item Value Reference Range Interpretation Comments GLUBED (test code = GLUBED) 254 mg/dL 74-106 H [facility] certified cooky machine [facility]~ BASIC METABOLIC [id number] 05:18:00* Test Item Value Reference Range Interpretation Comments SODIUM (test code = NA) 141 mmol/L 136-145 RESU LT VERIFIED BY REPEAT ANALYSIS POTASSIUM (test code = K) 2.3 mmol/L 3.5-5.1 LL Re sults called to [id number] by V.LAB.AG1 08/15/19 0517Critical results verified and [...] CA) 7.7 mg/dL 8.5-10.1 L CBC W/AUTO [id number] 04:52:00* Test Item Value Reference Range Interpretation [...] DIFF REQUIRED (test code = MDIFF) NO [id number] 20:32:00* Test Item Value Reference Range Interpretation Comments GLUBED (test code = GLUBED) 149 mg/dL 74-106 H Performed by certified cooky machine operator at [facility] [id number] 16:25:00* Test Item Value Reference Range Interpretation Comments GLUBED (test code = GLUBED) 209 mg/dL 74-106 H Performed by certified cooky machine operator at [facility] - US ABDOMEN [id number] 15:09:00 Name: NATALIA KINCAID [facility] : 1950 Age/S: 69 / M [address] [facility] Unit #: [id number] Loc: [place], [place] [address] Phys: Dav Shane MD Acct: [id number] Dis Date: Status: ADM IN PHONE #: [phone] Exam Date: 08/14/2019 1432 FAX #: [phone] Reason: acute abdominal pain - nausea vomiting EXAMS: CPT CODE: [id number] US ABDOMEN COMPLETE 32010 HISTORY: Abdominal pain. COMPARISON: CT abdomen and [...] stones. at 1509 Reported and signed by: eKn Turner M.D. CC: Israel Hawkins MD; Dav Shane MD; Buzz Sanchez Technologist: JENNIFER PERSAUD Trndeb Date/Time: 08/14/2019 (1501) t.[email or web address] Orig Print D/T: S: 08/14/2019 (2019) Probe: PAGE 1 Signed Report UR NA,RANDOM 2019-08-14 13:29:00* Test Item Value Reference Range Interpretation Comments UR NA,RANDOM (test code = EDUARDO) 83 mmol/L 20-110 N UR PROTEIN/CREATININE [id number] 13:29:00* Test Item Value Reference Range Interpretation [...] P/CRATIO) 0.37 RATIO 0.0-0. 20 H UR NA,[id number] 13:10:00* Test Item Value Reference Range Interpretation Comments UR NA,RANDOM (test code = EDUARDO) 83 mmol/L 20-110 N UR PROTEIN/CREATININE [id number] 13:10:00* Test Item Value Reference Range Interpretation Comments UR PROTEIN RANDOM (test code = PROTU) mg/dL 0.0-11.9 UR CREATININE RANDOM (test code = CREATU) mg/dL 30-125 PROTEIN/CREATININE RATIO (test code = P/CRATIO) RATIO 0.0-0. 20 [id number] 11:51:00* Test Item Value Reference Range Interpretation Comments GLUBED (test code = GLUBED) 194 mg/dL 74-106 H [facility] certified cooky machine operator [facility] BASIC METABOLIC [id number] 10:44:00* Test Item Value Reference Range Interpretation [...] code = CA) 8.7 mg/dL 8.5-10.1 N [id number] 10:44:00* Test Item Value Reference Range Interpretation Comments LIPASE (test code = LIP) 176 U/L 73.0-393.0 N SERUM [id number] 10:44:00* Test Item Value Reference Range Interpretation Comments SERUM IRON (test code = IRON) 61 ug/dL 50-175 N BASIC METABOLIC [id number] 10:43:00* Test Item Value Reference Range Interpretation [...] CALCIUM (test code = CA) mg/dL 8.5-10.1 [id number] 10:43:00* Test Item Value Reference Range Interpretation Comments LIPASE (test code = LIP) U/L 73.0-393.0 SERUM [id number] 10:43:00* Test Item Value Reference Range Interpretation Comments SERUM IRON (test code = IRON) ug/dL 50-175 - XR CHEST 1 [id number] 10:01:00 FAX: Israel Stanley MD [phone] [place]: St: ADM FAX: Dav Lawler MD [phone] FAX: Buzz Sanchez [facility] [phone] Name: NATALIA KINCAID [facility] : 1950 Age/S: 69/M [address] [facility] Unit #: [id number] Loc: V.S26 [place] [address] Phys: Dav Shane MD Acct: [id number] Dis Date: Status: ADM IN ONE #: [phone] Exam Date: 08/14/2019 0931 FAX #: [phone] Reason: Shortness of breath EXAMS: CPT CODE: [id number] XR CHEST 1 V 62428 HISTORY: Short ness of breath. COMPARISON: August [...] S: 08/14/2019 (1004) PAGE 1 Signed Report [id number] 07:35:00* Test Item Value Reference Range Interpretation Comments GLUBED (test code = GLUBED) 97 mg/dL 74-106 N Performed by certified cooky machine operator [facility]~ T3 [id number] 07:23:00* Test Item Value Reference Range Interpretation Comments T3 FREE (test code = T3F) 2.4 pg/mL 2.0-4.4 Pe rformed At: [facility] [id number] Caldwell MD Ph:[phone] [id number] 07:23:00* Test Item Value Reference Range Interpretation Comments CALCIUM (test code = CA) 8.5 mg/dL 8.5-10.1 N [id number] 07:23:00* Test Item Value Reference Range Interpretation Comments PHOSPHORUS (test code = PHOS) 3.1 mg/dL 2.5-4.9 N [id number] 07:23:00* Test Item Value Reference Range Interpretation Comments MAGNESIUM (test code = MAG) 2.0 mg/dL 1.8-2.4 N TOTAL IRON BINDING [id number] 07:23:00* Test Item Value Reference Range Interpretation Comments TOTAL IRON BINDING CAPACITY (test code = TIBC) 279 mcg/dL 250-450 N TOTAL [id number] 07:23:00* Test Item Value Reference Range Interpretation Comments TOTAL T3 (test code = T3) 83 ng/dL 71-180 Pe rformed At: [facility] [address] [id number] Caldwell MD Ph:[phone] T4 [id number] 07:23:00* Test Item Value Reference Range Interpretation Comments T4 FREE (test code = T4F) 1.42 ng/dL 0.76-1.46 N [id number] 07:23:00* Test Item Value Reference Range Interpretation Comments TROPONIN-I (test code = TROPI) 0.046 ng/mL 0-0.045 H Results called to [id number] by CRISTI.CF2 08/13/19 1322Critical results verified and read back by Nurse? Y CALCIUM [id number] 07:23:00* Test Item Value Reference Range Interpretation Comments CALCIUM IONIZED (test code = MITALI) 1.21 mmol/L 1.12-1.32 N BASIC METABOLIC [id number] 05:28:00* Test Item Value Reference Range Interpretation [...] CA) 8.6 mg/dL 8.5-10.1 N BASIC METABOLIC [id number] 05:23:00* Test Item Value Reference Range Interpretation [...] code = CA) mg/dL 8.5-10.1 CBC W/AUTO [id number] 05:00:00* Test Item Value Reference Range Interpretation [...] DIFF REQUIRED (test code = MDIFF) NO [id number] 20:59:00* Test Item Value Reference Range Interpretation Comments GLUBED (test code = GLUBED) 284 mg/dL 74-106 H Performed by certified cooky machine operator at [facility] URINALYSIS [id number] 18:44:00* Test Item Value Reference Range Interpretation [...] W REFLEX (test code = LEUUR) NEGATIVE Jeroinmo/uL NEGATIVE UA WBC (test code = WBCU) [...] FEW #/LPF FEW Urine Source? Clean CatchURINALYSIS [id number] 18:43:00* Test Item Value Reference Range Interpretation [...] BACU) per HPF NONE Urine Source? Clean [id number]-[id number] 17:59:00* Test Item Value Reference Range Interpretation Comments TROPONIN-I (test code = TROPI) 0.038 ng/mL 0-0.045 N COMMENTS TO SURETY BOND AGENT: COLLECT 3 HOURS AFTER PREVIOUS [id number] 17:29:00* Test Item Value Reference Range Interpretation Comments GLUBED (test code = GLUBED) 232 mg/dL 74-106 H Performed by certified cooky machine operator at [facility] VENOUS BLOOD [id number] 16:56:00* Test Item Value Reference Range Interpretation [...] code = METHGB) 0.2 % 0.0-1.50 N [id number] 13:36:00* Test Item Value Reference Range Interpretation Comments CALCIUM (test code = CA) 8.5 mg/dL 8.5-10.1 N [id number] 13:36:00* Test Item Value Reference Range Interpretation Comments PHOSPHORUS (test code = PHOS) 3.1 mg/dL 2.5-4.9 N [id number] 13:36:00* Test Item Value Reference Range Interpretation Comments MAGNESIUM (test code = MAG) 2.0 mg/dL 1.8-2.4 N TOTAL IRON BINDING [id number] 13:36:00* Test Item Value Reference Range Interpretation Comments TOTAL IRON BINDING CAPACITY (test code = TIBC) 279 mcg/dL 250-450 N TOTAL [id number] 13:36:00* Test Item Value Reference Range Interpretation Comments TOTAL T3 (test code = T3) T4 [id number] 13:36:00* Test Item Value Reference Range Interpretation Comments T4 FREE (test code = T4F) 1.42 ng/dL 0.76-1.46 N [id number] 13:36:00* Test Item Value Reference Range Interpretation Comments TROPONIN-I (test code = TROPI) 0.046 ng/mL 0-0.045 H Results called to [id number] by V.LAB.CF2 08/13/19 1322Critical results verified and read back by Nurse? Y CALCIUM [id number] 13:36:00* Test Item Value Reference Range Interpretation Comments CALCIUM IONIZED (test code = MITALI) 1.21 mmol/L 1.12-1.32 N COMPREHENSIVE METABOLIC [id number] 13:27:00* Test Item Value Reference Range Interpretation [...] reference range due to change in reagent. [id number] 13:27:00* Test Item Value Reference Range Interpretation Comments PHOSPHORUS (test code = PHOS) 3.1 mg/dL 2.5-4.9 N [id number] 13:27:00* Test Item Value Reference Range Interpretation Comments MAGNESIUM (test code = MAG) 1.9 mg/dL 1.8-2.4 N THYROID STIMULATING [id number] 13:27:00* Test Item Value Reference Range Interpretation Comments THYROID STIMULATING HORMONE (test code = TSH) 1.020 uIU/mL 0.36-3.7 4 N TSH REFERENCE RANGES: EUTHYROID: 0.35 - 4.3 mIU/mL HYPO : > 5.5 mIU/mL HYPER : < 0.35 mIU/mL [id number] 13:27:00* Test Item Value Reference Range Interpretation Comments CKMB (test code = CKMBT) 6.5 ng/mL 0-6.0 H [id number] 13:22:00* Test Item Value Reference Range Interpretation Comments CALCIUM (test code = CA) 8.5 mg/dL 8.5-10.1 N [id number] 13:22:00* Test Item Value Reference Range Interpretation Comments PHOSPHORUS (test code = PHOS) 3.1 mg/dL 2.5-4.9 N [id number] 13:22:00* Test Item Value Reference Range Interpretation Comments MAGNESIUM (test code = MAG) 2.0 mg/dL 1.8-2.4 N TOTAL IRON BINDING [id number] 13:22:00* Test Item Value Reference Range Interpretation Comments TOTAL IRON BINDING CAPACITY (test code = TIBC) 279 mcg/dL 250-450 N TOTAL [id number] 13:22:00* Test Item Value Reference Range Interpretation Comments TOTAL T3 (test code = T3) T4 [id number] 13:22:00* Test Item Value Reference Range Interpretation Comments T4 FREE (test code = T4F) 1.42 ng/dL 0.76-1.46 N [id number] 13:22:00* Test Item Value Reference Range Interpretation Comments TROPONIN-I (test code = TROPI) 0.046 ng/mL 0-0.045 H Results called to [id number] by V.LAB.CF2 08/13/19 1322Critical results verified and read back by Nurse? Y CALCIUM [id number] 13:22:00* Test Item Value Reference Range Interpretation Comments CALCIUM IONIZED (test code = MITALI) mmol/L 1.12-1.32 B-TYPE NATRIURETIC [id number] 13:21:00* Test Item Value Reference Range Interpretation Comments B-TYPE NATRIURETIC PEPTIDE (test code = BNP) 1020.80 pgram/mL 0-100 H [id number] 13:19:00* Test Item Value Reference Range Interpretation Comments TROPONIN-I (test code = TROPI) 0.045 ng/mL 0-0.045 N COMMENTS TO SURETY BOND AGENT: COLLECT 3 HOURS AFTER PREVIOUS [id number] 13:15:00* Test Item Value Reference Range Interpretation Comments CALCIUM (test code = CA) 8.5 mg/dL 8.5-10.1 N [id number] 13:15:00* Test Item Value Reference Range Interpretation Comments PHOSPHORUS (test code = PHOS) mg/dL 2.5-4.9 [id number] 13:15:00* Test Item Value Reference Range Interpretation Comments MAGNESIUM (test code = MAG) mg/dL 1.8-2.4 TOTAL IRON BINDING [id number] 13:15:00* Test Item Value Reference Range Interpretation Comments TOTAL IRON BINDING CAPACITY (test code = TIBC) mcg/dL 250-450 TOTAL [id number] 13:15:00* Test Item Value Reference Range Interpretation Comments TOTAL T3 (test code = T3) T4 [id number] 13:15:00* Test Item Value Reference Range Interpretation Comments T4 FREE (test code = T4F) ng/dL 0.76-1.46 [id number] 13:15:00* Test Item Value Reference Range Interpretation Comments TROPONIN-I (test code = TROPI) ng/mL 0-0.045 CALCIUM [id number] 13:15:00* Test Item Value Reference Range Interpretation Comments CALCIUM IONIZED (test code = MITALI) mmol/L 1.12-1.32 LACTIC [id number] 13:10:00* Test Item Value Reference Range Interpretation Comments LACTIC ACID (test code = LACT) 0.9 mmol/L 0.4-1.9 N COMPREHENSIVE METABOLIC [id number] 13:10:00* Test Item Value Reference Range Interpretation [...] TOTAL (test code = ALKP) IUnit/L 45-117 [id number] 13:10:00* Test Item Value Reference Range Interpretation Comments PHOSPHORUS (test code = PHOS) mg/dL 2.5-4.9 [id number] 13:10:00* Test Item Value Reference Range Interpretation Comments MAGNESIUM (test code = MAG) mg/dL 1.8-2.4 THYROID STIMULATING [id number] 13:10:00* Test Item Value Reference Range Interpretation Comments THYROID STIMULATING HORMONE (test code = TSH) uIU/mL 0.36-3.7 4 [id number] 13:10:00* Test Item Value Reference Range Interpretation Comments CKMB (test code = CKMBT) ng/mL 0-6.0 PROTHROMBIN [id number] 13:03:00* Test Item Value Reference Range Interpretation [...] PATIENT ON ANTICOAGULANTS? YLIST ANTICOAGULANTS HEPARINTHROMBOPLASTIN TIME [id number] 13:03:00* Test Item Value Reference Range Interpretation [...] code = NRBC#) 0.00 K/mm3 0.0-0.1 N [id number] 10:32:00* Test Item Value Reference Range Interpretation Comments PHOSPHORUS (test code = PHOS) 3.0 mg/dL 2.5-4.9 N [id number] 10:24:00* Test Item Value Reference Range Interpretation Comments MAGNESIUM (test code = MAG) 1.8 mg/dL 1.8-2.4 N TROPONIN I [id number] 08:54:00* Test Item Value Reference Range Interpretation [...] be valid only if similarmethodology is used. [id number] 08:49:00* Test Item Value Reference Range Interpretation Comments TROPONIN-I (test code = TROPI) 0.051 ng/mL 0-0.045 HH Results called to [id number] by V.LAB.CF2 08/13/19 0849Critical results verified and read back by Nurse? Y BASIC METABOLIC [id number] 08:47:00* Test Item Value Reference Range Interpretation [...] CA) 8.8 mg/dL 8.5-10.1 N BASIC METABOLIC [id number] 08:36:00* Test Item Value Reference Range Interpretation [...] code = CA) mg/dL 8.5-10.1 CBC W/O [id number] 08:25:00* Test Item Value Reference Range Interpretation [...] fL 6.7-11.0 H - XR CHEST 1 [id number] 08:10:00 FAX: Israel Stanley MD [phone] [place]: St: REG FAX: Marine Chaudhari DO Name: NATALIA KINCAID [facility] : 1950 Age/S: 69/M [address] [facility] Unit #: [id number] Loc: [place] [address] Phys: Marine Chaudhari DO Acct: [id number] Dis Date: Status: REG ER PHONE #: [phone] Exam Date: 08/13/2019 0805 FAX #: [phone] Reason: CHEST PAIN EXAMS: CPT CODE: [id number] XR CHEST 1 V 43253 HISTORY: CHEST PAIN TECHNIQUE: AP chest x-ray [...] S: 08/13/2019 (0813) PAGE 1 Signed Report [id number] 12:40:00* Test Item Value Reference Range Interpretation Comments GLUBED (test code = GLUBED) 209 mg/dL 74-106 H Performed by certified cooky machine operator at [facility] [id number] 09:25:00* Test Item Value Reference Range Interpretation Comments GLUBED (test code = GLUBED) 237 mg/dL 74-106 H Performed by certified cooky machine operator at [facility] [id number] 09:18:00* Test Item Value Reference Range Interpretation Comments GLUBED (test code = GLUBED) 246 mg/dL 74-106 H Performed by certified cooky machine operator at [facility] BASIC METABOLIC [id number] 04:29:00* Test Item Value Reference Range Interpretation Comments SODIUM (test code = NA) 141 mmol/L 136-145 N POTASSIUM (test code = K) 2.9 mmol/L 3.5-5.1 L R esults called to [place] [address] by VTEE 06/01/19 0427Critical results verified and [...] CA) 9.8 mg/dL 8.5-10.1 N BASIC METABOLIC [id number] 04:18:00* Test Item Value Reference Range Interpretation [...] CA) 9.8 mg/dL 8.5-10.1 N CBC W/AUTO [id number] 03:09:00* Test Item Value Reference Range Interpretation Comments WHITE BLOOD CELL (test code = WBC) 11.1 K/mm3 4.5-12.5 N RED BLOOD CELL (test code = RBC) 4.37 mill/mm3 4.0-5.8 N HEMOGLOBIN (test code = HGB) 13.5 gram/dL 13.0-17.5 N HEMATOCRIT (test code = HCT) 39.5 % 42.0-52.0 L CBC W/AUTO [id number] 03:04:00* Test Item Value Reference Range Interpretation [...] # (test code = BA#) K/mm3 0.0-0.2 [id number] 21:05:00* Test Item Value Reference Range Interpretation Comments GLUBED (test code = GLUBED) 180 mg/dL 74-106 H Performed by certified cooky machine operator at [facility] [id number] 18:04:00* Test Item Value Reference Range Interpretation Comments GLUBED (test code = GLUBED) 313 mg/dL 74-106 H Performed by certified cooky machine operator at [facility] [id number] 11:45:00* Test Item Value Reference Range Interpretation Comments TROPONIN-I (test code = TROPI) 0.024 ng/mL 0-0.045 N COMMENTS TO SURETY BOND AGENT: COLLECT 3 HOURS AFTER PREVIOUS [id number] 07:35:00* Test Item Value Reference Range Interpretation Comments TROPONIN-I (test code = TROPI) <0.015 ng/mL 0-0.045 N COMMENTS TO SURETY BOND AGENT: COLLECT 3 HOURS AFTER PREVIOUS SAMPLEURINALYSIS [id number] 02:39:00* Test Item Value Reference Range Interpretation [...] Source? Clean Catch- CT ABD PELVIS W/O [id number] 21:44:00 Name: NATALIA KINCAID [facility] : 1950 Age/S: 68 / M [address] [facility] Unit #: [id number] Loc: [place] [address] Phys: Peter Camejo MD Acct: [id number] Di s Date: Status: REG ER PHONE #: Exam Date: 05/30/20195 FAX #: Reason: abdominal distention EXAMS: CPT CODE: [id number] CT ABD PELVIS W/O CONT 16833 REASON FOR EXAM: abdominal distention EXAM ORDER [...] 1 Signed Report - CT CHEST W/O [id number] 21:39:00 Name: NATALIA KINCAID [facility] : 1950 Age/S: 68 / M [address] [facility] Unit #: [id number] Loc: [place] [address] Phys: Barbara Camejo MD Acct: [id number] Dis Date: Status: REG ER PHONE #: [phone] Exam Date: 05/30/20192124 FAX #: [phone] Reason: sob EXAMS: CPT CODE: [id number] CT CHEST W/O CONTRAST 37466 REASON FOR EXAM: sob EXAM ORDER DATE: [...] (2141) PAGE 1 Signed Report B-TYPE NATRIURETIC [id number] 21:23:00* Test Item Value Reference Range Interpretation Comments B-TYPE NATRIURETIC PEPTIDE (test code = BNP) 596.93 pgram/mL 0-100 H BASIC METABOLIC [id number] 21:05:00* Test Item Value Reference Range Interpretation [...] CA) 8.7 mg/dL 8.5-10.1 N HEPATIC FUNCTION [id number] 21:05:00* Test Item Value Reference Range Interpretation [...] reference range due to change in reagent. [id number] 21:05:00* Test Item Value Reference Range Interpretation Comments LIPASE (test code = LIP) 195 U/L 73.0-393.0 N [id number] 21:05:00* Test Item Value Reference Range Interpretation Comments TROPONIN-I (test code = TROPI) <0.015 ng/mL 0-0.045 N BASIC METABOLIC [id number] 21:04:00* Test Item Value Reference Range Interpretation [...] code = CA) mg/dL 8.5-10.1 HEPATIC FUNCTION [id number] 21:04:00* Test Item Value Reference Range Interpretation [...] reference range due to change in reagent. [id number] 21:04:00* Test Item Value Reference Range Interpretation Comments LIPASE (test code = LIP) U/L 73.0-393.0 [id number] 21:04:00* Test Item Value Reference Range Interpretation Comments TROPONIN-I (test code = TROPI) <0.015 ng/mL 0-0.045 N PROTHROMBIN [id number] 21:01:00* Test Item Value Reference Range Interpretation [...] (2.5-3.5) IS PATIENT ON ANTICOAGULANTS? NTHROMBOPLASTIN TIME [id number] 21:01:00* Test Item Value Reference Range Interpretation Comments THROMBOPLASTIN TIME PARTIAL (test code = PTT) 34.0 seconds 25.0-36. 5 N IS PATIENT ON ANTICOAGULANTS? NBASIC METABOLIC [id number] 20:49:00* Test Item Value Reference Range Interpretation [...] code = CA) mg/dL 8.5-10.1 HEPATIC FUNCTION [id number] 20:49:00* Test Item Value Reference Range Interpretation [...] TOTAL (test code = ALKP) IUnit/L 45-117 [id number] 20:49:00* Test Item Value Reference Range Interpretation Comments LIPASE (test code = LIP) U/L 73.0-393.0 [id number] 20:49:00* Test Item Value Reference Range Interpretation Comments TROPONIN-I (test code = TROPI) ng/mL 0-0.045 CBC W/O [id number] 20:32:00* Test Item Value Reference Range Interpretation [...] fL 6.7-11.0 N - XR CHEST 1 [id number] 19:51:00 FAX: Israel Stanley MD [phone] [place]: St: PRE FAX: Barbara Little [phone] Name: NATALIA KINCAID [facility] : 1950 Age/S: 68/M [address] [facility] Unit #: [id number] Loc: [place] [address] Phys: Barbara Camejo MD Acct: [id number] Dis Date: Status: PRE ER PHONE #: [phone] Exam Date: 05/30/2019 1951 FAX #: [phone] Reason: Shortness of Breath EXAMS: CPT CODE: [id number] XR CHEST 1 V 01276 REASON FOR EXAM: Shortness of Breath EXAM [...] CC: Israel Hawkins MD; Barbara Camejo MD Technologist: Yelena Adams(Tisha) Trnscrd Date/Time/By: 05/30/2019 (1950) : By: [email or web address] Orig Print D/T: S: 05/30/2019 (1954) PAGE 1 Signed Report [id number] 12:16:00* Test Item Value Reference Range Interpretation Comments GLUBED (test code = GLUBED) 246 mg/dL 74-106 H Performed by certified cooky machine operator at [facility] [id number] 07:54:00* Test Item Value Reference Range Interpretation Comments GLUBED (test code = GLUBED) 182 mg/dL 74-106 H Performed by certified cooky machine operator at [facility] COMPREHENSIVE METABOLIC [id number] 06:28:00* Test Item Value Reference Range Interpretation [...] due to change in reagent. CBC W/AUTO [id number] 06:17:00* Test Item Value Reference Range Interpretation [...] NRBC#) 0.00 K/mm3 0.0-0.1 N CBC W/AUTO [id number] 06:15:00* Test Item Value Reference Range Interpretation [...] code = BA#) K/mm3 0.0-0.2 COMPREHENSIVE METABOLIC [id number] 06:14:00* Test Item Value Reference Range Interpretation [...] TOTAL (test code = ALKP) IUnit/L 45-117 [id number] 21:19:00* Test Item Value Reference Range Interpretation Comments GLUBED (test code = GLUBED) 240 mg/dL 74-106 H Performed by certified cooky machine operator at [facility] [id number] 16:48:00* Test Item Value Reference Range Interpretation Comments GLUBED (test code = GLUBED) 95 mg/dL 74-106 N Performed by certified cooky machine operator at [facility] [id number] 11:47:00* Test Item Value Reference Range Interpretation Comments GLUBED (test code = GLUBED) 131 mg/dL 74-106 H Performed by certified cooky machine operator at [facility] [id number] 08:00:00* Test Item Value Reference Range Interpretation Comments GLUBED (test code = GLUBED) 70 mg/dL 74-106 L Performed by certified cooky machine operator at [facility] CPK-MB [id number] 07:40:00* Test Item Value Reference Range Interpretation [...] not valid with a normal total CK. [id number] 07:40:00* Test Item Value Reference Range Interpretation Comments TROPONIN-I (test code = TROPI) 0.034 ng/mL 0-0.045 N BASIC METABOLIC [id number] 07:32:00* Test Item Value Reference Range Interpretation [...] CA) 9.0 mg/dL 8.5-10.1 N BASIC METABOLIC [id number] 07:23:00* Test Item Value Reference Range Interpretation [...] code = CA) mg/dL 8.5-10.1 CBC W/AUTO [id number] 06:53:00* Test Item Value Reference Range Interpretation [...] DIFF REQUIRED (test code = MDIFF) NO [id number] 23:19:00* Test Item Value Reference Range Interpretation Comments TROPONIN-I (test code = TROPI) 0.032 ng/mL 0-0.045 N CPK-MB [id number] 23:17:00* Test Item Value Reference Range Interpretation [...] not valid with a normal total CK. [id number] 20:44:00* Test Item Value Reference Range Interpretation Comments GLUBED (test code = GLUBED) 97 mg/dL 74-106 N Performed by certified cooky machine operator at [facility] [id number] 17:08:00* Test Item Value Reference Range Interpretation Comments GLUBED (test code = GLUBED) 88 mg/dL 74-106 N Performed by certified cooky machine operator at [facility] B-TYPE NATRIURETIC [id number] 16:36:00* Test Item Value Reference Range Interpretation Comments B-TYPE NATRIURETIC PEPTIDE (test code = BNP) 921.59 pgram/mL 0-100 H Has Patient received Natrecor? NOCPK-MB [id number] 16:35:00* Test Item Value Reference Range Interpretation [...] with a normal total CK. COMPREHENSIVE METABOLIC [id number] 16:34:00* Test Item Value Reference Range Interpretation [...] reference range due to change in reagent. [id number] 16:34:00* Test Item Value Reference Range Interpretation Comments TROPONIN-I (test code = TROPI) 0.033 ng/mL 0-0.045 N - XR CHEST 2 [id number] 16:30:00 FAX: Miko Pinto MD [phone] [place]: [address] St: [facility] FAX: Israel Stanley MD [phone] Name: NATALIA KINCAID [facility] : 1950 Age/S: 68/M [address] [facility] Unit #: [id number] Loc: V.[address] [address] Phys: Miko Pinto MD Acct: [id number] Dis Date: Status: ADM IN PHONE #: [phone] Exam Date: 04/14/2019 1605 FAX #: [phone] Reason: CHF EXAMS: CPT CODE: [id number] XR CHEST 2 V 71050 REASON FOR EXAM: CHF Exam Order Date: [...] By: LuisaVTL Orig Print D/T: S: 9 (9218) PAGE 1 Signed Report COMPREHENSIVE METABOLIC [id number] 16:24:00* Test Item Value Reference Range Interpretation [...] TOTAL (test code = ALKP) IUnit/L 45-117 [id number] 16:24:00* Test Item Value Reference Range Interpretation Comments TROPONIN-I (test code = TROPI) ng/mL 0-0.045 CBC W/AUTO [id number] 16:11:00* Test Item Value Reference Range Interpretation [...]
--- NOTE | 2020-09-12 01:57 | Diagnostic Imaging Report ---
EXAM: CT Abdomen and Pelvis WITH contrast INDICATION: ^Y ^abd pain COMPARISON: Abdominal CT 09/06/2020 TECHNIQUE: Abdomen and pelvis were scanned utilizing a multidetector helical scanner from the lung base to the pubic symphysis after administration of IV contrast. Coronal and sagittal reformations were obtained. Routine protocol was performed. Scan was performed when during portal venous phase. IV CONTRAST: 100 mL of Isovue 370 ORAL CONTRAST: None COMPLICATIONS: None RADIATION DOSE: Total DLP: 455 mGy*cm Estimated effective dose: (DLP x 0.015 x size factor) mSv CTDIvol has been reviewed. It is below the limits set by the Radiation Protocol Committee (RPC). Dose modulation, iterative reconstruction, and/or weight based adjustment of the mA/kV was utilized to reduce the radiation dose to as low as reasonably achievable. FINDINGS: LINES and TUBES: None. LOWER THORAX: Small bilateral pleural effusions. Mild interlobular septal thickening in the lower lobes. Mild cardiomegaly. Cardiac device leads in the right ventricle and coronary sinus. HEPATOBILIARY: No focal hepatic lesions. No biliary ductal dilation. GALLBLADDER: Cholecystectomy. SPLEEN: No splenomegaly. Tiny hyperdensities in the spleen are likely hemangiomas. PANCREAS: No focal masses or ductal dilatation. ADRENALS: No adrenal nodules KIDNEYS/URETERS: Kidneys enhance symmetrically. No hydronephrosis. There are scattered too small to characterize hypodensites, likely benign. No stones. GI TRACT: No abnormal distention, wall thickening, or evidence of bowel obstruction. Appendix is not seen, no evidence of appendicitis. Colonic diverticuli. PELVIC ORGANS/BLADDER: Unremarkable. LYMPH NODES: No lymphadenopathy. VESSELS: Arterial calcifications. PERITONEUM / RETROPERITONEUM: No free air or fluid. BONES: Degenerative changes. SOFT TISSUES: Unremarkable. IMPRESSION: Mild cardiomegaly, pulmonary interstitial edema, and small bilateral pleural effusions. Colonic diverticulosis without diverticulitis. Signed by: Morgan Frank DO on 09/12/2020 1:53 AM
--- NOTE | 2020-09-12 02:15 | NUR ---
patient received to room 205 via stretcher from the emergency room at this time. vss. patient denies pain at this time. patient assisted to bathroom. patient voids without difficulty. skin pale/jaundiced. admit assessment/history obtained. call mahmood placed within reach. patient instructed to call for assistance when needing to get oob. patient verbalizes understanding of this.
--- NOTE | 2020-09-12 04:00 | NUR ---
patient unable to tell me his home medications at this time. patient will call family to bring list of home medications in am.
[2020-09-12 05:10] LABS: BASOPHILS # (AUTO) 0.1 (0.0-0.1); EOSINOPHILS # (AUTO) 0.3 (0.0-0.4); EOSINOPHILS % 2.4 % (0.0-6.0); HEMATOCRIT 40.5 % (38.2-49.6); HEMOGLOBIN 12.7 g/dL (14.0-18.0); LYMPHOCYTES # (AUTO) 1.7 (1.0-3.2); LYMPHOCYTES % 16.1 % (18.0-39.1); MEAN CORPUSCULAR HEMOGLOBIN 28.3 pg (28-32); MEAN CORPUSCULAR HGB CONC 31.4 g/dL (31-35); MEAN CORPUSCULAR VOLUME 90.2 fL (81-99); MONOCYTES # (AUTO) 1.1 (0.2-0.8); MONOCYTES % 10.2 % (4.4-11.3); NEUTROPHILS # (AUTO) 7.2 (2.1-6.9); NEUTROPHILS % 69.9 % (38.7-80.0); PLATELET COUNT 266 x10e3/uL (140-360); RED BLOOD COUNT 4.49 x10e6/uL (4.3-5.7); RED CELL DISTRIBUTION WIDTH 17.8 % (11.7-14.4)
[2020-09-12 05:38] LABS: ALANINE AMINOTRANSFERASE 192 IU/L (0-55); ALBUMIN 2.9 g/dL (3.5-5.0); ALBUMIN/GLOBULIN RATIO 0.9 (0.8-2.0); ALKALINE PHOSPHATASE 181 IU/L (40-150); ANION GAP 12.6 mmol/L (8-16); BLOOD UREA NITROGEN 20 mg/dL (7-26); BUN/CREATININE RATIO 19 (6-25); CALCIUM 8.3 mg/dL (8.4-10.2); CARBON DIOXIDE 21 mmol/L (22-29); CHLORIDE 105 mmol/L (98-107); CREATININE, SERUM 1.08 mg/dL (0.72-1.25); EST GLOMERULAR FILTRATION RATE > 60 ML/MIN (60-); GLUCOSE 117 mg/dL (74-118); POTASSIUM 3.6 mmol/L (3.5-5.1); SODIUM 135 mmol/L (136-145)
[2020-09-12 07:12] LABS: CREATINE KINASE MB 15.3 ng/mL (0-5.0)
[2020-09-12] MEDS ORDERED: DEXTROSE 50% SYRINGE 50 ML IV PRN (08:45)
[2020-09-12] MEDS ORDERED: METOPROLOL SUCCINATE 50 MG TAB XL PO SCH (09:00)
--- NOTE | 2020-09-12 09:39 | Diagnostic Imaging Report ---
EXAMINATION: CHEST 2 VIEWS INDICATION: Shortness of breath. ^sob ^[id number] ^[id number] COMPARISON: 09/11/2020 FINDINGS: TUBES and LINES: Sternal wires. Left chest 3-lead cardiac device. LUNGS: Mild chronic appearing changes in the lungs. No focal lung consolidation. The lungs are well inflated. PLEURA: Possible trace right pleural effusion. No pneumothorax. HEART AND MEDIASTINUM: Cardiomegaly with mild pulmonary vascular congestion. Calcification at the aortic arch. BONES AND SOFT TISSUES: No acute osseous lesion. Soft tissues are unremarkable. UPPER ABDOMEN: No free air under the diaphragm. IMPRESSION: Cardiomegaly with mild pulmonary vascular congestion. Possible trace right pleural effusion. Signed by: Dr. Constantino Ortega M.D. on 09/12/2020 9:36 AM
[2020-09-12] MEDS ORDERED: SODIUM CHLORIDE 0.9% 250ML 250 ML ONE (10:53)
[2020-09-12] MEDS: PIPER-TAZ 3.375 GM 50 ML IV SCH ×3 (11:08→21:04)
[2020-09-12] MEDS: PANTOPRAZOLE 40 MG 10ML VIAL IV SCH (11:08)
[2020-09-12] MEDS: CITALOPRAM HYDROBROMIDE 20 MG TAB PO SCH (11:22)
[2020-09-12] MEDS: AMIODARONE HCL 200 MG TAB PO SCH (11:22)
[2020-09-12] MEDS: INSULIN LISPRO 100 UNIT/1 ML 3ML VIAL SQ SCH ×3 (12:34→21:08)
[2020-09-12 14:05] LABS: CREATINE KINASE MB 15.7 ng/mL (0-5.0)
--- NOTE | 2020-09-12 15:42 | History and Physical ---
PRIMARY CARE PHYSICIAN: Dr. Armand Alonzo. CHIEF COMPLAINT: Elevated liver enzymes, associated abdominal pain. HISTORY OF PRESENT ILLNESS: The patient is a 70-year-old male with systolic dysfunction, congestive heart failure and defibrillator ICD to the left chest, came in approximately five days ago with abdominal pain, slightly increase in liver enzyme, but came back to the hospital again after discharge from the emergency room. The patient came back within five days showing that he was having increase in LFT with a slightly increase in total bilirubin. The patient had a CT scan of abdomen and pelvis showed pleural effusion with possible congestive heart failure, possible congestion. No other significant finding. He is status post cholecystectomy years ago. The patient is stable. He is eating. He is drinking right now. Liver enzymes slightly going down but remain elevated. The patient is otherwise stable at this time. PAST MEDICAL HISTORY: Coronary artery disease. Cardiomyopathy with ICD. Diabetes type 2. Hypertension. Dyslipidemia. Atrial fibrillation. PAST SURGICAL HISTORY: Coronary artery bypass graft surgery. ICD to the left chest. Appendectomy. Cholecystectomy. SOCIAL HISTORY: The patient does not smoke or use alcohol. No recreational drug use. ALLERGIES: NO KNOWN ALLERGIES. HOME MEDICATIONS: The patient is on acarbose. Amiodarone, aspirin, atorvastatin, Celexa, Plavix, ferrous sulfate, furosemide, glipizide, losartan, metformin, metoprolol succinate, pantoprazole, Senokot and Carafate. PHYSICAL EXAMINATION: VITAL SIGNS: Temperature is 98, blood pressure 106/62, pulse rate is 72, respirations 18. GENERAL: The patient is not in acute distress. He is awake. HEENT: Normocephalic and atraumatic. Pupils reactive. Anicteric. NECK: Supple grossly. PULMONARY: Diminished breath sounds. CARDIOVASCULAR: ICD left chest. ABDOMEN: Soft, nontender, no distention. EXTREMITIES: No cyanosis or edema. NEUROLOGIC: No gross focal deficit. LABORATORY DATA: WBC 11.6, hemoglobin 13.9, hematocrit 44.5, and platelet is 315. Chemistry; sodium 135, potassium 3.6, chloride 105, bicarb 21, BUN 20, creatinine 1.28, glucose is 117. AST was 195, ALT 244, alkaline phosphate 225. CK is 394. Calcium 8.9, total bilirubin was 1.5. Abdomen and pelvis CT scan show bilateral pleural effusion. Cardiomegaly. Interstitial edema. Diverticulosis without diverticulitis. IMPRESSION: 1. Increase in LFT could be secondary to hypotension versus congestive heart failure exacerbation. 2. Baseline cardiomyopathy. 3. Congestive heart failure, systolic with acute on chronic systolic dysfunction, congestive heart failure. 4. Multiple chronic baseline problem. PLAN: Adjust the patient's medication. Decrease the blood pressure medication. Keep the patient's blood pressure elevated. Check the liver enzyme again. The patient is unable to obtain MRCP therefore treat empirically with Zosyn IV for now. Consult GI for now. The patient may follow up with forestry technician in outpatient if needed. For now, we will keep the patient in observation and repeat lab work. MD ASAD Dubose/RIKA /[id number]
[2020-09-12] MEDS: MORPHINE SULFATE INJ 4 MG/ML INJ 1ML IV PRN (16:39)
[2020-09-12] MEDS: METOPROLOL SUCCINATE 50 MG TAB XL PO SCH (21:05)
[2020-09-12] MEDS: QUETIAPINE FUMARATE 25 MG TAB PO SCH (21:05)
[2020-09-13] VITALS: BP 128/63
--- NOTE | 2020-09-13 01:39 | Consultation ---
DATE OF CONSULTATION: 09/12/2020 HISTORY OF PRESENT ILLNESS: This 70-year-old gentleman, who has history of congestive heart failure, status post defibrillator, ICD placement, presented to the hospital because of abdominal pain, nausea, and vomiting, and he was found to have elevated liver function tests with the bilirubin of 1.5, AST of 193, ALT of 244, and alkaline phosphatase of 223. The patient had an EGD about a month ago, which showed gastritis and reflux. He had a CAT scan of the abdomen and pelvis, which shows cardiomegaly and diverticulosis without evidence of diverticulitis. MRCP was ordered, but he was unable to get because of defibrillator in place. PAST MEDICAL HISTORY: His medical problem significant for coronary artery disease, cardiomyopathy, status post ICD, diabetes, hypertension, dyslipidemia, atrial fibrillation, status post coronary bypass graft surgery, appendectomy, and cholecystectomy. ALLERGIES: NONE. SOCIAL HISTORY: Does not smoke or drink. MEDICATIONS: At home including Acarbose, amiodarone, aspirin, atorvastatin, Celexa, Plavix, iron sulfate, Lasix, glipizide, losartan, metformin, metoprolol, pantoprazole, Senokot, and Carafate. REVIEW OF SYSTEMS: Denies any chest pain or shortness of breath. Denies any dysphagia, odynophagia. Denies any dysuria, hematuria, or syncopal episode. PHYSICAL EXAMINATION: GENERAL: Awake, alert, appears to be stable. VITAL SIGNS: Afebrile, currently without vital signs. HEAD, EYES, EARS, NOSE, AND THROAT: Normocephalic, atraumatic. Sclerae are mildly icteric. NECK: Supple. HEART: Regular. LUNGS: Clear. ABDOMEN: Soft. There is no distention at this point. There is some tenderness in the epigastric right upper quadrant area. There is no rebound or mass. EXTREMITIES: No clubbing. LABORATORY VALUES: Today, bilirubin down to 1.1, AST 141, ALT 192, alkaline phosphatase 181. CAT scan of the abdomen done before. WBC of 10.27, hemoglobin of 12.7. IMPRESSION: 1. Abdominal pain, nausea, vomiting, hepatitis. MRCP unfortunately could not be done because of the fact that the patient has defibrillator. 2. Cardiomyopathy. 3. History of diabetes and hypertension. RECOMMENDATIONS: Continue current care. Obtain hepatitis profile and HIDA scan, since the MRCP cannot be done. Depending on the results, the patient may need to have an ERCP. MD JING Lai/RIKA /[id number] cc: MD Joe Dubose MD
[2020-09-13] MEDS: PIPER-TAZ 3.375 GM 50 ML IV SCH ×4 (03:57→20:44)
[2020-09-13 04:00] VITALS: BP 147/76
[2020-09-13 05:10] LABS: BASOPHILS # (AUTO) 0.1 (0.0-0.1); BASOPHILS % 1.2 % (0.0-1.0); EOSINOPHILS # (AUTO) 0.7 (0.0-0.4); EOSINOPHILS % 7.9 % (0.0-6.0); HEMATOCRIT 40.6 % (38.2-49.6); HEMOGLOBIN 12.9 g/dL (14.0-18.0); LYMPHOCYTES # (AUTO) 1.8 (1.0-3.2); LYMPHOCYTES % 21.7 % (18.0-39.1); MEAN CORPUSCULAR HEMOGLOBIN 29.1 pg (28-32); MEAN CORPUSCULAR HGB CONC 31.8 g/dL (31-35); MEAN CORPUSCULAR VOLUME 91.6 fL (81-99); MONOCYTES # (AUTO) 0.9 (0.2-0.8); MONOCYTES % 10.3 % (4.4-11.3); NEUTROPHILS # (AUTO) 4.9 (2.1-6.9); NEUTROPHILS % 58.4 % (38.7-80.0); PLATELET COUNT 235 x10e3/uL (140-360); RED BLOOD COUNT 4.43 x10e6/uL (4.3-5.7); RED CELL DISTRIBUTION WIDTH 18.2 % (11.7-14.4)
[2020-09-13 05:37] LABS: ALANINE AMINOTRANSFERASE 155 IU/L (0-55); ALBUMIN 2.6 g/dL (3.5-5.0); ALBUMIN/GLOBULIN RATIO 0.8 (0.8-2.0); ALKALINE PHOSPHATASE 162 IU/L (40-150); ANION GAP 11.5 mmol/L (8-16); BLOOD UREA NITROGEN 14 mg/dL (7-26); BUN/CREATININE RATIO 14 (6-25); CALCIUM 8.1 mg/dL (8.4-10.2); CARBON DIOXIDE 22 mmol/L (22-29); CHLORIDE 110 mmol/L (98-107); CREATININE, SERUM 1.01 mg/dL (0.72-1.25); EST GLOMERULAR FILTRATION RATE > 60 ML/MIN (60-); GLUCOSE 65 mg/dL (74-118); POTASSIUM 3.5 mmol/L (3.5-5.1); SODIUM 140 mmol/L (136-145)
--- NOTE | 2020-09-13 06:00 | NUR ---
BLOOD SUGAR 54 PER LAB
--- NOTE | 2020-09-13 06:39 | NUR ---
RECHECKED FSBS 145. ALERT AND RESTING IN BED. NO ADVERSE S/S AT THIS TIME.
--- NOTE | 2020-09-13 06:53 | NUR ---
REPORT GIVEN TO DAYSHIFT NURSE. ALERT AND RESTING IN BED. NO SIGNS IV INFILTRATION. NO ADVERSE S/S. BED LOCKED AND IN LOW POSITION. CALL LIGHT WITHIN REACH.
[2020-09-13] MEDS: INSULIN LISPRO 100 UNIT/1 ML 3ML VIAL SQ SCH ×4 (07:30→21:00)
[2020-09-13 07:48] VITALS: BP 106/77
[2020-09-13 08:04] VITALS: BP 106/77
[2020-09-13] MEDS: PANTOPRAZOLE 40 MG 10ML VIAL IV SCH (08:24)
[2020-09-13] MEDS: CITALOPRAM HYDROBROMIDE 20 MG TAB PO SCH (09:00)
--- NOTE | 2020-09-13 09:15 | Progress Note ---
DATE: 09/13/2020 Dr. Nolberto Shankar is requesting transferring this patient to his service due to the patient's primary care physician is Dr. Armand Alonzo with the patient network provider. Dr. Shankar will see the patient today. Again, I did not see the patient transferring the patient to Dr. Shankar service today. MD ASAD Dubose/RIKA /[id number]
--- NOTE | 2020-09-13 13:55 | NUR ---
visited the pt , provided hope building and prayer. Pt expressed peace chaplain Vipin
--- NOTE | 2020-09-13 14:21 | Diagnostic Imaging Report ---
HEPATOBILIARY SCAN INDICATION: Transaminitis; RUQ pain x 2 weeks. History of cholecystectomy in 2015. Report: Following the administration of 6.6 mCi of Tc-99m mebrofenin, dynamic images of the abdomen in the anterior projection were obtained through 60 minutes. Perfusion of the liver is normal. Extraction of tracer from the blood pool by the liver parenchyma is mildly prolonged. Tracer appears in the biliary tract by 10 minutes post injection of tracer. Tracer is seen in the small bowel by 35 minutes. Impression: 1. Mild hepatocyte dysfunction evidenced by mildly prolonged extraction of the radiotracer from the blood pool. 2. Normal odlguus-ol-ajqcb transit time of less than 60 minutes. 3. No scan evidence of biliary tract obstruction or cholestasis. Signed by: Dr. Virginia Garay M.D. on 09/13/2020 2:18 PM
[2020-09-13 16:48] VITALS: BP 133/60
[2020-09-13] MEDS: AMIODARONE HCL 200 MG TAB PO SCH (17:17)
--- NOTE | 2020-09-13 19:03 | Progress Note ---
DATE: 09/13/2020 SUBJECTIVE: A 70-year-old gentleman with a known history of CHF, status post defibrillator and ICD placement, who presented to the emergency room department complaining of abdominal pain, nausea and vomiting. The patient is being followed up pertaining to abnormal liver enzymes. The patient previously had studies done including EGD, which revealed evidence of gastritis. CAT scan of the abdomen did reveal diverticulosis without evidence of diverticulitis. MRCP has been ordered. This could not be done in view of the fact that the patient has GI is following the patient. HIDA scan has been ordered. Results of HIDA scan are that of normal biliary to bowel transit time of less than 60 minutes. No scan evidence of biliary tract obstruction or . Mild hepatocyte dysfunction evidenced by mildly prolonged extraction of the is concerned this morning CBC revealed hemoglobin 12.9, white blood cell count 8.46, platelet count 235,000 and Chem profile did reveal this morning sodium 140, potassium 3.5, chloride 110, CO2 22, BUN 14 and creatinine 1.01. ASSESSMENT: 1. No liver function tests presumably secondary to hypotension and congestive heart failure exacerbation. 2. Cardiomyopathy. 3. Congestive heart failure, systolic with acute on chronic systolic dysfunction. PLAN OF CARE: GI is following the patient as mentioned. Continue has been advised. List of medications noted. MD GREGORY Muhammad/RIKA /[id number]
[2020-09-13 20:00] VITALS: BP 133/74
[2020-09-13] MEDS: QUETIAPINE FUMARATE 25 MG TAB PO SCH (20:44)
[2020-09-13] MEDS: MORPHINE SULFATE INJ 4 MG/ML INJ 1ML IV PRN (20:44)
[2020-09-13] MEDS: ONDANSETRON HCL INJ 2MG/ML 2ML 2 MG/ML VIAL IV PRN (20:44)
[2020-09-13] MEDS: METOPROLOL SUCCINATE 50 MG TAB XL PO SCH (20:44)
[2020-09-14] VITALS (7 sets, daily range): BP systolic 115–136; BP diastolic 62–76
[2020-09-14] MEDS: PIPER-TAZ 3.375 GM 50 ML IV SCH ×4 (03:00→20:52)
[2020-09-14] MEDS ORDERED: SODIUM CHLORIDE 0.9% 250ML 250 ML ONE (03:48)
[2020-09-14 06:12] LABS: ALBUMIN 2.4 g/dL (3.5-5.0); BILIRUBIN,DIRECT 0.6 mg/dL (0.0-0.5)
[2020-09-14] MEDS: INSULIN LISPRO 100 UNIT/1 ML 3ML VIAL SQ SCH ×4 (07:30→21:00)
[2020-09-14] MEDS: AMIODARONE HCL 200 MG TAB PO SCH (09:14)
[2020-09-14] MEDS: PANTOPRAZOLE 40 MG 10ML VIAL IV SCH (09:14)
[2020-09-14] MEDS: CITALOPRAM HYDROBROMIDE 20 MG TAB PO SCH (09:14)
[2020-09-14] MEDS: MORPHINE SULFATE INJ 4 MG/ML INJ 1ML IV PRN (16:25)
[2020-09-14] MEDS: ONDANSETRON HCL INJ 2MG/ML 2ML 2 MG/ML VIAL IV PRN (16:25)
[2020-09-14] MEDS: QUETIAPINE FUMARATE 25 MG TAB PO SCH (20:52)
[2020-09-14] MEDS: METOPROLOL SUCCINATE 50 MG TAB XL PO SCH (20:53)
--- NOTE | 2020-09-14 22:58 | NUR ---
Progress note dictated
[2020-09-15] VITALS (8 sets, daily range): BP systolic 126–146; BP diastolic 66–86
--- NOTE | 2020-09-15 01:45 | Progress Note ---
DATE: The patient was seen and evaluated on September 14, 2020. SUBJECTIVE: The patient was doing fine at the time of my evaluation and the patient denies fever, no chills. No abdominal pain. No nausea or vomiting. He has been eating fine with no difficulty. The patient has a followup with GI for abdominal pain. The patient has been scheduled to undergo MRCP, which has not been performed since the patient does have defibrillator in place. The patient, however, underwent evaluation with HIDA scan and results of HIDA did reveal normal biliary to bowel transit time. No scan evidence of biliary tract obstruction or cholecystitis. There was mild hepatocellular dysfunction, evidenced by mildly prolonged extraction of the radiotracer from the blood pool. The patient evidently does have abnormal labs. There has been improvement on AST, which has come down from 193 down to 75 and although values reveal a total bilirubin of 0.6, which has been normal. LABORATORY DATA: As far as chemistry profile is concerned as of September 14, total bilirubin 0.9, direct bilirubin 0.6, AST 75, ALT 129, total protein 5.5 and 2.4, alkaline phosphatase . ASSESSMENT AND PLAN: 1. Abdominal pain. 2. Nausea and vomiting. 3. Viral hepatitis. 4. History of diabetes mellitus. 5. Hypertension. 6. History of cardiomyopathy. 7. History of congestive heart failure. 8. History with acute on chronic systolic dysfunction. CAT scan of the abdomen had revealed bilateral pleural effusion, cardiomegaly, and interstitial edema. As far as previous record that the patient does have a history of irritable bowel syndrome in the past as far as presentation done back in October 2015. The patient does have a history of coronary artery disease with coronary artery bypass graft surgery and history of atrial fibrillation. However, his condition seems to be very stable at this point in time with no cardiac symptoms, was admitted to the hospital with the history of having elevated liver enzymes and assess the abdominal pain. Multiple medical problems have been addressed. Continue present care as it has been advised. Follow up labs in the morning. MD GREGORY Muhammad/RIKA /[id number]
[2020-09-15] MEDS: PIPER-TAZ 3.375 GM 50 ML IV SCH ×4 (03:00→21:42)
[2020-09-15 06:33] LABS: BASOPHILS # (AUTO) 0.1 (0.0-0.1); BASOPHILS % 1.5 % (0.0-1.0); EOSINOPHILS # (AUTO) 0.6 (0.0-0.4); EOSINOPHILS % 7.1 % (0.0-6.0); HEMATOCRIT 41.8 % (38.2-49.6); HEMOGLOBIN 12.6 g/dL (14.0-18.0); LYMPHOCYTES # (AUTO) 1.8 (1.0-3.2); MEAN CORPUSCULAR HEMOGLOBIN 28.4 pg (28-32); MEAN CORPUSCULAR HGB CONC 30.1 g/dL (31-35); MEAN CORPUSCULAR VOLUME 94.1 fL (81-99); MONOCYTES # (AUTO) 0.9 (0.2-0.8); MONOCYTES % 11.4 % (4.4-11.3); NEUTROPHILS # (AUTO) 4.7 (2.1-6.9); NEUTROPHILS % 57.8 % (38.7-80.0); PLATELET COUNT 200 x10e3/uL (140-360); RED BLOOD COUNT 4.44 x10e6/uL (4.3-5.7); RED CELL DISTRIBUTION WIDTH 18.1 % (11.7-14.4)
[2020-09-15 06:43] LABS: ALANINE AMINOTRANSFERASE 111 IU/L (0-55); ALBUMIN 2.6 g/dL (3.5-5.0); ALBUMIN/GLOBULIN RATIO 0.8 (0.8-2.0); ALKALINE PHOSPHATASE 135 IU/L (40-150); ANION GAP 14.8 mmol/L (8-16); BLOOD UREA NITROGEN 7 mg/dL (7-26); BUN/CREATININE RATIO 6 (6-25); CALCIUM 8.5 mg/dL (8.4-10.2); CARBON DIOXIDE 19 mmol/L (22-29); CHLORIDE 108 mmol/L (98-107); CREATININE, SERUM 1.15 mg/dL (0.72-1.25); EST GLOMERULAR FILTRATION RATE > 60 ML/MIN (60-); GLUCOSE 116 mg/dL (74-118); POTASSIUM 3.8 mmol/L (3.5-5.1); SODIUM 138 mmol/L (136-145)
--- NOTE | 2020-09-15 07:00 | NUR ---
BEDSIDE SHIFT REPORT RECEIVED FROM THE TARIFF CLERK RN. EDUCATED PT ABOUT FALL PRECAUTIONS. PT VERBALIZED UNDERSTANDING. CALL LIGHT WITH IN EASY REACH. INSTRUCTED PT TO USE CALL LIGHT FOR ALL THE NEEDS. BED IS LOW AND LOCKED. SIDE RAILS X2. BED ALARM IS ON. ALL SAFETY MEASURES IN PLACE. PT DENIES NEEDS AT THIS TIME.
[2020-09-15] MEDS: INSULIN LISPRO 100 UNIT/1 ML 3ML VIAL SQ SCH ×4 (07:30→21:00)
[2020-09-15] MEDS: PANTOPRAZOLE 40 MG 10ML VIAL IV SCH (09:37)
[2020-09-15] MEDS: CITALOPRAM HYDROBROMIDE 20 MG TAB PO SCH (09:38)
[2020-09-15] MEDS: AMIODARONE HCL 200 MG TAB PO SCH (09:38)
[2020-09-15] MEDS: ONDANSETRON HCL INJ 2MG/ML 2ML 2 MG/ML VIAL IV PRN (14:44)
[2020-09-15] MEDS: MORPHINE SULFATE INJ 4 MG/ML INJ 1ML IV PRN (14:44)
--- NOTE | 2020-09-15 15:10 | NUR ---
Pt kiswahili speaking, senior center manager was not available, attempted to contact next of kin but not successful, unable to do DPA
--- NOTE | 2020-09-15 19:05 | NUR ---
Received patient awake, not in distress, bed alarm activated, call light within easy reach, advised to call for assistance anytime when needed, will continue to monitor closely
--- NOTE | 2020-09-15 19:07 | NUR ---
BEDSIDE SHIFT REPORT GIVEN TO THE BOOKKEEPING SERVICE SALES AGENT RN. PT DENIED FURTHER NEEDS.
[2020-09-15] MEDS: QUETIAPINE FUMARATE 25 MG TAB PO SCH (21:42)
[2020-09-15] MEDS: METOPROLOL SUCCINATE 50 MG TAB XL PO SCH (21:49)
[2020-09-16] VITALS (9 sets, daily range): BP systolic 121–141; BP diastolic 67–82
--- NOTE | 2020-09-16 00:05 | Progress Note ---
DATE: 09/15/2020 SUBJECTIVE: The patient is doing fine. He is eating well with no difficulty, having some discomfort in the abdomen. Denies nausea or vomiting. No chest pain or shortness of breath. No fever, no chills. PHYSICAL EXAMINATION: GENERAL: The patient is alert and oriented to person, time, and place. VITAL SIGNS: Blood pressure 131/86, respirations 20, pulse 58, temperature 98.5. HEENT: Normocephalic and atraumatic NECK: Supple. No JVD. LUNGS: Clear to auscultation. HEART: Regular rate and rhythm. No murmurs or gallops. ABDOMEN: Soft and nontender. EXTREMITIES: No edema. NEUROLOGIC: Nonfocal. LABORATORY DATA: CBC disclosed hemoglobin 12.6, white blood cell count 8.05, platelet count 200,000. Chem profile reveals sodium of 138, potassium 3.8, chloride 108, CO2 19, BUN 7, creatinine 1.15, AST 56, ALT 111. ASSESSMENT: 1. Abdominal pain. 2. Nausea and vomiting. 3. Viral hepatitis. 4. Diabetes mellitus type 2. 5. Hypertension. 6. Cardiomyopathy. 7. History of congestive heart failure.. 8. History of systolic heart failure. PLAN OF CARE: The patient is doing fine. Liver enzymes have improved. Lab data is good. He is stable at this time. in a.m. and consider discharge. As far as what the current medications is concerned, presently the patient is taking the following medications: 1. Amiodarone. 2. Celexa. 3. Humulin sliding scale. 4. Metoprolol succinate. 5. Pantoprazole IV. MD GREGORY Muhammad/RIKA /[id number]
[2020-09-16] MEDS: MORPHINE SULFATE INJ 4 MG/ML INJ 1ML IV PRN ×2 (01:19→20:35)
[2020-09-16] MEDS: ONDANSETRON HCL INJ 2MG/ML 2ML 2 MG/ML VIAL IV PRN ×2 (01:19→20:35)
[2020-09-16] MEDS: PIPER-TAZ 3.375 GM 50 ML IV SCH ×5 (03:00→20:39)
[2020-09-16 06:23] LABS: ANION GAP 12.3 mmol/L (8-16); CALCIUM 8.3 mg/dL (8.4-10.2); CREATININE, SERUM 1.19 mg/dL (0.72-1.25); POTASSIUM 3.3 mmol/L (3.5-5.1)
[2020-09-16] MEDS: INSULIN LISPRO 100 UNIT/1 ML 3ML VIAL SQ SCH ×4 (07:08→20:39)
--- NOTE | 2020-09-16 07:16 | NUR ---
bedside shift report done with khalif QUEZADA
[2020-09-16] MEDS: CITALOPRAM HYDROBROMIDE 20 MG TAB PO SCH ×2 (09:00→09:06)
[2020-09-16] MEDS: AMIODARONE HCL 200 MG TAB PO SCH ×2 (09:00→09:06)
[2020-09-16] MEDS: QUETIAPINE FUMARATE 25 MG TAB PO SCH (20:39)
[2020-09-16] MEDS: METOPROLOL SUCCINATE 50 MG TAB XL PO SCH (20:39)
[2020-09-16] MEDS ORDERED: PANTOPRAZOLE SOD 40 MG TABEC PO ONE (22:45)
--- NOTE | 2020-09-17 00:34 | Progress Note ---
DATE: 09/16/2020 SUBJECTIVE: The patient was doing fine at the time of evaluation. The patient had no complaints. No fever, no chills. No chest pain or shortness of breath. He is eating fine with no complaints. OBJECTIVE: GENERAL: The patient has been alert and oriented to person, time, and place. VITAL SIGNS: Blood pressure 134/75, respirations 18, pulse 70, temperature 97.8. HEENT: Head is normocephalic and atraumatic. NECK: Supple. No JVD. LUNGS: Clear to auscultation. HEART: Regular rate and rhythm. No murmurs or gallops. ABDOMEN: Soft, nontender. EXTREMITIES: No edema. NEUROLOGIC: Nonfocal. LABORATORY DATA: He has new laboratory data. Sodium 140, potassium 3.3, chloride 109, CO2 22, BUN 10, creatinine 1.19. ASSESSMENT: 1. Abdominal pain. 2. Nausea and vomiting. 3. Viral hepatitis. 4. Diabetes mellitus type 2. 5. Hypertension. 6. Cardiomyopathy. 7. History of congestive heart failure. PLAN OF CARE: Continue present care. Continue medications as advised. P.o. Protonix. List of medication review. Re-evaluate in the a.m. MD GREGORY Muhammad/RIKA /[id number]
[2020-09-17] MEDS: PIPER-TAZ 3.375 GM 50 ML IV SCH ×2 (03:00→08:26)
[2020-09-17 03:36] VITALS: BP 130/77
--- NOTE | 2020-09-17 07:06 | NUR ---
Bedside report and walking rounds completed with oncoming nurse. Patient in bed with call light within reach. No issues or concerns noted. POC updated with patient.
[2020-09-17] MEDS: INSULIN LISPRO 100 UNIT/1 ML 3ML VIAL SQ SCH ×2 (07:30→12:18)
[2020-09-17 08:00] VITALS: BP 141/77
[2020-09-17 08:00] LABS: ALBUMIN 2.5 g/dL (3.5-5.0); BILIRUBIN,DIRECT 0.5 mg/dL (0.0-0.5)
[2020-09-17] MEDS: CITALOPRAM HYDROBROMIDE 20 MG TAB PO SCH (08:26)
[2020-09-17] MEDS: AMIODARONE HCL 200 MG TAB PO SCH (08:26)
[2020-09-17] MEDS ORDERED: TOPROL XL50 MG PO (11:23)
[2020-09-17] MEDS ORDERED: LOSARTAN POTASS25 MG PO (11:23)
[2020-09-17] MEDS ORDERED: K DUR10 MEQ PO (11:24)
--- NOTE | 2020-09-17 11:29 | NUR ---
Medications per reconciliation list
[2020-09-17 12:00] VITALS: BP 138/79
[2020-09-17] MEDS ORDERED: ONDANSETRON HCL 4 MG ORAL DISINTEGRATING TAB PO PRN (13:30)
--- NOTE | 2020-09-17 15:05 | NUR ---
Pt discharged home at this time. Pt verbalized understanding of all discharge instructions and follow up appointments. Discussed discharge instructions with daughter as well. 0 s/s of acute distress noted at time of discharge.
== END 2020-09-17 15:06 | disposition home or self-care (01) | DRG 292 ==
LOC: ER 21:00 → ERHOLD 09-12 01:41 → MED/SURG2 09-12 01:58 → OBSVTOIN 09-13 08:46
PROVIDERS: ADMIT Internal Medicine; ATTEND Internal Medicine
DX: I11.0 Hypertensive heart disease with heart failure (principal); B19.9 Unspecified viral hepatitis without hepatic coma; I50.23 Acute on chronic systolic (congestive) heart failure; I25.10 Atherosclerotic heart disease of native coronary artery without angina pectoris; Z95.1 Presence of aortocoronary bypass graft; Z95.810 Presence of automatic (implantable) cardiac defibrillator; E78.5 Hyperlipidemia, unspecified; I48.91 Unspecified atrial fibrillation; Z79.01 Long term (current) use of anticoagulants; I42.9 Cardiomyopathy, unspecified; Z90.49 Acquired absence of other specified parts of digestive tract; E11.9 Type 2 diabetes mellitus without complications; Z20.828 Contact with and (suspected) exposure to other viral communicable diseases; K21.9 Gastro-esophageal reflux disease without esophagitis; F32.9 Major depressive disorder, single episode, unspecified
CPT/HCPCS: 36415; 71046; 74177; 78227; 80048; 80053; 80076; 81001; 82550; 82553; 82948; 83605; 83690; 84484; 85025; 87040; 99284; A9537; G0378; J2270; J2405; J2543; J7050; J7799; Q9967; U0002

== ENCOUNTER 2020-11-03 02:56 | Inpatient (IN) | payer MEDICARE, OTHER ==
[~2020-11-03] VITALS: Ht 170.2 cm; Wt 76.4 kg
[~2020-11-03 02:56] MED LIST changes: +K DUR10 MEQ PO; +LOSARTAN POTASS25 MG PO; +TOPROL XL50 MG PO
[2020-11-03 04:16] LABS: BASOPHILS # (AUTO) 0.1 (0.0-0.1); BASOPHILS % 0.7 % (0.0-1.0); EOSINOPHILS % 0.1 % (0.0-6.0); HEMATOCRIT 47.3 % (38.2-49.6); LYMPHOCYTES # (AUTO) 2.4 (1.0-3.2); LYMPHOCYTES % 15.9 % (18.0-39.1); MEAN CORPUSCULAR HEMOGLOBIN 28.3 pg (28-32); MEAN CORPUSCULAR HGB CONC 31.7 g/dL (31-35); MEAN CORPUSCULAR VOLUME 89.2 fL (81-99); MONOCYTES # (AUTO) 1.5 (0.2-0.8); MONOCYTES % 9.9 % (4.4-11.3); NEUTROPHILS # (AUTO) 10.9 (2.1-6.9); NEUTROPHILS % 72.9 % (38.7-80.0); PLATELET COUNT 314 x10e3/uL (140-360)
[2020-11-03 04:30] LABS: AMYLASE 38 U/L (25-125); LIPASE 13 U/L (8-78)
[2020-11-03 04:35] LABS: ALBUMIN 3.6 g/dL (3.5-5.0); ALBUMIN/GLOBULIN RATIO 0.9 (0.8-2.0); ANION GAP 21.6 mmol/L (8-16); CALCIUM 9.2 mg/dL (8.4-10.2); CREATININE, SERUM 1.64 mg/dL (0.72-1.25); POTASSIUM 4.6 mmol/L (3.5-5.1)
[2020-11-03] MEDS ORDERED: DEXTROSE 50% SYRINGE 50 ML IV STA (04:36)
[2020-11-03 04:42] LABS: CREATINE KINASE MB 11.3 ng/mL (0-5.0)
[2020-11-03] MEDS ORDERED: DEXTROSE 50% SYRINGE 50 ML IV ONE (04:45)
[2020-11-03] MEDS ORDERED: DIATRIZOATE MEGL/DIATRIZOA SOD 30 ML BTL PO ONE (05:07)
[2020-11-03] MEDS: FUROSEMIDE INJ 10 MG/ML 4 ML VIAL IV SCH ×2 (06:58→16:24)
[2020-11-03 12:29] VITALS: BP 118/81
[2020-11-03] MEDS ORDERED: DOCUSATE SODIU100 MG PO (12:46)
[2020-11-03] MEDS ORDERED: ALPRAZOLAM0.5 M1 (12:46)
[2020-11-03] MEDS ORDERED: DICYCLOMINE HCL20 MG PO (12:47)
[2020-11-03] MEDS ORDERED: NOVOLIN 70100 UNIT/3 SC (12:54)
[2020-11-03] MEDS ORDERED: ZOFRAN4 MG PO (12:54)
[2020-11-03] MEDS ORDERED: ULTRAM50 MG PO (12:54)
[2020-11-03] MEDS ORDERED: DEXTROSE 50% SYRINGE 50 ML IV PRN (13:45)
[2020-11-03] MEDS ORDERED: ZOLPIDEM TARTRATE 5 MG TAB PO PRN (13:45)
[2020-11-03] MEDS: AMIODARONE HCL 200 MG TAB PO SCH (14:00)
[2020-11-03 15:00] VITALS: BP 118/81
[2020-11-03 15:24] LABS: CREATINE KINASE MB 8.8 ng/mL (0-5.0)
[2020-11-03] MEDS: FERROUS SULFATE 325 MG TAB PO SCH (16:24)
[2020-11-03] MEDS: TRAMADOL HCL 50 MG TAB PO SCH (16:24)
[2020-11-03] MEDS: ASPIRIN 81 MG CHEW TAB PO SCH (16:24)
[2020-11-03] MEDS: MULTIVITAMINS/MINERALS TAB PO SCH (16:24)
[2020-11-03] MEDS: CLOPIDOGREL BISULFATE 75 MG TAB PO SCH (16:24)
[2020-11-03] MEDS: DICYCLOMINE HCL 20 MG TAB PO SCH ×2 (16:25→20:56)
[2020-11-03] MEDS: INSULIN REGULAR, HUMAN 100 UNIT/1 ML 3ML VIAL SQ SCH ×2 (16:30→20:57)
[2020-11-03 16:44] VITALS: BP 135/80
[2020-11-03] MEDS ORDERED: MULTIVITAMINS/MINERALS TAB PO SCH (17:00)
[2020-11-03 20:56] VITALS: BP 124/65
[2020-11-03] MEDS: PANTOPRAZOLE SOD 40 MG TABEC PO SCH (20:56)
[2020-11-03] MEDS: SENNOSIDES 8.6 MG TAB PO SCH (20:56)
[2020-11-03 20:59] VITALS: BP 124/65
[2020-11-03] MEDS ORDERED: METOPROLOL SUCCINATE 50 MG TAB XL PO SCH ×2 (21:00)
[2020-11-04 00:39] VITALS: BP 138/74
[2020-11-04 05:29] VITALS: BP 129/58
[2020-11-04 06:20] LABS: BASOPHILS # (AUTO) 0.1 (0.0-0.1); BASOPHILS % 1.1 % (0.0-1.0); EOSINOPHILS # (AUTO) 0.2 (0.0-0.4); EOSINOPHILS % 2.3 % (0.0-6.0); HEMATOCRIT 42.2 % (38.2-49.6); HEMOGLOBIN 13.4 g/dL (14.0-18.0); LYMPHOCYTES # (AUTO) 2.3 (1.0-3.2); LYMPHOCYTES % 23.4 % (18.0-39.1); MEAN CORPUSCULAR HEMOGLOBIN 27.9 pg (28-32); MEAN CORPUSCULAR HGB CONC 31.8 g/dL (31-35); MEAN CORPUSCULAR VOLUME 87.9 fL (81-99); MONOCYTES # (AUTO) 1.2 (0.2-0.8); MONOCYTES % 12.3 % (4.4-11.3); NEUTROPHILS % 60.7 % (38.7-80.0); PLATELET COUNT 228 x10e3/uL (140-360); RED CELL DISTRIBUTION WIDTH 19.7 % (11.7-14.4)
[2020-11-04 06:51] LABS: ALBUMIN 2.9 g/dL (3.5-5.0); ALBUMIN/GLOBULIN RATIO 0.9 (0.8-2.0); ANION GAP 13.7 mmol/L (8-16); CALCIUM 8.2 mg/dL (8.4-10.2); CREATININE, SERUM 1.29 mg/dL (0.72-1.25)
[2020-11-04 07:03] LABS: POTASSIUM 2.7 mmol/L (3.5-5.1)
[2020-11-04] MEDS: INSULIN REGULAR, HUMAN 100 UNIT/1 ML 3ML VIAL SQ SCH ×2 (07:30→11:30)
[2020-11-04] MEDS ORDERED: POTASSIUM CHLORIDE 20 MEQ TAB CR PO STA (08:29)
[2020-11-04] MEDS: PANTOPRAZOLE SOD 40 MG TABEC PO SCH (08:42)
[2020-11-04] MEDS: ASPIRIN 81 MG CHEW TAB PO SCH (08:43)
[2020-11-04] MEDS: DICYCLOMINE HCL 20 MG TAB PO SCH ×2 (08:43→13:47)
[2020-11-04] MEDS: FERROUS SULFATE 325 MG TAB PO SCH (08:44)
[2020-11-04] MEDS: CLOPIDOGREL BISULFATE 75 MG TAB PO SCH (08:44)
[2020-11-04] MEDS: SENNOSIDES 8.6 MG TAB PO SCH (08:44)
[2020-11-04] MEDS: MULTIVITAMINS/MINERALS TAB PO SCH (08:44)
[2020-11-04] MEDS: TRAMADOL HCL 50 MG TAB PO SCH ×3 (08:45→11:25)
[2020-11-04 08:55] VITALS: BP 139/64
[2020-11-04] MEDS ORDERED: CLOPIDOGREL BISULFATE 75 MG TAB PO SCH (09:00)
[2020-11-04] MEDS ORDERED: LOSARTAN POTASSIUM 25 MG TAB PO SCH (09:00)
[2020-11-04] MEDS ORDERED: ASPIRIN 81 MG CHEW TAB PO SCH (09:00)
[2020-11-04] MEDS ORDERED: POTASSIUM CHLORIDE 10MEQ EA PO SCH (09:00)
[2020-11-04] MEDS ORDERED: DOCUSATE SODIUM 100 MG CAP PO SCH (09:00)
[2020-11-04 09:25] VITALS: BP 139/64
[2020-11-04] MEDS ORDERED: POTASSIUM CHLORIDE 20 MEQ TAB CR PO SCH (10:45)
[2020-11-04 12:22] VITALS: BP 128/72
[2020-11-04] MEDS: FUROSEMIDE INJ 10 MG/ML 4 ML VIAL IV SCH (12:37)
[2020-11-04] MEDS: AMIODARONE HCL 200 MG TAB PO SCH (12:37)
[2020-11-04] MEDS ORDERED: LASIX40 MG PO (14:41)
[2020-11-04] MEDS ORDERED: PRAVACHOL20 MG PO (14:41)
== END 2020-11-04 15:57 | disposition home or self-care (01) | DRG 292 ==
LOC: EDBD 02:56 → ER 03:30 → ERHOLD 06:06 → MED/SURG2 09:47
PROVIDERS: ADMIT Internal Medicine; ATTEND Internal Medicine
DX: I11.0 Hypertensive heart disease with heart failure (principal); N17.9 Acute kidney failure, unspecified; I50.23 Acute on chronic systolic (congestive) heart failure; E78.5 Hyperlipidemia, unspecified; I48.0 Paroxysmal atrial fibrillation; E11.9 Type 2 diabetes mellitus without complications; E87.6 Hypokalemia; I25.10 Atherosclerotic heart disease of native coronary artery without angina pectoris; R33.9 Retention of urine, unspecified; Z82.49 Family history of ischemic heart disease and other diseases of the circulatory system; Z83.3 Family history of diabetes mellitus; Z95.810 Presence of automatic (implantable) cardiac defibrillator; Z20.822 Contact with and (suspected) exposure to COVID-19; Z95.1 Presence of aortocoronary bypass graft; Z95.5 Presence of coronary angioplasty implant and graft; Z79.82 Long term (current) use of aspirin; Z79.4 Long term (current) use of insulin
CPT/HCPCS: 36415; 71045; 74176; 80053; 82150; 82550; 82553; 82948; 83690; 83880; 84484; 85025; 93005; 93306; 99284; J1940; J7799; U0002